=== PATIENT | female | born 1965 | race Caucasian/White ===

== ENCOUNTER → 2018-05-08 12:54 | Outpatient (REF) | payer MEDICARE, SELFPAY ==
[2018-05-08 22:18] LABS: HCT 38.6 % (36.0-46.0); HGB 12.8 g/dL (12.0-15.5); Mean Corp. HGB Concentration 33.2 g/dL (32.0-36.0); Mean Corpuscular Hemoglobin 32.4 pg (27.0-33.0); Mean Corpuscular Volume 97.7 fL (80-95); Mean Platelet Volume 10.3 fL (8.0-11.0); Platelet Count 384 x1000/uL (130-400); RBC 3.95 m/cumm (4.00-5.20); RBC Distribution Width 13.3 % (11.7-14.6); White Blood Cell Count 14.55 k/cumm (4.4-10.8)
[2018-05-08 22:31] LABS: ALT 26 U/L (12-78); AST 15 U/L (15-37); Albumin 3.9 g/dL (3.4-5.0); Alkaline Phosphatase 81 U/L (46-116); Anion Gap 8.6 mmol/L (3-11); BUN 11 mg/dL (7-18); Bilirubin, Total 0.4 mg/dL (0.2-1.0); CO2 26.4 mmol/L (21.0-32.0); CREATININE 0.84 mg/dL (0.55-1.02); Calcium 8.8 mg/dL (8.5-10.1); Chloride 105 mmol/L (98-107); Cholesterol 172 mg/dL (50-200); Glucose 83 mg/dL (70-100); HDL Cholesterol 38 mg/dL (40-60); LDL CHOLESTEROL 122 mg/dL (<100); Potassium 4.3 mmol/L (3.5-5.1); Sodium 140 mmol/L (136-145); TSH (W/Ref FT4) 0.78 uIU/mL (0.358-3.74); Total Protein 7.2 g/dL (6.4-8.2); Triglyceride 90 mg/dL (30-150)
[2018-05-08 22:49] LABS: NT-proBNP 143 pg/mL
== END ==
LOC: NCHCN 12:54
PROVIDERS: PCP Internal Medicine; Visit Provider Internal Medicine
DX: R60.9 Edema, unspecified (principal); E78.5 Hyperlipidemia, unspecified; R53.1 Weakness; G47.33 Obstructive sleep apnea (adult) (pediatric); M79.7 Fibromyalgia; Z72.0 Tobacco use
CPT/HCPCS: 80053; 80061; 83721; 85027; 83880; 84443

== ENCOUNTER 2018-06-27 09:10 | Outpatient (CLI) | payer MEDICARE, SELFPAY ==
--- NOTE | 2018-06-27 09:08 | DI.RAD_ITS ---
SYMPTOM/DIAGNOSIS: LT KNEE PAIN LEFT KNEE: There is narrowing of the medial joint compartment. A small area of ossification is noted adjacent to the medial tibial eminence. There is no evidence of a joint effusion. SUMMARY: Mild DJD is demonstrated.
== END 2018-06-27 09:30 ==
PROVIDERS: PCP Internal Medicine; Referring Provider Internal Medicine; Visit Provider Student in an Organized Health Care Education/Training Program
DX: M25.562 Pain in left knee (principal); M17.11 Unilateral primary osteoarthritis, right knee; M25.561 Pain in right knee; M17.12 Unilateral primary osteoarthritis, left knee
CPT/HCPCS: 20610; 99214; 73560; 77073; J1040

== ENCOUNTER 2018-07-09 00:56 | Outpatient (CLI) | payer MEDICARE, SELFPAY ==
--- NOTE | 2018-07-09 15:22 | DI.MAMMO_ITS ---
SYMPTOM/DIAGNOSIS: SCREENING, Z12.31 MAMMOGRAMS: Mammograms were interpreted according to the usual protocol including computer analysis with CAD system, tomosynthesis and C view imaging. Comparison with prior examinations. Breast density B. No masses or microcalcifications are seen. There is nothing to suggest malignancy. IMPRESSION: Negative mammogram. Routine screening is recommended. Category I. MQSA ASSESSMENT OF FINDINGS: Negative. Category 1. Patient will receive a letter notifying them of these results. BI-RADS category B. There are scattered areas of fibroglandular density.
== END 2018-07-09 01:16 ==
PROVIDERS: PCP Internal Medicine; Visit Provider Internal Medicine
DX: Z12.31 Encounter for screening mammogram for malignant neoplasm of breast (principal)
CPT/HCPCS: 77063; 77067

== ENCOUNTER 2018-07-16 08:48 | Outpatient (CLI) | payer MEDICARE, SELFPAY ==
--- NOTE | 2018-07-16 10:22 | HPE_ITS ---
Assessment and Plan (1) Primary osteoarthritis of right knee: Current visit: Yes Status: Acute Plan: Dr. Curtis and patient discuss best next step in treatment since patient also has severe left knee pain currently. After discussion, patient and Dr. Curtis agree to continue with scheduling right TKA. Patient's left knee complaints will continue to be assessed at visits. Patient is agreeable to plan. Reviewed surgery including surgical technique, pertinent anatomy, benefits and risks including but not limited to risk of infection, blood clot, damage to soft tissue/nerve/blood vessels with patient in detail. After discussion of risks patient elects to continue with scheduling surgery. Patient had opportunity to have questions answered to her satisfaction. Patient was provided booklet on guide to total knee replacements. Patient will contact office if issues arise. Patient has concerns about being put on a nicotine patch following surgery, she would prefer to use a nicotine puffer/ inhaler while at the hospital. Patient continue to be scheduled for right TKA with Dr. Curtis on 07/20/18. Ms. Sifuentes is a 52-year-old female who presents to clinic for preoperative visit for scheduled right TKA with Dr. Curtis. Patient has continued to have right knee pain located along the medial aspect of her joint line. Patient underwent a right knee arthroscopy on November 21, 2017 which revealed complex medial meniscal tear with grade 4 medial chondromalacia and chondral loose bodies. Patient also received injections in her right knee with the last injection in the right knee on January 29, 2018. Patient reports that despite knee arthroscopy and injection she has continued to have pain. Pain is aggravated by any weightbearing activity, bending motion and when she attempts to get out of a chair. Patient reports her pain is so severe she is unable to kneel on her knees and increase physical activity. Patient also reports that her left knee has become more aggravated over the past several months. Patient had her left knee injected on June 27, 2018 and states the injection provided some relief but she continues to experience pain with weightbearing activity. Patient also describes pain in the left knee as located along the medial aspect. Her left knee pain is also aggravated with any motion on stairs. Patient denies any sensation of giving out or locking up. Patient denies any numbness or tingling. Patient denies any recent falls. Pertinent Surgical Information Patient reports she had productive cough since she was diagnosed with sinusitis approximately 1 month ago. Patient saw PCP who treated her with an antibiotic. Patient reports she has continued to have productive cough with clear phlegm since she finished her antibiotic course. Patient does state she has a dry cough at baseline. Patient has concerns about being put on a nicotine patch following surgery, she would prefer to use a nicotine puffer/inhaler while at the hospital. Denies past medical history of: Hypertension, stroke, cardiac issues, angina, asthma, renal issues, liver issues, hepatitis, ulcers, bleeding disorders, seizures, migraines, anxiety, diabetes, autoimmune disorders, thyroid issues Denies prior complications from surgery or anesthesia. Review of Systems Constitutional Denies fever(s), Denies frequent falls and Denies headache(s) Eyes Denies change in vision ENT Denies headache(s) Cardiovascular Denies chest pain, Denies rapid heart rate, Denies irregular heart rhythm, Denies dyspnea, Reports dyspnea on exertion and Denies slow heart rate Respiratory Reports cough (Productive cough for the last month; reports dry cough at baseline; denies any recent change in cough symptoms), Denies dyspnea, Reports dyspnea on exertion and Denies wheezing Comments: Reports orthopnea; she has known diagnosis of sleep apnea and wears BiPAP at night Gastrointestinal Denies abdominal pain, Denies melena, Denies hematochezia, Denies constipation, Denies diarrhea, Denies nausea and Denies vomiting Genitourinary Denies hematuria, Denies dysuria and Denies urinary urgency Musculoskeletal Reports as per HPI, Denies numbness and Denies tingling Neurologic Denies frequent falls, Denies headache(s), Denies numbness and Denies tingling Allergic/Immunologic Denies wheezing PFSH Medical History Nasal lesion PTSD (post-traumatic stress disorder) Trochanteric bursitis of both hips Meralgia paraesthetica Sleep apnea Depression Dyspepsia Fibromyalgia Hyperlipidemia Urinary hesitancy Restless leg syndrome Tobacco abuse Plantar fasciitis Weakness Somatic dysfunction of sacral region Hx of hysterectomy COPD (chronic obstructive pulmonary disease) Perirectal abscess Obesity Primary osteoarthritis of right knee (Acute 12/04/17) Greater trochanteric bursitis of both hips (Acute 01/01/18) Complex tear of medial meniscus of right knee as current injury (Acute 11/06/17) Social History Smoking/Tobacco Use Status: Current every day Surgical History section (04/25/11) Cholecystectomy (04/25/11) Abdominal hysterectomy (04/25/11) Incision & Drainage, Abscess or Hematoma (05/03/17) Status post arthroscopy of right knee (Acute) Meds Home Medications Medication Instructions Recorded Confirmed Type clonazepam 0.5 mg PO HS 12/30/13 07/16/18 History fluticasone [Flonase] 1 spray IN PRN PRN 11/20/14 07/16/18 History fluoxetine 60 mg PO HS 12/31/14 07/16/18 History lidocaine-prilocaine [Emla] 30 gm TOPICAL Q4H PRN #3 tab-cap 05/06/15 07/16/18 History omeprazole 20 mg PO HS 04/27/17 07/16/18 History gabapentin 800 mg PO HS 07/16/18 07/16/18 History naproxen 1,000 mg PO BID 07/16/18 07/16/18 History sodium chloride [Saline Nasal] 1 spray INTRANASAL PRN PRN 07/16/18 07/16/18 History torsemide 10 mg PO DAILY PRN PRN 07/16/18 07/16/18 History Allergies Allergy/AdvReac Type Severity Reaction Status Date / Time Penicillins Allergy Intermediate Skin Rash Unverified 07/16/18 17:38 pravastatin AdvReac Intermediate leaky Unverified 07/16/18 17:38 stools Exam Const General: cooperative and no acute distress HENTN Head: normal to inspection, normocephalic and atraumatic General nose exam: external nose normal and no nasal discharge Face and sinus: face symmetric Resp Effort & Inspection: normal respiratory effort, able to speak in complete sentences and no cough Auscultation: clear to auscultation bilaterally, no rales, no rhonchi and no wheezes Cardio Heart Sounds: S1 normal, S2 normal, no gallops, no murmurs and no rubs Pulses: radial pulses present bilaterally Skin General skin exam: no rashes or lesions noted Extrem Other: Right knee examination: Tenderness to palpation along medial joint line, slight discomfort to palpation along the lateral joint line. Active range of motion is short of full extension by 5 degrees and yields flexion of 95 degrees with discomfort noted at end of range of motion. Knee is stable to valgus and varus stress, however tenderness along medial aspect is elicited with stress. Muscle strength was 5 out of 5, and did not elicit discomfort. Results Labs : 07/16/18 11:00 07/16/18 11:00
[2018-07-16 11:17] LABS: HCT 39.5 % (36.0-46.0); HGB 13.2 g/dL (12.0-15.5); Mean Corp. HGB Concentration 33.4 g/dL (32.0-36.0); Mean Corpuscular Hemoglobin 31.9 pg (27.0-33.0); Mean Corpuscular Volume 95.4 fL (80-95); Mean Platelet Volume 9.6 fL (8.0-11.0); Platelet Count 368 x1000/uL (130-400); RBC 4.14 m/cumm (4.00-5.20); RBC Distribution Width 13.6 % (11.7-14.6); White Blood Cell Count 9.52 k/cumm (4.4-10.8)
[2018-07-16 14:40] LABS: Anion Gap 10.8 mmol/L (3-11); BUN 14 mg/dL (7-18); CO2 27.2 mmol/L (21.0-32.0); CREATININE 0.64 mg/dL (0.55-1.02); Calcium 9.3 mg/dL (8.5-10.1); Chloride 102 mmol/L (98-107); Glucose 97 mg/dL (70-100); Potassium 4.3 mmol/L (3.5-5.1); Sodium 140 mmol/L (136-145)
== END 2018-07-16 09:08 ==
PROVIDERS: PCP Internal Medicine; Visit Provider Student in an Organized Health Care Education/Training Program
DX: M25.561 Pain in right knee (principal); M17.11 Unilateral primary osteoarthritis, right knee; Z01.818 Encounter for other preprocedural examination; J44.9 Chronic obstructive pulmonary disease, unspecified; F17.210 Nicotine dependence, cigarettes, uncomplicated
CPT/HCPCS: 36415; 80048; 85027; NC

== ENCOUNTER 2018-07-20 07:09 | Inpatient (IN) | payer MEDICARE, SELFPAY ==
[2018-07-20] VITALS (20 sets, daily range): BP systolic 91–131; BP diastolic 51–75; PULSE 55–62; RESP 10–20; TEMP 35.2–36.5; O2SAT 94–99
[2018-07-20] MEDS: Acetaminophen 500 MG TAB 1000 MG PO ×3 (06:25→20:05)
[2018-07-20] MEDS: Celecoxib 200 MG CAP 400 MG PO (06:25)
[2018-07-20] MEDS: oxyCODONE-CR 10 MG TABCR PO (06:26)
[2018-07-20] MEDS: Gabapentin 300 MG CAP PO (06:26)
[2018-07-20] MEDS: Lactated Ringers 1,000 ML 80 ML IV (06:53)
[2018-07-20] MEDS: Bupivacaine LIPOSOME/PF 133 MG/10 ML VIAL IJ ×2 (07:20→08:58)
--- NOTE | 2018-07-20 08:34 | HOME_ITS ---
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
[2018-07-20] MEDS: Normal Saline 50 ML (08:58)
[2018-07-20] MEDS: Ketorolac 30 MG/ML VIAL (08:58)
[2018-07-20] MEDS: Bupivacaine 0.25% Pres-Free 30 ML VIAL (08:58)
--- NOTE | 2018-07-20 10:32 | ROE_ITS ---
Date of service: 07/20/18 Time of Service: 10:29 Operative Note DATE OF PROCEDURE: 07/20/18 PRE-OP DIAGNOSIS: Right knee osteoarthritis POST-OP DIAGNOSIS: same PROCEDURE: Right Total Knee Replacement SURGEON: Armin Curtis POST COMMANDER: Evangelina Phelps ANESTHESIA: regional and spinal ESTIMATED BLOOD LOSS: 200 PATHOLOGY: none sent TOURNIQUET TIME: 37 COMPLICATIONS: None Patient was transported to: PACU Patient's condition: stable Implants: 1. Depuy Attune Posterior Stabilized Femoral Component, Size 5 narrow 2. Depuy Attune Fixed Platform Tibial Component, Size 4 3. Depuy Attune 5 x 7 mm fixed, Stabilized Poly 4. Depuy Attune Patellar Component, Size 32 mm Indications: I have seen Dea in clinic for symptoms of RIGHT knee arthritis, confirmed with radiographic findings. Dea has exhausted nonoperative methods and was having significant limitations in daily function and desired better function and less pain. I discussed the technical details of a knee replacement. I explained the risks of the procedure to include, but not limited to, bleeding, infection, pain, stiffness, fracture, damage to nerves and vessels, damage to muscles and tendons, loosening, need for repeat procedure , blood clot and cardiopulmonary demise. Despite these risks, Dea elected to proceed. Findings: There was significant signs of arthritis throughout the knee. Procedure Description: Dea was greeted in the preoperative holding area where the correct side was identified and marked. The consent was reviewed with the patient and signed. The history and physical was updated. All questions were answered. Preoperative mediacations were administered: Acetaminophen 1000mg, Celebrex 400mg, Gabapentin 300mg, and Oxycontin 10mg. An adductor canal block was then administered by the anesthesia team in the PACU. Dea was taken back to the operating room. A spinal anesthestic was then administered. The patient was placed into the supine position on the operating room table. A nonsterile tourniquet was placed high onto the leg but only used for cementing. Posts were placed for positioning during the procedure. All bony prominences were well padded. Prophylactic antibiotics in the form of cefazolin were administered. 1g of Tranxemic Acid was given intravenously within 30 minutes of incision. The right leg was then prepped with Chloraprep and draped in a standard fashion with impervious stockinette and extremity drape with Iodine impregnated skin protection. A timeout to confirm correct identity, side and site, procedure, allergies, anesthesia, and medical concerns was performed. With the knee in some flexion, a midline incision was made overlying the knee. Full thickness skin flaps were raised once the extensor mechanism was encountered. These were raised medially and laterally. Any bleeding was controlled with electrocautery. Once the extensor mechanism was fully exposed, a medial parapatellar arthrotomy was performed in a flexed position. All bleeding from the arthrotomy and the geniculate arteries was coagulated. A medial subperiosteal peel was performed with electrocautery to the midcoronal plane. The fat pad was removed while keeping the patellar tendon protected. The anterior distal femur synovium was removed for later visualization. The ACL and PCL were resected and the anterior horn of the lateral meniscus was transected. The knee was then flexed with the patella everted. The patella definitely seem to be in a Baha position. It was contracted to the lateral soft tissues including branches from the iliotibial band and the overlying lateral soft tissues. This was released to free of the patella. However, it still did not want to avani. A limited lateral release was performed and resection of some of the soft tissues around the lateral edge of the patella. Using a step drill, and based on preoperative templating, the femoral canal was entered. This was done with a step drill without any difficulty. The intramedullary distal femoral cut guide was inserted, set to a 5 degree valgus cut and 9mm cut thickness. The distal femoral cut guide was then held in position and pinned. With the soft tissues protected, the distal cut was performed. This was passed over a few times to ensure a planar cut. I then turned attention to the tibia. The extramedullary guide was placed onto the leg. The distal aspect was slid medial to adjust for position of center of ankle and stay in line with shaft of the tibia. Approximately 3-5 degrees of posterior slope was kept in the proximal cutting guide. The center of the guide was aligned with the PCL. The stylus was used to assess cut thickness. The medial side, most involved side, was set for a 4mm cut. This was then held in position and pinned into place with 2 additional pins and a cross pin for stability. The medial and lateral collateral ligaments were protected and the cut was performed. With this completed, it was assessed and noted to be of appropriate dimensions. The guide was removed. A spacer block was inserted and the knee was brought into extension. The 7 mm spacer block provided full extension, without hyperextension and with stability of both the medial and lateral collateral ligaments was assessed. The pins from the femur and the tibia were then removed. The distal femur was then sized. The anterior stylus was placed onto the lateral ridge of the anterior femur. This indicated a size 5 narrow femur. The external rotation of the guide was adjusted to 3 degrees to match the epicondylar axis, perpendicular to Williamson?s line. The 4-in-1 cutting guide was the placed. The posterior medial femur cut was evaluated and appeared of good thickness. The spacer block was inserted underneath the cutting guide and stability was confirmed in 90 degrees of flexion. An shayla wing was used to confirm appropriate position of the anterior cut to avoid notching. This cutting guide was ensured to be flush on the cut surface and then pinned into place with headed pins. While protecting the soft tissues, quad tendon, and collateral ligaments, the anterior and posterior cuts were performed with a saw. The central two pins were removed and the posterior and anterior chamfers were cut next. The notch-cutting guide was placed. This was pinned to lateralize the femoral component as much as possible while keeping it flush on the cut surface. This was then pinned into position. A reciprocating saw was used to make the notch cut. A rasp smoothed the cut surfaces. A trial posterior stabilized femoral component was then inserted, impacted down to the cut surfaces, and the lug holes were drilled. A provisional trial tibial component was placed and the knee was brought through range of motion. There was noted to be excellent extension and flexion. There was no significant instability. The patella was able to be mobilized over to the medial edge of the trochlea. However, it did not track without thumbs but with minimal pressure over the lateral border of the patella. The tibial cut surface was fully exposed. The medial and lateral menisci were removed. The tibia was then sized as a 4. The tibia had been previously marked during trialing to correspond to the center of the tibial component to help with rotation. The trial was aligned to this wanda, approximately rotated to the medial 1/3rd of the tibial tubercle. The trial was pinned into place. The tibia was prepared with a reamer and a keel punch. The knee was then brought into extension and the patella was measured at 22 mm. Using the patellar clamp and cut guide, this was resected to a flat surface with at least 13mm of thickness remaining. The size 32 mm patella fit the best. This was oriented and then clamped into position. The lugs were drilled. The trial components were removed. The final components, except for the polyethylene were opened on the back table. The periosteal and capsular tissues , especially posteriorly, around the knee were then systematically injected with a periarticular cocktail consisting of 50cc 0.25% Marcaine, 30mg Ketorolac , 20cc of Exparal and 50cc of injectable saline. The tourniquet was then inflated to 275mmHg. The knee was thoroughly irrigated with a pulse lavage and dried. On the back table, with the implants opened, the cement was mixed. 2 batches of antibiotic laden cement were prepared with vacuum assistance. After the cement was ready a small amount was placed on to the back side of the tibial component at the keel. A small amount was placed onto the posterior flange of the femur. Cement was manual pressurized and impregnated into the cut surface of the tibia. The tibial component was then inserted into the cut surface and impacted into position. Excess cement was removed and the component was reimpacted. Again, excess cement was removed and our attention was then turned to the femur. The femoral cut surface was once again dried and cement was manually impacted into the cut surface. The femoral component was lined with the lug holes and impacted. Excess cement was removed. It was ensured to be down against the cut surface. The trial polyethylene was then inserted and the leg was brought out into full extension for the duration of the cement curing process, approximately 15min. Cement was lastly manually impacted into the cut surface of the patella and the patellar button was clamped into position and held. During this process attention was turned to the gutters of the knee and for all interfaces for any excess cement. After the cement had finally cured, approximately 15min, the clamp was removed from the patella and the knee was taken through range of motion. A size 7 mm polyethylene component provided the best range of motion and stability with less than 2mm gapping with medial and lateral stress and full extension without significant hyperextension. The patella was tracking with a no-thumbs technique. The trial poly was removed and once again the knee was checked for any loose, excess, or errant cement. The poly component was then inserted and impacted into position after cleaning and drying the tibial tray. The capsule was then reapproximated with a No. 1 Vicryl at multiple locations. The capsule was finally closed with a No. 2 Stratafix, barbed suture. The tourniquet was then released and the arthrotomy appeared watertight without significant bleeding. The second dosing of 1g TXA was started. Deep tissues were then reapproximated with 0 Vicryl and 2-0 Vicryl. The skin was closed with a running 3-0 Monocryl in a subcuticular fashion. This was reinforced with skin glue. A Mepilex silver dressing was applied along with a foot-to- thigh DAVID wrap. A CryoCuff was applied. Dea was transferred to the hospital bed without difficulty an suffering no apparent complication. Dea has a good prognosis. Physical therapy will start today and without restrictions, weight-bearing as tolerated. Aspirin 81mg BID will be used for DVT prophylaxis.
--- NOTE | 2018-07-20 15:04 | PT.INNT ---
Date of service: 07/20/18 Time of Service: 15:04 PT Notes PHYSICAL THERAPY NOTE 07/20/18 PT Consult received, chart reviewed, attempted to see patient for eval, pt in room with lights off sleeping with BiPAP on. Will complete PT eval in am Leena Smallwood PT
--- NOTE | 2018-07-20 15:18 | NUR.NOTE ---
Nursing Note: 1111: pt arrives from pacu to room 212 via stretcher. pt moved via hover mat from stretcher to bed. pt has patent IV line in LAC, patent landa draining clear yellow urine. pt has cryo cuff in place. pt RLE on pillow at ankle, pt vs stable. pt has old bloody drainage at spinal site; not currently draining. HR reg, LS clear, +cmst. see vs for interventions
[2018-07-20] MEDS: Ketorolac 15 MG/ML VIAL IVP ×2 (16:00→21:35)
[2018-07-20] MEDS: Aspirin E.C. 81 MG TABEC PO (20:05)
[2018-07-20] MEDS: Normal Saline Flush 10 ML SYR IV ×2 (20:05→21:31)
[2018-07-20] MEDS: Gabapentin 800 MG TAB PO (21:34)
[2018-07-20] MEDS: Omeprazole 20 MG CAPCR PO (21:35)
[2018-07-20] MEDS: clonazePAM 0.5 MG TAB PO (21:35)
[2018-07-21 00:30] VITALS: BP 95/50; PULSE 72; RESP 17; TEMP 36.9; O2SAT 95
[2018-07-21] MEDS: Lactated Ringers 1,000 ML 80 ML IV (01:15)
[2018-07-21] MEDS: HYDROmorphone 2 MG/ML VIAL 0.5 MG IVP (01:55)
[2018-07-21 03:05] VITALS: BP 91/59; PULSE 66; RESP 18; TEMP 36.6; O2SAT 97
[2018-07-21] MEDS: Ketorolac 15 MG/ML VIAL IVP ×2 (03:55→10:57)
[2018-07-21] MEDS: Acetaminophen 500 MG TAB 1000 MG PO (06:53)
[2018-07-21] MEDS: Aspirin E.C. 81 MG TABEC PO (06:53)
[2018-07-21 07:35] VITALS: BP 136/77; PULSE 62; RESP 18; TEMP 36.1; O2SAT 99
--- NOTE | 2018-07-21 08:37 | PHARADMIT ---
Admission Pharmacy Clinical Review Right Total Knee Code Status Full Code Current Weight Wgt-116.1 kg Renally Cleared and Narrow Therapeutic Index Meds CrCl~ 69.4 mL/min Meds-OK QTc Value / Action Taken NA BP Control, Fever BP- 91/59 Tmax- 36.6C Electrolytes reviewed na DVT Prophylaxis ASA Opiate Usage / Scheduled Bowel Regimen Ordered Yes Yes Plt/SCr for Heparin / Enoxaparin na INR for Warfarin na H/H stable, WBC/Bands na Antibiotic appropriateness Ancef Cultures and Sensitivities na Surgical ABX d/c within 24 hr yEs DM control / Insulin Dosing na Heart Failure (Check EF%) (DAVID's, B-Block, Diuretics) none IV to PO Switch No Home Meds Reviewed Yes Home Meds Not Ordered Torsemide, Naproxen, Flonase Comments
--- NOTE | 2018-07-21 09:17 | PT.INIE ---
Date of service: 07/21/18 Time of Service: 08:30 PT Notes Inpatient Physical Therapy Evaluation Date: July 21, 2018 Referring Doctor: Dr. Curtis PT Orders: PT CONSULT: s/p R TKA Patient Profile/Admitting Diagnosis: Dea is a 52 year old female referred for PT consult s/p Right TKA performed by Dr. Curtis on 07/20/18. PMHX: PTSD, trochanteric bursitis bilateral hips, meralgia parasethetica, sleep apnea, depression, fibromyalgia, hyperlipidemia, urinary hesitancy, restless leg syndrome, tobacco abuse Social History/Home Situation: She lives at home with her partner and brother in law. She reports she is disabled. She has a ramp to enter her home. She has 1 step once inside from the dining room to living room otherwise is all on one level. Current Functional Limitations: Limited functional endurance Equipment Owned/DME: walker, ramp, cane, built in shower, ADA toilet, grab bars, lift chair Subjective: Patient was up sitting in bed side chair with nursing in room. She was alert and agreeable to evaluation and ready to what she has to, to go home. Objective: General Observation: Sorensen compression wrap right LE Mental Status: Alert and oriented x3. Pain: Noted stiffness vs pain. 2-3/10 on VAS Vital Signs: BP 136/72 mmHg; HR 62 bpm; O2 sat 99% on room air ROM: Right Upper Extremity: AROM WNL's Left Upper Extremity: AROM WNL's Right Lower Extremity: Demonstrates 90 degrees of knee flexion, lacking 10 degrees of extension with Sorensen compression wrap on. Demonstrates WFL hip and ankle ROM. Left Lower Extremity: AROM WNL's Strength: Right Upper Extremity: 5/5 throughout Left Upper Extremity: 5/5 throughout Right Lower Extremity: Independent SLR without extension lag. Left Lower Extremity: 5/5 throughout Bed Mobility/Transfers: Sit-supine: HOB flat S Sit-stand: S with FWW Stand-sit: S Chair-bed: S with FWW Gait: FWW, WBAT right LE, 150 feet, noted increased stiffness and generalized fatigue. Balance: Static Sitting: Normal Dynamic Sitting: Normal Static Standing: Good Dynamic Standing: Fair Special Tests: Mobility Limitations Standardized Measure [facility] 6 clicks Basic Mobility Inpatient Short Form: Raw Score: 21 Standardized Score: 50.25 CMS Score: 28.97% [facility] Modifier: CJ Informed Consent/Education: Patient instructed in purpose of PT consult and plan of care. Assessment: Patient is a 52 year old female referred to physical therapy services with the diagnosis of s/p right TKA. Patient presents with clinical signs and symptoms consistent with diagnosis, as demonstrated by the following impairment level findings: impaired joint mobility, motor function, muscle performance with localized inflammation. Impairments are contributing to the following functional limitations: AMPAC score 28.97%, decreased functional endurance, prolonged ambulation Patient is assessed as a Low [id number] complexity based on the following: History: See above Examination: See above Presentation: Stable Decision Making: AMPAC score: 28.97% Goals: Goals X1 week 1. Supine-Sit I 2. Sit-Supine I 3. Sit-Stand I, FWW 4. Stand-Sit I 5. Bed-Chair I, FWW 6. Chair-Bed I, FWW 7. Gait FWW, S, 300ft or greater 8. Stairs up/down 3 steps with use of railing, S 9. Independent with home exercise program Plan of Care/Treatment Plan: 1-2x/day, 7 days/week x 1 week. Plan of care has been reviewed with the STRIP POLISHER providing the service under Physical Therapy direction. Initiate Physical Therapy intervention for strengthening, bed mobility, transfers, gait, stairs, balance training, use of assistive device. DISCHARGE RECOMMENDATIONS: Home with care of family TREATMENT CODE/TIME: IE, 8:30am, 25 minutes G Codes in the area mobility of walking and moving around: current status [id number] ; projected status GP [id number]. Discharge status (if discharging) GP [id number] CJ.
--- NOTE | 2018-07-21 09:31 | IN_ITS ---
Date of service: 07/21/18 Time of Service: 08:30 PT Notes Inpatient Physical Therapy Evaluation Date: July 21, 2018 Referring Doctor: Dr. Curtis PT Orders: PT CONSULT: s/p R TKA Patient Profile/Admitting Diagnosis: Dea is a 52 year old female referred for PT consult s/p Right TKA performed by Dr. Curtis on 07/20/18. PMHX: PTSD, trochanteric bursitis bilateral hips, meralgia parasethetica, sleep apnea, depression, fibromyalgia, hyperlipidemia, urinary hesitancy, restless leg syndrome, tobacco abuse Social History/Home Situation: She lives at home with her partner and brother in law. She reports she is disabled. She has a ramp to enter her home. She has 1 step once inside from the dining room to living room otherwise is all on one level. Current Functional Limitations: Limited functional endurance Equipment Owned/DME: walker, ramp, cane, built in shower, ADA toilet, grab bars , lift chair Subjective: Patient was up sitting in bed side chair with nursing in room. She was alert and agreeable to evaluation and ready to what she has to, to go home. Objective: General Observation: Sorensen compression wrap right LE Mental Status: Alert and oriented x3. Pain: Noted stiffness vs pain. 2-3/10 on VAS Vital Signs: BP 136/72 mmHg; HR 62 bpm; O2 sat 99% on room air ROM: Right Upper Extremity: AROM WNL's Left Upper Extremity: AROM WNL's Right Lower Extremity: Demonstrates 90 degrees of knee flexion, lacking 10 degrees of extension with Sorensen compression wrap on. Demonstrates WFL hip and ankle ROM. Left Lower Extremity: AROM WNL's Strength: Right Upper Extremity: 5/5 throughout Left Upper Extremity: 5/5 throughout Right Lower Extremity: Independent SLR without extension lag. Left Lower Extremity: 5/5 throughout Bed Mobility/Transfers: Sit-supine: HOB flat S Sit-stand: S with FWW Stand-sit: S Chair-bed: S with FWW Gait: FWW, WBAT right LE, 150 feet, noted increased stiffness and generalized fatigue. Balance: Static Sitting: Normal Dynamic Sitting: Normal Static Standing: Good Dynamic Standing: Fair Special Tests: Mobility Limitations Standardized Measure [facility] 6 clicks Basic Mobility Inpatient Short Form: Raw Score: 21 Standardized Score: 50.25 CMS Score: 28.97% [facility] Modifier: CJ Informed Consent/Education: Patient instructed in purpose of PT consult and plan of care. Assessment: Patient is a 52 year old female referred to physical therapy services with the diagnosis of s/p right TKA. Patient presents with clinical signs and symptoms consistent with diagnosis, as demonstrated by the following impairment level findings: impaired joint mobility, motor function, muscle performance with localized inflammation. Impairments are contributing to the following functional limitations: AMPAC score 28.97%, decreased functional endurance, prolonged ambulation Patient is assessed as a Low [id number] complexity based on the following: History: See above Examination: See above Presentation: Stable Decision Making: AMPAC score: 28.97% Goals: Goals X1 week 1. Supine-Sit I 2. Sit-Supine I 3. Sit-Stand I, FWW 4. Stand-Sit I 5. Bed-Chair I, FWW 6. Chair-Bed I, FWW 7. Gait FWW, S, 300ft or greater 8. Stairs up/down 3 steps with use of railing, S 9. Independent with home exercise program Plan of Care/Treatment Plan: 1-2x/day, 7 days/week x 1 week. Plan of care has been reviewed with the OPERATIONS BUSINESS PARTNER providing the service under Physical Therapy direction. Initiate Physical Therapy intervention for strengthening, bed mobility, transfers, gait, stairs, balance training, use of assistive device. DISCHARGE RECOMMENDATIONS: Home with care of family TREATMENT CODE/TIME: IE, 8:30am, 25 minutes G Codes in the area mobility of walking and moving around: current status [id number] ; projected status GP [id number]. Discharge status (if discharging) GP [id number] CJ.
--- NOTE | 2018-07-21 10:21 | DSE_ITS ---
Date of service: 07/21/18 Time of Service: 10:20 DS: Diagnosis Discharge Diagnosis (1) Primary osteoarthritis of right knee: Status: Acute Discharge Plan Disposition Patient Disposition: HOME Condition: Good Discharge Details Reason For Visit: s/p R TKA Admit Date/Time: 07/20/18 07:09 Admit Provider: Armin Curtis Attending Provider: Armin Curtis Primary Care Provider: Harshil Krueger Hospital Course Hospital Course: Patient was admitted to the medical/surgical floor following the procedure. It was tolerated well without any notable medical, surgical, or anesthetic complications. Mobilization began postoperatively. The landa catheter was removed and voiding spontaneously. Vitals were stable. Physical therapy worked with the patient and was cleared for discharge home. No acute medical issues. Home Meds and New Rx's Prescriptions: New polyethylene glycol 3350 17 gram Powder In Packet 17 g PO BID PRN PRN (Reason: Constipation) Qty: 0 RF: 0 docusate sodium [Colace] 100 mg Capsule 100 mg PO BID PRN PRN (Reason: Constipation) Qty: 0 RF: 0 acetaminophen 500 mg capsule 1,000 mg PO Q8H PRN (Reason: pain) Qty: 90 RF: 0 oxycodone 5 mg tablet 5 - 10 mg PO Q4H Qty: 18 RF: 0 aspirin 81 mg tablet,delayed release (DR/EC) 81 mg PO BID Qty: 80 RF: 0 Continue clonazepam 1 MG tablet 0.5 mg PO HS RF: 0 fluticasone [Flonase] 16 GM spray,suspension 1 spray IN PRN PRNRF: 0 fluoxetine 40 MG capsule 60 mg PO HS RF: 0 gabapentin 800 mg Tablet 800 mg PO HS RF: 0 sodium chloride [Saline Nasal] 0.65 % Aerosol,[place] 1 spray INTRANASAL PRN PRNRF: 0 torsemide 10 mg Tablet 10 mg PO DAILY PRN PRNRF: 0 naproxen 500 mg Tablet 1,000 mg PO BID Qty: 120 RF: 0 omeprazole 20 MG capsule,delayed release(DR/EC) 20 mg PO HS RF: 0 Discontinued lidocaine-prilocaine [Emla] 30 GM cream 30 gm Topical Q4H PRN Qty: 3 RF: 3 Discharge Instructions Instructions: Total Knee Discharge Instructions Additional Instructions: Dr. Curtis?s Total Knee Discharge Instructions Activity: The most important activity is to walk. You should try to take short walks a few times a day. It is important that when resting you work on keeping the knee straight. Avoid putting a pillow behind the knee as this will encourage flexion. Work on range of motion exercises as provided by Physical Therapy. - Start outpatient physical therapy within 2 weeks. - You should wear the MADELINE hose on both legs for 4 weeks. Dressing: Keep the surgical dressing in place for at least one week. After the first week it may be removed and replace with light gauze and tape or nothing. It may get wet after 3 days but avoid soaking the dressing. If it gets wet, just lightly pat dry. Medications: - You should take Tylenol and anti-inflammatory (Naproxen) as your primary pain control medications - You have been prescribed a stronger pain medication (Oxycodone) for breakthrough pain, take as needed as prescribed. - You will be taking Aspirin 81mg twice a day for DVT prevention unless instructed otherwise. - If you have constipation you should take Colace or Miralax (both over-the- counter). It takes most people 3-4 days to have a bowel movement. Follow-up: 2 weeks Stand Alone Forms: Nursing Discharge Form Referrals: Armin Curtis MD [ [facility] STAFF PHYSICIAN] - Activity:: Activity as Tolerated Equipment/Supplies:: Walker Diet:: As Tolerated Discharge Orders Discharge Orders: Discharge Order (Routine); Ordered 07/21/18 Ordered By: Armin Curtis DS: Data Vitals/I&O Vitals and I&O: Vital Signs Temperature 36.1 C L 07/21/18 07:35 Temperature Source Tympanic 07/21/18 07:35 Pulse 62 07/21/18 07:35 Pulse Rhythm Regular 07/21/18 00:00 Respiratory Rate 18 07/21/18 07:35 Respiratory Effort Non-Labored 07/21/18 00:00 Respiratory Depth Normal 07/21/18 00:00 Respiratory Pattern Normal 07/21/18 00:00 Blood Pressure 136/77 07/21/18 07:35 Pulse Oximetry 99 07/21/18 07:35 Respiratory End-tidal CO2 40 07/20/18 11:03 Oxygen Delivery Method Room Air 07/21/18 07:35 Oxygen Flow Rate 0 07/21/18 07:35 Pain Level 0 07/21/18 07:35 Comment 07/21/18 03:05 Intake & Output 07/20/18 07/20/18 07/21/18 11:59 23:59 11:59 Intake Total 610 / 610 1260 / 1260 1268 / 1268 Output Total 200 / 200 700 / 700 1750 / 1750 Balance 410 / 410 560 / 560 -482 / -482 Weight 116.1 kg Intake: IV 610 / 610 600 / 600 578 / 578 Oral 660 / 660 690 / 690 Output: Urine 700 / 700 1750 / 1750 Estimated Blood Loss 200 / 200 Other: Urine Color Yellow Yellow Yellow Brown Urine Appearance Clear Clear Urine Odor None Emesis Description None
[2018-07-21] MEDS: Normal Saline Flush 10 ML SYR IV (10:57)
--- NOTE | 2018-07-21 16:10 | CMDISCH_ITS ---
LACE Index Scoring Tool - Questions: Length of Stay (in days): 1 Acuity (Admit via E.D.?): No E.D. Visits: 0 - Answers: Total Score: 1 Risk of Readmission: Low Risk Care Management Discharge Reason for Hospitalization: TKA Discharge Plan: Home and no services needed. Current equipment includes: walker , ramp, cane, built in shower, ADA toilet, grab bars, lift chair. Partner will transport by private vehicle when medically cleared for discharge.
--- NOTE | 2018-07-23 08:47 | PT.INDS ---
Date of service: 07/23/18 Time of Service: 08:47 PT Notes Inpatient Physical Therapy Discharge Summary Date: 07/23/18 for 07/21/18 discharge Dates of Service: 07/21/18 SUBJECTIVE: NT OBJECTIVE: SEE PT EVDerrick 07/21/18 for functional mobility ASSESSMENT: Pt was seen for PT Misha only then discharged to home setting. GOALS Goals X1 week 1. Supine-Sit I 2. Sit-Supine I 3. Sit-Stand I, FWW 4. Stand-Sit I 5. Bed-Chair I, FWW 6. Chair-Bed I, FWW 7. Gait FWW, S, 300ft or greater 8. Stairs up/down 3 steps with use of railing, S 9. Independent with home exercise program Pt did not meet therapy goals prior to discharge DISCHARGE RECOMMENDATIONS: Home with family G Codes in the area mobility of walking and moving around: current status [id number] projected status GP [id number]. Discharge status (if discharging) GP [id number] CJ. Leena Smallwood PT
--- NOTE | 2018-07-23 08:50 | INDS_ITS ---
Date of service: 07/23/18 Time of Service: 08:47 PT Notes Inpatient Physical Therapy Discharge Summary Date: 07/23/18 for 07/21/18 discharge Dates of Service: 07/21/18 SUBJECTIVE: NT OBJECTIVE: SEE PT EVDerrick 07/21/18 for functional mobility ASSESSMENT: Pt was seen for PT Misha only then discharged to home setting. GOALS Goals X1 week 1. Supine-Sit I 2. Sit-Supine I 3. Sit-Stand I, FWW 4. Stand-Sit I 5. Bed-Chair I, FWW 6. Chair-Bed I, FWW 7. Gait FWW, S, 300ft or greater 8. Stairs up/down 3 steps with use of railing, S 9. Independent with home exercise program Pt did not meet therapy goals prior to discharge DISCHARGE RECOMMENDATIONS: Home with family G Codes in the area mobility of walking and moving around: current status [id number] projected status GP [id number]. Discharge status (if discharging) GP [id number] CJ. Leena Smallwood PT
== END 2018-07-21 11:25 | disposition home or self-care (01) | DRG 470 ==
LOC: MS 18:36 → PDS 18:36
PROVIDERS: Admitting Provider Student in an Organized Health Care Education/Training Program; PCP Internal Medicine; Visit Provider Student in an Organized Health Care Education/Training Program
PROC: 0SRC0J9 Replacement of Right Knee Joint with Synthetic Substitute, Cemented, Open Approach (ICD-10-PCS; CPT 27447; principal; 2018-07-20 07:30)
DX: M17.11 Unilateral primary osteoarthritis, right knee (principal); Z96.651 Presence of right artificial knee joint; F17.210 Nicotine dependence, cigarettes, uncomplicated; G89.18 Other acute postprocedural pain
CPT/HCPCS: 27447; 76942; 97161; NC; J0690; J1885; J2250

== ENCOUNTER 2018-07-22 01:32 | Emergency (ER) | payer MEDICARE, SELFPAY ==
[2018-07-22 01:38] VITALS: BP 157/70; PULSE 75; RESP 16; TEMP 36.6; O2SAT 99
--- NOTE | 2018-07-22 01:46 | W.ED.GENAD ---
Discharge Plan Disposition Patient Disposition: HOME Condition: Improving Discharge Details Chief Complaint: Orthopedic Clinical Impression: Postoperative bleeding from incision Primary Care Provider: Harshil Krueger ED Provider: Miguel Angel Guevara Home Meds and New Rx's Prescriptions: Continue clonazepam 1 MG tablet 0.5 mg PO HS RF: 0 fluticasone [Flonase] 16 GM spray,suspension 1 spray IN PRN PRNRF: 0 fluoxetine 40 MG capsule 60 mg PO HS RF: 0 gabapentin 800 mg Tablet 800 mg PO HS RF: 0 sodium chloride [Saline Nasal] 0.65 % Aerosol,[place] 1 spray INTRANASAL PRN PRNRF: 0 torsemide 10 mg Tablet 10 mg PO DAILY PRN PRNRF: 0 polyethylene glycol 3350 17 gram Powder In Packet 17 g PO BID PRN PRN (Reason: Constipation) Qty: 0 RF: 0 docusate sodium [Colace] 100 mg Capsule 100 mg PO BID PRN PRN (Reason: Constipation) Qty: 0 RF: 0 acetaminophen 500 mg capsule 1,000 mg PO Q8H PRN (Reason: pain) Qty: 90 RF: 0 oxycodone 5 mg tablet 5 - 10 mg PO Q4H Qty: 18 RF: 0 aspirin 81 mg tablet,delayed release (DR/EC) 81 mg PO BID Qty: 80 RF: 0 naproxen 500 mg Tablet 1,000 mg PO BID Qty: 120 RF: 0 omeprazole 20 MG capsule,delayed release(DR/EC) 20 mg PO HS RF: 0 Discharge Instructions Additional Instructions: We will place your name on the orthopedic clinic follow-up list to inform them of your visit to the ER tonight. You may have slight spotting of blood from your incision into the bandage, but return to ER if you have profuse bleeding. Continue your routine postoperative care and medications. Medical Decision Making 52-year-old female who underwent successful right total knee arthroplasty with discharge from the hospital yesterday. She presents with a blood soaked surgical bandage and concern for wound dehiscence. She is afebrile and well-appearing. I took down the surgical dressing which does not reveal evidence of dehiscence. Unable to range the joint. There is no significant erythema. Observed without evidence of further bleeding. Do not appreciate signs of cellulitis or joint infection. Dressing replaced with Mepilex border. Patient stable for discharge to home. She will follow-up with Dr. Curtis in clinic. HPI General Mode of arrival: ambulatory. Date/Time Provider Initiated Documentation: 07/22/18 01:39. Limitations to Documentation: no limitations. Information obtained by: patient. History of Present Illness 52 year old F presents to the emergency department with the chief complaint of Postoperative bleeding right knee, described as moderate, and is localized to the right and lower extremity. Patient started experiencing this minute(s) and it has been now resolved. No relieving factors improve symptom(s), No exacerbating factors reported . Patient notes no other symptoms.; denies fever/chills and nausea/vomiting. HPI Narrative: 52-year-old female was discharged from the hospital yesterday following right total knee arthroplasty. She noticed blood soaking through her bandage this evening and was concerned for dehiscence of the wound. She is been eating and drinking, passing gas, has not noted any fever. The bleeding ceased by the time of arrival to the ER . Related Data Home Medications Medication Instructions Recorded Confirmed clonazepam 0.5 mg PO HS 12/30/13 07/22/18 fluticasone [Flonase] 1 spray IN PRN PRN 11/20/14 07/22/18 fluoxetine 60 mg PO HS 12/31/14 07/22/18 omeprazole 20 mg PO HS 04/27/17 07/22/18 gabapentin 800 mg PO HS 07/16/18 07/22/18 sodium chloride [Saline Nasal] 1 spray INTRANASAL PRN PRN 07/16/18 07/22/18 torsemide 10 mg PO DAILY PRN PRN 07/16/18 07/22/18 acetaminophen 1,000 mg PO Q8H PRN #90 cap 07/21/18 07/22/18 aspirin 81 mg PO BID #80 tab 07/21/18 07/22/18 docusate sodium [Colace] 100 mg PO BID PRN PRN #0 cap 07/21/18 07/22/18 naproxen 1,000 mg PO BID #120 tab 07/21/18 07/22/18 oxycodone 5 - 10 mg PO Q4H #18 tab 07/21/18 07/22/18 polyethylene glycol 3350 17 g PO BID PRN PRN #0 ea 07/21/18 07/22/18 Previous Rx's Medication Instructions Recorded acetaminophen 1,000 mg PO Q8H PRN #90 cap 07/21/18 aspirin 81 mg PO BID #80 tab 07/21/18 docusate sodium [Colace] 100 mg PO BID PRN PRN #0 cap 07/21/18 naproxen 1,000 mg PO BID #120 tab 07/21/18 oxycodone 5 - 10 mg PO Q4H #18 tab 07/21/18 polyethylene glycol 3350 17 g PO BID PRN PRN #0 ea 07/21/18 Allergies Allergy/AdvReac Type Severity Reaction Status Date / Time Penicillins Allergy Intermediate Skin Rash Unverified 07/22/18 01:43 pravastatin AdvReac Intermediate leaky Unverified 07/22/18 01:43 stools General Stated Complaint: Orthopedic ELSY: 4 Review of Systems Review of Systems 6 systems reviewed and otherwise negative [facility] Medical History Nasal lesion PTSD (post-traumatic stress disorder) Trochanteric bursitis of both hips Meralgia paraesthetica Sleep apnea Depression Dyspepsia Fibromyalgia Hyperlipidemia Urinary hesitancy Restless leg syndrome Tobacco abuse Plantar fasciitis Weakness Somatic dysfunction of sacral region Hx of hysterectomy COPD (chronic obstructive pulmonary disease) Perirectal abscess Obesity Primary osteoarthritis of right knee (Acute 12/04/17) Greater trochanteric bursitis of both hips (Acute 01/01/18) Complex tear of medial meniscus of right knee as current injury (Acute 11/06/17) Social History Smoking/Tobacco Use Status: Current every day Surgical History section (04/25/11) Cholecystectomy (04/25/11) Abdominal hysterectomy (04/25/11) Incision & Drainage, Abscess or Hematoma (05/03/17) Status post arthroscopy of right knee (Acute) Exam Narrative Exam Narrative: GEN: awake, alert, oriented 3. Pleasant, well groomed, interactive. HEAD: Normocephalic, atraumatic ENT: Mucous membranes moist, oropharynx unremarkable, External ear exam unremarkable EYES: PERRL, EOMI NECK: Full ROM, no DOUGLAS, no menigismus CHEST/RESP: Nontender, clear to auscultation bilateral, no wheeze/rhonchi/rales CARDIOVASCULAR: RRR, no murmur, rub sayra. 2+ Rad pulse bilateral ABDOMEN: Soft, nontender, no mass. +Bowel sounds EXT: Right lower extremity with vertically oriented surgical incision covered by blood soaked bandage. This is removed. There is no evidence of dehiscence. No persistent bleeding. Range of motion is limited by pain. Neuro: Grossly normal neurologic exam, conversant, interactive. Psych: Speech fluent, thoughts congruent, affect normal Course Vital Signs Temperature 36.6 C 07/22/18 01:38 Pulse 75 07/22/18 01:38 Respiratory Rate 16 07/22/18 01:38 Blood Pressure 157/70 H 07/22/18 01:38 Pulse Oximetry 99 07/22/18 01:38 Temperature 36.6 C 07/22/18 01:38 Temperature Source Skin 07/22/18 01:38 Pulse 75 07/22/18 01:38 Respiratory Rate 16 07/22/18 01:38 Respiratory Effort Non-Labored 07/22/18 01:40 Blood Pressure 157/70 H 07/22/18 01:38 Pulse Oximetry 99 07/22/18 01:38 Pain Level 6 07/22/18 01:38
--- NOTE | 2018-07-22 01:51 | ED.GENADUL_ITS ---
Discharge Plan Disposition Patient Disposition: HOME Condition: Improving Discharge Details Chief Complaint: Orthopedic Clinical Impression: Postoperative bleeding from incision Primary Care Provider: Harshil Krueger ED Provider: Miguel Angel Guevara Home Meds and New Rx's Prescriptions: Continue clonazepam 1 MG tablet 0.5 mg PO HS RF: 0 fluticasone [Flonase] 16 GM spray,suspension 1 spray IN PRN PRNRF: 0 fluoxetine 40 MG capsule 60 mg PO HS RF: 0 gabapentin 800 mg Tablet 800 mg PO HS RF: 0 sodium chloride [Saline Nasal] 0.65 % Aerosol,[place] 1 spray INTRANASAL PRN PRNRF: 0 torsemide 10 mg Tablet 10 mg PO DAILY PRN PRNRF: 0 polyethylene glycol 3350 17 gram Powder In Packet 17 g PO BID PRN PRN (Reason: Constipation) Qty: 0 RF: 0 docusate sodium [Colace] 100 mg Capsule 100 mg PO BID PRN PRN (Reason: Constipation) Qty: 0 RF: 0 acetaminophen 500 mg capsule 1,000 mg PO Q8H PRN (Reason: pain) Qty: 90 RF: 0 oxycodone 5 mg tablet 5 - 10 mg PO Q4H Qty: 18 RF: 0 aspirin 81 mg tablet,delayed release (DR/EC) 81 mg PO BID Qty: 80 RF: 0 naproxen 500 mg Tablet 1,000 mg PO BID Qty: 120 RF: 0 omeprazole 20 MG capsule,delayed release(DR/EC) 20 mg PO HS RF: 0 Discharge Instructions Additional Instructions: We will place your name on the orthopedic clinic follow-up list to inform them of your visit to the ER tonight. You may have slight spotting of blood from your incision into the bandage, but return to ER if you have profuse bleeding. Continue your routine postoperative care and medications. Medical Decision Making 52-year-old female who underwent successful right total knee arthroplasty with discharge from the hospital yesterday. She presents with a blood soaked surgical bandage and concern for wound dehiscence. She is afebrile and well- appearing. I took down the surgical dressing which does not reveal evidence of dehiscence. Unable to range the joint. There is no significant erythema. Observed without evidence of further bleeding. Do not appreciate signs of cellulitis or joint infection. Dressing replaced with Mepilex border. Patient stable for discharge to home. She will follow-up with Dr. Curtis in clinic. HPI General Mode of arrival: ambulatory . Date/Time Provider Initiated Documentation: 07/22/18 01:39 . Limitations to Documentation: no limitations . Information obtained by: patient . History of Present Illness 52 year old F presents to the emergency department with the chief complaint of Postoperative bleeding right knee, described as moderate, and is localized to the right and lower extremity. Patient started experiencing this minute(s) and it has been now resolved. No relieving factors improve symptom(s), No exacerbating factors reported . Patient notes no other symptoms.; denies fever/chills and nausea/vomiting. HPI Narrative: 52-year-old female was discharged from the hospital yesterday following right total knee arthroplasty. She noticed blood soaking through her bandage this evening and was concerned for dehiscence of the wound. She is been eating and drinking, passing gas, has not noted any fever. The bleeding ceased by the time of arrival to the ER . Related Data Home Medications Medication Instructions Recorded Confirmed clonazepam 0.5 mg PO HS 12/30/13 07/22/18 fluticasone [Flonase] 1 spray IN PRN PRN 11/20/14 07/22/18 fluoxetine 60 mg PO HS 12/31/14 07/22/18 omeprazole 20 mg PO HS 04/27/17 07/22/18 gabapentin 800 mg PO HS 07/16/18 07/22/18 sodium chloride [Saline Nasal] 1 spray INTRANASAL PRN PRN 07/16/18 07/22/18 torsemide 10 mg PO DAILY PRN PRN 07/16/18 07/22/18 acetaminophen 1,000 mg PO Q8H PRN #90 cap 07/21/18 07/22/18 aspirin 81 mg PO BID #80 tab 07/21/18 07/22/18 docusate sodium [Colace] 100 mg PO BID PRN PRN #0 cap 07/21/18 07/22/18 naproxen 1,000 mg PO BID #120 tab 07/21/18 07/22/18 oxycodone 5 - 10 mg PO Q4H #18 tab 07/21/18 07/22/18 polyethylene glycol 3350 17 g PO BID PRN PRN #0 ea 07/21/18 07/22/18 Previous Rx's Medication Instructions Recorded acetaminophen 1,000 mg PO Q8H PRN #90 cap 07/21/18 aspirin 81 mg PO BID #80 tab 07/21/18 docusate sodium [Colace] 100 mg PO BID PRN PRN #0 cap 07/21/18 naproxen 1,000 mg PO BID #120 tab 07/21/18 oxycodone 5 - 10 mg PO Q4H #18 tab 07/21/18 polyethylene glycol 3350 17 g PO BID PRN PRN #0 ea 07/21/18 Allergies Allergy/AdvReac Type Severity Reaction Status Date / Time Penicillins Allergy Intermediate Skin Rash Unverified 07/22/18 01:43 pravastatin AdvReac Intermediate leaky Unverified 07/22/18 01:43 stools General Stated Complaint: Orthopedic ELSY: 4 Review of Systems Review of Systems 6 systems reviewed and otherwise negative [facility] Medical History Nasal lesion PTSD (post-traumatic stress disorder) Trochanteric bursitis of both hips Meralgia paraesthetica Sleep apnea Depression Dyspepsia Fibromyalgia Hyperlipidemia Urinary hesitancy Restless leg syndrome Tobacco abuse Plantar fasciitis Weakness Somatic dysfunction of sacral region Hx of hysterectomy COPD (chronic obstructive pulmonary disease) Perirectal abscess Obesity Primary osteoarthritis of right knee (Acute 12/04/17) Greater trochanteric bursitis of both hips (Acute 01/01/18) Complex tear of medial meniscus of right knee as current injury (Acute 11/06/17) Social History Smoking/Tobacco Use Status: Current every day Surgical History section (04/25/11) Cholecystectomy (04/25/11) Abdominal hysterectomy (04/25/11) Incision & Drainage, Abscess or Hematoma (05/03/17) Status post arthroscopy of right knee (Acute) Exam Narrative Exam Narrative: GEN: awake, alert, oriented 3. Pleasant, well groomed, interactive. HEAD: Normocephalic, atraumatic ENT: Mucous membranes moist, oropharynx unremarkable, External ear exam unremarkable EYES: PERRL, EOMI NECK: Full ROM, no DOUGLAS, no menigismus CHEST/RESP: Nontender, clear to auscultation bilateral, no wheeze/rhonchi/rales CARDIOVASCULAR: RRR, no murmur, rub sayra. 2+ Rad pulse bilateral ABDOMEN: Soft, nontender, no mass. +Bowel sounds EXT: Right lower extremity with vertically oriented surgical incision covered by blood soaked bandage. This is removed. There is no evidence of dehiscence. No persistent bleeding. Range of motion is limited by pain. Neuro: Grossly normal neurologic exam, conversant, interactive. Psych: Speech fluent, thoughts congruent, affect normal Course Vital Signs Temperature 36.6 C 07/22/18 01:38 Pulse 75 07/22/18 01:38 Respiratory Rate 16 07/22/18 01:38 Blood Pressure 157/70 H 07/22/18 01:38 Pulse Oximetry 99 07/22/18 01:38 Temperature 36.6 C 07/22/18 01:38 Temperature Source Skin 07/22/18 01:38 Pulse 75 07/22/18 01:38 Respiratory Rate 16 07/22/18 01:38 Respiratory Effort Non-Labored 07/22/18 01:40 Blood Pressure 157/70 H 07/22/18 01:38 Pulse Oximetry 99 07/22/18 01:38 Pain Level 6 07/22/18 01:38
== END 2018-07-22 02:06 | disposition home or self-care (01) ==
LOC: ER 02:11
PROVIDERS: Emergency Provider Emergency Medicine; PCP Internal Medicine
DX: M96.89 Other intraoperative and postprocedural complications and disorders of the musculoskeletal system (principal); Y83.1 Surgical operation with implant of artificial internal device as the cause of abnormal reaction of the patient, or of later complication, without mention of misadventure at the time of the procedure; Z96.651 Presence of right artificial knee joint; J44.9 Chronic obstructive pulmonary disease, unspecified; F17.210 Nicotine dependence, cigarettes, uncomplicated
CPT/HCPCS: 99281; 99282

== ENCOUNTER 2018-08-06 09:57 | Outpatient (CLI) | payer MEDICARE, SELFPAY ==
--- NOTE | 2018-08-06 09:28 | DI.RAD_ITS ---
SYMPTOM/DIAGNOSIS: S/P RT TKA LEG LENGTH STUDY: Standing AP views were performed from above the pelvis through the ankles. There is a right total knee prosthesis. There are mild degenerative changes of the medial femoral tibial joint space of the left knee. The hip joints are not ideally visualized due to the patient's body habitus. There is no significant leg length discrepancy. The ankles area unremarkable.
--- NOTE | 2018-08-06 09:30 | DI.RAD_ITS ---
SYMPTOM/DIAGNOSIS: S/P RT TKA RIGHT KNEE: Comparison is made with June 28. The patient is status post placement of a right knee prosthesis. No abnormal lucencies area seen. No joint effusion is visible.
== END 2018-08-06 10:17 ==
PROVIDERS: PCP Internal Medicine; Referring Provider Internal Medicine; Visit Provider Student in an Organized Health Care Education/Training Program
DX: Z96.651 Presence of right artificial knee joint (principal); Z47.1 Aftercare following joint replacement surgery; M17.12 Unilateral primary osteoarthritis, left knee
CPT/HCPCS: 73560; 77073

== ENCOUNTER 2018-08-08 11:04 | Outpatient (CLI) | payer MEDICARE, SELFPAY | END 2018-08-08 11:24 | LOC: OCO 08-24 07:31 | PROVIDERS: PCP Internal Medicine; Visit Provider Student in an Organized Health Care Education/Training Program | DX: S89.91XA Unspecified injury of right lower leg, initial encounter (principal); W00.0XXA Fall on same level due to ice and snow, initial encounter; Z96.651 Presence of right artificial knee joint | CPT/HCPCS: 73562; 99213 ==

== ENCOUNTER 2018-08-09 11:41 | Outpatient (CLI) | payer MEDICARE, SELFPAY ==
--- NOTE | 2018-08-08 11:42 | DI.RAD_ITS ---
SYMPTOMS/DIAGNOSIS: RT KNEE INJURY FOLLOWING FALL RIGHT KNEE: Comparison is made with [id number]. There is no evidence of fracture. No definite joint effusion is visible. A bony density is again noted posteriorly at the posterior joint space. The patellofemoral joint is not well profiled. IMPRESSION: No acute abnormality.
== END 2018-08-09 12:01 ==
PROVIDERS: PCP Internal Medicine; Referring Provider Internal Medicine; Visit Provider Student in an Organized Health Care Education/Training Program
DX: M25.561 Pain in right knee (principal); S89.81XD Other specified injuries of right lower leg, subsequent encounter
CPT/HCPCS: 73562

== ENCOUNTER 2018-08-09 15:36 | Observation (INO) | payer MEDICARE, SELFPAY ==
[2018-08-09] VITALS (12 sets, daily range): BP systolic 116–149; BP diastolic 56–75; PULSE 61–76; RESP 12–24; TEMP 35.6–36.9; O2SAT 94–98
[2018-08-09] MEDS: Lactated Ringers 1,000 ML 80 ML IV ×3 (11:55→18:22)
[2018-08-09] MEDS: Bupivacaine 0.25% Pres-Free 30 ML VIAL (14:21)
[2018-08-09] MEDS: Bupivacaine LIPOSOME/PF 133 MG/10 ML VIAL IJ (14:21)
[2018-08-09] MEDS: Ketorolac 30 MG/ML VIAL (14:22)
--- NOTE | 2018-08-09 15:28 | PT.INNT ---
Date of service: 08/09/18 Time of Service: 15:28 PT Notes PHYSICAL THERAPY NOTE 08/09/18 PT Consult received, chart reviewed, attempted to see for Eval, pt not yet on medical floor. Will complete PT eval in am Leena Smallwood PT
[2018-08-09] MEDS: Acetaminophen 500 MG TAB 1000 MG PO (18:08)
[2018-08-09] MEDS: oxyCODONE 5 MG TAB PO ×2 (18:08→21:21)
[2018-08-09] MEDS: Naproxen 500 MG TAB PO (19:25)
[2018-08-09] MEDS: Aspirin E.C. 81 MG TABEC PO (19:26)
[2018-08-09] MEDS: Omeprazole 20 MG CAPCR PO (21:21)
[2018-08-09] MEDS: Gabapentin 800 MG TAB PO (21:21)
[2018-08-09] MEDS: clonazePAM 0.5 MG TAB PO (21:21)
[2018-08-10] MEDS: oxyCODONE 5 MG TAB PO ×4 (00:41→12:45)
[2018-08-10 00:50] VITALS: BP 97/60; PULSE 74; RESP 16; TEMP 36.4; O2SAT 98
[2018-08-10] MEDS: Acetaminophen 500 MG TAB 1000 MG PO ×2 (02:37→10:58)
[2018-08-10 04:15] VITALS: BP 133/76; PULSE 91; RESP 18; TEMP 36.3; O2SAT 97
[2018-08-10] MEDS: HYDROmorphone 2 MG/ML VIAL 0.5 MG IVP (07:06)
[2018-08-10] MEDS: Normal Saline Flush 10 ML SYR IV (07:07)
[2018-08-10 07:20] VITALS: BP 134/71; PULSE 64; RESP 19; TEMP 36.1; O2SAT 98
[2018-08-10] MEDS: Aspirin E.C. 81 MG TABEC PO (07:46)
--- NOTE | 2018-08-10 08:14 | PT.INIE ---
Date of service: 08/10/18 Time of Service: 07:35 PT Notes Inpatient Physical Therapy Evaluation Date: 08/10/2018 Referring Doctor: Armin Curtis PT Orders: PT CONSULT: Status post arthrotomy repair of right TKA. WBAT with assistive device Precautions: WBAT right RLE Patient Profile/Admitting Diagnosis: Patient is a 52-year-old female s/p right total knee arthroplasty 07/20/[address] Curtis, was doing well recovering and going to physical therapy, postoperatively when she fell at home and sustained a right quad tendon tear she is now s/p arthrotomy repair right total knee arthroplasty 08/09/[address] Curtis PMHX: Osteoarthritis right knee, S/P right total knee arthroplasty 07/20/2018, trochanteric bursitis bilateral hips, obesity, chronic obstructive pulmonary disease, fibromyalgia, plantar fasciitis, restless leg syndrome, posttraumatic stress disorder, depression, urinary hesitancy, hysterectomy, cholecystectomy. Social History/Home Situation: Lives with partner and [id number] in home with ramp to enter and one small step, all one level inside home. Baseline mobility recently using a front wheel walker status post TKA, prior to TKA was independent without assistive device. She is independent with ADLs. Equipment Owned/DME: FWW, cane, ADA toilet, built in shower, grab bars, lift chair Subjective: Patient lying in bed states she is slightly more sore today than yesterday, but she was able to get up and mobilize last night with nursing, agreeable to PT consult this morning. States she is hoping to go home this afternoon. Objective: General Observation: IV right upper extremity, Vera catheter, Ronny wrap right lower extremity Mental Status: A and O x3 Pain: Reports slight pain in right quadricep particularly with sitting out of bed transfers, patient provided with a leg asbestos siding mechanic to decrease quadricep exertion with transfers. Bed Mobility/Transfers: Supine to sit: Independent Sit to stand: Independent Stand to sit: Independent Sit to supine: Independent, instructed in use of leg asbestos siding mechanic to assist lifting leg and bed to decrease strain on quadricep muscle Gait: Independent with FWW 100 feet x2, WBAT right RLE, slow steady step through gait pattern without difficulty. Balance: Static Sitting: Normal Dynamic Sitting: Normal Static Standing: Fair Dynamic Standing: Fair Special Tests: Mobility Limitations Standardized Measure [facility] AM-PAC 6 clicks Basic Mobility Inpatient Short Form: Raw Score: 19 standardized Score: 45.44 CMS Score: 41.77% CMS Modifier: CK Informed Consent/Education: Patient instructed in purpose of PT consult and plan of care. Assessment: Patient is a 52-year-old female s/p right total knee arthroplasty 07/20/[address] Curtis, was doing well recovering and going to physical therapy postoperatively, when she fell at home and sustained a right quad tendon tear she is now s/p arthrotomy repair right total knee arthroplasty 08/09/[address] Curtis. Patient presents with the following impairment level findings: weakness right quadricep, postop pain right quadricep with exertion, decreased strength with gait mobility and decreased static and dynamic standing balance postoperatively, requiring use of FWW for gait. Patient was able to perform independent transfers and gait with FWW this morning, provided with a leg asbestos siding mechanic to assist with bed transfers, she is able to perform independently. Patient has no stairs at home uses ramp. Patient is a functional level to return to home setting when medically cleared follow-up with home PT or outpatient PT per MD recommendations. Impairments are contributing to the following functional limitations: AMPAC score CMS Score: 41.77% Patient is assessed as a Low 59933 complexity based on the following: History: see above Examination: See above Presentation: Stable Decision Making:AMPAC score CMS Score: 41.77% Goals: not applicable Plan of Care/Treatment Plan: PT eval only DISCHARGE RECOMMENDATIONS: Home, patient has all DME, home PT or outpatient PT follow-up per MD recommendation TREATMENT CODE/TIME: 25 minutes 7:35 AM IE G Codes in the area mobility of walking and moving around: current status [id number] CK; projected status GP [id number]. Discharge status (if discharging) GP G8980 CK based on AMPAC scores. Leena Smallwood PT Disclaimer: This note was created using [employer] voice recognition software. It was reviewed for major content. However, there may be multiple small discrepancies and errors due to the voice recognition aspects of the software.
--- NOTE | 2018-08-10 08:28 | IN_ITS ---
Date of service: 08/10/18 Time of Service: 07:35 PT Notes Inpatient Physical Therapy Evaluation Date: 08/10/2018 Referring Doctor: Armin Curtis PT Orders: PT CONSULT: Status post arthrotomy repair of right TKA. WBAT with assistive device Precautions: WBAT right RLE Patient Profile/Admitting Diagnosis: Patient is a 52-year-old female s/p right total knee arthroplasty 07/20/[address] Curtis, was doing well recovering and going to physical therapy, postoperatively when she fell at home and sustained a right quad tendon tear she is now s/p arthrotomy repair right total knee arthroplasty 08/09/[address] Curtis PMHX: Osteoarthritis right knee, S/P right total knee arthroplasty 07/20/2018, trochanteric bursitis bilateral hips, obesity, chronic obstructive pulmonary disease, fibromyalgia, plantar fasciitis, restless leg syndrome, posttraumatic stress disorder, depression, urinary hesitancy, hysterectomy, cholecystectomy. Social History/Home Situation: Lives with partner and [id number] in home with ramp to enter and one small step, all one level inside home. Baseline mobility recently using a front wheel walker status post TKA, prior to TKA was independent without assistive device. She is independent with ADLs. Equipment Owned/DME: FWW, cane, ADA toilet, built in shower, grab bars, lift chair Subjective: Patient lying in bed states she is slightly more sore today than yesterday, but she was able to get up and mobilize last night with nursing, agreeable to PT consult this morning. States she is hoping to go home this afternoon. Objective: General Observation: IV right upper extremity, Vera catheter, Ronny wrap right lower extremity Mental Status: A and O x3 Pain: Reports slight pain in right quadricep particularly with sitting out of bed transfers, patient provided with a leg shipping and receiving to decrease quadricep exertion with transfers. Bed Mobility/Transfers: Supine to sit: Independent Sit to stand: Independent Stand to sit: Independent Sit to supine: Independent, instructed in use of leg shipping and receiving to assist lifting leg and bed to decrease strain on quadricep muscle Gait: Independent with FWW 100 feet x2, WBAT right RLE, slow steady step through gait pattern without difficulty. Balance: Static Sitting: Normal Dynamic Sitting: Normal Static Standing: Fair Dynamic Standing: Fair Special Tests: Mobility Limitations Standardized Measure [facility] AM-PAC 6 clicks Basic Mobility Inpatient Short Form: Raw Score: 19 standardized Score: 45.44 CMS Score: 41.77% CMS Modifier: CK Informed Consent/Education: Patient instructed in purpose of PT consult and plan of care. Assessment: Patient is a 52-year-old female s/p right total knee arthroplasty by Dr. Curtis, was doing well recovering and going to physical therapy postoperatively, when she fell at home and sustained a right quad tendon tear she is now s/p arthrotomy repair right total knee arthroplasty 08/[address] Curtis. Patient presents with the following impairment level findings: weakness right quadricep, postop pain right quadricep with exertion, decreased strength with gait mobility and decreased static and dynamic standing balance postoperatively , requiring use of FWW for gait. Patient was able to perform independent transfers and gait with FWW this morning , provided with a leg shipping and receiving to assist with bed transfers, she is able to perform independently. Patient has no stairs at home uses ramp. Patient is a functional level to return to home setting when medically cleared follow-up with home PT or outpatient PT per MD recommendations. Impairments are contributing to the following functional limitations: AMPAC score CMS Score: 41.77% Patient is assessed as a Low [id number] complexity based on the following: History: see above Examination: See above Presentation: Stable Decision Making:AMPAC score CMS Score: 41.77% Goals: not applicable Plan of Care/Treatment Plan: PT eval only DISCHARGE RECOMMENDATIONS: Home, patient has all DME, home PT or outpatient PT follow-up per MD recommendation TREATMENT CODE/TIME: 25 minutes 7:35 AM IE G Codes in the area mobility of walking and moving around: current status [id number] CK; projected status GP [id number]. Discharge status (if discharging) GP G8980 CK based on AMPAC scores. Leena Smallwood PT Disclaimer: This note was created using [employer] voice recognition software. It was reviewed for major content. However, there may be multiple small discrepancies and errors due to the voice recognition aspects of the software.
--- NOTE | 2018-08-10 09:14 | DSE_ITS ---
Date of service: 08/10/18 Time of Service: 09:13 DS: Diagnosis Discharge Diagnosis (1) Status post total right knee replacement: Status: Chronic Asessment and Plan: Had a fall on 08/06 and had a rupture of her arthrotomy, repaired in the OR on 08/09. Discharge Plan Disposition Patient Disposition: HOME Condition: Good Discharge Details Reason For Visit: (R) QUAD TEAR Admit Date/Time: 08/09/18 10:59 Admit Provider: Armin Curtis Attending Provider: Armin Curtis Primary Care Provider: Harshil Krueger Hospital Course Hospital Course: Patient was admitted to the medical/surgical floor following the procedure. It was tolerated well without any notable medical, surgical, or anesthetic complications. Mobilization began postoperatively. The landa catheter was removed and voiding spontaneously. Vitals were stable. Physical therapy worked with the patient and was cleared for discharge home. No acute medical issues. Home Meds and New Rx's Prescriptions: Continue cyclobenzaprine 10 mg tablet 10 mg PO HS PRN (Reason: muscle spasm) Qty: 7 RF: 0 clonazepam 1 MG tablet 0.5 mg PO HS RF: 0 fluticasone [Flonase] 16 GM spray,suspension 1 spray IN PRN PRNRF: 0 fluoxetine 40 MG capsule 60 mg PO HS RF: 0 gabapentin 800 mg Tablet 800 mg PO HS RF: 0 sodium chloride [Saline Nasal] 0.65 % Aerosol,[place] 1 spray INTRANASAL PRN PRNRF: 0 torsemide 10 mg Tablet 10 mg PO DAILY PRN PRNRF: 0 polyethylene glycol 3350 17 gram Powder In Packet 17 g PO BID PRN PRN (Reason: Constipation) Qty: 0 RF: 0 docusate sodium [Colace] 100 mg Capsule 100 mg PO BID PRN PRN (Reason: Constipation) Qty: 0 RF: 0 acetaminophen 500 mg capsule 1,000 mg PO Q8H PRN (Reason: pain) Qty: 90 RF: 0 aspirin 81 mg tablet,delayed release (DR/EC) 81 mg PO BID Qty: 80 RF: 0 omeprazole 20 MG capsule,delayed release(DR/EC) 20 mg PO HS RF: 0 oxycodone 5 mg tablet 5 - 10 mg PO Q4H Qty: 18 RF: 0 Changed naproxen 500 mg Tablet 500 mg PO BID Qty: 120 RF: 0 Discharge Instructions Additional Instructions: Dr. Curtis?s Total Knee Discharge Instructions Activity: The most important activity is to walk. You should try to take short walks a few times a day. It is important that when resting you work on keeping the knee straight. Avoid putting a pillow behind the knee as this will encourage flexion. Work on range of motion exercises as provided by Physical Therapy. - You should wear the MADELINE hose on both legs for 4 weeks. Dressing: Keep the surgical dressing in place for at least one week. After the first week it may be removed and replace with light gauze and tape or nothing. It may get wet after 3 days but avoid soaking the dressing. If it gets wet, just lightly pat dry. Medications: - You should take Tylenol and anti-inflammatory (Naproxen) as your primary pain control medications - You have been prescribed a stronger pain medication (Oxycodone) for breakthrough pain, take as needed as prescribed. - You will be taking Aspirin 81mg twice a day for DVT prevention unless instructed otherwise. - If you have constipation you should take Colace or Miralax (both over-the- counter). It takes most people 3-4 days to have a bowel movement. Follow-up: 2 weeks Activity:: Activity as Tolerated Equipment/Supplies:: Walker Diet:: Normal Diet Discharge Orders Discharge Orders: Discharge Order (Routine); Ordered 08/10/18 Ordered By: Armin Curtis DS: Data Vitals/I&O Vitals and I&O: Vital Signs Temperature 36.1 C L 08/10/18 07:20 Temperature Source Tympanic 08/10/18 07:20 Pulse 64 08/10/18 07:20 Pulse Rhythm Regular 08/10/18 00:20 Respiratory Rate 19 08/10/18 07:20 Respiratory Effort Non-Labored 08/10/18 00:20 Respiratory Depth Normal 08/10/18 00:20 Respiratory Pattern Normal 08/10/18 00:20 Blood Pressure 134/71 08/10/18 07:20 Pulse Oximetry 98 08/10/18 07:20 Respiratory End-tidal CO2 35 08/09/18 15:55 Oxygen Delivery Method Room Air 08/10/18 07:20 Oxygen Flow Rate 0 08/10/18 07:20 Pain Level 7 08/10/18 07:46 Intake & Output 08/09/18 08/09/18 08/10/18 11:59 23:59 11:59 Intake Total 2408.000 / 2408.000 Output Total 875 / 875 1750 / 1750 Balance 1533.000 / 1533.000 -1750 / -1750 Weight 115 kg Intake: IV 2007.000 / 2007.000 Oral 400 / 400 Output: Urine 825 / 825 1750 / 1750 Estimated Blood Loss 50 / 50 Other: Urine Color Yellow Yellow Urine Appearance Clear Clear Emesis Description None PFSH Nasal lesion PTSD (post-traumatic stress disorder) Trochanteric bursitis of both hips Meralgia paraesthetica Sleep apnea Depression Dyspepsia Fibromyalgia Hyperlipidemia Urinary hesitancy Restless leg syndrome Tobacco abuse Plantar fasciitis Weakness Somatic dysfunction of sacral region Hx of hysterectomy COPD (chronic obstructive pulmonary disease) Perirectal abscess Obesity Primary osteoarthritis of right knee (Acute 12/04/17) Greater trochanteric bursitis of both hips (Acute 01/01/18) Complex tear of medial meniscus of right knee as current injury (Acute 11/06/17) section (04/25/11) Cholecystectomy (04/25/11) Abdominal hysterectomy (04/25/11) Incision & Drainage, Abscess or Hematoma (05/03/17) Status post arthroscopy of right knee (Acute) Medical History Nasal lesion PTSD (post-traumatic stress disorder) Trochanteric bursitis of both hips Meralgia paraesthetica Sleep apnea Depression Dyspepsia Fibromyalgia Hyperlipidemia Urinary hesitancy Restless leg syndrome Tobacco abuse Plantar fasciitis Weakness Somatic dysfunction of sacral region Hx of hysterectomy COPD (chronic obstructive pulmonary disease) Perirectal abscess Obesity Primary osteoarthritis of right knee (Acute 12/04/17) Greater trochanteric bursitis of both hips (Acute 01/01/18) Complex tear of medial meniscus of right knee as current injury (Acute 11/06/17) Social History Smoking/Tobacco Use Status: Current every day Surgical History section (04/25/11) Cholecystectomy (04/25/11) Abdominal hysterectomy (04/25/11) Incision & Drainage, Abscess or Hematoma (05/03/17) Status post arthroscopy of right knee (Acute) Social History Smoking/Tobacco Use Status: Current every day
[2018-08-10] MEDS: Ketorolac 15 MG/ML VIAL IVP (09:47)
--- NOTE | 2018-08-10 09:48 | ROE_ITS ---
REPORT OF OPERATIVE PROCEDURE DATE OF SURGERY August 09, 2018 PREOPERATIVE DIAGNOSES Arthrotomy rupture of the right knee status post TKA. POSTOPERATIVE DIAGNOSES Arthrotomy rupture of the right knee status post TKA. SURGERY Irrigation and debridement of the right knee with closure of the arthrotomy. SURGEON Armin Curtis M.D. KENO WRITER Dianne Pimentel FINDINGS The arthrotomy of the knee was completely opened from the most superior, proximal, aspect down to the proximal tibia. The knee was thoroughly irrigated and debrided. The arthrotomy was reapproximated an d closed. 1 gram of vancomycin powder was added to the suprapatellar region prior to closure. The kne e had excellent range of motion. The arthrotomy was tested through full range of motion and showed no signs of weakness. ANESTHESIA Spinal and adductor nerve block. ESTIMATED BLOOD LOSS 50 cc. COMPLICATIONS None. DISPOSITION The patient was awakened from anesthesia and taken to the PACU in stable condition. INDICATIONS FOR PROCEDURE Dea is a 52-year old, who underwent a knee replacement for right knee approximately two and a half w eeks ago. She was doing very well. She was actually doing better than most at that time point. I saw her at her two-week visit, and had encouraged her to continue her activities. She was ambulating with out assistance. Approximately three days later, she was walking and she caught the snow bank quite aw kwardly with her right foot causing a flexion and external rotation moment. She felt an immediate pop and went down into the snow. From that point forward, she was unable to fully bear weight on the leg . She also felt her kneecap laterally displaced. She was seen in the office, where she was diagnosed with an unstable patella due to a complete rupture of the arthrotomy. Given this limitation, I did of elena operative intervention. I reviewed treatment options and encouraged surgical intervention for art hrotomy closure. I reviewed the risks of the procedure to include infection, bleeding, pain, stiffnes s, weakness, recurrence, need for repeat procedures, damage to nerves and vessels. Despite these risk s, she elected to proceed. DESCRIPTION OF PROCEDURE Dea was greeted in the preoperative holding area. Her identity was confirmed and the correct side wa s identified and marked. The consent was reviewed with the patient and signed. The patient was taken back to the PACU where an adductor nerve block was administered. Following this administration, she was taken to the Operating Room. A spinal anesthetic was administered. She was p laced in the supine position. All bony prominences were padded. She was wearing her BiPAP for the ent irety of the case. A nonsterile tourniquet was placed high up on the right thigh, but was not used. P rophylactic antibiotics in the form of cefazolin were given. The right leg was then prepped with Chlo raPrep and draped in a standard fashion. A timeout was performed for safe surgery. The previous incision was marked. The incision site was ellipsed out, and excised in full thickness p ieces down toward the extensor mechanism. Once the skin was removed, gentle dissection revealed a com plete rupture of the arthrotomy with a large amount of blood-tinged joint fluid. This was evacuated f ully. The arthrotomy had ruptured from the most proximal aspect down through the distal aspect of the proximal tibia. Excess suture was removed with a rongeur. Fibrotic tissue and early healing scar tis jessenia was also removed to bring it back to raw edges both of the arthrotomy and the skin surface. A syn ovectomy was performed around the patella within the knee. The wound was then thoroughly irrigated wi th three liters of normal saline. After this thorough irrigation, I then proceeded with arthrotomy cl osure. It was able to be reapproximated quite easily and the tissue planes were mobilized. It was not ed though that the patella seemed to be contracted laterally. I performed a light release around the patella and its connections to the lateral soft tissues and the lateral retinaculum. The arthrotomy w as closed with multiple interrupted # 1-Vicryls in a [id number] pattern. The patella had good lo calization over the trochlea at this point. The arthrotomy was closed at 9 degrees of flexion. Once t he arthrotomy was completely closed, it was tested down to 125 degrees of flexion. It showed no signs of leaking. It also showed no signs of gapping or ripping open at this point. No tourniquet was used for this. The soft tissues were then again irrigated. The subcutaneous tissue and the extensor mecha nism was then injected with a mixture of 20 cc of 0.25% bupivacaine and 10 cc of Exparel. The skin an d subcutaneous layers were then closed with #0-Vicryl, followed by #2-0 Vicryl, followed by #4-0 [place] cryl running in a subcuticular pattern. The skin was reinforced with skin glue. A Mepilex silver dres sing was applied. A zae-by-hisdu Ronny was also given. At the end of the case, all counts were correct. She was transferred back to the PACU in stable condition.
[2018-08-10 09:55] VITALS: RESP 24
[2018-08-10 11:05] VITALS: BP 134/83; PULSE 63; RESP 18; TEMP 35.4; O2SAT 99
--- NOTE | 2018-08-10 12:08 | INITIAL_ITS ---
- If Service Date Differs Date of service: 08/10/18 Time of Service: 12:08 Care Management Initial Assess REASON FOR HOSPITALIZATION:: Right quad tear r/t fall at home repaired on . Status post total knee on 07/20/18 PAST MEDICAL HISTORY/PAST SURGICAL HISTORY:: COPD, depression, dyspepsia, fibromyalgia, greater trochanter bursitis of both hips, hyperlipidemia, PTSD, perirectal abscess, plantar fasciitis, osteoarthritis of the right knee, restless leg syndrome, tobacco abuse. Surgical history: Abdominal hysterectomy, section, cholecystectomy, total right knee. PREVIOUS FUNCTIONAL STATUS/SOCIAL/FAMILY SUPPORTS:: Dea lives in [facility] with her significant other [place]lalli. She has a daughter that lives nearby. She is independent at baseline with ADLs and transportation. She receives disability. 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 CURRENT FUNCTIONAL STATUS:: Dea is standing up during CM assessment, she is engaged in conversation. Dea is open with CM about her depression and her grief related to her mother's . She states she has struggled with depression most of her life, she does have a strong mental health history in her family. She sees [facility] behavioral health at [facility]. She is on medications to treat her depression, due to cost she has not been able to start any additional medications. She does feel that she would benefit from addition of Wellbutrin which she is taking in the past. She is agreeable to meet with Hiram Fish in follow-up with Dr. Krueger to manage her depression. Dea is tearful at times during the conversation. She describes her financial hardship and lack of community resources. ADVANCE DIRECTIVES:: None on file at [facility], she does not want to complete at this time Has patient been provided with information about the portal?: Yes Did the patient sign up for the portal?: No (Already enrolled) CODE STATUS:: Full Code INSURANCE COVERAGE / FINANCIAL ISSUES:: Medicare, Financial assistance CURRENT HOME/COMMUNITY SERVICES/EQUIPMENT:: None at this time PRIMARY CARE PHYSICIAN:: POTENTIAL DISCHARGE NEEDS:: Follow up appointment with primary care provider and Dr. Curtis PATIENT/FAMILY EDUCATION NEEDS:: Discharge education, follow-up plan of care, limitations, self-management and ask me 3. ANTICIPATED BARRIERS TO DISCHARGE:: None identified at this time TRANSPORTATION:: Via private car with spouse. PLAN:: Dea will be discharged home today, and follow-up with Dr. Curtis as directed. She has a plan to manage her pain. She will follow-up with supervisory investigative specialist at [facility] to assist in managing her depression. CM provided community resources including community connections to assist with financial concerns. Also provided her a list of local therapist in the community. Provided a list of medications that are covered at [facility] pharmacy for lower cost. Dea will transport home with her partner at time of discharge. Readmission - Within the Past 30 Days Yes or No: Y - Date of First Admission Date of 1st Admission: 07/20/18 - Date of this Admission Date of Admission: 08/09/18 This admission was: Direct Admit - Office Visit Since 1st Admission Have you seen your PCP in the office since discharge?: No Had an appointment Been Scheduled?: Yes - I. Interview patient and/or Family Difficulty reaching your doctor or getting an office appt?: No Have you had trouble purchasing/ or taking medication?: No Have you had trouble with getting meals at home?: No Did you feel ready for discharge when you left the last time: Yes Were services received that you thought were set up on disch: Yes If patient did not receive services, were there orders at: No Reason there were no orders at discharge: Non needed - Ask the Care Team Members: What do you think caused the patient to be readmitted: Patient states she was outside walking to her shed without assistance device. She fell on uneven ground. She states that she had been doing well at home. She does not feel that her last discharge could have been different.
== END 2018-08-10 13:05 | disposition home or self-care (01) ==
LOC: MS 08-10 09:20 → DSU 08-10 13:28 → MS 08-10 13:33
PROVIDERS: Admitting Provider Student in an Organized Health Care Education/Training Program; PCP Internal Medicine; Visit Provider Student in an Organized Health Care Education/Training Program
PROC: 0YQF0ZZ Repair Right Knee Region, Open Approach (ICD-10-PCS; CPT 27405; principal; 2018-08-09 11:45)
DX: T81.32XA Disruption of internal operation (surgical) wound, not elsewhere classified, initial encounter (principal); S89.81XA Other specified injuries of right lower leg, initial encounter; W19.XXXA Unspecified fall, initial encounter; J44.9 Chronic obstructive pulmonary disease, unspecified; F17.210 Nicotine dependence, cigarettes, uncomplicated; Z23 Encounter for immunization; F32.9 Major depressive disorder, single episode, unspecified; Z96.652 Presence of left artificial knee joint
CPT/HCPCS: 27405; 76942; 97161; NC; G0378; G8978; J0690; J1100; J1885; J2250; J3010; L1833

== ENCOUNTER → 2018-08-22 12:41 | Outpatient (BNVA) | payer MEDICARE, SELFPAY | PROVIDERS: PCP Internal Medicine; Referring Provider Internal Medicine; Visit Provider Student in an Organized Health Care Education/Training Program | DX: Z47.1 Aftercare following joint replacement surgery (principal); Z96.651 Presence of right artificial knee joint ==

== ENCOUNTER → 2018-09-06 12:48 | Outpatient (BNVA) | payer MEDICARE, SELFPAY | PROVIDERS: PCP Internal Medicine; Referring Provider Internal Medicine; Visit Provider Student in an Organized Health Care Education/Training Program | DX: Z47.1 Aftercare following joint replacement surgery (principal); Z96.651 Presence of right artificial knee joint ==

== ENCOUNTER → 2018-09-12 09:03 | Outpatient (BNVA) | payer MEDICARE, SELFPAY | PROVIDERS: PCP Internal Medicine; Referring Provider Internal Medicine; Visit Provider Student in an Organized Health Care Education/Training Program | DX: Z96.651 Presence of right artificial knee joint (principal); M17.12 Unilateral primary osteoarthritis, left knee | CPT/HCPCS: 20610; 99213; J1040 ==

== ENCOUNTER → 2018-10-29 13:19 | Outpatient (BNVA) | payer MEDICARE, SELFPAY | PROVIDERS: PCP Internal Medicine; Referring Provider Internal Medicine; Visit Provider Student in an Organized Health Care Education/Training Program | DX: Z96.651 Presence of right artificial knee joint (principal); Z47.1 Aftercare following joint replacement surgery ==

== ENCOUNTER → 2018-12-03 12:52 | Outpatient (BNVA) | payer MEDICARE, SELFPAY | PROVIDERS: PCP Internal Medicine; Referring Provider Internal Medicine; Visit Provider Student in an Organized Health Care Education/Training Program | DX: Z96.651 Presence of right artificial knee joint (principal); Z47.1 Aftercare following joint replacement surgery; M17.12 Unilateral primary osteoarthritis, left knee | CPT/HCPCS: 20610; 99212; 99213; J1040 ==

== ENCOUNTER 2019-03-18 01:13 | Outpatient (CLI) | payer MEDICARE, SELFPAY ==
--- NOTE | 2019-03-18 11:55 | DI.MRI_ITS ---
SYMPTOM/DIAGNOSIS: CHRONIC LOW BACK PAIN, M54.5, NEW RADICULAR SYMPTOMS INTO LT LOWER LEG LUMBOSACRAL SPINE MRI: MR examination of the lumbosacral spine was performed according to the usual protocol. No significant bony signal abnormality is seen. Mild hypertrophic degenerative changes of the facet joints at L 3-4, L 4-5 and L 5-S 1 bilaterally. No evidence of central canal spinal stenosis or neural foraminal stenosis. No disc herniation identified. Conus medullaris appears intact. CONCLUSION: Mild facet DJD of the lower lumbar spine. No other significant findings.
== END 2019-03-18 01:33 ==
PROVIDERS: PCP Internal Medicine; Visit Provider Specialist/Technologist Athletic Trainer
DX: M54.5 Low back pain (principal); M54.16 Radiculopathy, lumbar region; M47.27 Other spondylosis with radiculopathy, lumbosacral region
CPT/HCPCS: 72148

== ENCOUNTER 2019-08-05 14:07 | Outpatient (CLI) | payer MEDICARE, SELFPAY ==
--- NOTE | 2019-08-05 13:54 | DI.RAD_ITS ---
EXAM: XR FOOT LT COMPLETE INDICATION: left foot pain. COMPARISON: LEFT FOOT COMPLETE from 06/08/2015 TECHNIQUE: 2D digital imaging was performed. FINDINGS: A plantar calcaneal spur is again noted, increased in size. There are minimal degenerative changes o f the intertarsal and tarsometatarsal regions. No fracture or bony erosions are seen. IMPRESSION: Heel spur.
--- NOTE | 2019-08-05 13:54 | DI.RAD_ITS ---
EXAM: XR KNEE RT 2V AP,LAT INDICATION: 1 yr post-op TKA. COMPARISON: XR knee RT 3V AP,lat,primo from 08/08/2018 TECHNIQUE: 2D digital imaging was performed. FINDINGS: There has been no change in the total knee prosthesis or surrounding bone.
== END 2019-08-05 14:27 ==
PROVIDERS: PCP Internal Medicine; Referring Provider Internal Medicine; Visit Provider Student in an Organized Health Care Education/Training Program
DX: M79.672 Pain in left foot (principal); M77.32 Calcaneal spur, left foot; M19.072 Primary osteoarthritis, left ankle and foot; Z96.651 Presence of right artificial knee joint; J44.9 Chronic obstructive pulmonary disease, unspecified; F17.210 Nicotine dependence, cigarettes, uncomplicated
CPT/HCPCS: 99213; 73560; 73630

== ENCOUNTER 2019-08-13 08:49 | Outpatient (CLI) | payer MEDICARE, SELFPAY ==
[2019-08-13 08:54] VITALS: BP 121/48; PULSE 78; RESP 18; TEMP 35.8; O2SAT 97
--- NOTE | 2019-08-13 09:00 | PDOC.PAIN ---
Pain Clinic Procedure Note Procedure Note Procedure Note: Lumbar/Sacral Medial Branch Blocks ALEXANDER GOODMAN has been referred to the [facility] for lumbar/sacral medial branch blocks. pre-operative diagnosis: lumbar spondylosis post-operative diagnosis: same as above Patient was interviewed and the medical record reviewed. There were no medical, pharmacologic, radiographic or other structural contraindications to attempting fluoroscopically guided local anesthetic lumbar/sacral medial branch blocks. Risks and expected side effects as well as potential benefit of the procedure were reviewed and voiced concerns addressed. The printed consent form was signed and witnessed. Standard time-out procedure was performed. Patient was placed in the prone position on the fluoroscopy table and automated blood pressure cuff and pulse oximeter applied. The skin entry points for approaching the anatomic target points of the segmental medial branches of right L2, L3, L4, L5-DR were identified with anfluoroscopy and marked. Following thorough Chlorhexadine preparation of the skin and draping and 1% lidocaine infiltration of the skin entry points and subcutaneous tissues, a 22 gauge spinal needle was placed under fluoroscopic guidance down on to the target point for each respective segmental medial branch.Position was confirmed in A/P, oblique and lateral views with 0.25ml of omnipaque 240. Coult be this method .5ml 0.5% Bupivacaine was injected Vital signs were stable throughout the procedure and were as recorded in the docflowsheet by the nursing staff. Follow up plans and appointments were discussed and was instructed to keep careful note of how the usual pain was modified by these injections. Specifically was asked to keep a pain diary for the next 24 hours using a numeric pain scale of 0-10 and report these results at the follow-up visit. Post procedure instruction was given as documented in the nursing documentation and having met discharge criteria. Patient was discharged from the [facility]. Based on the medial branches blocked today, if the patient has adequate relief and we are able to proceed to radiofrequency ablation, the treatment should result in the denervation of the right L2-3, L3-4, L4-5 facet joints. We would expect to denervate a total of 3 facets during the radiofrequency ablation. COMMENTS: due to patient body habitus, would recommend 22 gauge 5'' spinal needles especially oblique view is needed to optimize visualization of medial branch nerve. pre-procedure pain level 8 out of 10, post-procedure pain level reported as 2 out of 10. José Antonio Saenz MD Pain Management CC: Harshil Krueger
[2019-08-13] MEDS: Bupivacaine 0.5% Pres-Free 10 ML VIAL IJ (09:30)
[2019-08-13] MEDS: Omnipaque 240 MG/ML 50 ML BTL IJ (09:31)
[2019-08-13 09:34] VITALS: BP 122/55; PULSE 81; RESP 13; O2SAT 99
--- NOTE | 2019-08-13 10:23 | DI.RAD_ITS ---
EXAM: XR PAIN CLINIC LUMBAR SP 2V CLINICAL HISTORY: Dx: Lumbar Spondylosis,LUMBAR MEDIAL BRANCH BLOCK TECHNIQUE: Realtime digital imaging was performed. COMPARISON: No exams were available for comparison FINDINGS: Fluoroscopy was utilized by Dr. Saenz during the performance of a lumbar medial branch block. Please re elena to the procedure report for complete details. Fluoro time: 42.1 seconds
== END 2019-08-13 09:09 ==
PROVIDERS: PCP Internal Medicine; Visit Provider Internal Medicine
DX: M47.816 Spondylosis without myelopathy or radiculopathy, lumbar region (principal)
CPT/HCPCS: 64493; 64494; 64495; 72100; Q9967

== ENCOUNTER 2019-08-29 10:00 | Outpatient (REF) | payer MEDICARE, SELFPAY ==
[2019-08-29 12:41] LABS: HGB 12.6 g/dL (12.0-15.5); Mean Corp. HGB Concentration 33.2 g/dL (32.0-36.0); Mean Corpuscular Hemoglobin 31.7 pg (27.0-33.0); Mean Corpuscular Volume 95.7 fL (80-95); Mean Platelet Volume 9.7 fL (8.0-11.0); Platelet Count 402 x1000/uL (130-400); RBC 3.97 m/cumm (4.00-5.20); RBC Distribution Width 13.2 % (11.7-14.6); White Blood Cell Count 6.24 k/cumm (4.4-10.8)
[2019-08-29 12:49] LABS: ALT 23 U/L (14-59); AST 15 U/L (15-37); Albumin 3.7 g/dL (3.4-5.0); Alkaline Phosphatase 71 U/L (46-116); Anion Gap 7.9 mmol/L (3-11); BUN 16 mg/dL (7-18); Bilirubin, Total 0.2 mg/dL (0.2-1.0); CO2 30.1 mmol/L (21.0-32.0); CREATININE 0.62 mg/dL (0.55-1.02); Chloride 109 mmol/L (98-107); FREE T4 0.88 ng/dL (0.76-1.46); Glucose 100 mg/dL (74-106); Potassium 4.5 mmol/L (3.5-5.1); Sodium 147 mmol/L (136-145); TSH 1.82 uIU/mL (0.36-3.74); Total Protein 6.8 g/dL (6.4-8.2)
== END 2019-08-29 10:20 ==
LOC: NCHCN 10:00
PROVIDERS: PCP Internal Medicine; Visit Provider Internal Medicine
DX: R42 Dizziness and giddiness (principal); F32.9 Major depressive disorder, single episode, unspecified; E66.9 Obesity, unspecified
CPT/HCPCS: 80053; 82533; 85027; 84439; 84443

== ENCOUNTER 2019-09-12 12:43 | Outpatient (CLI) | payer OTHER, SELFPAY ==
[2019-09-12 12:53] VITALS: BP 136/76; PULSE 72; RESP 20; TEMP 36.4; O2SAT 98
--- NOTE | 2019-09-12 13:55 | DI.RAD_ITS ---
EXAM: XR PAIN CLINIC LUMBAR SP 2V CLINICAL HISTORY: LUMBAR MEDIAL BRANCH BLOCK #1 RIGHT TECHNIQUE: COMPARISON: No exams were available for comparison FINDINGS: C-arm fluoroscopy was utilized by Dr. De Leon during reported lumbar medial branch block. Hard copies s how needle placement and injections adjacent to the pedicles of what appear to be L3-L4 L5 and S1 on right. IMPRESSION: Fluoro time 45.2 seconds
[2019-09-12 13:58] VITALS: BP 137/89; PULSE 76; RESP 20; O2SAT 97
[2019-09-12] MEDS: Lidocaine 2% Pres-Free 5 ML VIAL IJ (13:59)
[2019-09-12] MEDS: Omnipaque 240 MG/ML 50 ML BTL IJ (13:59)
--- NOTE | 2019-09-12 14:27 | PDOC.PAIN ---
Pain Clinic Procedure Note Procedure Note Procedure Note: Lumbar/Sacral Medial Branch Blocks #2 ALEXANDER GOODMAN has been referred to the [facility] for lumbar/sacral medial branch blocks. COMMENTS: #[address] Saenz on 08/13/19 DX: Lumbosacral spondylosis without myelopathy Patient was interviewed and the medical record reviewed. There were no medical, pharmacologic, radiographic or other structural contraindications to attempting fluoroscopically guided local anesthetic lumbar/sacral medial branch blocks. Risks and expected side effects as well as potential benefit of the procedure were reviewed and voiced concerns addressed. The printed consent form was signed and witnessed. Standard time-out procedure was performed. Patient was placed in the prone position on the fluoroscopy table and automated blood pressure cuff and pulse oximeter applied. The skin entry points for approaching the anatomic target points of the segmental medial branches of right L2-L5 were identified with anfluoroscopy and marked. Following thorough Chlorhexadine preparation of the skin and draping and 1% lidocaine infiltration of the skin entry points and subcutaneous tissues, a 5 22 gauge spinal needle was placed under fluoroscopic guidance down on to the target point for each respective segmental medial branch.Position was confirmed in A/P, oblique and lateral views with 0.25ml of omnipaque 240. At this point, 0.5cc of 2% Lidocaine was injected at the area of the segmental nerves. Vital signs were stable throughout the procedure and were as recorded in the docflowsheet by the nursing staff. Follow up plans and appointments were discussed and was instructed to keep careful note of how the usual pain was modified by these injections. Specifically was asked to keep a pain diary for the next 24 hours using a numeric pain scale of 0-10 and report these results at the follow-up visit. Post procedure instruction was given as documented in the nursing documentation and having met discharge criteria. Patient was discharged from the [facility]. Based on the medial branches blocked today, if the patient has adequate relief and we are able to proceed to radiofrequency ablation, the treatment should result in the denervation of the right L3-L4, L4-L5, and L5-S1 FACET JOINTS. We would expect to denervate a total of 3 facets during the radiofrequency ablation. COMMENTS: She will call back with her 1-4 hour post-procedure pain scores. CC: Harshil Krueger
== END 2019-09-12 13:03 ==
PROVIDERS: PCP Internal Medicine; Visit Provider Preventive Medicine Occupational Medicine
DX: M47.817 Spondylosis without myelopathy or radiculopathy, lumbosacral region (principal)
CPT/HCPCS: 64493; 64494; 64495; 72100; Q9967

== ENCOUNTER → 2019-09-23 14:28 | Outpatient (BNVA) | payer OTHER, SELFPAY | PROVIDERS: PCP Internal Medicine; Referring Provider Internal Medicine; Visit Provider Student in an Organized Health Care Education/Training Program | DX: M17.12 Unilateral primary osteoarthritis, left knee (principal); M25.562 Pain in left knee | CPT/HCPCS: 20610; 99213; J1040 ==

== ENCOUNTER → 2019-10-28 13:00 | Outpatient (BNVA) | payer OTHER, SELFPAY | PROVIDERS: PCP Internal Medicine; Referring Provider Internal Medicine; Visit Provider Student in an Organized Health Care Education/Training Program | DX: Z96.651 Presence of right artificial knee joint (principal); M79.672 Pain in left foot; M19.071 Primary osteoarthritis, right ankle and foot | CPT/HCPCS: 99213 ==

== ENCOUNTER 2019-11-26 07:54 | Outpatient (CLI) | payer OTHER, SELFPAY ==
--- NOTE | 2019-11-26 06:00 | DI.RAD_ITS ---
EXAM: XR PAIN CLINIC LUMBAR SP 2V CLINICAL HISTORY: Dx: Lumbar Spondylosis TECHNIQUE: 2D and realtime digital imaging was performed. CONTRAST MATERIAL: Refer to procedure report. COMPARISON: No exams were available for comparison FINDINGS: Fluoroscopy was provided for Dr. Saenz during the performance of a radiofrequency ablation of the lumba r spine. Please refer to the procedure report for complete details. Fluoro time: 52.2 seconds IMPRESSION:
[2019-11-26 08:00] VITALS: BP 113/66; PULSE 73; RESP 17; TEMP 35; O2SAT 98
--- NOTE | 2019-11-26 08:21 | PDOC.PAIN ---
Pain Clinic Procedure Note Procedure Note Procedure Note: RIGHT Lumbar Radiofrequency with Coolief Machine PROCEDURE NOTE Date of Service: November 26, 2019 Patient: ALEXANDER GOODMAN Provider: José Antonio Saenz MD Pre Operative Diagnosis: lumbar spondylosis Post Operative Diagnosis: same as above PROCEDURE: Radiofrequency Ablation of medial branches - right L2, L3, L4, L5-DR ALEXANDER GOODMAN was brought into the fluoroscopy suite and positioned into the prone position on the fluoroscopy table and allowed to adjust to a position of comfort. A grounding pad was placed on the [right/left] thigh. The lumbar region was widely prepped with a chloraprep solution, allowed to air dry and draped in standard sterile surgical fashion. Local anesthesia was provided by 10 mL of 1 % lidocaine delivered with a 25g needle, each level received ~2cc of local anesthetic for surface numbing. A 17g 100mm radiofrequency introducer needle was placed to the planned anatomic targets guided with intermittent fluoroscopy with a perpendicular approach to terminally place at the junction of the superior articular process and the transverse process of the right L2, L3, L4, L5-DR and the base of the sacral ala on the right for the L5 medial branch nerve. The stylets were removed and radiofrequency probes with a 4mm active tip were then inserted. Needle tip position of the probes was verified in the AP, oblique, and lateral views. At each site, the medial branch nerve was stimulated at 2 Hz to a maximum 1-2 volts determined to finalize safe needle and electrode placement. The patient was awake and responsive during this portion of the procedure. Each target was anesthetized with 1mL of 2 % lidocaine for anesthesia for lesioning and then each target was lesioned at 80 degrees Celsius for 2 minutes and 30 seconds. Tissue impedences were noted to be between 250 and 500 Ohms. Electrodes and needles were then removed and bandages placed over the needle placement sites, the patient then returned to the supine position on a stretcher and transported to the recovery room without hemodynamic, neurologic, or allergic reactions. Fluoroscopic images were printed for hard copy recording and digitally archived. POST PROCEDURE EVALUATION: IMPRESSION: 1. Patient tolerated procedure well without issue 2. She received 1.5mg of IV versed and 50mcg of IV Fentanyl for sedation Follow up plans and appointments were discussed with the ALEXANDER . Post procedure instruction was given as documented in nursing documentation and having met discharge criteria, ALEXANDER was discharged from the [facility]. COMMENTS: No complications. F/U with our office as needed. I personally performed this entire procedure. José Antonio Saenz MD Attending Physician
[2019-11-26] MEDS: Midazolam 2 MG/2 ML VIAL IVP ×2 (08:49→08:54)
[2019-11-26] MEDS: fentaNYL 100 MCG/2 ML VIAL IVP ×2 (08:50→08:52)
[2019-11-26] MEDS: Lactated Ringers 1,000 ML 80 ML IV (08:50)
[2019-11-26 09:11] VITALS: BP 111/95; PULSE 75; RESP 12; O2SAT 98
[2019-11-26] MEDS: Lidocaine 2% Pres-Free 5 ML VIAL IJ (09:19)
[2019-11-26] MEDS: Bupivacaine 0.5% Pres-Free 10 ML VIAL IJ (09:19)
[2019-11-26] MEDS: methylPREDNISolone ACETATE 40 MG/ML VIAL IJ (09:20)
[2019-11-26] MEDS: Lidocaine 1% Pres-Free 5 ML VIAL IJ (09:21)
== END 2019-11-26 08:14 ==
PROVIDERS: PCP Internal Medicine; Visit Provider Internal Medicine
DX: M47.816 Spondylosis without myelopathy or radiculopathy, lumbar region (principal)
CPT/HCPCS: 64635; 64636; 72100; J1030; J2250; J3010

== ENCOUNTER → 2019-12-09 12:35 | Outpatient (BNVA) | payer OTHER, SELFPAY | PROVIDERS: PCP Internal Medicine; Referring Provider Internal Medicine; Visit Provider Student in an Organized Health Care Education/Training Program | DX: M54.31 Sciatica, right side (principal) | CPT/HCPCS: 99212 ==

== ENCOUNTER 2020-06-11 02:42 | Outpatient (CLI) | payer OTHER, SELFPAY ==
--- NOTE | 2020-06-11 | DI.US_ITS ---
EXAM: LUMBAR SPONDYLOSIS WITH MECHANICAL RT SIDED LOW BACK PAIN COMPARISON: No exams were available for comparison TECHNIQUE: Ultrasound performed using standard protocol. FINDINGS: Sonography was provided for Dr. De Leon during the performance of a right hip injection. Please refer to the procedure report for complete details. DATA REPOSITORY:
[2020-06-11 12:21] VITALS: BP 119/63; PULSE 65; RESP 16; TEMP 36.5; O2SAT 98
--- NOTE | 2020-06-11 13:11 | PDOC.PAIN_ITS ---
Pain Clinic Procedure Note Procedure Note Procedure Note: ULTRASOUND GUIDED RIGHT TROCHANTERIC BURSA INJECTION Pre-Procedural Evaluation: ALEXANDER GOODMAN has been referred to the [facility] for an Ultrasound Guided right trochanteric bursa injection for a chief complaint of right lateral thigh pain. Pre-procedure Pain Score: 7/10 Dx: Right trochanteric bursitis Patient was interviewed and the medical record reviewed. There were no medical, pharmacologic, radiographic, or other structural contraindications to preforming an ultrasound guided injection. Risks and expected side effects as well as potential benefits of the procedure were reviewed. The patient consent form was signed and witnessed. Standard time-out procedure was performed. The use of direct ultrasound visualization of the needle (rather than a non- guided injection) was required to increase patient safety by excluding inadvertent intramuscular, intratendinous, or intraneural needle placement and minimizing bleeding by avoiding osteochondral or vascular injury from the needle. Additionally, the increased accuracy of placement may increase clinical effectiveness and will allow higher diagnostic specificity when evaluating effectiveness of this injection. Procedure Description: The patient was placed in the [PROCEDURE POSITION] position and automated blood pressure cuff and pulse oximeter applied for monitoring during the procedure and recorded in the medical record. Pre-injection ultrasound scanning of the area of interest was performed using linear transducer, identifying relevant anatomy, landmarks, and neurovascular structures allowing for optimal needle path. The site was then prepared in the usual sterile fashion, using thorough Chlorhexadine preparation of the skin and sterile draping. The same ultrasound transducer was then passed into the sterile field using sterile probe cover and sterile ultrasound gel. The injection target was again visualized. Skin and subcutaneous tissues were anesthetized with 1 mL of 1% Lidocaine. A 3.5 inch Pajunk US needle was placed under live ultrasound guidance, using an in- plane approach, to the target area. After visualization of the needle tip at the target area, a mixture of 3 mL 2% Lidocaine and 1 mL Depomedrol (40 mg/cc), totaling 4 mL of injectate was delivered after negative aspiration for blood. The needle was flushed with 1cc of 2% Lidocaine and removed without difficulty. Ultrasound images were captured and stored for documentation purposes. Post-procedure Pain Score:1/10 to the lateral right hip Vital signs were stable throughout the procedure and were as recorded in the docflowsheet by the nursing staff. Follow up plans and appointments were discussed with the patient.Post procedure instruction was given as documented in nursing documentation and having met discharge criteria, they were discharged from the [facility]. COMMENTS: If this procedure is found to be effective, it can be completed up to 3 times per 12 months. Consider Superior and Middle Cluneal nerve blocks for the right upper buttock pain. Joseph De Leon DO, MPH Pain Management
[2020-06-11] MEDS: Lidocaine 2% Pres-Free 5 ML VIAL IJ (13:15)
[2020-06-11] MEDS: methylPREDNISolone ACETATE 40 MG/ML VIAL IJ (13:15)
[2020-06-11 13:16] VITALS: PULSE 62; O2SAT 96
== END 2020-06-11 03:02 ==
PROVIDERS: PCP Internal Medicine; Visit Provider Preventive Medicine Occupational Medicine
DX: M70.61 Trochanteric bursitis, right hip (principal)
CPT/HCPCS: 20610; 76942; J1030

== ENCOUNTER 2020-06-29 18:36 | Emergency (ER) | payer OTHER, SELFPAY ==
[2020-06-29] VITALS (12 sets, daily range): BP systolic 116–141; BP diastolic 38–76; PULSE 57–67; RESP 20; TEMP 36.6; O2SAT 98–100
--- NOTE | 2020-06-29 18:36 | ED.GENADUL_ITS ---
Discharge Plan Disposition Patient Disposition: HOME Condition: Improving Discharge Details Clinical Impression: Left shoulder pain Primary Care Provider: Harshil Krueger ED Provider: Miguel Angel Guevara Home Meds and New Rx's Prescriptions: New hydrocodone-acetaminophen 5-325 mg tablet 1 tab PO BID PRN (Reason: pain) Qty: 5 RF: 0 Continued gabapentin 600 mg tablet 600 mg PO TID RF: 0 albuterol sulfate [Ventolin HFA] 90 mcg/actuation HFA aerosol inhaler 2 puff [id number] .[id number] PRNRF: 0 sertraline 100 mg Tablet 100 mg PO DAILY RF: 0 sodium chloride [Saline Nasal] 0.65 % Aerosol,Howe 1 spray INTRANASAL PRN PRNRF: 0 torsemide 10 mg Tablet 10 mg PO DAILY PRN PRNRF: 0 omeprazole 20 MG capsule,delayed release(DR/EC) 20 mg PO HS RF: 0 naproxen 500 mg Tablet 500 mg PO BID Qty: 120 RF: 0 No Action clonazepam 1 MG tablet 0.5 mg PO HS RF: 0 Discharge Instructions Instructions: Shoulder Pain (ED) Additional Instructions: Ice 20 minutes at a time to reduce pain and swelling. Please wear sling while you are awake and out of bed. May remove for bathing. May use your prescribed naproxen for pain with Vicodin as needed, as prescribed for severe or breakthrough pain. Do not take this in conjunction with clonazepam. Do not take in conjunction with additional Tylenol. Please follow-up with orthopedics for recheck. Call the office at [phone] for an appointment time. Return to the ER for any acute concerns. Medical Decision Making Yes 54-year-old female presents from home after falling off a trailer. She was pulling hard on the steering wheel of a lawn tractor on top of the trailer, when the steering wheel came loose and she fell backwards off a trailer to the ground landing flat on her back. She struck her head and left greater than right thorax posteriorly. She did not have a loss of consciousness. She initially complained of some neck pain and left shoulder pain. She was brought by EMS. Primary survey is reassuring. Patient quite tender over the humerus and shoulder diffusely on the left side. Her spine is unremarkable. Referred for CT of the head, cervical spine, plain x-ray of pelvis and left shoulder. The studies are unremarkable and out of concern for possible nondisplaced left scapular fracture, patient underwent noncontrast CT scan. Per radiology, no evidence of acute bony injury. Lung de la torre unremarkable. I do question subtle nondisplaced scapular fracture, Would also consider rotator cuff injury. CTs will be over read by our in-house radiologist. Will place the patient in sling for comfort, offer analgesia for home (consented for opiate use for severe pain), and have her follow-up in orthopedic clinic for recheck. HPI General Mode of arrival: EMS . Date/Time Provider Initiated Documentation: 06/29/20 18:42 . Limitations to Documentation: no limitations . Information obtained by: patient and EMS . History of Present Illness 54 year old F presents to the emergency department with the chief complaint of Fall off tractor, shoulder pain, Quality is described as dull and constant, and is localized to the left and upper extremity. Patient reports no radiation. Patient started experiencing this minute(s) and it has been constant. No relieving factors improve symptom(s), Movement worsens symptoms . Patient notes denies headaches. Patient did receive the following treatments prior to arrival, other Related Data Home Medications Medication Instructions Recorded Confirmed clonazepam 0.5 mg PO HS 12/30/13 06/29/20 omeprazole 20 mg PO HS 04/27/17 06/29/20 sodium chloride [Saline Nasal] 1 spray INTRANASAL PRN PRN 07/16/18 06/11/20 torsemide 10 mg PO DAILY PRN PRN 07/16/18 06/29/20 naproxen 500 mg PO BID #120 tab 08/10/18 06/29/20 albuterol sulfate 90 mcg/actuation 2 puff [id number] .[id number] PRN gm 04/08/19 06/29/20 aerosol inhaler gabapentin 600 mg tablet 600 mg PO TID 04/08/19 06/29/20 sertraline 100 mg PO DAILY 03/09/20 06/29/20 hydrocodone-acetaminophen 1 tab PO BID PRN #5 tab 06/29/20 Previous Rx's Medication Instructions Recorded naproxen 500 mg PO BID #120 tab 08/10/18 hydrocodone-acetaminophen 1 tab PO BID PRN #5 tab 06/29/20 Allergies Allergy/AdvReac Type Severity Reaction Status Date / Time Penicillins Allergy Intermediate Skin Rash Unverified 06/11/20 12:19 pravastatin AdvReac Intermediate leaky Unverified 06/11/20 12:19 stools General ELSY: 4 Review of Systems Narrative: no LOC, no neck pain, chronic back pain unchanged. 02/18 systems reviewed [facility] Medical History (Updated 06/29/20 @ 20:31 by Miguel Angel Guevara MD) Chronic low back pain Complex tear of medial meniscus of right knee as current injury (11/06/17) COPD (chronic obstructive pulmonary disease) Depression Dyspepsia Fibromyalgia Greater trochanteric bursitis of both hips (01/01/18) Headache Hyperlipidemia Knee joint pain Marital problems Meralgia paraesthetica Nasal lesion Obesity Peripheral edema Perirectal abscess Plantar fasciitis Primary osteoarthritis of right knee (12/04/17) Prurigo nodularis PTSD (post-traumatic stress disorder) Restless leg syndrome Sleep apnea Somatic dysfunction of sacral region Thoracic spine pain Tobacco abuse Trochanteric bursitis of both hips Urinary frequency Urinary hesitancy Weakness Surgical History Abdominal hysterectomy (04/25/11) section (04/25/11) Cholecystectomy (04/25/11) Hx of hysterectomy Incision & Drainage, Abscess or Hematoma (05/03/17) periectal abscess cavity Status post arthroscopy of right knee Partial medial meniscectomy, medial chondroplasty, removal of loose bodies Date of surgery: November 21, 2017 Dr. 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 Status post total knee replacement, right July 2018 Social History Smoking/Tobacco Use Status: Current every day Alcohol Intake: current Alcohol Intake frequency: holidays/special occasions only Drug use: Never Substance use type: does not use Current gender identity: female Do you feel safe at home: Yes Do you feel safe in your relationship?: Yes Exam Narrative Exam Narrative: GEN: awake, alert, oriented 3. Pleasant, well groomed, interactive. HEAD: Normocephalic, atraumatic ENT: Mucous membranes moist, oropharynx unremarkable, External ear exam unremarkable EYES: PERRL, EOMI NECK: Full ROM, no midline tenderness or step-off, no DOUGLAS, no menigismus CHEST/RESP: Nontender, clear to auscultation bilateral, no wheeze/rhonchi/rales CARDIOVASCULAR: RRR, no murmur, rub sayra. 2+ Rad pulse bilateral ABDOMEN: Soft, nontender, no mass. +Bowel sounds EXT: 2+ radial pulse bilaterally. Sensation tact throughout. Normal motor function. Left proximal humerus tenderness to palpation, pain with movement. Neuro: Grossly normal neurologic exam, conversant, interactive. Psych: Speech fluent, thoughts congruent, affect normal
--- NOTE | 2020-06-29 18:45 | DI.RAD_ITS ---
EXAM: XR PELVIS AP CLINICAL HISTORY: Fall, pain. TECHNIQUE: 2D digital imaging was performed. COMPARISON: CR [facility] ILIAC JOINTS from 04/30/2015 FINDINGS: BONES: No acute fracture is present. No bony destructive lesion is seen. Enthesophytes are noted fro m the iliac wings and greater trochanters. JOINTS: No dislocation present. There are mild degenerative changes of the hips and SI joints. SOFT TISSUE: Normal. IMPRESSION: Unremarkable radiographs of the pelvis. DATA REPOSITORY: RADIATION DOSE DELIVERED:
--- NOTE | 2020-06-29 18:45 | DI.CT_ITS ---
EXAM: CT HEAD CERVICAL SPINE WO CLINICAL HISTORY: Fall, left-sided pain, headache. TECHNIQUE: Imaging Protocol: Axial computed tomography images with coronal and sagittal reformatted images were created and reviewed COMPARISON: No exams were available for comparison FINDINGS: Head CT Ventricles and Extra axial spaces: Normal in size and morphology for the patient's age. Hemorrhage: None. Cerebral parenchyma: Normal. Midline shift: None. Brainstem/Cerebellum: Normal. Calvarium: No fracture. Hyperostosis frontalis interna. Visualized Paranasal sinuses/Mastoids: Clear. Cervical Spine CT BONES: Vertebral body heights are maintained. Alignment is normal. There is no evidence of acute frac ture. Mild degenerative disc changes and facet degenerative changes are seen, greatest at C5-6. . SOFT TISSUES: No paraspinal hematoma. The airway appears intact. No pneumothorax is seen at the lung apices. IMPRESSION: Head CT: No acute abnormality. C-spine CT: Mild degenerative changes, no acute abnormality. Incidental RADIATION DOSE DELIVERED: LINK-TO-SR Total DLP DATA REPOSITORY: All CT scans at this facility are submitted to the National Radiology Data Registry (NRDR) Dose Index Registry (DIR) with the [employer] ([employer]). RADIATION OPTIMIZATION: All CT scans at this facility use at least one of these dose optimization te chniques: automated exposure control; mA and/or kV adjustment per patient size (includes targeted exa ms where dose is matched to clinical indication); or iterative reconstruction.
--- NOTE | 2020-06-29 18:45 | DI.RAD_ITS ---
EXAM: XR SHOULDER LT COMPLETE 2+V CLINICAL HISTORY: Fall, proximal humerus pain. TECHNIQUE: 2D digital imaging was performed. COMPARISON: No exams were available for comparison FINDINGS: BONES: No acute fracture is present. No bony destructive lesion is seen. JOINTS: No dislocation present. There are mild degenerative changes of the acromioclavicular joint an d glenohumeral joint. SOFT TISSUE: Normal. IMPRESSION: Mild degenerative changes. No acute abnormality. DATA REPOSITORY: RADIATION DOSE DELIVERED:
[2020-06-29] MEDS: Acetaminophen 500 MG TAB 1000 MG PO (18:55)
--- NOTE | 2020-06-29 19:30 | DI.CT_ITS ---
EXAM: CT CHEST WO CLINICAL HISTORY: fall, L posterior/lateral pain shoulder/chest TECHNIQUE: Imaging Protocol: Axial computed tomography images with coronal and sagittal reformatted images were created and reviewed CONTRAST MATERIAL: Noncontrast COMPARISON: No exams were available for comparison FINDINGS: Tracheobronchial tree: Patent where visualized. Mediastinum and Ju: No dominant adenopathy or fluid collection. Pulmonary parenchyma: No consolidation or dominant measurable mass. Small right apical bleb. Pleura: No effusion or pneumothorax. Heart: The heart is not dilated. No coronary artery calcifications are seen. Aorta: Thoracic aorta non-dilated. Upper abdomen: Enlarged fatty liver. Status post cholecystectomy. Lymph nodes: Within normal limits. Bones: No rib or spine fracture is seen. Soft tissues: Unremarkable. IMPRESSION: No acute abnormality. RADIATION DOSE DELIVERED: 804.2mGy.cm Total DLP DATA REPOSITORY: All CT scans at this facility are submitted to the National Radiology Data Registry (NRDR) Dose Index Registry (DIR) with the [employer] ([employer]). RADIATION OPTIMIZATION: All CT scans at this facility use at least one of these dose optimization te chniques: automated exposure control; mA and/or kV adjustment per patient size (includes targeted exa ms where dose is matched to clinical indication); or iterative reconstruction.
--- NOTE | 2020-06-29 19:43 | DI.VRAD_ITS ---
PROCEDURE INFORMATION: Exam: CT Head Without Contrast Exam date and time: 06/29/2020 6:50 PM Age: 54 years old Clinical indication: Injury or trauma; Blunt trauma (contusions or hematomas); Patient HX: Fall, left-sided pain, headache TECHNIQUE: Imaging protocol: Computed tomography of the head without contrast. COMPARISON: No relevant prior studies available. FINDINGS: Brain: Normal volume for age. No hemorrhage. No significant white matter disease. No edema. Cerebral ventricles: No ventriculomegaly. Bones/joints: Unremarkable. No acute fracture. Paranasal sinuses: Visualized sinuses are unremarkable. No fluid levels. Mastoid air cells: No mastoid effusion. Soft tissues: No focal soft tissue abnormality. IMPRESSION: No acute intracranial abnormality. PROCEDURE INFORMATION: Exam: CT Cervical Spine Without Contrast Exam date and time: 06/29/2020 6:50 PM Age: 54 years old Clinical indication: Injury or trauma; Blunt trauma (contusions or hematomas); Patient HX: Fall, left-sided pain, headache TECHNIQUE: Imaging protocol: Computed tomography images of the cervical spine without contrast. COMPARISON: No relevant prior studies available. FINDINGS: Vertebrae: No acute fracture, vertebral body heights are preserved. No spondylolisthesis. There is straightening of normal cervical lordosis which may be secondary to patient positioning versus muscle spasm. Mild asymmetric left facet hypertrophic changes at C5-C6. Discs/Spinal canal/Neural foramina: Mild degenerative disc disease centered at C5-C6 with borderline intervertebral disc height loss and mild marginal osteophyte formation. Minimal degenerative disc changes at the adjacent levels. There is mild left osseous neural foraminal narrowing at the C5-C6 level related to uncovertebral hypertrophic change. Osseous neural foramina and central canal otherwise appear patent. Soft tissues: No focal abnormality. Thyroid: No mass. Lymph nodes: No pathologically sized nodes by CT size criteria. Lungs: Lung apices are clear. IMPRESSION: 1. No acute fracture. 2. Mild degenerative disc disease at C5-C6 with mild asymmetric left osseous neural foraminal narrowing and facet hypertrophic changes. Dictated and Authenticated by: Gustavo Forde MD. Ordering:GREGORY Michelle MD
--- NOTE | 2020-06-29 19:52 | DI.VRAD_ITS ---
PROCEDURE INFORMATION: Exam: XR Pelvis Exam date and time: 06/29/2020 7:46 PM Age: 54 years old Clinical indication: Injury or trauma; Fall; Blunt trauma (contusions or hematomas); Bilateral; Hip; Injury date: 06/29/20; Injury details: Fell of trailer TECHNIQUE: Imaging protocol: XR pelvis. Views: 1 or 2 view. COMPARISON: No relevant prior studies available. FINDINGS: Bones/joints: No acute fracture or dislocation. Mild symmetric superior joint space narrowing of the hips with mild spurring of the acetabula. There is hypertrophic changes of the bilateral anterior iliac spines and greater trochanters, could be seen in association with DISH, correlate clinically for appropriate symptoms. Soft tissues: No focal abnormality. IMPRESSION: 1. No acute fracture or dislocation. 2. Mild symmetric degenerative changes of the hips. Dictated and Authenticated by: Gustavo Forde MD. Ordering:GREGORY Michelle MD
--- NOTE | 2020-06-29 20:04 | DI.VRAD_ITS ---
PROCEDURE INFORMATION: Exam: XR Left Shoulder Exam date and time: 06/29/2020 7:37 PM Age: 54 years old Clinical indication: Injury or trauma; Blunt trauma (contusions or hematomas); Shoulder; Left; Injury date: 06/29/20; Injury details: Fall off trailer; Patient HX: Extreme pain after fall TECHNIQUE: Imaging protocol: XR Left shoulder. Views: 2 or more views. COMPARISON: No relevant prior studies available. FINDINGS: Bones/joints: No suspicious osseous lytic or blastic lesion. No acute fracture or dislocation. Acromioclavicular and coracoclavicular intervals within normal limits. There are mild degenerative changes of the left acromioclavicular joint. Soft tissues: No focal abnormality. IMPRESSION: No acute osseous finding. Dictated and Authenticated by: Gustavo Forde MD. Ordering:GREGORY Michelle MD
--- NOTE | 2020-06-29 20:12 | DI.VRAD_ITS ---
PROCEDURE INFORMATION: Exam: CT Chest Without Contrast Exam date and time: 06/29/2020 7:52 PM Age: 54 years old Clinical indication: Injury or trauma; Blunt trauma (contusions or hematomas); Injury date: 06/29/20; Injury details: Fall of trailer; Patient HX: Fall, L posterior/lateral pain shoulder/chest TECHNIQUE: Imaging protocol: Computed tomography of the chest without contrast. Radiation optimization: All CT scans at this facility use at least one of these dose optimization techniques: automated exposure control; mA and/or kV adjustment per patient size (includes targeted exams where dose is matched to clinical indication); or iterative reconstruction. COMPARISON: No relevant prior studies available. FINDINGS: Thyroid: No mass. Lungs: No focal consolidation. No masses. Note is made of small right apical pleural bleb. Pleural space: No pneumothorax. No pleural effusion. Heart: No cardiomegaly. No pericardial effusion. Aorta: No aortic aneurysm. Lymph nodes: Unremarkable. No enlarged lymph nodes by CT size criteria. Liver: Diffuse hypoattenuation of the liver with scattered focal fatty sparing suggestive for fatty infiltration, correlate with LFTs. Gallbladder and bile ducts: Gallbladder surgically absent. Bones/joints: Unremarkable. No acute fracture. Soft tissues: Unremarkable. IMPRESSION: No acute finding. Dictated and Authenticated by: Gustavo Forde MD. Ordering:GREGORY Michelle MD
[2020-06-29] MEDS: HYDROcodone 5/Acetaminophen 325 TAB PO (20:40)
== END 2020-06-29 20:45 | disposition home or self-care (01) ==
PROVIDERS: Emergency Provider Emergency Medicine; PCP Internal Medicine
DX: M25.512 Pain in left shoulder (principal); S09.90XA Unspecified injury of head, initial encounter; M54.2 Cervicalgia; M54.6 Pain in thoracic spine; W17.89XA Other fall from one level to another, initial encounter; J44.9 Chronic obstructive pulmonary disease, unspecified; F17.210 Nicotine dependence, cigarettes, uncomplicated
CPT/HCPCS: 71250; 99284; 70450; 72125; 72170; 73030; L3650

== ENCOUNTER 2020-07-09 11:15 | Outpatient (CLI) | payer OTHER, SELFPAY | END 2020-07-09 11:35 | PROVIDERS: PCP Internal Medicine; Visit Provider Physician Assistant | DX: S49.92XA Unspecified injury of left shoulder and upper arm, initial encounter (principal); W17.89XA Other fall from one level to another, initial encounter; J44.9 Chronic obstructive pulmonary disease, unspecified; F17.210 Nicotine dependence, cigarettes, uncomplicated | CPT/HCPCS: 99214 ==

== ENCOUNTER 2020-07-21 21:29 | Outpatient (REF) | payer OTHER, SELFPAY | END 2020-07-21 21:49 | LOC: NCHCN 21:29 | PROVIDERS: PCP Internal Medicine; Visit Provider Internal Medicine | DX: R30.0 Dysuria (principal) | CPT/HCPCS: 87077; 87086; 87186 ==

== ENCOUNTER → 2020-08-13 09:56 | Outpatient (BNVA) | payer OTHER, SELFPAY | PROVIDERS: PCP Internal Medicine; Referring Provider Internal Medicine; Visit Provider Student in an Organized Health Care Education/Training Program | DX: M25.512 Pain in left shoulder (principal); M75.82 Other shoulder lesions, left shoulder; W19.XXXA Unspecified fall, initial encounter | CPT/HCPCS: 99213 ==

== ENCOUNTER → 2020-08-27 00:45 | Outpatient (CLI) | payer OTHER, SELFPAY ==
--- NOTE | 2020-08-27 07:00 | DI.MRI_ITS ---
CLINICAL HISTORY: SHOULDER PAIN,LT ROTATOR CUFF TEAR,M75.102. TECHNIQUE: Multiplanar multisequence MRI was performed. COMPARISON: None FINDINGS: MR examination of the shoulder was performed according to the usual protocol. Note is made of significant motion artifact on multiple pulse sequences. This degrades imaging on mu ltiple pulse sequences. There is a small effusion of the glenohumeral joint. Moderate fluid in the subacromial subdeltoid bu rsa. Bones and labrum: There are prominent hypertrophic degenerative changes of the acromioclavicular join t with impingement on supraspinatus mechanism. There are subchondral signal changes in the greater t uberosity of the humerus. There are mild hypertrophic degenerative marginal osteophytes of the humer al head and glenoid. The humeral head is mildly subluxed superiorly. Poor visualization of glenoid labrum, no gross labral tear seen. Rotator cuff: Supraspinatus tendon and infraspinatus tendon show markedly abnormal signal. There is an apparent full-thickness tear of posterior aspect of supraspinatus and anterior aspect of infraspi natus tendons, the borders of the tear are difficult to define secondary to motion artifact but tear probably measures at least 16 by 4 by 17 millimeters in diameter. This is a full-thickness tear. No gross retraction seen. Grossly normal intramuscular signal with no significant fatty replacement. Subscapularis tendon and attachment appear intact as visualized with mildly abnormal signal in subsca pularis consistent with mild tendinosis. Rotator interval structures are poorly seen. Biceps tendon and anchor: Biceps tendon and anchor show normal signal and no evidence of a tear. John ps tendon is normally positioned in the bicipital groove. IMPRESSION: Poor visualization due to motion artifact. Full-thickness tear of supraspinatus and infraspinatus te ndon as described above, estimated roughly at 16 x 4 x 17 millimeters. Infraspinatus tendon attachme nt very poorly seen, I am uncertain whether the infraspinatus tendon is retracted. DATA REPOSITORY:
== END ==
PROVIDERS: PCP Internal Medicine; Visit Provider Student in an Organized Health Care Education/Training Program
DX: M75.122 Complete rotator cuff tear or rupture of left shoulder, not specified as traumatic (principal)
CPT/HCPCS: 73221

== ENCOUNTER → 2020-09-17 12:49 | Outpatient (BNVA) | payer OTHER, SELFPAY | PROVIDERS: PCP Internal Medicine; Referring Provider Internal Medicine; Visit Provider Physician Assistant Surgical | DX: Z01.818 Encounter for other preprocedural examination (principal); M75.102 Unspecified rotator cuff tear or rupture of left shoulder, not specified as traumatic; H81.10 Benign paroxysmal vertigo, unspecified ear ==

== ENCOUNTER 2020-09-18 02:09 | Outpatient (CLI) | payer OTHER, SELFPAY ==
[2020-09-19 15:32] LABS: COVID-19 RT-PCR UVMMC Result Negative (Negative)
== END 2020-09-18 02:29 ==
PROVIDERS: PCP Internal Medicine; Visit Provider Student in an Organized Health Care Education/Training Program
DX: Z11.59 Encounter for screening for other viral diseases (principal); Z01.818 Encounter for other preprocedural examination
CPT/HCPCS: U0003

== ENCOUNTER 2020-09-22 11:13 | Day surgery (SDC) | payer OTHER, SELFPAY ==
[2020-09-22] VITALS (10 sets, daily range): BP systolic 108–159; BP diastolic 55–91; PULSE 57–64; RESP 13–24; TEMP 35–36.5; O2SAT 97–100
--- NOTE | 2020-09-22 10:48 | W.PM.DSUDISC ---
Documented by User: TONY James 09/22/20 12:59 Discharge Plan Disposition Patient Disposition: HOME Condition: Good Discharge Details Reason For Visit: Left RTC Repair Attending Provider: Armin Curtis Primary Care Provider: Harshil Krueger Home Meds and New Rx's Prescriptions: New acetaminophen [Tylenol Extra Strength] 500 mg tablet 500 mg PO Q6H PRNQty: 90 RF: 0 oxycodone 5 mg tablet 5 mg PO Q4H PRNQty: 18 RF: 0 Continued polyethylene glycol 3350 17 gram/dose powder 238 g PO ONCE Qty: 238 RF: 0 bisacodyl [Dulcolax (bisacodyl)] 5 mg tablet,delayed release (DR/EC) 5 mg PO ONCE Qty: 4 RF: 0 gabapentin 600 mg tablet 600 mg PO TID RF: 0 albuterol sulfate [Ventolin HFA] 90 mcg/actuation HFA aerosol inhaler 2 puff IH .[id number] PRNRF: 0 sertraline 100 mg tablet 100 mg PO DAILY RF: 0 triamcinolone acetonide 0.1 % cream 1 applic topical DAILY RF: 0 clonazepam 1 mg tablet 1 mg PO HS RF: 0 torsemide 10 mg Tablet 10 mg PO DAILY PRN PRNRF: 0 omeprazole 20 MG capsule,delayed release(DR/EC) 20 mg PO HS RF: 0 naproxen 500 mg Tablet 500 mg PO BID Qty: 120 RF: 0 Discharge Instructions Stand Alone Forms: Kirsten Hays w/RCR Referrals: Armin Curtis MD [ [facility] STAFF PHYSICIAN] - Equipment/Supplies: Sling Activity:: Activity as Tolerated Remove Dressings/Wound Care:: 72 hours Shower/Bathe:: 72 hours Diet:: As Tolerated Discharge Orders Discharge Orders: Discharge Order (Routine); Ordered 09/22/20 Ordered By: Kaylah Chan DS: Diagnosis Discharge Diagnosis (1) Left rotator cuff tear: Status: Acute Documented by User: Armin Curtis MD 09/22/20 16:22 Discharge Plan Disposition Patient Disposition: HOME Condition: Good Discharge Details Reason For Visit: Left RTC Repair Attending Provider: Armin Curtis Primary Care Provider: Harshil Krueger Home Meds and New Rx's Prescriptions: New acetaminophen [Tylenol Extra Strength] 500 mg tablet 500 mg PO Q6H PRNQty: 90 RF: 0 oxycodone 5 mg tablet 5 mg PO Q4H PRNQty: 18 RF: 0 Continued polyethylene glycol 3350 17 gram/dose powder 238 g PO ONCE Qty: 238 RF: 0 bisacodyl [Dulcolax (bisacodyl)] 5 mg tablet,delayed release (DR/EC) 5 mg PO ONCE Qty: 4 RF: 0 gabapentin 600 mg tablet 600 mg PO TID RF: 0 albuterol sulfate [Ventolin HFA] 90 mcg/actuation HFA aerosol inhaler 2 puff IH .[id number] PRNRF: 0 sertraline 100 mg tablet 100 mg PO DAILY RF: 0 triamcinolone acetonide 0.1 % cream 1 applic topical DAILY RF: 0 clonazepam 1 mg tablet 1 mg PO HS RF: 0 torsemide 10 mg Tablet 10 mg PO DAILY PRN PRNRF: 0 omeprazole 20 MG capsule,delayed release(DR/EC) 20 mg PO HS RF: 0 naproxen 500 mg Tablet 500 mg PO BID Qty: 120 RF: 0 Discharge Instructions Stand Alone Forms: Kirsten Hays w/RCR Referrals: Armin Curtis MD [ [facility] STAFF PHYSICIAN] - Equipment/Supplies: Sling Activity:: Activity as Tolerated Remove Dressings/Wound Care:: 72 hours Shower/Bathe:: 72 hours Diet:: As Tolerated Discharge Orders Discharge Orders: Discharge Order (Routine); Ordered 09/22/20 Ordered By: Kaylah Chan
[2020-09-22] MEDS: Lactated Ringers 1,000 ML 30 ML IV (13:05)
[2020-09-22] MEDS: ceFAZolin 3,000 MG in Normal Saline 100 ML 200 MG IVPB (13:40)
[2020-09-22] MEDS: EPINEPHrine 1 MG/ML AMP pres-free (14:08)
[2020-09-22] MEDS: fentaNYL 100 MCG/2 ML VIAL IVP ×3 (16:59→17:12)
--- NOTE | 2020-09-22 20:28 | ROE_ITS ---
Date of service: 09/22/20 Time of Service: 16:03 Operative Note Operative Note DATE OF PROCEDURE: 09/23/20 PRE-OP DIAGNOSIS: Left rotator cuff tear POST-OP DIAGNOSIS: same Complex rotator cuff tear with retracted infraspinatus tear and an laminated and retracted supraspinatus tear PROCEDURE: - Arthroscopic Rotator Cuff Repair - Extensive debridement of anterior and posterior glenohumeral joint and rotator cuff - Biceps tenotomy - Subacromial Debridement with Acromioplasty SURGEON: Armin Curtis COMMUNITY DEVELOPMENT TECHNICIAN: Kaylah Chan ANESTHESIA: GETA and regional ESTIMATED BLOOD LOSS: 0 PATHOLOGY: none sent COMPLICATIONS: None Patient was transported to: PACU Patient's condition: stable Indications: I have seen Dea in clinic for a painful shoulder. Pathology was confirmed based on MRI and exam findings. Nonoperative measures were exhausted but disability and pain persisted. I discussed shoulder arthroscopy and p rocedures. I reviewed the risks of the procedures to include, but not limited to, bleeding, infection, pain, stiffness, damage to nerves or vessels, recurrence, hardware failure, blood clot. Despite these risks, the patient elected to proceed. Findings: A diagnostic arthroscopy was performed with the following findings: Articular Side - Glenohumeral Joint: No significant arthritic changes were appreciated - Labrum: Injected and inflamed labrum with some tearing of the insertion of the biceps - Cuff: Inflamed subscapularis but intact with minimal fraying, inflamed and thickened rotator interval, high-grade partial articular sided supraspinatus tear with 10 mm of exposed articular footprint only for the anterior 5 to 6 mm with remainder of the tuberosity exposed with retracted edge of supra and infraspinatus - Biceps: Mild inflammatory changes but tearing at the insertion to the labrum Subacromial Side - Bursal: Thickened bursa throughout both anteriorly, posteriorly, and laterally - Rotator Cuff: Complex tear intratendinous. There was a large stump of infraspinatus still attached to the tuberosity with retracted edge at the level of the glenoid, laminated supraspinatus tear with retraction medial to the glenoid -Severe downsloping anterolateral spur Procedure Description: Dea was greeted in the preoperative holding area where the correct side was identified and marked. The consent was reviewed with the patient and signed. The history and physical was updated. All questions were answered. Dea was taken back to the PACU for administration of an intrascalene nerve block. She was then taken to the operating room. The patient was placed into the supine position on the operating room table. A general anesthetic was administered. Dea was then positioned in the beach chair position. All bony prominences were well padded. The head was placed in a foam venereal disease control head in a neutral position. Prophylactic antibiotics in the form of cefazolin were administered. The left arm/shoulder was then prepped with Chloraprep and draped in a standard fashion with stockinette and shoulder drape. A timeout to confirm correct identity, side and site, procedure, allergies, anesthesia, and medical concerns was performed. The arm was placed into a pneumatic miles, [id number]. The shoulder arthroscopy was then performed. The glenohumeral joint was injected with 20 cc of normal saline with good flow back. A standard posterior portal was made and the joint was entered atraumatically with a blunt arthroscope. Once inside we had good visualization of the structures of the glenohumeral joint. An anterior portal was established with spinal needle localization. A 6.5 mm cannula was inserted. A probe was then used to perform a diagnostic arthroscopy. There is noted to be no significant cartilage damage of the glenoid humeral joint. The labrum was notably inflamed with some fraying and some tearing at specially at the biceps anchor. There were no loose bodies in the inferior pouch. The superior rotator cuff was completely torn with a very small amount of bursal sided supraspinatus remaining only on the very anterior aspect. This was in essence a high-grade partial articular sided tear with about 10 or so millimeters of exposed articular sided footprint but only about 6 mm of with attached. The remainder of the supraspinatus seem to be laminated with a large portion retracted medial the glenoid. There is no attachment of infraspinatus still remaining however there was a large stump of tendon seen over the posterior tuberosity. The biceps tendon was without tearing. The subscapularis was intact. There was some notable inflammatory changes of the subscapularis and the rotator interval but no tearing seen in this area. Using the electrocautery I performed a biceps tenotomy. I also debrided the labrum from anterior to posterior using both a shaver and electrocautery for any frayed edges. Inflammatory changes were also resected and debrided. The exposed footprint was debrided from within the joint as much as possible using a shaver. The arthroscope was then inserted into the subacromial space. The 6.5 mm cannula was placed lateral to the CA ligament. There was a large downsloping a nterolateral spur. A complete bursectomy is performed anteriorly, posteriorly, and laterally with electrocautery and shaver. This had excellent exposure of the rotator cuff. The bursal side rotator cuff was inspected and demonstrated even more complexity to the tear. There is a small amount of distal infraspinatus still attached but the majority the infraspinatus was retracted to the level of the glenoid. The stump of infraspinatus was easily seen and the tear than sprays was obviously intratendinous. The remaining tendon which was retracted was bulbous and somewhat unhealthy. I used a shaver to debride some of this material. Using a spinal needle 2 lateral portals were established. 7.5 mm cannula was placed in the anterolateral portal and a 6.5 mm cannulas placed in the posterior lateral portal. This became her working and viewing portals primarily. With this perspective I was able to clear off the remainder of the bursa and also evaluate the rotator cuff tear. Even though the tear was intratendinous there was some mobility. Use tissue liberator's as well as electrocautery and shaver to help free up attachments from the rotator cuff. The torn edge was unhealthy appearing and I debrided it with a shaver trying to relieve as much tissue as possible. Given that the high-grade articular sided tear was small in its width and had very little bursal fibers still attached I resected this from the tuberosity using electrocautery. I was able to dissect out the retracted portion of the supraspinatus seen anteriorly. It seemed as if the supraspinatus was split and there was a portion of it still attached to the infraspinatus as I move the infraspinatus back to the footprint I was able see the supraspinatus come down as well. Therefore the seem to be torn from anterior to posterior needed to be repaired posterior to anterior. I debrided the footprint so there is bleeding bone appreciated. All remnant tissue was removed in this area. I then placed 3 4.5 mm Mytec Healix anchors. These were placed at the articular margin. All 3 of these were placed without significant difficulty although the posterior bone was quite soft. I was able to reposition the more posterior anchor to get into better bone. This was tested before accepted it to make sure that it was holding appropriately. I then placed horizontal mattresses throughout the rotator cuff. The 2 more posterior rotator cuff sutures had very little mobility as this was the edge it was still partially attached. This helped bring down the infraspinatus onto the posterior tuberosity and mobilize remainder of it more lateral. 2 additional horizontal mattress sutures were then placed in the infraspinatus stump. 2 horizontal mattress sutures from the anterior anchor were then placed into the supraspinatus remnant. One of the sutures was placed through the stump that was attached to the infraspinatus and the other was placed in the medial structure which was retracted. These were tested and showed to bring down the tendon to bone at least to the medial edge. I then tied these sutures with standard arthroscopic knot tying technique from posterior to anterior. This had excellent reapproximation of the tendon to the medial row. However, there is very little tissue to drape over the tuberosity. The more anterior margin was very difficult. There was a portion of the supraspinatus which came very easily in another portion which did not. However, the horizontal mattress suture which I placed between the 2 pieces was holding these edges together and just to the medial surface. Therefore, I decided to backed this up with 2 Lateral Row anchors. The 2 most posterior sutures were cut. 1 suture limb from the anterior 4 sutures were then placed into a lateral row anchor. This first 4.75 mm Healix knotless anchor was placed anteriorly and tuberosity with good bone purchase. The sutures were incorporated into the anchor and inserted into the bone with nice reapproximation of the tendon. Again this was mostly placed for backup and for helping the supraspinatus laid out against the tuberosity which it did. I used the extra suture from within this anchor the tiedown a small dogear seen anteriorly. This was passed and tied with excellent approximation of this down to bone. I then plan for a second lateral row anchor. However, the tissue of the posterior tuberosity was poor. The awl was able to penetrate the bone without difficulty. There is also fracturing seen around my attempts at passing. However, through the fracture bed over the greater trochanter I was able to place the awl with much better purchase. While it was not substantial he did resist my pullout attempt. Therefore, I inserted a second lateral anchor in this location helping bring down the sutures to the tuberosity. The sutures were then cut. There is no exposed cartilage. A 5.0 mm carol ann was then inserted from the posterior portal. The anterolateral corner of the acromion was then resected in plane with the posterior slope of the acromion. The scope equipment was removed from the shoulder. Excess fluid was evacuated. The portal sites were closed with 3-0 Monocryl. The wounds were dressed with Steri-Strips, 4 x 4's, ABDs, Medipore tape. A sling was applied. The patient tolerated the procedure well and was returned to the PACU in a stable condition suffering no known complication.
== END 2020-09-22 18:41 | disposition home or self-care (01) ==
LOC: MS 12-18 13:23 → DSU 12-18 13:23
PROVIDERS: PCP Internal Medicine; Visit Provider Student in an Organized Health Care Education/Training Program
PROC: (CPT 29827; principal; 2020-09-22 14:15)
DX: M75.122 Complete rotator cuff tear or rupture of left shoulder, not specified as traumatic (principal); G89.18 Other acute postprocedural pain; S43.432A Superior glenoid labrum lesion of left shoulder, initial encounter; X58.XXXA Exposure to other specified factors, initial encounter; M75.22 Bicipital tendinitis, left shoulder; M75.52 Bursitis of left shoulder; G47.33 Obstructive sleep apnea (adult) (pediatric); F17.210 Nicotine dependence, cigarettes, uncomplicated; E66.01 Morbid (severe) obesity due to excess calories; Z68.41 Body mass index [BMI] 40.0-44.9, adult; K21.9 Gastro-esophageal reflux disease without esophagitis
CPT/HCPCS: 29827; 29823; 29826; C1713; 76942; J0171; J0690; J1100; J1885; J2001; J2250; J2405; J2704; J3010

== ENCOUNTER → 2020-10-05 12:51 | Outpatient (BNVA) | payer OTHER, SELFPAY | PROVIDERS: PCP Internal Medicine; Referring Provider Internal Medicine; Visit Provider Student in an Organized Health Care Education/Training Program | DX: Z47.89 Encounter for other orthopedic aftercare (principal) ==

== ENCOUNTER → 2020-11-16 13:55 | Outpatient (BNVA) | payer OTHER, SELFPAY | PROVIDERS: PCP Internal Medicine; Visit Provider Student in an Organized Health Care Education/Training Program | DX: Z47.89 Encounter for other orthopedic aftercare (principal); M70.61 Trochanteric bursitis, right hip; M70.62 Trochanteric bursitis, left hip; M54.5 Low back pain ==

== ENCOUNTER → 2020-11-27 03:44 | Outpatient (CLI) | payer OTHER, SELFPAY ==
--- NOTE | 2020-11-27 09:00 | DI.MRI_ITS ---
EXAM: MR LUMBAR SPINE WO CLINICAL HISTORY: BACK PAIN, LUMBAR RADICULOPATHY,M54.16. TECHNIQUE: Multiplanar multisequence MRI was performed. FINDINGS: The marrow signal is normal. Conus medullaris appears intact. The aorta is normal in diameter. Th ere is no disc herniation at any level. There is prominent epidural fat greatest at L3-4 and L4-5. Disc causes mild narrowing of the thecal sac. Mild facet degenerative changes are again noted at L4 -5. There is mild ligamentous hypertrophy. There is a tiny left-sided facet joint cyst versus fluid . There is mild to moderate bilateral neural foraminal encroachment, greater on the right.. A left renal cyst is incidentally noted. IMPRESSION: Prominent epidural fat causes mild central canal stenosis at L4-5. There are facet degenerative ryder ges at this level a small left-sided facet joint cyst. There is mild to moderate bilateral neural fo raminal narrowing. DATA REPOSITORY:
== END ==
PROVIDERS: PCP Internal Medicine; Visit Provider Student in an Organized Health Care Education/Training Program
DX: M48.061 Spinal stenosis, lumbar region without neurogenic claudication (principal); M99.53 Intervertebral disc stenosis of neural canal of lumbar region; E88.2 Lipomatosis, not elsewhere classified
CPT/HCPCS: 72148

== ENCOUNTER 2020-12-03 21:12 | Outpatient (REF) | payer OTHER, SELFPAY ==
[2020-12-05 13:21] LABS: COVID-19 RT-PCR UVMMC Result Positive (Negative)
== END 2020-12-03 21:13 | disposition home or self-care (01) ==
LOC: NCHCN 21:12
PROVIDERS: PCP Internal Medicine; Visit Provider Family Medicine
DX: Z20.822 Contact with and (suspected) exposure to COVID-19 (principal); R06.02 Shortness of breath
CPT/HCPCS: U0003

== ENCOUNTER 2020-12-08 03:03 | Outpatient (CLI) | payer OTHER, SELFPAY ==
[2020-12-08 08:00] VITALS: BP 145/51; PULSE 71; RESP 24; TEMP 36.9; O2SAT 98
[2020-12-08] MEDS: Normal Saline 500 ML 30 ML IV (09:01)
[2020-12-08] MEDS: Normal Saline Flush 10 ML SYR IVP (09:05)
[2020-12-08 09:06] VITALS: BP 128/73; PULSE 66; RESP 22; TEMP 36.5; O2SAT 96
[2020-12-08 09:42] VITALS: BP 107/71; PULSE 60; RESP 20; TEMP 36.6; O2SAT 96
[2020-12-08 10:10] VITALS: BP 110/72; PULSE 58; RESP 18; TEMP 36.3; O2SAT 95
[2020-12-08 10:33] VITALS: BP 103/62; PULSE 62; RESP 18; TEMP 36.4; O2SAT 97
== END 2020-12-08 03:04 | disposition home or self-care (01) ==
LOC: INF 03:04
PROVIDERS: PCP Internal Medicine; Visit Provider Family Medicine
DX: U07.1 COVID-19 (principal)
CPT/HCPCS: 96365

== ENCOUNTER → 2020-12-28 13:06 | Outpatient (BNVA) | payer OTHER, SELFPAY | PROVIDERS: PCP Internal Medicine; Visit Provider Student in an Organized Health Care Education/Training Program | DX: Z47.89 Encounter for other orthopedic aftercare (principal) | CPT/HCPCS: 99213 ==

== ENCOUNTER 2021-01-25 11:41 | Outpatient (CLI) | payer OTHER, SELFPAY ==
[2021-01-25 12:09] LABS: Abs Immature Grans 0.04 10^3/uL (0.0-0.06); Absolute Basophil Count 0.05 10^3/uL (0.0-0.2); Absolute Eosinophil Count 0.15 10^3/uL (0.0-0.7); Absolute Monocyte Count 1.39 10^3/uL (0.1-0.8); Basophils % 0.4; Eosinophils % 1.1; HCT 37.3 % (36.0-46.0); HGB 12.5 g/dL (11.2-15.7); Immature Grans % 0.3; Lymphocytes % 15.1; MCH 32.4 pg (27.0-33.0); MCHC 33.5 % (32.0-36.0); MCV 96.6 fL (80-95); MPV 9.3 fL (8.0-11.0); Monocytes % 10.5; Neutrophils % 72.6; Nucleated RBC 0 %; Platelet Count 321 10^3/uL (130-400); RBC 3.86 10^6/uL (3.93-5.22); RDW-SD 46.2 fL; WBC 13.22 10^3/uL (4.4-10.8)
[2021-01-25 12:13] LABS: ESR 12 mm/hr (0-30)
[2021-01-25 12:54] LABS: C-Reactive Protein 1.81 mg/dL (0.0-0.3)
== END 2021-01-25 11:42 | disposition home or self-care (01) ==
LOC: LBO 11:43
PROVIDERS: PCP Internal Medicine; Visit Provider Physician Assistant Surgical
DX: M25.561 Pain in right knee (principal); Z96.651 Presence of right artificial knee joint; T84.53XA Infection and inflammatory reaction due to internal right knee prosthesis, initial encounter
CPT/HCPCS: 36415; 85652; 85025; 86140

== ENCOUNTER 2021-01-25 13:21 | Outpatient (CLI) | payer OTHER, SELFPAY | END 2021-01-25 13:22 | disposition home or self-care (01) | LOC: DIORS 13:21 | PROVIDERS: PCP Internal Medicine; Referring Provider Internal Medicine; Visit Provider Physician Assistant Surgical | DX: M25.561 Pain in right knee (principal); Z96.651 Presence of right artificial knee joint; Z86.16 Personal history of COVID-19 | CPT/HCPCS: 20610; 99213 ==

== ENCOUNTER 2021-01-25 20:18 | Emergency (ER) | payer OTHER, SELFPAY ==
[2021-01-25 20:41] VITALS: BP 120/66; PULSE 76; RESP 20; TEMP 37; O2SAT 98
[2021-01-25 20:46] VITALS: BP 113/58; PULSE 74; O2SAT 99
--- NOTE | 2021-01-25 21:00 | DI.RAD_ITS ---
Exam(s) XR KNEE RT 3V AP,LAT,IDA EXAM: XR KNEE RT 3V AP,LAT,IDA CLINICAL HISTORY: R knee pain, franky-lateral. TECHNIQUE: 2D digital imaging was performed. COMPARISON: CR XR KNEE RT 2V AP,LAT from 08/05/2019 FINDINGS: BONES: No acute fracture is present. No bony destructive lesion is seen. There has been no change i n the total knee prosthesis. SOFT TISSUE: There is anterior, prepatellar soft tissue swelling and joint effusion. IMPRESSION: Joint effusion and soft tissue swelling. No fracture. Stable appearance of knee prosthesis. DATA REPOSITORY: RADIATION DOSE DELIVERED:
[2021-01-25 21:01] VITALS: BP 117/52; PULSE 77; O2SAT 98
--- NOTE | 2021-01-25 21:08 | ED.GENADUL_ITS ---
Discharge Plan Disposition Patient Disposition: HOME Condition: Improving Discharge Details Clinical Impression: Infection of right prepatellar bursa Primary Care Provider: Harshil Krueger ED Provider: Miguel Angel Guevara Home Meds and New Rx's Prescriptions: Continued gabapentin 600 mg tablet 1,200 mg PO BID RF: 0 albuterol sulfate [Ventolin HFA] 90 mcg/actuation HFA aerosol inhaler 2 puff IH .[id number] PRNRF: 0 sertraline 100 mg tablet 100 mg PO DAILY RF: 0 triamcinolone acetonide 0.1 % cream 1 applic topical DAILY RF: 0 torsemide 10 mg Tablet 10 mg PO DAILY PRN PRNRF: 0 omeprazole 20 MG capsule,delayed release(DR/EC) 20 mg PO HS RF: 0 acetaminophen [Tylenol Extra Strength] 500 mg tablet 500 mg PO Q6H PRNQty: 90 RF: 0 naproxen 500 mg Tablet 500 mg PO BID Qty: 120 RF: 0 No Action clonazepam 1 mg tablet 1 mg PO HS RF: 0 Discharge Instructions Additional Instructions: You received 1 g of Rocephin as an antibiotic this evening. This will last for 24 hours. I discussed your case with Dr. Maximilian li. He asked that you call the orthopedic office in the morning at [phone] and they will see you again tomorrow for recheck. May continue Tylenol and naproxen as needed for pain. May use the provided oxycodone as needed for severe or breakthrough pain. Please do not use your clonazepam while taking oxycodone. Return to the ER in the interim for any acute concern. Discharge Data Discharge Date/Time-TO BE ENTERED AT DEPARTURE: 01/25/21 23:11 Medical Decision Making 55-year-old female presents from home with complaints of right knee and leg pain. She states she awoke this morning with right thigh and knee pain that radiates proximal and distal. Is worse with weightbearing. She denies any antecedent injury or illness. She called and made an appointment to be seen in orthopedic clinic where screening labs were obtained and arthrocentesis of the right knee was attempted with no fluid returned. The patient had a white blood cell count of 13, ESR of 12, C-reactive protein of 1.8. She returned home and due to persistent pain now seeks evaluation in the ER. She also notes she feels as if she is generally ill with a low-grade fever and has had some urinary frequency and urgency. She is afebrile with a temp of 37, pulse 76, blood pressure 120/66. The right lateral hip and knee are tender to palpation and with range of motion. The patient was referred for x-ray. Repeat CBC was obtained and she was given parenteral analgesia. X-ray unremarkable. White count is persistently elevated at 13.8 with left shift. She has had some improvement of the pain following the ministration of medications. I discussed the case with Dr. Yao who was concerned for prepatellar bursitis and feels intra-articular infection less likely. Patient states she is desirous of returning to home for follow-up in outpatient clinic tomorrow. I will administer a dose of ceftriaxone per my discussion with Dr. Yao. The patient again confirms she would prefer to discharge to home. I consented her for the use of a small number of narcotic analgesics for home use. She is to call the orthopedic office in the morning for an appointment time tomorrow. She will return to the ER for any acute concerns. HPI General Mode of arrival: ambulatory . Date/Time Provider Initiated Documentation: 01/25/21 20:19 . Limitations to Documentation: no limitations . Information obtained by: patient . History of Present Illness 55 year old F presents to the emergency department with the chief complaint of Right leg pain, general malaise, described as moderate, Quality is described as dull and constant, and is localized to the right and lower extremity. Patient proximal and distal. Patient started experiencing this hour(s) and it has been constant. Rest improves symptom(s), Movement worsens symptoms . Patient notes other (Low-grade fever, skin feels hot, increased frequency of urine, mild headache). Patient did receive the following treatments prior to arrival, NSAID Related Data Home Medications Medication Instructions Recorded Confirmed omeprazole 20 mg PO HS 04/27/17 01/25/21 torsemide 10 mg PO DAILY PRN PRN 07/16/18 01/25/21 albuterol sulfate 90 mcg/actuation 2 puff IH .[id number] PRN gm 04/08/19 01/25/21 aerosol inhaler gabapentin 600 mg tablet 1,200 mg PO BID 04/08/19 01/25/21 triamcinolone acetonide 0.1 % 1 applic TOPICAL DAILY 07/06/20 01/25/21 topical cream clonazepam 1 mg tablet 1 mg PO HS tab 07/09/20 01/25/21 sertraline 100 mg tablet 100 mg PO DAILY 07/09/20 01/25/21 acetaminophen [Tylenol Extra 500 mg PO Q6H PRN #90 tab 09/22/20 01/25/21 Strength] naproxen 500 mg PO BID #120 tab 09/22/20 01/25/21 Previous Rx's Medication Instructions Recorded acetaminophen [Tylenol Extra 500 mg PO Q6H PRN #90 tab 09/22/20 Strength] naproxen 500 mg PO BID #120 tab 09/22/20 Allergies Allergy/AdvReac Type Severity Reaction Status Date / Time Penicillins Allergy Intermediate Skin Rash Unverified 01/26/21 10:59 pravastatin AdvReac Intermediate leaky Unverified 01/26/21 10:59 stools General Stated Complaint: Orthopedic ELSY: 3 Review of Systems Narrative: Positive COVID-19 in November. Question recent UTI, now with persistent urinary urgency. Feels that her skin is crawling as it has with previous infections. Pain with walking. Was seen in orthopedic clinic today. 6 systems reviewed and otherwise negative [facility] Medical History Chronic low back pain Complex tear of medial meniscus of right knee as current injury (11/06/17) COPD (chronic obstructive pulmonary disease) Depression Dyspepsia Fibromyalgia Greater trochanteric bursitis of both hips (01/01/18) Headache Hyperlipidemia Knee joint pain Marital problems Meralgia paraesthetica Nasal lesion Obesity Peripheral edema Perirectal abscess Plantar fasciitis Primary osteoarthritis of right knee (12/04/17) Prurigo nodularis PTSD (post-traumatic stress disorder) Restless leg syndrome Sleep apnea Somatic dysfunction of sacral region Tendonitis of left rotator cuff Confirmed RTC tear Thoracic spine pain Tobacco abuse Trochanteric bursitis of both hips Urinary frequency Urinary hesitancy Weakness Surgical History Abdominal hysterectomy (04/25/11) section (04/25/11) Cholecystectomy (04/25/11) Hx of hysterectomy Incision & Drainage, Abscess or Hematoma (05/03/17) periectal abscess cavity S/P left rotator cuff repair (09/22/20) Status post arthroscopy of right knee Partial medial meniscectomy, medial chondroplasty, removal of loose bodies Date of surgery: November 21, 2017 Dr. 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 Status post total knee replacement, right July 2018 Social History Smoking/Tobacco Use Status: Current every day Tobacco Type: cigarettes Smoking packs per day: 1 Smoking cigarettes per day: 20.0 Years smoked: 44 Smoking pack- years: 44.00 Smoking risk assessment performed?: Yes Alcohol Intake: current Alcohol Intake frequency: holidays/special occasions only Drug use: Never Substance use type: does not use Current gender identity: female Do you feel safe at home: Yes Do you feel safe in your relationship?: Yes Exam Narrative Exam Narrative: GEN: awake, alert, oriented 3. Pleasant, well groomed, interactive. HEAD: Normocephalic, atraumatic ENT: Mucous membranes moist, oropharynx unremarkable, External ear exam unremarkable EYES: PERRL, EOMI NECK: Full ROM, no DOUGLAS, no menigismus CHEST/RESP: Nontender, clear to auscultation bilateral, no wheeze/rhonchi/rales CARDIOVASCULAR: RRR, no murmur, rub sayra. 2+ Rad pulse bilateral ABDOMEN: Soft, nontender, no mass. +Bowel sounds Back: None EXT: Right leg range of motion limited by pain. Tender overlying right hip laterally with palpation. Pain with flexion of the right knee. No significant swelling or erythema appreciated. Neuro: Grossly normal neurologic exam, conversant, interactive. Psych: Speech fluent, thoughts congruent, affect normal Course Vital Signs Vital signs: Vital Signs Temperature 37.0 C 01/25/21 20:41 Pulse 76 01/25/21 20:41 Respiratory Rate 20 01/25/21 20:41 Blood Pressure 120/66 01/25/21 20:41 Pulse Oximetry 98 01/25/21 20:41 Temperature 37.0 C 01/25/21 20:41 Temperature Source Temporal Artery Scan 01/25/21 20:41 Pulse 76 01/25/21 20:41 Respiratory Rate 20 01/25/21 20:41 Respiratory Effort Non-Labored 01/25/21 20:49 Blood Pressure 120/66 01/25/21 20:41 Blood Pressure Position Supine 01/25/21 20:41 Pulse Oximetry 98 01/25/21 20:41 Oxygen Delivery Method Room Air 01/25/21 20:41 Oxygen Flow Rate 0 01/25/21 20:41 Pain Level 10 01/25/21 20:52
[2021-01-25 21:16] LABS: Abs Immature Grans 0.05 10^3/uL (0.0-0.06); Absolute Basophil Count 0.04 10^3/uL (0.0-0.2); Absolute Eosinophil Count 0.14 10^3/uL (0.0-0.7); Absolute Neutrophil Count 8.87 10^3/uL (1.2-6.7); Basophils % 0.3; HCT 36.3 % (36.0-46.0); HGB 12.1 g/dL (11.2-15.7); Immature Grans % 0.4; Lymphocytes % 22.4; MCH 32.3 pg (27.0-33.0); MCHC 33.3 % (32.0-36.0); MCV 96.8 fL (80-95); MPV 9.7 fL (8.0-11.0); Monocytes % 11.7; Neutrophils % 64.2; Nucleated RBC 0 %; Platelet Count 336 10^3/uL (130-400); RBC 3.75 10^6/uL (3.93-5.22); RDW 12.9 % (11.7-14.6); WBC 13.81 10^3/uL (4.4-10.8)
[2021-01-25] MEDS: Ketorolac 15 MG/ML VIAL IVP (21:16)
[2021-01-25] MEDS: HYDROmorphone 2 MG/ML VIAL 0.5 MG IVP (21:16)
[2021-01-25 21:20] LABS: Absolute Lymphocyte Count 3.09 10^3/uL (1.2-3.4); Absolute Monocyte Count 1.62 10^3/uL (0.1-0.8)
[2021-01-25 21:24] LABS: Bilirubin Negative (Negative); Blood Negative (Negative); Clarity Clear (Clear); Glucose Negative (Negative); Ketones Negative (Negative); Leukocyte Esterase Negative (Negative); Nitrite Negative (Negative); Specific Gravity 1.015 (1.005-1.025); pH 7.5 (5-8)
[2021-01-25 21:29] LABS: ALT 33 U/L (14-59); AST 16 U/L (15-37); Albumin 3.8 g/dL (3.4-5.0); Alkaline Phosphatase 77 U/L (46-116); Anion Gap 8.5 mmol/L (3-11); BUN 13 mg/dL (7-18); Bilirubin, Total 0.3 mg/dL (0.2-1.0); CO2 26.5 mmol/L (21.0-32.0); CREATININE 0.9 mg/dL (0.55-1.02); Calcium 8.5 mg/dL (8.5-10.1); Chloride 105 mmol/L (98-107); Glucose 121 mg/dL (74-106); Potassium 3.9 mmol/L (3.5-5.1); Sodium 140 mmol/L (136-145); Total Protein 7.4 g/dL (6.4-8.2)
[2021-01-25 21:45] LABS: Diff Comment Diff Reviewed; RBC Morphology Normal
[2021-01-25] MEDS: cefTRIAXone 1 GM/50 ML BAG IVPB (22:37)
--- NOTE | 2021-01-25 23:14 | DI.VRAD_ITS ---
PROCEDURE INFORMATION: Exam: XR Right Knee Exam date and time: 01/25/2021 9:08 PM Age: 55 years old Clinical indication: Right; Prior surgery; Surgery date: 6+ months; Surgery type: Knee replacement; Patient HX: Pain, no known trauma, per patient. Visited ortho today and tried to drain but nothing to drain TECHNIQUE: Imaging protocol: XR Right knee. Views: 3 views. COMPARISON: CR XR KNEE RT 2V AP,LAT 08/05/2019 2:16 PM FINDINGS: Bones/joints: No acute osseous findings. There is a total knee replacement in good position. No evidence of loosening. No periprosthetic fracture. Soft tissues: There is suggestion of soft tissue density in the suprapatellar joint space which may be related to suprapatellar collection. Mild soft tissue swelling is seen around the knee with thickening in the region of the distal quadriceps muscle and patellar tendon which may be related to edema/inflammation. IMPRESSION: 1. Total knee replacement good position without evidence of periprosthetic fracture. 2. Soft tissue swelling around the knee with suggestion of suprapatellar collection and possible edema/inflammation in the distal quadriceps musculature/patellar tendon. Consider further evaluation with MRI if symptoms persist. Dictated and Authenticated by: Haleigh Buckner MD. Ordering:GREGORY Michelle MD
== END 2021-01-25 23:11 | disposition home or self-care (01) ==
PROVIDERS: Emergency Provider Emergency Medicine; PCP Internal Medicine
DX: M71.161 Other infective bursitis, right knee (principal); Z96.651 Presence of right artificial knee joint; Z86.16 Personal history of COVID-19
CPT/HCPCS: 36415; 73562; 80053; 96365; 96375; 99284; 81003; 85025; J0696; J1885

== ENCOUNTER → 2021-01-26 10:58 | Outpatient (BNVA) | payer OTHER, SELFPAY | PROVIDERS: PCP Internal Medicine; Referring Provider Internal Medicine; Visit Provider Student in an Organized Health Care Education/Training Program | DX: T84.53XA Infection and inflammatory reaction due to internal right knee prosthesis, initial encounter (principal); M71.161 Other infective bursitis, right knee; Z96.651 Presence of right artificial knee joint | CPT/HCPCS: 99214 ==

== ENCOUNTER 2021-01-26 12:12 | Inpatient (IN) | payer OTHER, SELFPAY ==
[2021-01-26 12:55] VITALS: BP 143/81; PULSE 94; RESP 22; TEMP 38.9; O2SAT 100
[2021-01-26 13:48] LABS: HGB 11.9 g/dL (11.2-15.7)
[2021-01-26] MEDS: Ketorolac 30 MG/ML VIAL IVP ×2 (13:49→19:51)
[2021-01-26] MEDS: Acetaminophen 325 MG TAB 650 MG PO (13:50)
[2021-01-26] MEDS: MORPHine 10 MG/ML VIAL IVP (13:51)
[2021-01-26] MEDS: Normal Saline 1,000 ML 60 ML IV (13:52)
[2021-01-26 13:56] LABS: Source Nasal/Nares
[2021-01-26 13:58] LABS: Anion Gap 9.7 mmol/L (3-11); BUN 10 mg/dL (7-18); CO2 25.3 mmol/L (21.0-32.0); CREATININE 0.9 mg/dL (0.55-1.02); Calcium 8.6 mg/dL (8.5-10.1); Chloride 102 mmol/L (98-107); Glucose 109 mg/dL (74-106); Potassium 3.8 mmol/L (3.5-5.1); Sodium 137 mmol/L (136-145)
[2021-01-26] MEDS: ceFAZolin 2 GM/50 ML BAG IVPB ×2 (14:04→19:51)
[2021-01-26 14:37] LABS: COVID-19 PCR Negative (Negative)
[2021-01-26] MEDS: MORPHine 4 MG/ML SYR IVP ×3 (15:06→23:25)
--- NOTE | 2021-01-26 15:40 | NUR.NOTE ---
Dea arrived on the floor at 14:50. Please see Assessment I & Assessment II documentation. [facility]
[2021-01-26 16:18] VITALS: BP 97/60; PULSE 80; RESP 18; TEMP 36.8; O2SAT 96
[2021-01-26 19:07] VITALS: RESP 15; RESP 20
[2021-01-26 19:31] VITALS: BP 107/68; PULSE 75; RESP 17; TEMP 36.8; O2SAT 98
[2021-01-26] MEDS: Gabapentin 600 MG TAB 1200 MG PO (19:51)
[2021-01-26 21:00] VITALS: RESP 15; RESP 20
[2021-01-26] MEDS: clonazePAM 1 MG TAB PO (21:24)
[2021-01-26 23:54] VITALS: BP 125/79; PULSE 81; RESP 18; TEMP 36.7; O2SAT 100
[2021-01-27] VITALS (16 sets, daily range): BP systolic 104–132; BP diastolic 38–94; PULSE 60–82; RESP 15–24; TEMP 35.8–37.2; O2SAT 89–98; BMI 46.1
[2021-01-27] MEDS: Ketorolac 30 MG/ML VIAL IVP ×3 (01:11→21:22)
[2021-01-27] MEDS: ceFAZolin 2 GM/50 ML BAG IVPB ×4 (01:12→20:03)
[2021-01-27] MEDS: MORPHine 4 MG/ML SYR IVP ×4 (03:32→20:08)
--- NOTE | 2021-01-27 06:24 | W.ANESPRE ---
General Info Date of Service Date Performed: 01/27/21 Height: 5 ft 4 in Weight: 122 kg Body Mass Index (BMI): 46.1 Surgical Procedure: Operation Date: 01/27/21 08:10 Proposed Procedures Side Surgeon p Knee Polyethylene Exchange Right Miguel Angel Yao MD s Debridement Miguel Angel Yao MD Meds Allergies and Home Medications Allergies Allergy/AdvReac Type Severity Reaction Status Date / Time Penicillins Allergy Intermediate Skin Rash Unverified 01/26/21 10:59 pravastatin AdvReac Intermediate leaky Unverified 01/26/21 10:59 stools Home Medication Medication Instructions Recorded omeprazole 20 mg PO HS 04/27/17 torsemide 10 mg PO DAILY PRN PRN 07/16/18 albuterol sulfate 90 mcg/actuation 2 puff IH .[id number] PRN gm 04/08/19 aerosol inhaler gabapentin 600 mg tablet 1,200 mg PO BID 04/08/19 triamcinolone acetonide 0.1 % 1 applic TOPICAL DAILY 07/06/20 topical cream clonazepam 1 mg tablet 1 mg PO HS tab 07/09/20 sertraline 100 mg tablet 100 mg PO DAILY 07/09/20 acetaminophen [Tylenol Extra 500 mg PO Q6H PRN #90 tab 09/22/20 Strength] naproxen 500 mg PO BID #120 tab 09/22/20 Current Visit Medications: Current Medications Generic Name Dose Route Start Last Admin Trade Name Freq PRN Reason Stop Dose Admin Acetaminophen 650 mg 01/26/21 12:24 01/26/21 13:50 Acetaminophen 325 Mg Tab PO 650 mg Q4H PRN PRN Administration Hydrocodone Bitart/Acetaminophen 0 tab 01/26/21 12:24 Hydrocodone 5/Acetaminophen 325 Tab PO Q6H PRN PRN Pain Albuterol Sulfate 2 puff 01/26/21 12:33 Albuterol Hfa 8 Gm 60 Puff Inh IH Q4H PRN PRN Clonazepam 1 mg 01/26/21 22:00 01/26/21 21:24 Clonazepam 1 Mg Tab PO 1 mg HS EDE Administration Gabapentin 1,200 mg 01/26/21 20:00 01/26/21 19:51 Gabapentin 600 Mg Tab PO 1,200 mg BID EDE Administration Sodium Chloride 1,000 mls @ 60 mls/hr 01/26/21 12:30 01/26/21 13:52 Saline 1000ml Bag IV 60 mls/hr INFUSION EDE Administration Cefazolin Sodium/Dextrose 2 gm in 50 mls @ 100 mls/hr 01/26/21 14:00 01/27/21 01:12 Ancef Duplex IVPB 100 mls/hr Q6H EDE Administration Ondansetron HCl 4 mg/ Sodium 52 mls @ 200 mls/hr 01/26/21 12:18 Chloride IVPB Q6H PRN PRN Ketorolac Tromethamine 30 mg 01/26/21 14:00 01/27/21 01:11 Ketorolac 30 Mg/Ml Vial IVP 01/31/21 13:59 30 mg Q6H EDE Administration Morphine Sulfate 2 - 4 mg 01/26/21 13:46 01/27/21 05:29 Morphine 4 Mg/Ml Syr IVP 4 mg Q1H PRN PRN Administration Nicotine 1 cartridge 01/26/21 16:39 01/26/21 17:32 Nicotine 10 Mg/Cartridge 30 Cart/Pkg IH 1 cartridge Q2H PRN PRN Administration Sertraline HCl 100 mg 01/27/21 08:30 Sertraline 50 Mg Tab PO DAILY EDE Torsemide 10 mg 01/27/21 08:30 Torsemide 20 Mg Tab PO DAILY EDE PFSH Active Problems Active Problems: Problem Status Onset Code Infection of total right knee replacement T84.53XA Infection of right prepatellar bursa M71.161 Pain in right knee M25.561 Low back pain radiating to lower extremity M54.5 S/P left rotator cuff repair 09/22/20 Z98.890 BPPV (benign paroxysmal positional vertigo) H81.10 Screening for colon cancer Z12.11 Claustrophobia F40.240 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 M19.071 Primary osteoarthritis of left knee M17.12 History of total right knee replacement (TKR) Z96.651 Tenosynovitis 01/06/14 M65.9 Greater trochanteric bursitis of both hips 01/01/18 M70.61, M70.62 Medical History Medical History Chronic low back pain Complex tear of medial meniscus of right knee as current injury (11/06/17) COPD (chronic obstructive pulmonary disease) Depression Dyspepsia Fibromyalgia Greater trochanteric bursitis of both hips (01/01/18) Headache Hyperlipidemia Knee joint pain Marital problems Meralgia paraesthetica Nasal lesion Obesity Peripheral edema Perirectal abscess Plantar fasciitis Primary osteoarthritis of right knee (12/04/17) Prurigo nodularis PTSD (post-traumatic stress disorder) Restless leg syndrome Sleep apnea Somatic dysfunction of sacral region Tendonitis of left rotator cuff Confirmed RTC tear Thoracic spine pain Tobacco abuse Trochanteric bursitis of both hips Urinary frequency Urinary hesitancy Weakness Surgical History Surgical History Abdominal hysterectomy (04/25/11) section (04/25/11) Cholecystectomy (04/25/11) Hx of hysterectomy Incision & Drainage, Abscess or Hematoma (05/03/17) periectal abscess cavity S/P left rotator cuff repair (09/22/20) Status post arthroscopy of right knee Partial medial meniscectomy, medial chondroplasty, removal of loose bodies Date of surgery: November 21, 2017 Dr. 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 Status post total knee replacement, right July 2018 Tobacco Smoking/Tobacco Use Status: Current every day Tobacco Type: cigarettes Smoking packs per day: 1 Smoking cigarettes per day: 20 Years smoked: 44 Alcohol Alcohol Intake: current Alcohol intake frequency: holidays/special occasions only Substance Use Substance use: Never Substance use type: does not use Vital Signs and Lab Results Vital Signs Most Recent Vital Signs in EMR: Most Recent Vital Signs Temp Pulse Resp BP Pulse Ox 36.9 C 82 20 110/63 97 01/27/21 04:32 01/27/21 04:32 01/27/21 04:32 01/27/21 04:32 01/27/21 04:32 Lab Results Result Diagrams: 01/26/21 13:10 01/26/21 13:10 Blood Type / Crossmatch: No Data to Display Complete Blood Count: White Blood Count 13.81 10^3/uL (4.4-10.8) H 01/25/21 20:40 01/25/21 Red Blood Count 3.75 10^6/uL (3.93-5.22) L 01/25/21 20:40 01/25/21 Hemoglobin 11.9 g/dL (11.2-15.7) 01/26/21 13:10 01/26/21 Hematocrit 36.3 % (36.0-46.0) 01/25/21 20:40 01/25/21 Platelet Count 336 10^3/uL (130-400) 01/25/21 20:40 01/25/21 Complete Metabolic Panel: Sodium Level 137 mmol/L (136-145) 01/26/21 13:10 01/26/21 Potassium Level 3.8 mmol/L (3.5-5.1) 01/26/21 13:10 01/26/21 Chloride Level 102 mmol/L (98-107) 01/26/21 13:10 01/26/21 Carbon Dioxide Level 25.3 mmol/L (21.0-32.0) 01/26/21 13:10 01/26/21 Blood Urea Nitrogen 10 mg/dL (7-18) 01/26/21 13:10 01/26/21 Creatinine 0.9 mg/dL (0.55-1.02) 01/26/21 13:10 01/26/21 Calcium Level 8.6 mg/dL (8.5-10.1) 01/26/21 13:10 01/26/21 Albumin 3.8 g/dL (3.4-5.0) 01/25/21 20:40 01/25/21 Glucose Level 109 mg/dL (74-106) H 01/26/21 13:10 01/26/21 C-Reactive Protein 1.81 mg/dL (0.0-0.3) H 01/25/21 12:00 01/25/21 Liver Function Panel: Alanine Aminotransferase (ALT/SGPT) 33 U/L (14-59) 01/25/21 20:40 01/25/21 Aspartate Amino Transf (AST/SGOT) 16 U/L (15-37) 01/25/21 20:40 01/25/21 Coagulation Panel: No Data to Display Cardiac Panel: No Data to Display Arterial Blood Gas: No Data to Display Venous Blood Gas: No Data to Display Pancreas Panel: No Data to Display Thyroid Panel: No Data to Display Infectious Disease: Coronavirus (COVID-19)(PCR) Negative (Negative) 01/26/21 13:15 01/26/21 Coronavirus 2019 Source Nasal/nares 01/26/21 13:15 01/26/21 Blood Cultures: No Data to Display Toxicology Panel: No Data to Display Anesthesia Assessment and Plan Anesthesia History Personal History: No History of Anesthesia Complications Family History: No Family History of Anesthesia Complications Exercise Tolerance Exercise Tolerance: Metabolic Equivalents>4 Cardiac & Pulmonary Exam Cardiac Exam: Normal S1/S2 Heart Sounds Pulmonary Exam: Clear Bilateral Breath Sounds Airway Exam Known Difficult Airway: No Mallampati Class: 4 Mouth Opening: Narrow (< 3cm) Thyromental Distance: Less than 3 cm Neck Range of Motion: Limited ROM Neck Circumference: Thick Teeth Condition: Normal Dentition ASA Classification ASA Score: ASA 3 Emergency Case?: No NPO Status NPO Status: NPO Clears >2 hours, Solids >8 hours Anesthesia Plan Resuscitation Status: Full Code Anesthesia Technique: General Anesthesia Airway Planned: Natural Airway Monitors Used: Standard Monitors Preoperative Comments:: 55 yo with infected knee for poly exchange/washout. discussed risks, benefits, and alternatives of spinal vs GA. plan for GA with block. Discussed she will likely need a new IV since she has a tenuous appearing one currently. Has been getting morphine for pain every 2 hours. ketorolac at 0100. cefazolin 2 at 1900. previous glide 3 grade 1, lma 5, previous multiple spinal attempts with eventual success.
[2021-01-27] MEDS: Lactated Ringers 1,000 ML 30 ML IV (07:47)
--- NOTE | 2021-01-27 08:04 | RESPIRATORY ---
Pt's own Respironics SystemOne Auto-BiPAP machine. Max IPAP: 24 cmH2O Min EPAP: 14 cmH2O PS Min/Max: 5 cmH2O No O2 bleed in. Face Mask: Medium DME: [facility]
--- NOTE | 2021-01-27 08:28 | W.ANESNERVE ---
Nerve Block Single Injection Procedure Date and Time Date Performed: 01/27/21 Procedure Start: 07:40 Location Where Procedure Performed Procedure Location: PACU Reason Performed: Postoperative Analgesia Requesting Provider: Miguel Angel Yao Timeout Performed Timeout Performed: Yes Monitoring Used ECG, Blood Pressure and SpO2 Sterility Sterility: Hand Hygiene, Surgical Cap, Surgical Mask, Sterile Gloves and Chlorhexidine Sedation Given During Procedure Sedation Given (Indicate Dose Given): Versed IV Dose:: 2 mg Patient Mental Status Patient Mental Status: Sedate with meaningful communication Nerve Block 1st Nerve Block: Laterality: Right Block Type: Adductor Canal Needle / Catheter Used: 100mm SonoPlex II Local Anesthetic Bolus (Indicate Dose Given): Lidocaine used for local infiltration of skin and Bupivacaine 0.375% Dose:: 10 mL Additives (Indicate Dose Given): None Ultrasound: Sterile probe cover and gel used Ultrasound Image Saved?: Yes Nerve Stimulator: Not Used Paresthesia: None Procedure Tolerated: No Complications Procedure Outcome: Successful Performed By: Toy Barnhart
[2021-01-27] MEDS: Tranexamic Acid 1,000 MG/10 ML VIAL 1000 MG (09:47)
[2021-01-27] MEDS: HYDROmorphone 2 MG/ML VIAL IVP ×3 (10:41→11:22)
--- NOTE | 2021-01-27 10:59 | W.PM.OP ---
Date of service: 01/27/21 Time of Service: 10:59 Operative Note Operative Note DATE OF PROCEDURE: 01/27/21 PRE-OP DIAGNOSIS: Infected right total knee replacement POST-OP DIAGNOSIS: same PROCEDURE: Incision and drainage and debridement with polyexchange of infected right total knee replacement SURGEON: Miguel Angel Yao PACKAGE DELIVERY ROOM SERVICE RUNNER: Gale Marrero ANESTHESIA TYPE: General LMA/ETT and Primary Nerve Block Refer to Anesthesia Record ESTIMATED BLOOD LOSS: 200 PATHOLOGY: none sent TOURNIQUET TIME: 90 COMPLICATIONS: None Patient was transported to: PACU Patient's condition: stable Implants: 5 x 7 mm polyethylene tibial insert posterior cruciate stabilized Indications: This is a 55-year-old white female patient of Dr. Martines, with a 48-hour history of progressive right knee pain and swelling. She had undergone a right total knee replacement on 07/20/2018. Postoperatively she had minor superficial wound problems. However, she has been pain-free and functioning well for the past 2 years. She woke up on 01/25/2021 with pain in her right knee. She denies any trauma at all. The pain was bothering her enough that she went to the orthopedic clinic. Labs were drawn and her knee is aspirated. It was a dry tap. Sed rate was normal and the C-reactive protein was mildly elevated. White blood cell count was 14,000. She was sent home with the plan of telephone follow-up. That evening on the 01/25/2021 she presented to the emergency room because of increasing right knee pain. She was not febrile at the time. Repeat white blood cell count was still around 14,000 with no change from earlier in the day. I was consulted by phone. I recommended a gram of IV Rocephin, pain meds and a follow-up the next day on 01/26/2021 if she was worse. She presented to the orthopedic clinic on 01/26/2021 now febrile with increasing pain. Repeat aspiration resulted in 20 cc of obviously purulent material. White blood cell count was over 30,000. I felt that she had a septic arthritis of her right total knee. I recommended admission to the hospital with planned irrigation debridement and polyexchange to treat the infection and hopefully save her knee replacement. The risk of complications the procedure and expected postop course were explained to the patient in detail preoperatively. Findings: Large effusion of purulent fluid under pressure. Significant synovitis. Procedure Description: Patient was taken to the operating room on 01/27/2021 where a femoral nerve block was administered on the right leg. Once a good nerve block was obtained the patient was then brought into the operating room placed supine operating table and a general anesthetic was administered. A proximal tourniquet was applied to the right upper thigh. Leg was exsanguinated by elevation and the tourniquet was inflated to 350 mmHg. The leg was prepped and draped free in the usual sterile fashion. An anterior midline incision was made in line with her previous total knee scar. The incision was extended proximally and distally to allow for better exposure. Incision was carried down through the subcu down to the quad tendon there was an obvious large effusion and bulging of the capsule just proximal and medial to the patella. I incised this area and pus on the pressure came out and probably shot out a good 12 to 18 inches. I then completed a medial parapatellar capsular incision extended proximally longitudinally with a quad tendon. There was extensive synovitis present. I proceeded to perform a an extensive synovectomy restoring medial and lateral gutters and the suprapatellar pouch. Using an osteotome I then removed the tibial insert. There was some mucoid type material in some of the recesses in the tibial baseplate this was removed. I was able to get access to the posterior recesses of the knee and was able to do a thorough debridement of abnormal synovium using rongeurs. Once I thought the synovectomy was complete 6 L of normal saline solution. I then also instilled a solution of chlorhexidine 0.05% into the knee and allowed it to stay there for 2 minutes before suctioning. Resorbable calcium sulfate beads were then mixed on the back table along with gentamicin powder. The beads were then placed into the knee and packed into the medial lateral gutters and suprapatellar pouch. The quadriceps tendon was repaired with interrupted [id number] sutures of #1 PDS. The medial parapatellar capsular incision was repaired with interrupted [id number] sutures of #1 PDS. Subcu was approximated interrupted 2-0 Vicryl sutures skin edges were approximated with skin yoselyn. Negative pressure skin dressing was applied the knee was then wrapped with 6 inch Ronny bandages. The tourniquet had been released prior to closing the subcu, after wrapping the leg with an Esmarch bandage. This resulted in a dry wound in the subcu was approximated interrupted 2-0 Vicryl suture and skin is approximated with skin yoselyn. Estimated blood loss was 200 cc. 1 g of tranexamic acid was given IV after the tourniquet was released. A knee immobilizer splint was applied to maintain the knee in extension. The patient's anesthesia was reversed without complications. She tolerated procedure well and was discharged to recovery room in good condition.
--- NOTE | 2021-01-27 11:18 | PDOC.CMIN ---
- If Service Date Differs Date of service: 01/27/21 Time of Service: 11:18 Care Management Initial Assess REASON FOR HOSPITALIZATION:: Infected Right knee PAST MEDICAL HISTORY/PAST SURGICAL HISTORY:: Medical History. Chronic low back pain. Complex tear of medial meniscus of right knee as current injury (11/06/17). COPD (chronic obstructive pulmonary disease). Depression. Dyspepsia. Fibromyalgia. Greater trochanteric bursitis of both hips (01/01/18). Headache. Hyperlipidemia. Knee joint pain. Marital problems. Meralgia paraesthetica. Nasal lesion. Obesity. Peripheral edema. Perirectal abscess. Plantar fasciitis. Primary osteoarthritis of right knee (12/04/17). Prurigo nodularis. PTSD (post-traumatic stress disorder). Restless leg syndrome. Sleep apnea. Somatic dysfunction of sacral region. Tendonitis of left rotator cuff. Confirmed RTC tear. Thoracic spine pain. Tobacco abuse. Trochanteric bursitis of both hips. Urinary frequency. Urinary hesitancy. Weakness. Surgical History. Abdominal hysterectomy (04/25/11). section (04/25/11). Cholecystectomy (04/25/11). Hx of hysterectomy. Incision & Drainage, Abscess or Hematoma (05/03/17). periectal abscess cavity. S/P left rotator cuff repair (09/22/20). Status post arthroscopy of right knee. Partial medial meniscectomy, medial chondroplasty, removal of loose bodies. Date of surgery: November 21, 2017. Dr. Curtis. Status post revision of total knee replacement. July 2018. Status post total knee replacement, right. July 2018 PREVIOUS FUNCTIONAL STATUS/SOCIAL/FAMILY SUPPORTS:: Dea lives in [place] with her , Citlalli. She has a daughter that lives nearby. She is independent at baseline with ADLs and transportation. She receives disability. 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 CURRENT FUNCTIONAL STATUS:: Per report, Dea will go to the OR today for surgical wash out. She will likely require IV antibiotics and will need her pain well controlled prior to discharge. Dea had just been brought up to her room when [place] attempted to meet with her post operatively. She was resting and CM chose not to wake her at this time. CM will continue to follow. ADVANCE DIRECTIVES:: None on file at [facility], she does not want to complete at this time Has patient been provided with info about the portal/API?: Yes Did the patient sign up for the portal?: Yes CODE STATUS:: Full Code INSURANCE COVERAGE / FINANCIAL ISSUES:: MCR/ Financial assistance CURRENT HOME/COMMUNITY SERVICES/EQUIPMENT:: No current services. PRIMARY CARE PHYSICIAN:: Dr. Krueger POTENTIAL DISCHARGE NEEDS:: Follow up appointments. PATIENT/FAMILY EDUCATION NEEDS:: Discharge education, follow-up plan of care, limitations, self-management and ask me 3 ANTICIPATED BARRIERS TO DISCHARGE:: None identified. TRANSPORTATION:: Via private vehicle with spouse. PLAN:: Dea will go to the OR today for surgical wash out. Anticipate Dea will return home when medically cleared. She will be driven home via private vehicle by her spouse. She will follow up with her PCP and discharge plan of care. CM will continue to follow.
[2021-01-27] MEDS: LORazepam 2 MG/ML VIAL IVP (11:26)
[2021-01-27] MEDS: Normal Saline 1,000 ML 60 ML IV (12:13)
[2021-01-27] MEDS: ACETAMINOPHEN 1,000 MG/100 ML BTL 400 MG IVPB ×3 (12:28→23:32)
--- NOTE | 2021-01-27 13:10 | W.ANESPOSTOP ---
Postoperative Evaluation Date, Time and Location Date Performed: 01/27/21 Time Performed: 13:10 Patient Location: PACU Vital Signs Most Recent Imported Vital Signs: Most Recent Vital Signs Temp Pulse Resp BP Pulse Ox 37.2 C 72 16 116/71 97 01/27/21 12:34 01/27/21 12:34 01/27/21 12:34 01/27/21 12:34 01/27/21 12:34 Pain Score Most Recent Pain Score: Most Recent Pain Score Pain Level [Right Knee] 01/27/21 02:19 Pain Level 5 01/27/21 12:28 Assessment Mental Status: Awake (Alert & Oriented to Patient Baseline) Airway and Respiratory Function: Patent airway with normal (patient baseline) respiratory exam Cardiovascular Function: Hemodynamically Stable Hydration Status: Adequately Hydrated Nausea & Vomiting: No Nausea or Vomiting Pain: Pain is tolerable/mild (<5/10) Peripheral Nerve Block: Patient did not receive a nerve block
[2021-01-27] MEDS: Lidocaine 5% Patch 1 PATCH TP (14:25)
--- NOTE | 2021-01-27 14:48 | IN_ITS ---
Date of service: 01/28/21 Time of Service: 02:48 PT Notes Visit Reasons: INFECTED RIGHT KNEE Physical Therapy Inpatient Initial Evaluation Date: 01/27/2021 Referring Doctor: Miguel Angel Yao MD PT Orders: PT CONSULT: OOB ambulating in room this afternoon. WBAT to right leg Precautions: Fall. Standard. Activity as tolerated. Patient Profile/Admitting Diagnosis: Dea is a 55-year-old female who presented to the ED 01/25/2021 with complaints of right thigh, knee, leg pain that is worse with weight bearing. She is diagnosed with infection of right total knee arthroplasty prosthesis/joint and is status post irrigation and debridement with polyethylene exchange on postoperative day 0. PMHX: Medical History? Chronic low back pain Complex tear of medial meniscus of right knee as current injury (11/06/17) COPD (chronic obstructive pulmonary disease) Depression Dyspepsia Fibromyalgia Greater trochanteric bursitis of both hips (01/01/18) Headache Hyperlipidemia Knee joint pain Marital problems Meralgia paraesthetica Nasal lesion Obesity Peripheral edema Perirectal abscess Plantar fasciitis Primary osteoarthritis of right knee (12/04/17) Prurigo nodularis PTSD (post-traumatic stress disorder) Restless leg syndrome Sleep apnea Somatic dysfunction of sacral region Tendonitis of left rotator cuff Confirmed RTC tearThoracic spine pain Tobacco abuse Trochanteric bursitis of both hips Urinary frequency Urinary hesitancy Weakness Surgical History? Abdominal hysterectomy (04/25/11) section (04/25/11) Cholecystectomy (04/25/11) Hx of hysterectomy Incision & Drainage, Abscess or Hematoma (05/03/17) periectal abscess cavityS/P left rotator cuff repair (09/22/20) Status post arthroscopy of right knee Partial medial meniscectomy, medial chondroplasty, removal of loose bodies Date of surgery: November 21, 2017 Dr. 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Status post total knee replacement, right July 2018 Social History/Home Situation: Lives with significant other in a private home with 2 steps to enter, 1 rail. Used front wheeled walker 2 to 3 days prior to surgery due to worsening pain otherwise independent with all ADLs prior to symptom onset. Currently on disability. Equipment Owned/DME: Front wheeled walker Subjective: Reports 5/10 aching pain in the right knee and hip at rest and with weight bearing which she says is much more bearable than how she had been doing prior to surgery. Denies headache, chest pain, and dizziness throughout session. Reported fatigue towards the end of ambulation activity that resolved with rest. Appreciative of removal of knee immobilizer while seated on chair and when lying down in bed. Understands the importance of placement of knee immobilizer when standing up or when weight bearing. Objective: General Observation: Seated on bedside recliner with legs elevated. Cryo/Cuff on right knee. Knee immobilizer partially attached to secure Cryo/Cuff. Wound vacuum in place. Ronny wraps to right LE. IV in the right UV. Mental Status: Alert and oriented as to person, place, time, and purpose. Able to pay attention, focus, and respond appropriately. Pain: 5/10 in right knee and hip ROM: Right Lower Extremity: Hip flexion limited to about 100 degrees with pain at end range. Hip abduction allows about 20 degrees with pain at end range. Hip ER/IR WFL. Knee flexion not tested. Knee extension not tested. Ankle dorsiflexion/eversion WFL. Ankle plantarflexion/inversion WFL. Left Lower Extremity: Hip flexion WFL. Hip abduction WFL. Hip ER/IR WFL. Knee flexion WFL. Knee extension. Ankle dorsiflexion WFL. Ankle plantarflexion WFL. Strength: Right Lower Extremity: Hip flexors 4-/5. Hip abductors 4-/5. Hip external rotators 4-/5. Hip internal rotators 4-/5. Knee flexors not tested. Knee extensors not tested. Ankle dorsiflexors/evertors 5/5. Ankle plantarflexors/invertors 5/5.4 Left Lower Extremity: Hip flexors 5/5. Hip abductors 5/5. Hip external rotators 5/5. HIp internal rotators 5/5. Knee flexors 5/5. Knee extensors 5/5. Ankle dorsiflexors/evertors 5/5. Ankle plantarflexors/invertors 5/5. Bed Mobility/Transfers: Sit to stand contact-guard assist Stand to sit contact-guard assist Bed to chair contact-guard assist Chair to bed contact-guard assist Gait: Guided patient through level surface ambulation of up to 250 feet using a front wheeled walker with WBAT on the right LE requiring contact-guard assist with knee immobilizer on right limiting right knee flexion. Patient reports knee pain at 5/10 with decreased gait speed. Complained of fatigue requiring 2 standing rests towards the end of activity. No L OB. Minimal shortness of breath noted which resolved with rest. Balance: Static Sitting: Normal Dynamic Sitting: Normal Static Standing: Fair Dynamic Standing: Fair Special Tests: Mobility Limitations Standardized Measure [facility] AM-PAC 6 clicks Basic Mobility Inpatient Short Form: Raw Score: 16 CMS Score: 54% deficit Informed Consent/Education: Patient was instructed in purpose of PT consult and plan of care. Agreeable to proceed with established PT POC to achieve personal goals. Assessment: Dea demonstrates functional mobility decline requiring the assistance of 1 person and the use of a front wheeled walker for all mobility ADL performance, weakness in the right hip and knee muscle groups, impairment in balance, decreased activity tolerance, and increased risk for falls due to postoperative status. Patient will benefit from home health PT services in order to progress mobility level using least restrictive assistive ambulatory device, assess home safety, identify additional equipment needs, and establish a functional maintenance program that will increase ability of patient to remain at home. Patient presents with clinical signs and symptoms consistent with current/admitting diagnoses that have resulted to mobility limitations, gait instability, generalized weakness, and impairment of motor control as demonstrated by the following impairment level findings: 1. Decreased strength to right hip and knee major muscle groups 2. Impaired sitting/standing balance 3. Impaired activity tolerance 4. Limitation of joint range of motion in right hip and knee Impairments are contributing to the following functional limitations: 1. Dependent bed mobility skills 2. Increased dependence with transfers 3. Inability to safely ambulate without assistive device and physical assistance 4. Increase completion time for mobility ADL performance 5. Increased fall risk 6. Inability to negotiate steps alone safely 7. Inability to return to prior living environment at this time Patient is assessed as a 19591 moderate complexity based on the following: History: 55-year-old female with past medical history as indicated above Examination: Demonstrable impairment in strength, balance, and mobility level with underlying impairments and functional limitations as exhibited above as well as deficit score of 54% utilizing the [facility] Mobility Inpatient Short Form Presentation: Evolving Decision Makin moderate complexity Goals: Goals X1 week 1. Supine-Sit independent 2. Sit-Supine independent 3. Sit-Stand independent 4. Stand-Sit independent 5. Bed-Chair independent 6. Chair-Bed independent 7. Independent gait on level surface with use of front wheeled walker for at least 500 feet without report of pain nor dyspnea 8. Independent stair negotiation while holding onto 1 rail for at least 3 steps without report of pain nor dyspnea 9. Independent with home exercise program 10. Good static and dynamic standing balance/tolerance Plan of Care/Treatment Plan: 1-2x/day, 7 days/week x 1 week. Plan of care has been reviewed with the NEEDLE SETTER providing the service under Physical Therapy direction. Initiate Physical Therapy intervention for pain management as needed, strengthening, bed mobility, transfers, gait, stairs, balance training, and use of assistive device. DISCHARGE RECOMMENDATIONS: Patient will benefit from home health PT services in order to progress mobility level using least restrictive assistive ambulatory device, assess home safety, identify additional equipment needs, and establish a functional maintenance program that will increase ability of patient to remain at home. May resume outpatient PT services if no longer homebound once discharged. TREATMENT CODE/TIME: 9716 2 x 20 minutes, 9753 0 x 25 minutes beginning at 14:48 PM. Thank you for the opportunity to participate in the care of this patient. Jazmine Sidhu PT, DPT, CLT [facility] [place], [place]
[2021-01-27] MEDS: HYDROcodone 5/Acetaminophen 325 TAB PO (14:55)
[2021-01-27] MEDS: oxyCODONE-CR 10 MG TABCR PO (18:16)
[2021-01-27] MEDS: Gabapentin 600 MG TAB 1200 MG PO (20:03)
[2021-01-27] MEDS: clonazePAM 1 MG TAB PO (21:22)
[2021-01-28] VITALS (8 sets, daily range): BP systolic 113–136; BP diastolic 57–77; PULSE 65–79; RESP 16–24; TEMP 36.1–36.9; O2SAT 94–99
[2021-01-28] MEDS: Patch Removal 1 EACH TP (00:01)
[2021-01-28] MEDS: ceFAZolin 2 GM/50 ML BAG IVPB ×2 (01:56→08:23)
[2021-01-28] MEDS: MORPHine 4 MG/ML SYR IVP (02:02)
[2021-01-28] MEDS: Ketorolac 30 MG/ML VIAL IVP ×4 (03:34→21:19)
[2021-01-28] MEDS: oxyCODONE-CR 10 MG TABCR PO ×2 (05:55→17:54)
[2021-01-28] MEDS: ACETAMINOPHEN 1,000 MG/100 ML BTL 400 MG IVPB (05:56)
[2021-01-28] MEDS: Normal Saline 1,000 ML 60 ML IV ×2 (06:59→23:20)
[2021-01-28] MEDS: Normal Saline Flush 10 ML SYR (08:00)
[2021-01-28] MEDS: LORazepam 2 MG/ML VIAL IVP (08:23)
[2021-01-28] MEDS: Torsemide 20 MG TAB 10 MG PO (08:24)
[2021-01-28] MEDS: Sertraline 50 MG TAB 100 MG PO (08:25)
[2021-01-28] MEDS: Gabapentin 600 MG TAB 1200 MG PO ×2 (08:26→19:29)
[2021-01-28] MEDS: HYDROcodone 5/Acetaminophen 325 TAB PO ×2 (08:26→20:27)
--- NOTE | 2021-01-28 08:38 | W.PM.PROGNOT ---
Date of Service Date of service: 01/28/21 Time of Service: 08:39 Assessment and Plan Assessment and plan (1) Infection of total right knee replacement: Status: Acute Assessment and plan: Assessment: Infected total knee replacement on the right. She is feeling dramatically better following incision and debridement of right total knee with polyexchange. She is growing staph aureus but is sensitive to all antibiotics which is a good prognostic sign for eradicating the infection. Plan: Continue with Ancef IV for now. Will check CBC daily. Will mobilize with PT today, including beginning some active flexion of her right knee. Will DC her Vera. Have explained to her the necessity of inpatient stay for now. She is going to need 6 weeks of IV antibiotic treatment through a PICC line. She understands that the goal is to save her total knee replacement and understands the need for inpatient stay for now. Subjective Subjective Patient reports: tolerating a regular diet and afebrile Interval history since last seen: She feels dramatically better this morning. Pain is minimal. She is crying because she is disappointed that she has to stay in the hospital rather than going home. She feels like she could go home now. Exam Narrative Exam Narrative: She is afebrile vital signs stable. CBC is not back yet today. One of her blood cultures is growing some gram-positive cocci. Culture from her knee is growing staph aureus that is sensitive to everything. She is presently sitting comfortably in a chair. She has no swelling of her right foot or ankle. Good active motion of her right ankle. Good urine output. Objective Last Vital Signs Temp 36.9 C 01/28/21 08:02 Pulse 75 01/28/21 08:02 Resp 18 01/28/21 08:02 BP 128/68 01/28/21 08:02 Pulse Ox 98 01/28/21 08:02
--- NOTE | 2021-01-28 08:55 | CMPROGNOTE_ITS ---
- If Service Date Differs Date of service: 01/28/21 Time of Service: 08:55 Care Management Progress Note S/O: Dea was sitting up in bed when C<M met with her. She was pleasant in interaction and agreeable to conversation. CM raised the issue of terminal superintendent IVAB therapy with Dea to determine her preference - home vs Infusion Center. Dea indicated that she would prefer to come to the Infusion Center as it'll get me out of the house for a little while every day. She verbalized that she felt it would be less complicated. She is hoping to be discharged tomorrow and the outpatient infusions would start on Monday. A: Dea is a 55 year old woman admitted on 01/26/21 with an infected knee P:Anticipate Dea will return home when medically cleared. She will be driven home via private vehicle by her spouse Citlalli. She will follow up with her PCP and discharge plan of care. CM will continue to follow and support Dea and her discharge planning concerns.
--- NOTE | 2021-01-28 10:38 | PTTR_ITS ---
Date of service: 01/28/21 Time of Service: 10:05 PT Notes Visit Reasons: INFECTED RIGHT KNEE Inpatient Physical Therapy Treatment Note [facility] Date: 01/28/2021 PRECAUTIONS: Activity as tolerated, WBAT R SUBJECTIVE: Dea is pleasant and agreeable to participating in PT. She would like to d/c to home [place]. She reports that she is feeling much better. She also reports that per Dr. Yao, she no longer requires the knee immobilizer. OBJECTIVE: PAIN: Patient c/o R knee pain with incorrect pattern with stair training, self- corrected BED MOBILITY/TRANSFERS Supine-sit: I with HOB flat Sit-supine: I with HOB flat Sit-stand: I Stand-sit: I Bed-Chair: S in a.m.; I in p.m. Chair-bed: S in a.m.; I in p.m. GAIT Assistive Device: FWW Weight bearing: WBAT R Assist: S Distance: 300' in a.m.; 200' in p.m. Deviation: No knee immobilizer - patient able to perform SLR x10 without assist. THEREX: Patient was instructed in a LE strengthening and stabilization program, completed in a supine position in a.m. and in a seated position in p.m., as per flow sheet. STAIRS: Up/down 3x4 and 2x6 using U rail and a step-to pattern with supervision. ASSESSMENT: Patient demonstrates independence with all bed mobility, transfers, and short-distance ambulation, at this time. She is able to complete SLR x10 without assist, therefore does not require knee immobilizer at this time. PLAN: Continue with global strengthening and continue progressing gait distance with FWW for improved activity tolerance. TREATMENT CODE/TIME: Session 1: 25 minutes; 66691, 10108 (10:05) Session 2: 15 minutes; 94069 (13:20)
[2021-01-28] MEDS: Lidocaine 5% Patch 1 PATCH TP (11:52)
--- NOTE | 2021-01-28 14:54 | CHAPLAIN ---
Dea said she received bad news today, and that the infection in her knee replacement is now in her blood. She said she will likely go home tomorrow and come in daily for infusions. She seemed to be fine with this. She said it will get her up and moving and out of the house. She lives in [place], [place] with a partner and daughter.
[2021-01-28] MEDS: cefTRIAXone 2 GM/50 ML BAG IVPB (15:02)
[2021-01-28] MEDS: rifAMPin 300 MG CAP PO (16:10)
[2021-01-28] MEDS: clonazePAM 1 MG TAB PO (21:19)
[2021-01-28] MEDS: Omeprazole 20 MG CAPCR PO (21:19)
[2021-01-29] MEDS: Patch Removal 1 EACH TP
[2021-01-29] MEDS: Ketorolac 30 MG/ML VIAL IVP ×2 (03:19→09:51)
[2021-01-29 03:51] VITALS: BP 130/70; PULSE 73; RESP 20; TEMP 36.7; O2SAT 98
[2021-01-29] MEDS: oxyCODONE-CR 10 MG TABCR PO (05:55)
--- NOTE | 2021-01-29 06:25 | DSE_ITS ---
DS: Diagnosis Discharge Diagnosis (1) Infection of total right knee replacement: Status: Acute Discharge Plan Disposition Patient Disposition: HOME Condition: Good Discharge Details Reason For Visit: INFECTED RIGHT KNEE Admit Date/Time: 01/26/21 12:12 Admit Provider: Armin Curtis Attending Provider: Armin Curtis Primary Care Provider: Unknown,Unknown Hospital Course Hospital Course: Dea was admitted to the hospital for additional management of infected right total knee. She was seen as an outpatient for this diagnosis was confirmed due to elevated white blood cell count within the synovial fluid and gross purulence. On hospital day #2 she was taken to the operating room by Dr. Yao for an open irrigation washout with aggressive synovectomy and polyethylene exchange along with the placement of antibiotic beads. Her fluid cultures began to grow methicillin susceptible staph aureus and therefore her antibiotics were switched to cefazolin. She tolerated antibiotics well. Her pain was controlled with oral agents that she is able to mobilize with physical therapy. On postop day #3 she was doing well and was deemed safe for discharge to home with anti biotics to be delivered in the infusion room. She did have 1 blood culture initially positive for staph aureus and therefore her midline was kept in place. Her second set of blood cultures will continue to be followed with likely transitioning of her midline to a PICC line in the outpatient setting. Home Meds and New Rx's Prescriptions: New ceftriaxone in dextrose,iso-os 2 gram/50 mL Piggyback 2 g IVPB Q24H Qty: 0 RF: 0 hydrocodone-acetaminophen 5-325 mg tablet 1 tab PO Q4H PRN (Reason: pain) Qty: 18 RF: 0 aspirin 81 mg tablet,delayed release (DR/EC) 81 mg PO BID Qty: 60 RF: 0 docusate sodium [Colace] 100 mg capsule 100 mg PO BID PRNQty: 10 RF: 0 rifampin 300 mg capsule 300 mg PO BID AC Qty: 60 RF: 0 Continued gabapentin 600 mg tablet 1,200 mg PO BID RF: 0 albuterol sulfate [Ventolin HFA] 90 mcg/actuation HFA aerosol inhaler 2 puff [id number] PRNRF: 0 sertraline 100 mg tablet 100 mg PO DAILY RF: 0 triamcinolone acetonide 0.1 % cream 1 applic topical DAILY RF: 0 clonazepam 1 mg tablet 1 mg PO HS RF: 0 torsemide 10 mg Tablet 10 mg PO DAILY PRN PRNRF: 0 omeprazole 20 MG capsule,delayed release(DR/EC) 20 mg PO HS RF: 0 acetaminophen [Tylenol Extra Strength] 500 mg tablet 500 mg PO Q6H PRNQty: 90 RF: 0 naproxen 500 mg Tablet 500 mg PO BID Qty: 120 RF: 0 Discharge Instructions Additional Instructions: Knee Discharge Instructions Activity: The most important activity is to walk. You should try to take short walks a few times a day. It is important that when resting you work on keeping the knee straight. Avoid putting a pillow behind the knee as this will encourage flexion. Work on range of motion exercises as provided by Physical Therapy. - Outpatient physical therapy can help regain your motion and strength and I do recommend starting with them. Unlike after the total knee replacement, regaining motion should be easier after this washout surgery. - You should wear the MADELINE hose on both legs for 2 weeks. You may remove these at night. You may also use any compression sock in place of the MADELINE hose. Dressing: Keep the Mepilex dressing in place for at least one week although I would recommend keeping it on the wound for the first two weeks as long as not soiled or unraveling. (You may also get a new dressing from infusion staff or the office if necessary). The wound and dressing may get wet but avoid soaking the dressing or otherwise it will need to be changed. I recommend covering the dressing with cling wrap (saran wrap) to minimize it from getting soaked. If it gets wet, just pat dry. If it starts to peel off then it will need to be changed. Medications: Antibiotics: You have two antibiotics. The first is delivered through the IV - Ceftriaxone. This will be administered by the infusion room on a daily basis. Routine care of the IV access will also be performed at that time. You currently have a midline which is not as durable as a PICC line. Once the second blood cultures returns negative this may be exchanged in the infusion room. You also have an oral antibiotic, Rifampin. This should be taken before meals. You can take both pills at one time or one pill twice a day. It may turn your tears and urine orange - this is normal. - You should take Tylenol and anti-inflammatory Naproxen as your primary pain control medications. - You have been prescribed a stronger pain medication Hydrocodone for breakthrough pain, take as needed as prescribed. - You should also use your stomach acid reduction agent Omeprazole to help reduce stomach acid and reflux. - Continue your Gabapentin - You will be taking [Aspirin 81mg twice a day] for DVT prevention unless instructed otherwise. - If you have constipation you should take Colace or Miralax (both [id number]). It takes most people 3-4 days to have a bowel movement. Follow-up: 2 weeks If you have any acute concerns or questions, please do not hesitate to contact the office at [phone]. You may contact Dr. Curits with any questions after hours through the hospital at [phone] or on his cell phone at [phone]. Referrals: Armin Curtis MD [ [facility] STAFF PHYSICIAN] - Activity:: Activity as Tolerated Equipment/Supplies:: No Equipment Needed Diet:: As Tolerated Discharge Orders Discharge Orders: Discharge Order (Routine); Ordered 01/29/21 Ordered By: Armin Curtis DS: Summary Time Spent with Patient providing and/or coordinating discharge services: Less than 30 minutes Status at Discharge Functional status at discharge: uses cane/walker Overall status at discharge: patient is progressing back to baseline Mental Status: mental status grossly normal Speech and Movement: speech and movement normal Mood: congruent mood Affect: normal affect Exam Psych Mental Status: mental status grossly normal Speech and Movement: speech and movement normal Mood: congruent mood Affect: normal affect DS: Data Vitals/I&O Vitals and I&O: Vital Signs Temperature 36.7 C 01/29/21 03:51 Temperature Source Temporal Artery Scan 01/29/21 03:51 Pulse 73 01/29/21 03:51 Pulse Rhythm Regular 01/29/21 03:53 Respiratory Rate 20 01/29/21 03:51 Respiratory Effort Non-Labored 01/29/21 03:53 Respiratory Depth Normal 01/29/21 03:53 Respiratory Pattern Normal 01/28/21 05:06 Blood Pressure 130/70 01/29/21 03:51 Pulse Oximetry 98 01/29/21 03:51 Respiratory End-tidal CO2 38 01/27/21 11:37 Oxygen Delivery Method Bi-pap 01/29/21 03:51 Oxygen Flow Rate 0 01/28/21 23:54 Fraction of Inspired Oxygen (FIO2) 21 01/28/21 00:49 Pain Level 5 01/29/21 05:55 Intake & Output 01/28/21 01/28/21 01/29/21 11:59 23:59 11:59 Intake Total 1630 / 4541 2911 / 4541 Output Total 2050 / 2650 600 / 2650 1100 / 1100 Balance -420 / 1891 2311 / 1891 -1100 / -1100 Intake: IV 1150 / 3131 1981 / 3131 Oral 480 / 1410 930 / 1410 Output: Urine 2049 / 2650 600 / 2650 1100 / 1100 Other: Urine Color Light Giulia Yellow Light Giulia Urine Appearance Clear Clear Clear Urine Odor None None Voiding Methods Indwelling Catheter Toilet Toilet Data Completed and Pending Labs on day of discharge: Labs from last 24 hours 01/29/21 01/29/21 05:35 05:35 WBC Pending RBC Pending Hgb Pending Hct Pending MCV Pending MCH Pending MCHC Pending RDW Pending Plt Count Pending MPV Pending Immature Gran % Pending Neutrophils % Pending Lymphocytes % Pending Monocytes % Pending Eosinophils % Pending Basophils % Pending Absolute Neutrophils Pending Absolute Lymphocytes Pending Absolute Monocytes Pending Absolute Eosinophils Pending Absolute Basophils Pending Sodium Pending Potassium Pending Chloride Pending Carbon Dioxide Pending Anion Gap Pending BUN Pending Creatinine Pending Estimated GFR/1.73 m2 Pending Glucose Pending Calcium Pending Total Bilirubin Pending AST Pending ALT Pending Alkaline Phosphatase Pending C-Reactive Protein Pending Total Protein Pending Albumin Pending 01/28/21 12:25 Blood Blood Culture - Pending 01/28/21 12:10 Blood Blood Culture - Pending Preliminary micro results at discharge 01/26/21 13:32 Blood Culture - Preliminary Blood NO GROWTH 48 HOURS 01/28/21 12:25 Blood Culture - Pending Blood 01/28/21 12:10 Blood Culture - Pending Blood 01/26/21 13:10 Blood Culture - Preliminary Blood Staphylococcus Aureus [facility] Medical History Chronic low back pain Complex tear of medial meniscus of right knee as current injury (11/06/17) COPD (chronic obstructive pulmonary disease) Depression Dyspepsia Fibromyalgia Greater trochanteric bursitis of both hips (01/01/18) Headache Hyperlipidemia Knee joint pain Marital problems Meralgia paraesthetica Nasal lesion Obesity Peripheral edema Perirectal abscess Plantar fasciitis Primary osteoarthritis of right knee (12/04/17) Prurigo nodularis PTSD (post-traumatic stress disorder) Restless leg syndrome Sleep apnea Somatic dysfunction of sacral region Tendonitis of left rotator cuff Confirmed RTC tear Thoracic spine pain Tobacco abuse Trochanteric bursitis of both hips Urinary frequency Urinary hesitancy Weakness Surgical History Abdominal hysterectomy (04/25/11) section (04/25/11) Cholecystectomy (04/25/11) Hx of hysterectomy Incision & Drainage, Abscess or Hematoma (05/03/17) periectal abscess cavity S/P left rotator cuff repair (09/22/20) Status post arthroscopy of right knee Partial medial meniscectomy, medial chondroplasty, removal of loose bodies Date of surgery: November 21, 2017 Dr. 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 Status post total knee replacement, right July 2018 Social History Smoking/Tobacco Use Status: Current every day Tobacco Type: cigarettes Smoking packs per day: 1 Smoking cigarettes per day: 20.0 Years smoked: 44 Smoking pack- years: 44.00 Smoking risk assessment performed?: Yes Alcohol Intake: current Alcohol Intake frequency: holidays/special occasions only Drug use: Never Substance use type: does not use Current gender identity: female Do you feel safe at home: Yes Do you feel safe in your relationship?: Yes
[2021-01-29 07:05] LABS: Abs Immature Grans 0.05 10^3/uL (0.0-0.06); Absolute Basophil Count 0.05 10^3/uL (0.0-0.2); Absolute Eosinophil Count 0.13 10^3/uL (0.0-0.7); Absolute Lymphocyte Count 3.57 10^3/uL (1.2-3.4); Absolute Neutrophil Count 7.75 10^3/uL (1.2-6.7); Basophils % 0.4; HCT 27.5 % (36.0-46.0); HGB 9.2 g/dL (11.2-15.7); Immature Grans % 0.4; Lymphocytes % 28.1; MCH 32.2 pg (27.0-33.0); MCHC 33.5 % (32.0-36.0); MCV 96.2 fL (80-95); MPV 9.8 fL (8.0-11.0); Monocytes % 9.1; Nucleated RBC 0 %; Platelet Count 351 10^3/uL (130-400); RBC 2.86 10^6/uL (3.93-5.22); RDW-SD 46.3 fL
[2021-01-29 07:09] LABS: Absolute Monocyte Count 1.16 10^3/uL (0.1-0.8)
[2021-01-29 07:15] VITALS: BP 134/70; PULSE 73; RESP 18; TEMP 36.5; O2SAT 99
[2021-01-29 07:22] LABS: ALT 17 U/L (14-59); AST 13 U/L (15-37); Albumin 2.7 g/dL (3.4-5.0); Alkaline Phosphatase 75 U/L (46-116); BUN 20 mg/dL (7-18); Bilirubin, Total 0.3 mg/dL (0.2-1.0); C-Reactive Protein 13.09 mg/dL (0.0-0.3); Calcium 10.3 mg/dL (8.5-10.1); Chloride 109 mmol/L (98-107); Estimated GFR 57.15 (mL/min/1.73m2); Glucose 114 mg/dL (74-106); Potassium 4.1 mmol/L (3.5-5.1); Sodium 144 mmol/L (136-145); Total Protein 6.9 g/dL (6.4-8.2)
[2021-01-29] MEDS: rifAMPin 300 MG CAP PO (07:55)
[2021-01-29] MEDS: Sertraline 50 MG TAB 100 MG PO (07:55)
[2021-01-29] MEDS: Gabapentin 600 MG TAB 1200 MG PO (07:55)
[2021-01-29] MEDS: HYDROcodone 5/Acetaminophen 325 TAB PO (08:41)
[2021-01-29 11:28] VITALS: BP 130/70; PULSE 70; RESP 19; TEMP 36.5; O2SAT 99
[2021-01-29] MEDS: cefTRIAXone 2 GM/50 ML BAG IVPB (11:53)
[2021-01-29] MEDS: Lidocaine 5% Patch 1 PATCH TP (11:54)
--- NOTE | 2021-01-29 18:13 | PDOC.CMDIS ---
- If Service Date Differs Date of service: 01/29/21 Time of Service: 18:13 LACE Index Scoring Tool - Questions: Length of Stay (in days): 3 Acuity (Admit via E.D.?): No Comorbidities: Chronic Pulmonary Disease E.D. Visits: 1 - Answers: Total Score: 6 Risk of Readmission: Low Risk Care Management Discharge Reason for Hospitalization: Infected Right knee Discharge Plan: Dea will be discharged home and return to the Infusion Room daily for IVAB therapy. She will follow up with her community providers and plan of care and transport with her spouse Citlalli. Patient/Family Education Needs: Discharge education, follow-up plan of care, limitations, self-management and ask me 3
--- NOTE | 2021-02-01 11:21 | INDS_ITS ---
Date of service: 02/01/21 PT Notes Visit Reasons: INFECTED RIGHT KNEE Physical Therapy Inpatient Discharge Summary Date: 02/01/2021 Dates of service: 01/27/2021 through 01/29/2021 This is a clinical summary of care provided on the duration of dates listed above. No charge was made in the completion of this documentation. Referring Doctor: Miguel Angel Yao MD PT Orders: PT CONSULT: OOB ambulating in room this afternoon.? WBAT to right leg Precautions: Fall. Standard. Activity as tolerated. Patient Profile/Admitting Diagnosis: Dea is a 55-year-old female who presented to the ED 01/25/2021 with complaints of right thigh, knee, leg pain that is worse with weight bearing.? 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 PMHX: Medical History? Chronic low back pain Complex tear of medial meniscus of right knee as current injury (11/06/17) COPD (chronic obstructive pulmonary disease) Depression Dyspepsia Fibromyalgia Greater trochanteric bursitis of both hips (01/01/18) Headache Hyperlipidemia Knee joint pain Marital problems Meralgia paraesthetica Nasal lesion Obesity Peripheral edema Perirectal abscess Plantar fasciitis Primary osteoarthritis of right knee (12/04/17) Prurigo nodularis PTSD (post-traumatic stress disorder) Restless leg syndrome Sleep apnea Somatic dysfunction of sacral region Tendonitis of left rotator cuff Confirmed RTC tearThoracic spine pain Tobacco abuse Trochanteric bursitis of both hips Urinary frequency Urinary hesitancy Weakness Surgical History? Abdominal hysterectomy (04/25/11) section (04/25/11) Cholecystectomy (04/25/11) Hx of hysterectomy Incision & Drainage, Abscess or Hematoma (05/03/17) periectal abscess cavityS/P left rotator cuff repair (09/22/20) Status post arthroscopy of right knee Partial medial meniscectomy, medial chondroplasty, removal of loose bodies Date of surgery: November 21, 2017 Dr. 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Status post total knee replacement, right July 2018 Social History/Home Situation: Lives with significant other in a private home with 2 steps to enter, 1 rail.? Used front wheeled walker 2 to 3 days prior to surgery due to worsening pain otherwise independent with all ADLs prior to symptom onset.? Currently on disability. Equipment Owned/DME: Front wheeled walker Subjective: NT. See most recent IN STORE DEMONSTRATOR notes. Objective: General Observation: NT. See most recent IN STORE DEMONSTRATOR notes. Mental Status: NT. See most recent IN STORE DEMONSTRATOR notes. Pain: NT. See most recent IN STORE DEMONSTRATOR notes. ROM: Right Lower Extremity: Hip flexion limited to about 100 degrees with pain at end range. Hip abduction allows about 20 degrees with pain at end range. Hip ER/IR WFL. Knee flexion not tested. Knee extension not tested. Ankle dorsiflexion/eversion WFL. Ankle plantarflexion/inversion WFL. Left Lower Extremity: Hip flexion WFL. Hip abduction WFL. Hip ER/IR WFL. Knee flexion WFL. Knee extension. Ankle dorsiflexion WFL. Ankle plantarflexion WFL. Strength: Right Lower Extremity: Hip flexors 4-/5. Hip abductors 4-/5. Hip external rotators 4-/5. Hip internal rotators 4-/5. Knee flexors not tested. Knee extensors not tested. Ankle dorsiflexors/evertors 5/5. Ankle plantarflexors/invertors 5/5.4 Left Lower Extremity: Hip flexors 5/5. Hip abductors 5/5. Hip external rotators 5/5. HIp internal rotators 5/5. Knee flexors 5/5. Knee extensors 5/5. Ankle dorsiflexors/evertors 5/5. Ankle plantarflexors/invertors 5/5. Bed Mobility/Transfers: Sit to stand independent Stand to sit independent Bed to chair independent Chair to bed independent Gait: Guided patient through level surface ambulation of up to 250 feet using a front wheeled walker with WBAT on the right LE requiring contact-guard assist without knee immobilizer on right. Josie improved. Step height improved. Balance: Static Sitting: Normal Dynamic Sitting: Normal Static Standing: Fair Dynamic Standing: Fair Assessment: Dea continues to demonstrate functional mobility decline requiring the assistance of 1 person and the use of a front wheeled walker for all mobility ADL performance, weakness in the right hip and knee muscle groups, impairment in balance, decreased activity tolerance, and increased risk for falls due to postoperative status.? Dea will have a follow up appoitnemtn with Dr. Curtis on 02/01/2021 to determine need for continued services. Patient continues to present presents with clinical signs and symptoms consistent with current/admitting diagnoses that have resulted to mobility li mitations, gait instability, generalized weakness, and impairment of motor control as demonstrated by the following impairment level findings: 1.? Decreased strength to right hip and knee major muscle groups 2.? Impaired sitting/standing balance 3.? Impaired activity tolerance 4.? Limitation of joint range of motion in right hip and knee Impairments are continuing to contribute to the following functional limitations: 1.? Inability to safely ambulate without assistive device 2.? Increased completion time for mobility ADL performance 3.? Increased fall risk 4.? Inability to negotiate steps alone safely Goals: Goals X1 week 1. Supine-Sit independent MET 2. Sit-Supine independent MET 3. Sit-Stand independent MET 4. Stand-Sit independent MET 5. Bed-Chair independent MET 6. Chair-Bed independent MET 7. Independent gait on level surface with use of front wheeled walker for at least 500 feet without report of pain nor dyspnea NOT MET 8. Independent stair negotiation while holding onto 1 rail for at least 3 steps without report of pain nor dyspnea NOT MET 9. Independent with home exercise program NOT MET 10. Good static and dynamic standing balance/tolerance NOT MET DISCHARGE RECOMMENDATIONS: Patient will benefit from home health PT services in order to progress mobility level using least restrictive assistive ambulatory device, assess home safety, identify additional equipment needs, and establish a functional maintenance program that will increase ability of patient to remain at home.? May resume outpatient PT services if no longer homebound once discharged. TREATMENT CODE/TIME: DC Thank you for the opportunity to participate in the care of this patient. Jazmine Sidhu PT, DPT, CLT [facility] [place], [place]
== END 2021-01-29 13:05 | disposition home or self-care (01) | DRG 468 ==
PROVIDERS: Orthopaedic Surgery; Physician Assistant Surgical; Admitting Provider Student in an Organized Health Care Education/Training Program; Visit Provider Student in an Organized Health Care Education/Training Program
PROC: 0SPV0JZ Removal of Synthetic Substitute from Right Knee Joint, Tibial Surface, Open Approach (ICD-10-PCS; CPT 27486; principal; 2021-01-27 08:00)
PROC: 0SPV0JZ Removal of Synthetic Substitute from Right Knee Joint, Tibial Surface, Open Approach (ICD-10-PCS; CPT 27486; 2021-01-27 08:00)
DX: T84.53XA Infection and inflammatory reaction due to internal right knee prosthesis, initial encounter (principal); M54.5 Low back pain; J44.9 Chronic obstructive pulmonary disease, unspecified; F32.9 Major depressive disorder, single episode, unspecified; M79.7 Fibromyalgia; E78.5 Hyperlipidemia, unspecified; G57.10 Meralgia paresthetica, unspecified lower limb; E66.9 Obesity, unspecified; R60.0 Localized edema; F43.10 Post-traumatic stress disorder, unspecified; G25.81 Restless legs syndrome; G47.30 Sleep apnea, unspecified; F17.210 Nicotine dependence, cigarettes, uncomplicated; B95.61 Methicillin susceptible Staphylococcus aureus infection as the cause of diseases classified elsewhere
CPT/HCPCS: 27486; 20704; 36410; 36415; 76942; 80048; 80053; 87040; 87077; 87635; 97110; 97162; 97530; 85018; 85025; 86140; 87186; 94667; J0131; J0690; J1100; J1885; J2001; J2060; J2250; J2270; J2405; J3490

== ENCOUNTER 2021-01-26 12:48 | Outpatient (REF) | payer OTHER, SELFPAY ==
[2021-01-26 12:47] LABS: Clarity Cloudy
[2021-01-26 12:48] LABS: Mononuclear Cells 20 %; Polynuclear Cells 80 %
== END 2021-01-26 12:49 | disposition home or self-care (01) ==
LOC: LBN 12:48
PROVIDERS: Visit Provider Student in an Organized Health Care Education/Training Program
DX: M71.161 Other infective bursitis, right knee (principal); T84.53XA Infection and inflammatory reaction due to internal right knee prosthesis, initial encounter; R60.0 Localized edema
CPT/HCPCS: 87077; 87070; 87075; 87186; 87205; 89051; 89060

== ENCOUNTER 2021-01-30 16:47 | Emergency (ER) | payer OTHER, SELFPAY ==
[2021-01-30 16:53] VITALS: BP 154/66; PULSE 91; RESP 20; TEMP 37.2; O2SAT 99
--- NOTE | 2021-01-30 16:58 | W.ED.GENAD ---
Discharge Plan Disposition Patient Disposition: HOME Condition: Stable Discharge Details Clinical Impression: Infection of total right knee replacement Primary Care Provider: Harshil Krueger ED Provider: Elena Ken Home Meds and New Rx's Prescriptions: No Action gabapentin 600 mg tablet 1,200 mg PO BID RF: 0 albuterol sulfate [Ventolin HFA] 90 mcg/actuation HFA aerosol inhaler 2 puff IH .[id number] PRNRF: 0 sertraline 100 mg tablet 100 mg PO DAILY RF: 0 triamcinolone acetonide 0.1 % cream 1 applic topical DAILY RF: 0 lidocaine 5 % adhesive patch,medicated 1 patch topical DAILY Qty: 30 RF: 0 metaxalone 800 mg tablet 800 mg PO TID PRN (Reason: muscle pain) Qty: 12 RF: 0 oxycodone 5 mg tablet 5 mg PO Q4H MDD 30mg PRN (Reason: pain) Qty: 12 RF: 0 prednisone 5 mg tablets,dose pack See Rx Instructions PO PER PKG DIR Qty: 21 RF: 0 clonazepam 1 mg tablet 1 mg PO HS RF: 0 torsemide 10 mg Tablet 10 mg PO DAILY PRN PRNRF: 0 omeprazole 20 MG capsule,delayed release(DR/EC) 20 mg PO DAILY RF: 0 acetaminophen [Tylenol Extra Strength] 500 mg tablet 500 mg PO Q6H PRNQty: 90 RF: 0 ceftriaxone in dextrose,iso-os 2 gram/50 mL Piggyback 2 g IVPB Q24H Qty: 0 RF: 0 aspirin 81 mg tablet,delayed release (DR/EC) 81 mg PO BID Qty: 60 RF: 0 docusate sodium [Colace] 100 mg capsule 100 mg PO BID PRNQty: 10 RF: 0 rifampin 300 mg capsule 300 mg PO BID AC Qty: 60 RF: 0 naproxen 500 mg Tablet 500 mg PO BID Qty: 120 RF: 0 Discharge Instructions Instructions: Cellulitis (ED), Precautions after Total Joint Replacement Surgery (ED) Additional Instructions: Dr. Curtis's phone number is: [phone] please call him for any further concerns or issues. At this time it is expected to have some swelling and drainage. Please continue with the antibiotic antibiotic regimen today and previously set up with the infusion center. Keep a bulky dressing on the incision until Monday as instructed. If the dressing becomes soaked through you may change it we will give you some additional dressing materials if you need to replace the current dressing at home. Reasons to return to the ED include fever, vomiting, dizziness, feeling overall sicker. Follow up with primary care provider in 3-5 days. Return to ED sooner if any worsening or concerns. Increase oral fluids. Please take Tylenol or Ibuprofen with food every 4-6 hours as needed for pain and swelling. Referrals: Armin Curtis MD [ [facility] STAFF PHYSICIAN] - Harshil Krueger MD [Primary Care Provider] - Discharge Data Discharge Date/Time-TO BE ENTERED AT DEPARTURE: 01/30/21 19:07 Medical Decision Making 55-year-old female presents to the ER after being discharged from the hospital yesterday. Patient states that before she presented today to the infusion center for IV antibiotic infusions, she noticed that the dressing that was in place was soaked with pus and serosanguineous drainage. The patient then removed the drainage at home and presented to the infusion center. The infusion center RN changed the dressing. Patient states that she expressed yellow cottage cheese like drainage from the knee incision. Upon arrival there is drainage noted serosanguineous in nature she does have an swollen extremity. She reports increased burning and pain. She denies any fever chills nausea vomiting or any sort of systemic symptoms. 1706: Ortho MD application assistant paged. 1729: Spoke with Dr. Muhammad who is on-call with orthopedic surgery discussed patient case in details with him, he recommends obtaining labs including CBC CMP ESR and C-reactive protein as a baseline reference for further follow-up in the office next week. He does advise that the CBC and sed rate may be elevated today due to the recent surgery. Also I did speak with Dr. Curtis who is well involved in the patient's care and he recommends reinforcing the incision site with a pressure type bulky dressing with 4 x 4's, ABD pad and Medipore tape. I will instruct patient to contact Dr. Curtis directly for any further problems or concerns at his request. This text was generated using [employer] system, please disregard any oddities of phrase or misspellings. HPI General Mode of arrival: wheelchair. Date/Time Provider Initiated Documentation: 01/30/21 16:47. Limitations to Documentation: no limitations. Information obtained by: patient. HPI Narrative: 55-year-old female presents to the ER after being discharged from the hospital yesterday. Patient states that before she presented today to the infusion center for IV antibiotic infusions, she noticed that the dressing that was in place was soaked with pus and serosanguineous drainage. The patient then removed the drainage at home and presented to the infusion center. The infusion center RN changed the dressing. Patient states that she expressed yellow cottage cheese like drainage from the knee incision. Upon arrival there is drainage noted serosanguineous in nature she does have an swollen extremity. She reports increased burning and pain. She denies any fever chills nausea vomiting or any sort of systemic symptoms. Related Data Home Medications Medication Instructions Recorded Confirmed omeprazole 20 mg PO DAILY 04/27/17 01/30/21 torsemide 10 mg PO DAILY PRN PRN 07/16/18 01/30/21 albuterol sulfate 90 mcg/actuation 2 puff IH .[id number] PRN gm 04/08/19 01/30/21 aerosol inhaler gabapentin 600 mg tablet 1,200 mg PO BID 04/08/19 01/30/21 triamcinolone acetonide 0.1 % 1 applic TOPICAL DAILY 07/06/20 01/30/21 topical cream clonazepam 1 mg tablet 1 mg PO HS tab 07/09/20 01/30/21 sertraline 100 mg tablet 100 mg PO DAILY 07/09/20 01/30/21 acetaminophen [Tylenol Extra 500 mg PO Q6H PRN #90 tab 09/22/20 01/30/21 Strength] aspirin 81 mg PO BID #60 tab 01/29/21 01/30/21 ceftriaxone in dextrose,iso-os 2 g IVPB Q24H #0 ea 01/29/21 01/30/21 docusate sodium [Colace] 100 mg PO BID PRN #10 cap 01/29/21 01/30/21 naproxen 500 mg PO BID #120 tab 01/29/21 01/30/21 rifampin 300 mg PO BID AC #60 cap 01/29/21 01/30/21 lidocaine 5 % topical patch 1 patch TOPICAL DAILY #30 ea 01/31/21 metaxalone 800 mg tablet 800 mg PO TID PRN #12 tab 01/31/21 oxycodone 5 mg tablet 5 mg PO Q4H PRN #12 tab MDD 30mg 01/31/21 prednisone 5 mg tablets in a dose See Rx Instructions PO PER PKG DIR 01/31/21 pack #21 dose pk Previous Rx's Medication Instructions Recorded acetaminophen [Tylenol Extra 500 mg PO Q6H PRN #90 tab 09/22/20 Strength] aspirin 81 mg PO BID #60 tab 01/29/21 ceftriaxone in dextrose,iso-os 2 g IVPB Q24H #0 ea 01/29/21 docusate sodium [Colace] 100 mg PO BID PRN #10 cap 01/29/21 naproxen 500 mg PO BID #120 tab 01/29/21 rifampin 300 mg PO BID AC #60 cap 01/29/21 lidocaine 5 % topical patch 1 patch TOPICAL DAILY #30 ea 01/31/21 metaxalone 800 mg tablet 800 mg PO TID PRN #12 tab 01/31/21 oxycodone 5 mg tablet 5 mg PO Q4H PRN #12 tab MDD 30mg 01/31/21 prednisone 5 mg tablets in a dose See Rx Instructions PO PER PKG DIR 01/31/21 pack #21 dose pk Allergies Allergy/AdvReac Type Severity Reaction Status Date / Time Penicillins Allergy Intermediate Skin Rash Unverified 01/30/21 16:58 pravastatin AdvReac Intermediate leaky Unverified 01/30/21 16:58 stools General Stated Complaint: Cellulitis ELSY: 3 Review of Systems All systems reviewed & are unremarkable except as noted in HPI and below Musculoskeletal Musculoskeletal: Reports as per HPI (History of infected knee replacement), Reports joint swelling and Reports other (Incisional drainage and extremity swelling status post right knee surgery) [facility] Medical History Chronic low back pain Complex tear of medial meniscus of right knee as current injury (11/06/17) COPD (chronic obstructive pulmonary disease) Depression Dyspepsia Fibromyalgia Greater trochanteric bursitis of both hips (01/01/18) Headache Hyperlipidemia Knee joint pain Marital problems Meralgia paraesthetica Nasal lesion Obesity Peripheral edema Perirectal abscess Plantar fasciitis Primary osteoarthritis of right knee (12/04/17) Prurigo nodularis PTSD (post-traumatic stress disorder) Restless leg syndrome Sleep apnea Somatic dysfunction of sacral region Tendonitis of left rotator cuff Confirmed RTC tear Thoracic spine pain Tobacco abuse Trochanteric bursitis of both hips Urinary frequency Urinary hesitancy Weakness Surgical History Abdominal hysterectomy (04/25/11) section (04/25/11) Cholecystectomy (04/25/11) Hx of hysterectomy Incision & Drainage, Abscess or Hematoma (05/03/17) periectal abscess cavity S/P left rotator cuff repair (09/22/20) Status post arthroscopy of right knee Partial medial meniscectomy, medial chondroplasty, removal of loose bodies Date of surgery: November 21, 2017 Dr. 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 Status post total knee replacement, right July 2018 Social History Smoking/Tobacco Use Status: Current every day Tobacco Type: cigarettes Smoking packs per day: 1 Smoking cigarettes per day: 20.0 Years smoked: 44 Smoking pack-years: 44.00 Smoking risk assessment performed?: Yes Alcohol Intake: current Alcohol Intake frequency: holidays/special occasions only Drug use: Never Substance use type: does not use Current gender identity: female Do you feel safe at home: Yes Do you feel safe in your relationship?: Yes Exam Extrem Right lower extremity: normal capillary refill, edema Details: non-pitting and lower leg Left lower extremity: knee and lower leg Knee images: 1. Vertical surgical incision noted with yoselyn in place, Small amount of light yellow thick drainage noted from distal incision site. Mild serosanguinous drainage noted. Course Vital Signs Vital signs: Vital Signs Temperature 37.2 C 01/30/21 16:53 Pulse 91 H 01/30/21 16:53 Respiratory Rate 20 01/30/21 16:53 Blood Pressure 154/66 H 01/30/21 16:53 Pulse Oximetry 99 01/30/21 16:53 Temperature 37.2 C 01/30/21 16:53 Temperature Source Oral 01/30/21 16:53 Pulse 91 H 01/30/21 16:53 Respiratory Rate 20 01/30/21 16:53 Blood Pressure 154/66 H 01/30/21 16:53 Blood Pressure Position Sitting 01/30/21 16:53 Pulse Oximetry 99 01/30/21 16:53 Oxygen Delivery Method Room Air 01/30/21 16:53 Oxygen Flow Rate 0 01/30/21 16:53 Pain Level 5 01/30/21 16:53
[2021-01-30 17:59] LABS: Lactate 1.1 mmol/L (0.6-1.4)
[2021-01-30 18:01] LABS: Absolute Basophil Count 0.05 10^3/uL (0.0-0.2); Absolute Eosinophil Count 0.29 10^3/uL (0.0-0.7); Absolute Lymphocyte Count 2.63 10^3/uL (1.2-3.4); Absolute Monocyte Count 1.24 10^3/uL (0.1-0.8); Absolute Neutrophil Count 5.44 10^3/uL (1.2-6.7); Basophils % 0.5; HCT 29.8 % (36.0-46.0); HGB 9.9 g/dL (11.2-15.7); MCH 31.9 pg (27.0-33.0); MCHC 33.2 % (32.0-36.0); MCV 96.1 fL (80-95); MPV 9.2 fL (8.0-11.0); Monocytes % 12.7; Neutrophils % 55.8; Nucleated RBC 0 %; Platelet Count 402 10^3/uL (130-400); RDW 13.2 % (11.7-14.6); RDW-SD 46.5 fL; WBC 9.75 10^3/uL (4.4-10.8)
[2021-01-30 18:15] LABS: C-Reactive Protein 12.09 mg/dL (0.0-0.3)
[2021-01-30 18:18] LABS: ESR 60 mm/hr (0-30)
[2021-01-30 18:19] LABS: ALT 50 U/L (14-59); AST 41 U/L (15-37); Alkaline Phosphatase 103 U/L (46-116); Anion Gap 8.7 mmol/L (3-11); BUN 16 mg/dL (7-18); Bilirubin, Total 0.6 mg/dL (0.2-1.0); CO2 29.3 mmol/L (21.0-32.0); CREATININE 1.1 mg/dL (0.55-1.02); Calcium 9.6 mg/dL (8.5-10.1); Chloride 107 mmol/L (98-107); Glucose 121 mg/dL (74-106); Potassium 3.9 mmol/L (3.5-5.1); Sodium 145 mmol/L (136-145); Total Protein 7.2 g/dL (6.4-8.2)
[2021-01-30 19:10] VITALS: BP 121/54; PULSE 83; RESP 18; TEMP 36.8; O2SAT 98
== END 2021-01-30 19:07 | disposition home or self-care (01) ==
PROVIDERS: Emergency Provider Registered Nurse Emergency; PCP Internal Medicine
DX: T84.53XD Infection and inflammatory reaction due to internal right knee prosthesis, subsequent encounter (principal)
CPT/HCPCS: 36415; 80053; 85652; 99281; 83605; 85025; 86140; 99282

== ENCOUNTER 2021-02-02 11:13 | Inpatient (IN) | payer OTHER, SELFPAY ==
[2021-02-02] MEDS: oxyCODONE 5 MG TAB PO (13:25)
[2021-02-02] MEDS: HYDROmorphone 2 MG/ML VIAL 0.5 MG IVP ×2 (13:43→15:44)
[2021-02-02] MEDS: Normal Saline Flush 10 ML SYR ×4 (13:44→22:40)
[2021-02-02] MEDS: Lidocaine 5% Patch 1 PATCH TP (14:04)
[2021-02-02] MEDS: Acetaminophen 500 MG TAB PO (14:04)
--- NOTE | 2021-02-02 15:05 | CHAPLAIN ---
Dea was struggle with pain when stopped in her room. She had recently been admitted. She was here last week to have her knee replacement repaired. It was infected and she later became septic and has been coming in for daily infusions since leaving on 01/29. Over the weekend, she said she had tremendous pain from her knee and her sciatica, and her partner brought Dea in today for pain relief. Dea was frustrated that she first was offered the same med she was taking at home, which had not been affective, she explained. A bit later she was given something else. Dea's sister in law in Rev. Gina Lang, a retired [employer] [facility] [facility] [place] [facility] relief pilot. eDa said that she asked Gina if God had forsaken her and was that why she was in so much pain. Dea said the Gina reassured her that God was with her and had not forsaken her. Dea and I talked about how we don't always feel protected by God, but we aren't abandoned God, and that everyone deals with difficulties, from small things, to terrible things, that life throws at us. The pain meds began to work and Dea became less tense, and relaxed some. She said she has not eaten or slept in four days, and agreed to try to eat a turkey sandwich and some chicken noodle soup.
[2021-02-02 15:17] VITALS: BP 115/66; PULSE 83; RESP 17; TEMP 36; O2SAT 97
[2021-02-02] MEDS: cefTRIAXone 2 GM/50 ML BAG IVPB (15:26)
[2021-02-02] MEDS: rifAMPin 300 MG CAP PO (16:49)
--- NOTE | 2021-02-02 17:18 | HPE_ITS ---
Date of service: 02/02/21 Time of Service: 15:18 Assessment and Plan Assessment and plan (1) Infection of total right knee replacement: Status: Acute Assessment and plan: This appears to be doing well. I recommend at this time we continue with rifampin and ceftriaxone for management. Continue to keep covered with a Mepilex dressing or other dressing. Qualifiers: Encounter type: sequela Qualified Code(s): T84.53XS - Infection and inflammatory reaction due to internal right knee prosthesis, sequela (2) Low back pain radiating to lower extremity: Status: Acute Assessment and plan: Dea has this acutely worsening pain about her low back, buttock and down the right leg. This appears to be some form of sciatica which she has had in the past. However, she has never had this severe. Most likely, this is simply just uncontrolled and acutely worsening due to her limitations from recent illness as well as the recent surgery for the right knee. However, given the history of a positive blood culture, infected knee, and worsening back pain in the setting of this history, infectious etiology must be considered. I do worry there could be an epidural abscess pushing on the nerve root and possibly soft tissue abscess around the nerves in the buttock. However, I still find this is going to be unlikely. Nevertheless, given this history I would like to 10 MRI of the lumbar spine and into the right hip. (3) Acute pain: Status: Acute Assessment and plan: Dea has acute pain which is currently uncontrolled with a host of regimens started at home. At this point, we will have to use stronger medications. I do not have a pain service here to consult so therefore we will start with managing this multimodal. She is already on 2400 mg of gabapentin and therefore I want to avoid increasing this. I will place her on ketorolac 15 mg 4 times daily. Additionally, we will start diazepam 5 mg 4 times daily scheduled. She will have hydromorphone IV as well as p.o. options. We will see how this does overnight tonight and adjust accordingly. Continue with heat and cold as tolerated. History of Present Illness History of Present Illness Chief Complaint: Acute Pain Narrative: Dea is a 55-year-old who has been quite sick for the past few months. She contracted COVID-19 and then reported being terribly sick at home for a while afterwards. She had the acute onset of pain difficulty with ambulation about the right leg. She is found to have an infected total knee on the right side. This knee was many years old, approximate 2-/2, and this was irrigated and debrided by Dr. Yao. She tolerated this procedure well. She does have a history of some sciatica and right worse than left leg numbness but it was very mild at this point. She is able to discharge home. However, that a few days of being home she had increasing pain about the low back, buttock and right leg. The buttock pain was the worst followed by the back and then the pain going down the leg. Additionally, she reports having increasing burning to the anterior thighs, more on the right than on the left. While some of the symptoms have been present prior to the knee infection they have acutely worsened over the past few days to the point that she is unable to have any pain relief all day long. She is unable to sleep. She has been crying nonstop and even thought about ways to end it. She currently expresses no suicidal ideation. Although she is expressly done with hurting. Given this presentation admitted to the hospital for acute inpatient management of her pain and work-up of these new and worsening symptoms. Review of Systems All systems reviewed & are unremarkable except as noted in HPI and below PFSH Medical History Chronic low back pain Complex tear of medial meniscus of right knee as current injury (11/06/17) COPD (chronic obstructive pulmonary disease) Depression Dyspepsia Fibromyalgia Greater trochanteric bursitis of both hips (01/01/18) Headache Hyperlipidemia Knee joint pain Marital problems Meralgia paraesthetica Nasal lesion Obesity Peripheral edema Perirectal abscess Plantar fasciitis Primary osteoarthritis of right knee (12/04/17) Prurigo nodularis PTSD (post-traumatic stress disorder) Restless leg syndrome Sleep apnea Somatic dysfunction of sacral region Tendonitis of left rotator cuff Confirmed RTC tear Thoracic spine pain Tobacco abuse Trochanteric bursitis of both hips Urinary frequency Urinary hesitancy Weakness Surgical History Abdominal hysterectomy (04/25/11) section (04/25/11) Cholecystectomy (04/25/11) Hx of hysterectomy Incision & Drainage, Abscess or Hematoma (05/03/17) periectal abscess cavity S/P left rotator cuff repair (09/22/20) Status post arthroscopy of right knee Partial medial meniscectomy, medial chondroplasty, removal of loose bodies Date of surgery: November 21, 2017 Dr. 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 Status post total knee replacement, right July 2018 Social History Smoking/Tobacco Use Status: Current every day Tobacco Type: cigarettes Smoking packs per day: 1 Smoking cigarettes per day: 20.0 Years smoked: 44 Smoking pack- years: 44.00 Smoking risk assessment performed?: Yes Alcohol Intake: current Alcohol Intake frequency: holidays/special occasions only Drug use: Never Substance use type: does not use Current gender identity: female Do you feel safe at home: Yes Do you feel safe in your relationship?: Yes Meds Allergies and Home Medications Allergies Allergy/AdvReac Type Severity Reaction Status Date / Time Penicillins Allergy Intermediate Skin Rash Unverified 01/30/21 16:58 pravastatin AdvReac Intermediate leaky Unverified 01/30/21 16:58 stools Home Medications Medication Instructions Recorded Confirmed Type omeprazole 20 mg PO DAILY 04/27/17 02/02/21 History torsemide 10 mg PO DAILY PRN PRN 07/16/18 02/02/21 History albuterol sulfate 90 mcg/actuation 2 puff [id number] PRN gm 04/08/19 02/02/21 History aerosol inhaler gabapentin 600 mg tablet 1,200 mg PO BID 04/08/19 02/02/21 History triamcinolone acetonide 0.1 % 1 applic TOPICAL DAILY 07/06/20 02/02/21 History topical cream clonazepam 1 mg tablet 1 mg PO HS tab 07/09/20 02/02/21 History sertraline 100 mg tablet 100 mg PO DAILY 07/09/20 02/02/21 History acetaminophen [Tylenol Extra 500 mg PO Q6H PRN #90 tab 09/22/20 02/02/21 Rx Strength] aspirin 81 mg PO BID #60 tab 01/29/21 02/02/21 Rx ceftriaxone in dextrose,iso-os 2 g IVPB Q24H #0 ea 01/29/21 02/02/21 Rx docusate sodium [Colace] 100 mg PO BID PRN #10 cap 01/29/21 02/02/21 Rx naproxen 500 mg PO BID #120 tab 01/29/21 02/02/21 Rx rifampin 300 mg PO BID AC #60 cap 01/29/21 02/02/21 Rx lidocaine 5 % topical patch 1 patch TOPICAL DAILY #30 ea 01/31/21 02/02/21 Rx metaxalone 800 mg tablet 800 mg PO TID PRN #12 tab 01/31/21 02/02/21 Rx oxycodone 5 mg tablet 5 mg PO Q4H PRN #12 tab MDD 30mg 01/31/21 02/02/21 Rx prednisone 5 mg tablets in a dose See Rx Instructions PO PER PKG DIR 01/31/21 02/02/21 Rx pack #21 dose pk Exam Narrative Exam Narrative: Dea is lying supine in the bed. She is easily arousable. She appears uncomfortable but not in any acute distress. Alert and oriented x3. Head is normocephalic and atraumatic. She is able participate in the examination. Heart rate rhythm are regular. Chest is clear to auscultation bilaterally. The right knee is evaluated and shows a healing wound. Vickie are intact. No erythema. No actively expressible or draining fluid from the right knee. She is given the knee in full extension while in the bed. She is able tolerate some gentle motion of the right knee with minimal pain. She has exquisite pain with any attempted mobility of the right leg. She feels this is in the posterior aspect of the right hip, the buttock area. She also reports pain in the low back with any passive flexion of the right hip. She has pain to palpation of the midline lower spine, approximately L5 region as well as significant pain over the sciatic notch and within the buttock on the right side. She also has notable pain over the trochanteric bursa about the right hip. Straight leg raise causes pain down into the right leg. She reports this seems to travel down from the buttock, posterior thigh, medial leg and medial ankle. She feels that there is a overwhelming burning sensation over the anterior thigh although she endorses full sensation. She also feels numbness and tingling in the toes but is able to discriminate sensation distally. While there may be some very mild weakness of great toe extension ankle dorsiflexion, somewhat limited by pain, there is no carole foot drop. Elsewhere muscle strength is grossly 4+ out of 5, once again limited mostly by pain. Results Labs Labs: Laboratory Results - last 24 hr 02/02/21 18:18 COVID-19 Source Nasal/nares SARS-CoV-2 (PCR) Negative Last Vital Signs Temp 36.6 C 02/02/21 19:47 Pulse 80 02/02/21 19:47 Resp 16 02/02/21 19:47 BP 153/77 H 02/02/21 19:47 Pulse Ox 99 02/02/21 19:47 COVID-19 Screening Have you, or household traveled for leisure in last 14 days?: No Had IN PERSON contact w/suspected or confirmed C-19 person: No
[2021-02-02] MEDS: HYDROmorphone 4 MG TAB PO (18:09)
[2021-02-02 18:27] LABS: Source Nasal/Nares
[2021-02-02 19:47] VITALS: BP 153/77; PULSE 80; RESP 16; TEMP 36.6; O2SAT 99
[2021-02-02] MEDS: diazePAM 5 MG TAB PO (19:56)
[2021-02-02] MEDS: Gabapentin 600 MG TAB 1200 MG PO (19:56)
[2021-02-02] MEDS: Aspirin E.C. 81 MG TABEC PO (19:56)
[2021-02-02] MEDS: Naproxen 500 MG TAB PO (19:56)
[2021-02-02] MEDS: Lidocaine Patch Removal 1 EACH TD (19:58)
[2021-02-02 20:53] LABS: COVID-19 PCR Negative (Negative)
[2021-02-02] MEDS: HYDROmorphone 2 MG/ML VIAL 1 MG IVP ×2 (21:29→22:39)
[2021-02-02 23:58] VITALS: BP 148/76; PULSE 82; RESP 17; TEMP 36.3; O2SAT 98
--- NOTE | 2021-02-03 | DI.MRI_ITS ---
Exam(s) MR LOWER JOINT RT WO/W EXAM: MR LOWER JOINT RT WO/W CLINICAL HISTORY: R buttock pain and sciatica, recent sepsis TECHNIQUE: Multiplanar multisequence MRI of the knee was performed. COMPARISON: No exams were available for comparison FINDINGS: INTRAPELVIC: Uterus is surgically absent there are no abnormal adnexal findings. No free fluid in th e pelvis. There is no intrapelvic or inguinal adenopathy. Urinary bladder is not distended. No abn ormal perirectal findings. MARROW:There is no evidence of pelvic nor hip fracture. No avascular necrosis. No asymmetric hip monica int effusion. There are no significant osseous lesions. No evidence of decubitus ulcer nor signal a bnormality at the ischial tuberosities. No abnormal intraosseous enhancement. Sacroiliac joints appear unremarkable. MUSCULATURE: No abnormal signal nor mass related to the musculature of the pelvis, hips, and buttocks . No abnormal enhancement. RIGHT HIP ADDITIONAL SEQUENCES: No stress fracture. No prominent joint effusion. Mild degenerative changes in the hip joint. There is some subarticular signal abnormality in the anterosuperior labrum . No distinct degenerative subarticular cysts evident. No obvious labral tear nor evidence of paral abral cyst. No evidence of trochanteric nor iliopsoas bursitis. IMPRESSION: 1. No significant intrapelvic findings. Uterus is surgically absent. There are no abnormal adnexal masses and no free fluid in the pelvis. There is no intrapelvic adenopathy. No inguinal adenopathy 2. No abnormal findings in the musculature around the hip. 3. Mild degenerative changes in the right hip. No obvious labral tear nor paralabral cyst. No promi nent hip joint effusion. 4. There is no abnormal marrow signal in the bones of the pelvis. DATA REPOSITORY:
--- NOTE | 2021-02-03 | DI.MRI_ITS ---
Exam(s) MR LUMBAR SPINE WO/W EXAM: MR LUMBAR SPINE WO/W CLINICAL HISTORY: low back pain, RLE radiculopathy, recent infection. TECHNIQUE: Multiplanar multisequence MRI of the Lumbar spine was performed. Both pre and post contra st infused sequences were performed. Contrast infused was 20 mL Dotarem COMPARISON: MR MR LUMBAR SPINE WO from 11/27/2020 MR MR LUMBAR SPINE WO from 11/27/2020 FINDINGS: Five lumbar vertebrae are presumed. Conus medullaris is at the L1-2 level. There is no evidence of conus mass nor subjacent clumping of intrathecal nerve roots to suggest arachnoiditis. The distal thecal sac is at the lower S1 level and appears unremarkable.There is no evidence of Tarlov intrasacral cysts nor other significant findings within the sacral canal Bones:There are no fractures nor ominous osseous lesions in the lumbar vertebral bodies and visualize d sacrum. There are no prominent Modic type sub endplate marrow edema changes in the lumbosacral spi nal column. With respect to the individual levels... T12-L1: Unremarkable L1-2: Normal disc height and signal. No disc herniation nor central canal stenosis.No foraminal steno sis L2-3: Normal disc height. No disc herniation nor central canal stenosis.No foraminal stenosis.No face t arthropathy. L3-4: Normal disc height. Mild symmetrical annular bulging without a dominant disc herniation.Centra l canal dimensions are lower normal. There are short AP dimensions the pedicles, this on development al basis. There is no significant foraminal stenosis. There isno facet arthropathy. L4-5: This level exhibits normal disc height. There is mild (approximately 1-2 millimeters) anterior listhesis of L4 relative to L5 which is related to moderate degenerative changes in both facet joint s at this level. There are no pars defects. This level exhibits mild central spinal canal stenosis. There is some impingement on upon the posterior thecal sac due to an element of epidural lipomatosi s posteriorly, this fat having benign appearance and unchanged from the prior MRI scan of 11/27/2020. There is mild central canal stenosis at this level. Mild narrowing of the exiting neural foramina bilaterally unchanged from the previous study. This is mostly related to the short AP dimensions of the pedicles (which is on a developmental basis) and some degenerative change in the facet joints. T his appears unchanged from the prior study L5-S1: Normal disc height and signal. No disc herniation. No central spinal canal stenosis. Mild l eft facet arthropathy. Right facet joint appears unremarkable. There is no evidence of significant foraminal stenosis this level. Soft tissues: Left kidney parapelvic cysts noted, previously documentedpsoas muscles appear symmetri jose. No evidence of abdominal aortic aneurysm. There is no obvious abnormal enhancement in the soft tissues nor within the epidural space. IMPRESSION: 1. Findings as described above but without significant change compared to the recent MRI scan of [facility] 2020. 2. On this contrast infused study there is no abnormal enhancement evident in the lumbosacral spinal column, disc spaces, epidural space, paraspinal soft tissues, nor the vertebral bodies. DATA REPOSITORY:
[2021-02-03] MEDS: HYDROmorphone 2 MG/ML VIAL 1 MG IVP ×3 (00:52→06:37)
[2021-02-03] MEDS: Ketorolac 15 MG/ML VIAL IVP ×5 (03:07→20:48)
[2021-02-03 03:54] VITALS: BP 102/65; PULSE 67; RESP 20; TEMP 36.3; O2SAT 98
[2021-02-03 07:23] LABS: Anion Gap 8.3 mmol/L (3-11); BUN 14 mg/dL (7-18); C-Reactive Protein 3.12 mg/dL (0.0-0.3); CO2 27.7 mmol/L (21.0-32.0); CREATININE 0.7 mg/dL (0.55-1.02); Calcium 8.7 mg/dL (8.5-10.1); Chloride 105 mmol/L (98-107); Glucose 110 mg/dL (74-106); Potassium 3.7 mmol/L (3.5-5.1); Sodium 141 mmol/L (136-145)
[2021-02-03 07:24] LABS: Abs Immature Grans 0.14 10^3/uL (0.0-0.06); Absolute Basophil Count 0.06 10^3/uL (0.0-0.2); Absolute Eosinophil Count 0.35 10^3/uL (0.0-0.7); Absolute Lymphocyte Count 3.22 10^3/uL (1.2-3.4); Absolute Monocyte Count 1.05 10^3/uL (0.1-0.8); Basophils % 0.5; Eosinophils % 3.2; HCT 28.4 % (36.0-46.0); HGB 9.2 g/dL (11.2-15.7); Immature Grans % 1.3; Lymphocytes % 29.2; MCH 32.1 pg (27.0-33.0); MCHC 32.4 % (32.0-36.0); MPV 8.7 fL (8.0-11.0); Monocytes % 9.5; Neutrophils % 56.3; Nucleated RBC 0 %; Platelet Count 540 10^3/uL (130-400); RBC 2.87 10^6/uL (3.93-5.22); RDW 13.2 % (11.7-14.6); RDW-SD 47.1 fL; WBC 11.02 10^3/uL (4.4-10.8)
[2021-02-03] MEDS: Lidocaine 5% Patch 1 PATCH TP (07:36)
[2021-02-03] MEDS: Omeprazole 20 MG CAPCR PO (07:36)
[2021-02-03] MEDS: rifAMPin 300 MG CAP PO ×2 (07:36→15:52)
[2021-02-03 08:40] VITALS: BP 96/61; PULSE 74; RESP 15; TEMP 36.3; O2SAT 94
[2021-02-03] MEDS: Gabapentin 600 MG TAB 1200 MG PO ×2 (08:40→20:47)
[2021-02-03] MEDS: Sertraline 50 MG TAB 100 MG PO (08:41)
[2021-02-03] MEDS: Aspirin E.C. 81 MG TABEC PO ×2 (08:43→20:47)
[2021-02-03] MEDS: diazePAM 5 MG TAB PO ×5 (08:44→20:47)
--- NOTE | 2021-02-03 10:45 | PDOC.CMIN ---
- If Service Date Differs Date of service: 02/03/21 Time of Service: 10:45 Care Management Initial Assess REASON FOR HOSPITALIZATION:: Infection of right total knee replacement PAST MEDICAL HISTORY/PAST SURGICAL HISTORY:: Medical History . Chronic low back pain. Complex tear of medial meniscus of right knee as current injury (11/06/17). COPD (chronic obstructive pulmonary disease). Depression. Dyspepsia. Fibromyalgia. Greater trochanteric bursitis of both hips (01/01/18). Headache. Hyperlipidemia. Knee joint pain. Marital problems. Meralgia paraesthetica. Nasal lesion. Obesity. Peripheral edema. Perirectal abscess. Plantar fasciitis. Primary osteoarthritis of right knee (12/04/17). Prurigo nodularis. PTSD (post-traumatic stress disorder). Restless leg syndrome. Sleep apnea. Somatic dysfunction of sacral region. Tendonitis of left rotator cuff. Confirmed RTC tear. Thoracic spine pain. Tobacco abuse. Trochanteric bursitis of both hips. Urinary frequency. Urinary hesitancy. Weakness. Surgical History . Abdominal hysterectomy (04/25/11). section (04/25/11). Cholecystectomy (04/25/11). Hx of hysterectomy. Incision & Drainage, Abscess or Hematoma (05/03/17). periectal abscess cavity. S/P left rotator cuff repair (09/22/20). Status post arthroscopy of right knee. Partial medial meniscectomy, medial chondroplasty, removal of loose bodies. Date of surgery: November 21, 2017. Dr. Curtis. Status post revision of total knee replacement. July 2018. Status post total knee replacement, right. July 2018 PREVIOUS FUNCTIONAL STATUS/SOCIAL/FAMILY SUPPORTS:: Dea lives in [place], [place] with her , Citlalli. She has a daughter that lives nearby. Dea is independent at baseline with ADLs and transportation. She is currently disabled and receives disability. CURRENT FUNCTIONAL STATUS:: Dea was sitting up in bed when CM met with her. She was very talkative and shared the details of her experience at home over the weekend when she was discharged from [facility]. She verbalized that she pushed to be released early and blamed her desire to smoke for the early departure. She recounted being in the worst sciatica-like pain she has ever experienced and the fact that she could not get it under control at home. She also explained that Dr. Curtis had acknowledged that she has been through a lot physically in the past 6 months and that her body just has not had time to heal. She fell in June injuring her shoulder which required surgery in September. Then she developed Covid in November and is still not fully recovered. Dea then developed a serious infection in her right knee at the site of a previous total knee replacement and ended up with sepsis. During the course of conversation, Dea admitted that she has been a bit unpleasant with some of the staff and understands that it is not anyone's fault that she is so uncomfortable. Dea had an MRI today and verbalized that her biggest fear is that it will be negatve and no one will know where the problem is or how to fix it. ADVANCE DIRECTIVES:: None on file Has patient been provided with info about the portal/API?: Yes Did the patient sign up for the portal?: Yes (previously) CODE STATUS:: Full Code INSURANCE COVERAGE / FINANCIAL ISSUES:: [facility] - Medicare replacement plan. Financial Assist CURRENT HOME/COMMUNITY SERVICES/EQUIPMENT:: Dea has a walker and was coming to the Infusion center for IVAB before she was readmitted PRIMARY CARE PHYSICIAN:: Harshil Krueger MD POTENTIAL DISCHARGE NEEDS:: Follow up with PCP, surgeon and plan of care PATIENT/FAMILY EDUCATION NEEDS:: Review of discharge instructions, medications, limitations, follow up plan, Ask Me Three ANTICIPATED BARRIERS TO DISCHARGE:: requires 6 weeks of IVAB. Unable to come to Infusion Center and unable to afford copay for home infusion TRANSPORTATION:: via private vehicle with Citlalli PLAN:: Dea will pola be discharged home with no new services. She will resume outpatient antibiotic therapy at the Infusion Center and follow up with her surgeon and PCP. Dea will transport with Citlalli via private vehicle. will continue to support Dea and her discharge planning needs. Readmission - Within the Past 30 Days Yes or No: Y - Date of First Admission Date of 1st Admission: 01/26/21 - Date of this Admission Date of Admission: 02/02/21 This admission was: Direct Admit - Office Visit Since 1st Admission Have you seen your PCP in the office since discharge?: No Had an appointment Been Scheduled?: Yes - I. Interview patient and/or Family Difficulty reaching your doctor or getting an office appt?: No Have you had trouble purchasing/ or taking medication?: No Have you had trouble with getting meals at home?: No Describe your typical meals since you have been home: has not had much of an appetite Did you feel ready for discharge when you left the last time: Yes Did you call your physician beore you came to the ED?: Yes Did your physician tell you to come in?: Yes - Assessment for Readmission Summary of readmission circumstances, based upon interviews: Dea was discharged a bit earlier than planned because she wanted to be able to smoke cigarettes. It is unknown what caused the increased pain which is sciatica-like in nature.
[2021-02-03] MEDS: Normal Saline Flush 10 ML SYR IVP ×2 (10:53→11:32)
[2021-02-03] MEDS: Gadoterate meglumine 20 ML VIAL IVP (10:54)
[2021-02-03] MEDS: HYDROmorphone 4 MG TAB PO ×3 (11:30→22:05)
[2021-02-03 11:54] VITALS: BP 107/67; PULSE 73; RESP 16; TEMP 36.4; O2SAT 98
[2021-02-03] MEDS: cefTRIAXone 2 GM/50 ML BAG IVPB (14:17)
[2021-02-03 15:43] VITALS: BP 108/71; PULSE 72; RESP 16; TEMP 36.5; O2SAT 98
--- NOTE | 2021-02-03 16:06 | CHAPLAIN ---
Dea was sitting up in bed when I visited. Her partner, Citlalli was visiting with her. Dea said her pain is better controlled today but she had an MRI that last and hour and a half and it was painful for her to lie still. She said Dr. Curtis is trying to figure out why she having pain in her hip. She recently had her revision of her knee replacement as it was infected.
[2021-02-03] MEDS: methylPREDNISolone ACETATE 80 MG/ML VIAL IJ (17:24)
[2021-02-03] MEDS: Bupivacaine 0.5% Pres-Free 10 ML VIAL IJ (17:27)
[2021-02-03 19:57] VITALS: BP 141/77; PULSE 85; RESP 18; TEMP 36.3; O2SAT 98
[2021-02-03] MEDS: Normal Saline Flush 10 ML SYR 20 ML IVP (20:48)
--- NOTE | 2021-02-03 21:02 | PGE_ITS ---
Date of Service Date of service: 02/03/21 Time of Service: 16:03 Assessment and Plan Assessment and plan (1) Acute pain: Status: Acute Assessment and plan: Dea does seem like she is doing better. Although she says the pain is intolerable when the meds are wearing off she seems much more comfortable. The MRI does not demonstrate any infectious etiology within the right hip or the right back. At this point we will continue with the current pain regimen. Given the negative MRI, I can't understand her pain complaints and think that this may be some hypersentiivity to some pain about the leg and the only reproducible thing on exam would be the trochanteric bursa, which she has had issues with in the past. (2) Infection of total right knee replacement: Status: Acute Assessment and plan: Continue with Rifampin and Ceftriaxone. Qualifiers: Encounter type: sequela Qualified Code(s): T84.53XS - Infection and inflammatory reaction due to internal right knee prosthesis, sequela (3) Trochanteric bursitis, right hip: Status: Acute Assessment and plan: She definitely has clinical findings of trochanteric bursa, I could explain this as all of the symptoms. However, it is the only option that I have to pursue. While I would not like to inject any thing in the setting of infection, the benefit may outweight the risk. She is taking significant pain medicaitons for the pain and if an injection may improve that, then it would be worthwhile. She has negative blood cultures and a down- trending CRP so I offered this to Dea. She agrees to proceed. PROCEDURE: After a review of the risks of the injection, the patient agreed to proceed. The right hip was identified by the patient as the correct side. The point of maximal tenderness overlying the greater trochanter was marked by the patient and then by myself. The area was prepped with alcohol. The skin was anesthetized with ethyl chloride. Using a spinal needle, the trochanteric bursa was entered until the spinal needle encountered bone. The needle was withdrawn a few millimeters and 8 cc of 0.5 some bupivacaine and 80 mg of Depo-Medrol were successfully injected with easy flow and no resistance. The wound was then dressed with a Band-Aid. She tolerated this well. We will follow its result and hopefully improve her pain. Subjective Subjective Interval history since last seen: Dea reports that the pain is improved. She feels that the pain is better but when the meds are wearing off the pain gets quite untoleratble. She denies any knee pain. She once again reports that pain is worse in the low back and buttock and the posterior hip in addition to the heavy, burning sensation of the anterior thighs. She denies any fever or chills. Exam Narrative Exam Narrative: Sitting up in the chair. NAD. AAOx3. Exquisite pain of the posterior hip, in the soft tissues posteirio to the greater trochanter as well as on the greater trochanter. Some pain along the IT band. No pain with passive range of motion of the hip. Objective Last Vital Signs Temp 36.3 C L 02/03/21 19:57 Pulse 85 02/03/21 19:57 Resp 18 02/03/21 19:57 BP 141/77 H 02/03/21 19:57 Pulse Ox 98 02/03/21 19:57 Laboratory Results - last 24 hr 02/03/21 02/03/21 05:35 06:40 WBC 11.02 H RBC 2.87 L Hgb 9.2 L Hct 28.4 L MCV 99.0 H MCH 32.1 MCHC 32.4 RDW 13.2 Plt Count 540 H MPV 8.7 Immature Gran % 1.3 Neutrophils % 56.3 Lymphocytes % 29.2 Monocytes % 9.5 Eosinophils % 3.2 Basophils % 0.5 Nucleated RBC % 0 Absolute Neutrophils 6.20 Absolute Lymphocytes 3.22 Absolute Monocytes 1.05 H Absolute Eosinophils 0.35 Absolute Basophils 0.06 Sodium 141 Potassium 3.7 Chloride 105 Carbon Dioxide 27.7 Anion Gap 8.3 BUN 14 Creatinine 0.7 Estimated GFR/1.73 m2 >= 60.00 Glucose 110 H Calcium 8.7 C-Reactive Protein 3.12 H Objective Narrative Objective Narrative: MRI of the lumbar spine and the hip were reviewed along with the radiology report. This shows no sign of abscess. No fluid collections are seen within the epidural space or around any nerve roots. No abnormal bony signal to suggest osteomyelitis nor changes to suggest discitis. No significant fluid in the SI joint. No significant nerve root impingement. No joint effusion of the hip.
[2021-02-03] MEDS: Lidocaine Patch Removal 1 EACH TD (22:04)
[2021-02-03 23:54] VITALS: BP 133/80; PULSE 85; RESP 18; TEMP 36.6; O2SAT 97
[2021-02-04] MEDS: HYDROmorphone 4 MG TAB PO ×2 (01:51→04:56)
[2021-02-04 03:30] VITALS: BP 128/76; PULSE 82; RESP 19; TEMP 36.3; O2SAT 97
[2021-02-04 07:22] VITALS: BP 135/80; PULSE 70; RESP 16; TEMP 37.3; O2SAT 94
[2021-02-04] MEDS: Omeprazole 20 MG CAPCR PO (07:43)
[2021-02-04] MEDS: rifAMPin 300 MG CAP PO (07:43)
--- NOTE | 2021-02-04 08:15 | W.PM.DS.N ---
Date of service: 02/04/21 Time of Service: 08:15 DS: Diagnosis Discharge Diagnosis (1) Acute pain: Status: Acute (2) Infection of total right knee replacement: Status: Acute (3) Trochanteric bursitis, right hip: Status: Acute Discharge Plan Disposition Patient Disposition: HOME Condition: Improving Discharge Details Reason For Visit: Infection of right TKA; postoperative pain Admit Date/Time: 02/02/21 11:13 Admit Provider: Armin Curtis Attending Provider: Armin Curtis Primary Care Provider: Harshil Krueger Hospital Course Hospital Course: Dea is admitted to the hospital as a direct admit due to acute pain issues. She is initially started on a regimen of narcotic pain medications in addition to benzodiazepines. This did seem to help out her pain significantly. However, she was continued to have low back and right buttock pain. An MRI of the lumbar spine and the right hip was performed and showed no signs of infection or acute process. Therefore I performed a trochanteric bursal injection on hospital day #2. This helped out her symptoms significantly and she now feels ready to go home. She still is recovering from an active knee infection on the right side but this is appearing well. She will resume infusions. Home Meds and New Rx's Prescriptions: New hydromorphone 4 mg Tablet 4 mg PO Q4H PRN PRNQty: 18 RF: 0 Narcan 4 mg/actuation spray,non-aerosol 4 mg intranasal Q2M PRNQty: 2 RF: 0 diazepam 5 mg tablet 5 mg PO TID PRNQty: 15 RF: 0 acetaminophen 500 mg tablet 1,000 mg PO Q8H PRN (Reason: pain) Qty: 90 RF: 3 Continued gabapentin 600 mg tablet 1,200 mg PO BID RF: 0 albuterol sulfate [Ventolin HFA] 90 mcg/actuation HFA aerosol inhaler 2 puff IH .[id number] PRNRF: 0 sertraline 100 mg tablet 100 mg PO DAILY RF: 0 triamcinolone acetonide 0.1 % cream 1 applic topical DAILY RF: 0 lidocaine 5 % adhesive patch,medicated 1 patch topical DAILY Qty: 30 RF: 0 metaxalone 800 mg tablet 800 mg PO TID PRN (Reason: muscle pain) Qty: 12 RF: 0 prednisone 5 mg tablets,dose pack See Rx Instructions PO PER PKG DIR Qty: 21 RF: 0 torsemide 10 mg Tablet 10 mg PO DAILY PRN PRNRF: 0 naproxen 500 mg Tablet 500 mg PO BID Qty: 120 RF: 0 omeprazole 20 MG capsule,delayed release(DR/EC) 20 mg PO DAILY RF: 0 ceftriaxone in dextrose,iso-os 2 gram/50 mL Piggyback 2 g IVPB Q24H Qty: 0 RF: 0 aspirin 81 mg tablet,delayed release (DR/EC) 81 mg PO BID Qty: 60 RF: 0 docusate sodium [Colace] 100 mg capsule 100 mg PO BID PRNQty: 10 RF: 0 rifampin 300 mg capsule 300 mg PO BID AC Qty: 60 RF: 0 Discontinued oxycodone 5 mg tablet 5 mg PO Q4H MDD 30mg PRN (Reason: pain) Qty: 12 RF: 0 clonazepam 1 mg tablet 1 mg PO HS RF: 0 acetaminophen [Tylenol Extra Strength] 500 mg tablet 500 mg PO Q6H PRNQty: 90 RF: 0 Discharge Instructions Additional Instructions: Activity: You may move as tolerated. Stretches to the hip are recommended as you have previously done in the past. Work on keeping the knee straight as much as possible. Dressing: Keep the knee covered with a Mepilex dressing for another 1 week. Vickie may be removed at 2.5 weeks post-op. Medications: - You should continue with infusions of Ceftriaxone of 2g daily. You also have the Rifampin for infection treatment. - You have Hydromorphone 4mg tablets for acute pain. Take as needed. - You have been prescribed Diazepam. Take this regularly fo rhte next few days and then restart your Clonazepam. - Resume Acetaminophen and Naproxen. Follow-up: 2 weeks Stand Alone Forms: Nursing Discharge Form Referrals: Armin Curtis MD [ [facility] STAFF PHYSICIAN] - Activity:: Activity as Tolerated Equipment/Supplies:: No Equipment Needed Diet:: As Tolerated Discharge Orders Discharge Orders: Discharge Order (Routine); Ordered 02/04/21 Ordered By: Armin Curtis DS: Summary Time Spent with Patient providing and/or coordinating discharge services: Less than 30 minutes Status at Discharge Functional status at discharge: uses cane/walker Overall status at discharge: patient is progressing back to baseline Mental Status: mental status grossly normal Speech and Movement: speech and movement normal Mood: congruent mood Affect: normal affect Exam Psych Mental Status: mental status grossly normal Speech and Movement: speech and movement normal Mood: congruent mood Affect: normal affect DS: Data Vitals/I&O Vitals and I&O: Vital Signs Temperature 37.3 C 02/04/21 07:22 Temperature Source Tympanic 02/04/21 07:22 Pulse 70 02/04/21 07:22 Pulse Rhythm Regular 02/04/21 04:59 Respiratory Rate 16 02/04/21 07:22 Respiratory Effort Short of Breath 02/04/21 04:59 Respiratory Depth Deep 02/04/21 04:59 Respiratory Pattern Tachypnea 02/04/21 04:59 Blood Pressure 135/80 02/04/21 07:22 Pulse Oximetry 94 02/04/21 07:22 Oxygen Delivery Method Room Air 02/04/21 07:22 Oxygen Flow Rate 0 02/04/21 07:22 Fraction of Inspired Oxygen (FIO2) 21 02/02/21 18:41 Pain Level 8 02/04/21 07:22 Comment 02/03/21 08:40 Intake & Output 02/03/21 02/03/21 02/04/21 11:59 23:59 11:59 Intake Total 760 / 1240 480 / 1240 320 / 320 Balance 760 / 1240 480 / 1240 320 / 320 Intake: IV 40 / 60 20 / 60 20 / 20 Oral 720 / 1180 460 / 1180 300 / 300 Other: Urine Color Yellow Pale Yellow Urine Appearance Clear Clear Clear Urine Odor Normal None Voiding Methods Toilet Toilet Toilet [facility] Medical History Chronic low back pain Complex tear of medial meniscus of right knee as current injury (11/06/17) COPD (chronic obstructive pulmonary disease) Depression Dyspepsia Fibromyalgia Greater trochanteric bursitis of both hips (01/01/18) Headache Hyperlipidemia Knee joint pain Marital problems Meralgia paraesthetica Nasal lesion Obesity Peripheral edema Perirectal abscess Plantar fasciitis Primary osteoarthritis of right knee (12/04/17) Prurigo nodularis PTSD (post-traumatic stress disorder) Restless leg syndrome Sleep apnea Somatic dysfunction of sacral region Tendonitis of left rotator cuff Confirmed RTC tear Thoracic spine pain Tobacco abuse Trochanteric bursitis of both hips Urinary frequency Urinary hesitancy Weakness Surgical History Abdominal hysterectomy (04/25/11) section (04/25/11) Cholecystectomy (04/25/11) Hx of hysterectomy Incision & Drainage, Abscess or Hematoma (05/03/17) periectal abscess cavity S/P left rotator cuff repair (09/22/20) Status post arthroscopy of right knee Partial medial meniscectomy, medial chondroplasty, removal of loose bodies Date of surgery: November 21, 2017 Dr. 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 Status post total knee replacement, right July 2018 Social History Smoking/Tobacco Use Status: Current every day Tobacco Type: cigarettes Smoking packs per day: 1 Smoking cigarettes per day: 20.0 Years smoked: 44 Smoking pack-years: 44.00 Smoking risk assessment performed?: Yes Alcohol Intake: current Alcohol Intake frequency: holidays/special occasions only Drug use: Never Substance use type: does not use Current gender identity: female Do you feel safe at home: Yes Do you feel safe in your relationship?: Yes
[2021-02-04] MEDS: Lidocaine 5% Patch 1 PATCH TP (08:33)
[2021-02-04] MEDS: Ketorolac 15 MG/ML VIAL IVP (08:34)
[2021-02-04] MEDS: diazePAM 5 MG TAB PO (08:34)
[2021-02-04] MEDS: Aspirin E.C. 81 MG TABEC PO (08:34)
[2021-02-04] MEDS: Sertraline 50 MG TAB 100 MG PO (08:34)
[2021-02-04] MEDS: Gabapentin 600 MG TAB 1200 MG PO (08:35)
[2021-02-04 08:42] VITALS: RESP 24
[2021-02-04] MEDS: Normal Saline Flush 10 ML SYR 20 ML IVP (08:53)
--- NOTE | 2021-02-04 10:31 | PDOC.CMDIS ---
- If Service Date Differs Date of service: 02/04/21 Time of Service: 10:31 LACE Index Scoring Tool - Questions: Length of Stay (in days): 2 Acuity (Admit via E.D.?): No Comorbidities: Chronic Pulmonary Disease E.D. Visits: 3 - Answers: Total Score: 7 Risk of Readmission: Low Risk Care Management Discharge Reason for Hospitalization: Infection of right total knee replacement Discharge Plan: Dea will be discharged home with no new services. She will resume outpatient antibiotic therapy at the [facility]fusion [facility] and follow up with her surgeon and PCP. Dea will transport with [employer]lalli via private vehicle. Patient/Family Education Needs: Review of discharge instructions, medications, limitations, follow up plan, Ask Me Three Services Needed at Discharge: Infusion Therapy
== END 2021-02-04 09:15 | disposition home or self-care (01) | DRG 558 ==
PROVIDERS: Admitting Provider Student in an Organized Health Care Education/Training Program; PCP Internal Medicine; Visit Provider Student in an Organized Health Care Education/Training Program
DX: M70.61 Trochanteric bursitis, right hip (principal); T84.53XA Infection and inflammatory reaction due to internal right knee prosthesis, initial encounter; Z68.41 Body mass index [BMI] 40.0-44.9, adult; M70.62 Trochanteric bursitis, left hip; M54.5 Low back pain; J44.9 Chronic obstructive pulmonary disease, unspecified; F32.9 Major depressive disorder, single episode, unspecified; M79.7 Fibromyalgia; E78.5 Hyperlipidemia, unspecified; G57.10 Meralgia paresthetica, unspecified lower limb; E66.9 Obesity, unspecified; R60.0 Localized edema; F43.10 Post-traumatic stress disorder, unspecified; G25.81 Restless legs syndrome; F17.210 Nicotine dependence, cigarettes, uncomplicated
CPT/HCPCS: 20610; 72158; 80048; 87635; 99222; 99231; 99238; 73723; 85025; 86140; J1040; J1885; J3490

== ENCOUNTER 2021-02-08 00:51 | Outpatient (RCR) | payer OTHER, SELFPAY ==
[2021-01-30] MEDS: cefTRIAXone 2 GM/50 ML BAG IVPB (13:21)
[2021-01-31] MEDS: Normal Saline Flush 10 ML SYR IVP (13:24)
[2021-01-31] MEDS: cefTRIAXone 2 GM/50 ML BAG IVPB (13:55)
[2021-02-01] MEDS: Bacitracin 1 PACKET (12:42)
[2021-02-01] MEDS: cefTRIAXone 2 GM/50 ML BAG IVPB (12:49)
[2021-02-01] MEDS: Normal Saline Flush 10 ML SYR IVP (12:52)
[2021-02-04] MEDS: Normal Saline Flush 10 ML SYR IVP (13:08)
[2021-02-04] MEDS: cefTRIAXone 2 GM/50 ML BAG IVPB (13:08)
[2021-02-05] MEDS: cefTRIAXone 2 GM/50 ML BAG IVPB (13:10)
[2021-02-05] MEDS: Normal Saline Flush 10 ML SYR IVP (13:11)
[2021-02-06] MEDS: cefTRIAXone 2 GM/50 ML BAG IVPB (13:10)
[2021-02-06] MEDS: Normal Saline Flush 10 ML SYR IVP (13:31)
[2021-02-07] MEDS: Normal Saline Flush 10 ML SYR IVP (13:11)
[2021-02-07] MEDS: cefTRIAXone 2 GM/50 ML BAG IVPB (13:11)
[2021-02-08] MEDS: cefTRIAXone 2 GM/50 ML BAG IVPB (13:05)
[2021-02-08] MEDS: Normal Saline Flush 10 ML SYR IVP (13:08)
== END 2021-02-08 23:59 | disposition home or self-care (01) ==
LOC: INF 00:51
PROVIDERS: Visit Provider Student in an Organized Health Care Education/Training Program
DX: T84.53XA Infection and inflammatory reaction due to internal right knee prosthesis, initial encounter (principal); Z79.2 Long term (current) use of antibiotics; Z45.2 Encounter for adjustment and management of vascular access device
CPT/HCPCS: 36573; 96365

== ENCOUNTER → 2021-02-22 11:19 | Outpatient (BNVA) | payer OTHER, SELFPAY | PROVIDERS: PCP Internal Medicine; Referring Provider Internal Medicine; Visit Provider Student in an Organized Health Care Education/Training Program | DX: Z47.1 Aftercare following joint replacement surgery (principal); T84.53XS Infection and inflammatory reaction due to internal right knee prosthesis, sequela ==

== ENCOUNTER 2021-03-10 02:19 | Outpatient (RCR) | payer OTHER, SELFPAY ==
[2021-02-09] MEDS: Normal Saline Flush 10 ML SYR IVP (13:16)
[2021-02-09] MEDS: cefTRIAXone 2 GM/50 ML BAG IVPB (13:16)
[2021-02-10] MEDS: cefTRIAXone 2 GM/50 ML BAG IVPB (13:18)
[2021-02-10] MEDS: Normal Saline Flush 10 ML SYR IVP (13:19)
[2021-02-10 13:36] LABS: Abs Immature Grans 0.04 10^3/uL (0.0-0.06); Absolute Eosinophil Count 0.31 10^3/uL (0.0-0.7); Absolute Lymphocyte Count 3.17 10^3/uL (1.2-3.4); Absolute Monocyte Count 0.93 10^3/uL (0.1-0.8); Absolute Neutrophil Count 5.28 10^3/uL (1.2-6.7); Eosinophils % 3.2; HCT 30.3 % (36.0-46.0); HGB 10.1 g/dL (11.2-15.7); Immature Grans % 0.4; Lymphocytes % 32.2; MCH 32.1 pg (27.0-33.0); MCHC 33.3 % (32.0-36.0); MCV 96.2 fL (80-95); MPV 8.9 fL (8.0-11.0); Monocytes % 9.5; Neutrophils % 53.7; Nucleated RBC 0 %; Platelet Count 603 10^3/uL (130-400); RBC 3.15 10^6/uL (3.93-5.22); RDW 13.2 % (11.7-14.6); RDW-SD 46.4 fL; WBC 9.83 10^3/uL (4.4-10.8)
[2021-02-10 13:49] LABS: ALT 41 U/L (14-59); AST 24 U/L (15-37); Albumin 3.5 g/dL (3.4-5.0); Alkaline Phosphatase 98 U/L (46-116); Anion Gap 8.6 mmol/L (3-11); BUN 14 mg/dL (7-18); Bilirubin, Total 0.3 mg/dL (0.2-1.0); C-Reactive Protein 1.09 mg/dL (0.0-0.3); CO2 27.4 mmol/L (21.0-32.0); CREATININE 0.7 mg/dL (0.55-1.02); Calcium 8.9 mg/dL (8.5-10.1); Chloride 106 mmol/L (98-107); Glucose 89 mg/dL (74-106); Potassium 3.9 mmol/L (3.5-5.1); Sodium 142 mmol/L (136-145); Total Protein 7.9 g/dL (6.4-8.2)
[2021-02-11] MEDS: cefTRIAXone 2 GM/50 ML BAG IVPB (13:06)
[2021-02-11] MEDS: Normal Saline Flush 10 ML SYR IVP (13:06)
[2021-02-12] MEDS: Normal Saline Flush 10 ML SYR IVP (13:14)
[2021-02-12] MEDS: cefTRIAXone 2 GM/50 ML BAG IVPB (13:14)
[2021-02-13] MEDS: cefTRIAXone 2 GM/50 ML BAG IVPB (13:13)
[2021-02-13] MEDS: Normal Saline Flush 10 ML SYR IVP (13:16)
[2021-02-14] MEDS: cefTRIAXone 2 GM/50 ML BAG IVPB (13:21)
[2021-02-14] MEDS: Normal Saline Flush 10 ML SYR IVP (13:21)
[2021-02-15] MEDS: cefTRIAXone 2 GM/50 ML BAG IVPB (13:05)
[2021-02-15] MEDS: Normal Saline Flush 10 ML SYR IVP (13:23)
[2021-02-16] MEDS: cefTRIAXone 2 GM/50 ML BAG IVPB (13:09)
[2021-02-16] MEDS: Normal Saline Flush 10 ML SYR IVP (13:09)
[2021-02-17] MEDS: cefTRIAXone 2 GM/50 ML BAG IVPB (13:36)
[2021-02-17] MEDS: Normal Saline Flush 10 ML SYR IVP (13:36)
[2021-02-17 13:44] LABS: Abs Immature Grans 0.02 10^3/uL (0.0-0.06); Absolute Basophil Count 0.05 10^3/uL (0.0-0.2); Absolute Eosinophil Count 0.37 10^3/uL (0.0-0.7); Absolute Lymphocyte Count 2.27 10^3/uL (1.2-3.4); Absolute Monocyte Count 0.51 10^3/uL (0.1-0.8); Absolute Neutrophil Count 4.14 10^3/uL (1.2-6.7); Basophils % 0.7; HCT 31.4 % (36.0-46.0); HGB 10.2 g/dL (11.2-15.7); Immature Grans % 0.3; Lymphocytes % 30.8; MCH 31.7 pg (27.0-33.0); MCHC 32.5 % (32.0-36.0); MCV 97.5 fL (80-95); MPV 8.8 fL (8.0-11.0); Monocytes % 6.9; Neutrophils % 56.3; Nucleated RBC 0 %; Platelet Count 485 10^3/uL (130-400); RBC 3.22 10^6/uL (3.93-5.22); RDW 13.4 % (11.7-14.6); RDW-SD 47.7 fL; WBC 7.36 10^3/uL (4.4-10.8)
[2021-02-17 14:00] LABS: ALT 28 U/L (14-59); AST 15 U/L (15-37); Albumin 3.5 g/dL (3.4-5.0); Alkaline Phosphatase 92 U/L (46-116); Anion Gap 9.4 mmol/L (3-11); BUN 12 mg/dL (7-18); Bilirubin, Total 0.4 mg/dL (0.2-1.0); C-Reactive Protein 0.96 mg/dL (0.0-0.3); CO2 25.6 mmol/L (21.0-32.0); CREATININE 0.8 mg/dL (0.55-1.02); Calcium 8.9 mg/dL (8.5-10.1); Chloride 108 mmol/L (98-107); Glucose 127 mg/dL (74-106); Potassium 3.5 mmol/L (3.5-5.1); Sodium 143 mmol/L (136-145); Total Protein 7.7 g/dL (6.4-8.2)
[2021-02-18] MEDS: cefTRIAXone 2 GM/50 ML BAG IVPB (12:45)
[2021-02-18] MEDS: Normal Saline Flush 10 ML SYR IVP (12:48)
[2021-02-19] MEDS: cefTRIAXone 2 GM/50 ML BAG IVPB (13:09)
[2021-02-19] MEDS: Normal Saline Flush 10 ML SYR IVP (13:09)
[2021-02-20] MEDS: cefTRIAXone 2 GM/50 ML BAG IVPB (13:13)
[2021-02-20 13:14] VITALS: BP 110/70; PULSE 77; RESP 15; TEMP 36.5; O2SAT 97
[2021-02-20] MEDS: Normal Saline Flush 10 ML SYR IVP (13:14)
[2021-02-21] MEDS: cefTRIAXone 2 GM/50 ML BAG IVPB (13:18)
[2021-02-21] MEDS: Normal Saline Flush 10 ML SYR IVP (13:19)
[2021-02-22] MEDS: cefTRIAXone 2 GM/50 ML BAG IVPB (13:10)
[2021-02-22] MEDS: Normal Saline Flush 10 ML SYR IVP (13:12)
[2021-02-23] MEDS: Normal Saline Flush 10 ML SYR IVP (13:11)
[2021-02-23] MEDS: cefTRIAXone 2 GM/50 ML BAG IVPB (13:11)
[2021-02-24] MEDS: cefTRIAXone 2 GM/50 ML BAG IVPB (13:18)
[2021-02-24 13:34] LABS: Abs Immature Grans 0.02 10^3/uL (0.0-0.06); Absolute Basophil Count 0.04 10^3/uL (0.0-0.2); Absolute Eosinophil Count 0.34 10^3/uL (0.0-0.7); Absolute Lymphocyte Count 2.04 10^3/uL (1.2-3.4); Absolute Neutrophil Count 2.78 10^3/uL (1.2-6.7); Basophils % 0.7; Eosinophils % 5.8; HCT 32.8 % (36.0-46.0); HGB 10.8 g/dL (11.2-15.7); Immature Grans % 0.3; Lymphocytes % 35.1; MCH 32.1 pg (27.0-33.0); MCHC 32.9 % (32.0-36.0); MCV 97.6 fL (80-95); MPV 8.9 fL (8.0-11.0); Monocytes % 10.3; Neutrophils % 47.8; Nucleated RBC 0 %; Platelet Count 364 10^3/uL (130-400); RBC 3.36 10^6/uL (3.93-5.22); RDW 13.2 % (11.7-14.6); RDW-SD 47.3 fL; WBC 5.82 10^3/uL (4.4-10.8)
[2021-02-24] MEDS: Normal Saline Flush 10 ML SYR IVP (13:40)
[2021-02-24 13:46] LABS: ALT 35 U/L (14-59); AST 15 U/L (15-37); Albumin 3.7 g/dL (3.4-5.0); Alkaline Phosphatase 94 U/L (46-116); Anion Gap 9.2 mmol/L (3-11); BUN 12 mg/dL (7-18); Bilirubin, Total 0.3 mg/dL (0.2-1.0); C-Reactive Protein 0.41 mg/dL (0.0-0.3); CO2 25.8 mmol/L (21.0-32.0); CREATININE 0.7 mg/dL (0.55-1.02); Calcium 9.1 mg/dL (8.5-10.1); Chloride 107 mmol/L (98-107); Glucose 86 mg/dL (74-106); Potassium 4.1 mmol/L (3.5-5.1); Sodium 142 mmol/L (136-145); Total Protein 7.9 g/dL (6.4-8.2)
[2021-02-25] MEDS: cefTRIAXone 2 GM/50 ML BAG IVPB (13:03)
[2021-02-25] MEDS: Normal Saline Flush 10 ML SYR IVP (13:03)
[2021-02-26] MEDS: Normal Saline Flush 10 ML SYR IVP (13:07)
[2021-02-26] MEDS: cefTRIAXone 2 GM/50 ML BAG IVPB (13:07)
[2021-02-27] MEDS: cefTRIAXone 2 GM/50 ML BAG IVPB (13:16)
[2021-02-27] MEDS: Normal Saline Flush 10 ML SYR IVP (13:23)
[2021-02-28] MEDS: cefTRIAXone 2 GM/50 ML BAG IVPB (13:15)
[2021-02-28] MEDS: Normal Saline Flush 10 ML SYR IVP (13:16)
[2021-03-01] MEDS: cefTRIAXone 2 GM/50 ML BAG IVPB (12:46)
[2021-03-01] MEDS: Normal Saline Flush 10 ML SYR IVP (12:51)
[2021-03-02] MEDS: cefTRIAXone 2 GM/50 ML BAG IVPB (13:10)
[2021-03-02] MEDS: Normal Saline Flush 10 ML SYR IVP (13:13)
[2021-03-03] MEDS: cefTRIAXone 2 GM/50 ML BAG IVPB (13:21)
[2021-03-03] MEDS: Normal Saline Flush 10 ML SYR IVP (13:21)
[2021-03-03 13:42] LABS: Abs Immature Grans 0.01 10^3/uL (0.0-0.06); Absolute Basophil Count 0.05 10^3/uL (0.0-0.2); Absolute Eosinophil Count 0.22 10^3/uL (0.0-0.7); Absolute Lymphocyte Count 2.35 10^3/uL (1.2-3.4); Absolute Monocyte Count 0.55 10^3/uL (0.1-0.8); Absolute Neutrophil Count 2.43 10^3/uL (1.2-6.7); Basophils % 0.9; Eosinophils % 3.9; HCT 34.2 % (36.0-46.0); HGB 11.1 g/dL (11.2-15.7); Immature Grans % 0.2; Lymphocytes % 41.9; MCH 31.8 pg (27.0-33.0); MCHC 32.5 % (32.0-36.0); MPV 9.2 fL (8.0-11.0); Monocytes % 9.8; Neutrophils % 43.3; Nucleated RBC 0 %; Platelet Count 320 10^3/uL (130-400); RBC 3.49 10^6/uL (3.93-5.22); RDW 13.3 % (11.7-14.6); RDW-SD 47.8 fL; WBC 5.61 10^3/uL (4.4-10.8)
[2021-03-03 13:57] LABS: ALT 28 U/L (14-59); AST 14 U/L (15-37); Albumin 3.8 g/dL (3.4-5.0); Alkaline Phosphatase 91 U/L (46-116); Anion Gap 9.3 mmol/L (3-11); BUN 12 mg/dL (7-18); Bilirubin, Total 0.4 mg/dL (0.2-1.0); C-Reactive Protein 0.31 mg/dL (0.0-0.3); CO2 26.7 mmol/L (21.0-32.0); CREATININE 0.7 mg/dL (0.55-1.02); Calcium 9.1 mg/dL (8.5-10.1); Chloride 107 mmol/L (98-107); Glucose 80 mg/dL (74-106); Sodium 143 mmol/L (136-145); TSH (W/Ref FT4) 1.54 uIU/mL (0.36-3.74); Total Protein 7.7 g/dL (6.4-8.2)
[2021-03-04] MEDS: Normal Saline Flush 10 ML SYR IVP (13:01)
[2021-03-04] MEDS: cefTRIAXone 2 GM/50 ML BAG IVPB (13:01)
[2021-03-05] MEDS: cefTRIAXone 2 GM/50 ML BAG IVPB (13:07)
[2021-03-05] MEDS: Normal Saline Flush 10 ML SYR IVP (13:08)
[2021-03-06] MEDS: cefTRIAXone 2 GM/50 ML BAG IVPB (13:29)
[2021-03-06] MEDS: Normal Saline Flush 10 ML SYR IVP (13:29)
[2021-03-07] MEDS: Normal Saline Flush 10 ML SYR IVP (13:15)
[2021-03-07] MEDS: cefTRIAXone 2 GM/50 ML BAG IVPB (13:15)
[2021-03-08] MEDS: cefTRIAXone 2 GM/50 ML BAG IVPB (13:10)
[2021-03-08] MEDS: Normal Saline Flush 10 ML SYR IVP (13:11)
[2021-03-08 14:25] LABS: IgA 299 mg/dL (85-499); Interpretation (See Note); Tissue Transglutaminase IgA <1.2 U/mL (<4.0)
[2021-03-09] MEDS: cefTRIAXone 2 GM/50 ML BAG IVPB (13:12)
[2021-03-09] MEDS: Normal Saline Flush 10 ML SYR IVP (13:12)
[2021-03-10] MEDS: Normal Saline Flush 10 ML SYR IVP (13:06)
[2021-03-10] MEDS: cefTRIAXone 2 GM/50 ML BAG IVPB (13:06)
[2021-03-10 13:19] LABS: Abs Immature Grans 0.02 10^3/uL (0.0-0.06); Absolute Basophil Count 0.05 10^3/uL (0.0-0.2); Absolute Eosinophil Count 0.24 10^3/uL (0.0-0.7); Absolute Lymphocyte Count 2.41 10^3/uL (1.2-3.4); Absolute Monocyte Count 0.62 10^3/uL (0.1-0.8); Absolute Neutrophil Count 3.69 10^3/uL (1.2-6.7); Basophils % 0.7; Eosinophils % 3.4; HCT 35.3 % (36.0-46.0); HGB 11.6 g/dL (11.2-15.7); Immature Grans % 0.3; Lymphocytes % 34.3; MCH 32.3 pg (27.0-33.0); MCHC 32.9 % (32.0-36.0); MCV 98.3 fL (80-95); MPV 9.4 fL (8.0-11.0); Monocytes % 8.8; Neutrophils % 52.5; Nucleated RBC 0 %; Platelet Count 350 10^3/uL (130-400); RBC 3.59 10^6/uL (3.93-5.22); RDW 13.2 % (11.7-14.6); RDW-SD 47.8 fL; WBC 7.03 10^3/uL (4.4-10.8)
[2021-03-10 13:30] LABS: ALT 30 U/L (14-59); AST 15 U/L (15-37); Albumin 3.8 g/dL (3.4-5.0); Alkaline Phosphatase 88 U/L (46-116); Anion Gap 8.6 mmol/L (3-11); BUN 16 mg/dL (7-18); Bilirubin, Total 0.5 mg/dL (0.2-1.0); C-Reactive Protein 0.47 mg/dL (0.0-0.3); CO2 24.4 mmol/L (21.0-32.0); CREATININE 0.8 mg/dL (0.55-1.02); Calcium 8.8 mg/dL (8.5-10.1); Chloride 108 mmol/L (98-107); Glucose 130 mg/dL (74-106); Potassium 3.8 mmol/L (3.5-5.1); Sodium 141 mmol/L (136-145); Total Protein 7.7 g/dL (6.4-8.2)
== END 2021-03-10 23:59 | disposition home or self-care (01) ==
LOC: INF 02:19
PROVIDERS: PCP Internal Medicine; Visit Provider Student in an Organized Health Care Education/Training Program
DX: T84.53XA Infection and inflammatory reaction due to internal right knee prosthesis, initial encounter (principal); Z45.2 Encounter for adjustment and management of vascular access device
CPT/HCPCS: 36592; 80053; 82784; 83516; 96365; 84443; 85025; 86140

== ENCOUNTER 2021-03-11 14:00 | Outpatient (RCR) | payer OTHER, SELFPAY ==
[2021-03-11 00:20] VITALS: BP 110/70; PULSE 77; RESP 15; TEMP 36.5
[2021-03-11] MEDS: Normal Saline Flush 10 ML SYR IVP (13:12)
[2021-03-11] MEDS: cefTRIAXone 2 GM/50 ML BAG IVPB (13:12)
[2021-03-11] MEDS: Bacitracin 1 PACKET (13:43)
== END 2021-04-10 23:59 | disposition home or self-care (01) ==
LOC: INF 14:00
PROVIDERS: PCP Internal Medicine; Visit Provider Student in an Organized Health Care Education/Training Program
DX: T84.53XA Infection and inflammatory reaction due to internal right knee prosthesis, initial encounter (principal); Z79.2 Long term (current) use of antibiotics
CPT/HCPCS: 96365

== ENCOUNTER → 2021-03-22 13:01 | Outpatient (BNVA) | payer OTHER, SELFPAY | PROVIDERS: PCP Internal Medicine; Referring Provider Internal Medicine; Visit Provider Student in an Organized Health Care Education/Training Program | DX: M25.561 Pain in right knee (principal); T84.53XD Infection and inflammatory reaction due to internal right knee prosthesis, subsequent encounter ==

== ENCOUNTER 2021-04-23 14:04 | Outpatient (REF) | payer OTHER, SELFPAY ==
[2021-04-23 20:45] LABS: Abs Immature Grans 0.01 10^3/uL (0.0-0.06); Absolute Basophil Count 0.04 10^3/uL (0.0-0.2); Absolute Eosinophil Count 0.14 10^3/uL (0.0-0.7); Absolute Lymphocyte Count 2.79 10^3/uL (1.2-3.4); Absolute Neutrophil Count 2.71 10^3/uL (1.2-6.7); Basophils % 0.6; Eosinophils % 2.2; HCT 39.1 % (36.0-46.0); HGB 12.6 g/dL (11.2-15.7); Immature Grans % 0.2; Lymphocytes % 43.7; MCHC 32.2 % (32.0-36.0); MCV 96.3 fL (80-95); Neutrophils % 42.3; Nucleated RBC 0 %; Platelet Count 382 10^3/uL (130-400); RBC 4.06 10^6/uL (3.93-5.22); RDW 12.8 % (11.7-14.6); RDW-SD 45.5 fL; WBC 6.39 10^3/uL (4.4-10.8)
[2021-04-23 20:59] LABS: ESR 26 mm/hr (0-30)
== END 2021-04-23 14:05 | disposition home or self-care (01) ==
LOC: NCHCN 14:04
PROVIDERS: PCP Internal Medicine; Visit Provider Family Medicine
DX: M00.861 Arthritis due to other bacteria, right knee (principal)
CPT/HCPCS: 85652; 85025

== ENCOUNTER 2021-06-21 15:12 | Outpatient (CLI) | payer MEDICARE, SELFPAY ==
--- NOTE | 2021-06-21 15:00 | DI.RAD_ITS ---
Exam(s) XR FOOT LT COMPLETE EXAM: XR FOOT LT COMPLETE CLINICAL HISTORY: eval L 5th MT pain TECHNIQUE: COMPARISON: CR XR FOOT LT COMPLETE from 08/05/2019 FINDINGS: Three views were obtained. There are mild davis articular changes. No focal seen. IMPRESSION: RADIATION DOSE DELIVERED: Total DLP
== END 2021-06-21 15:13 | disposition home or self-care (01) ==
LOC: DIORS 15:12
PROVIDERS: PCP Internal Medicine; Referring Provider Internal Medicine; Visit Provider Student in an Organized Health Care Education/Training Program
DX: M79.672 Pain in left foot (principal); M76.72 Peroneal tendinitis, left leg; T84.53XS Infection and inflammatory reaction due to internal right knee prosthesis, sequela
CPT/HCPCS: 99212; 73630

== ENCOUNTER → 2021-07-26 01:41 | Outpatient (CLI) | payer MEDICARE, SELFPAY ==
--- NOTE | 2021-07-26 15:00 | DI.MAMMO_ITS ---
Exam(s) MAMMO SCREENING EXAM: MAMMO SCREENING CLINICAL HISTORY: SCREENING FOR BREAST CANCER Z12.39. TECHNIQUE: Bilateral full field digital CC and MLO mammographic images were obtained with 3D tomosyn thesis and utilizing computer aided detection (CAD). COMPARISON: Prior mammograms dating back to 2014, the most recent being June 2018. FINDINGS: There has been no significant change in the appearance and distribution of the fibroglandular tissue There are no new spiculated masses nor malignant appearing microcalcification groups. There is no significant architectural distortion nor skin thickening-retraction. IMPRESSION: No radiographic evidence of malignancy. BI-RADS Category 1 - Negative Breast Density - Category B - Scattered areas of fibroglandular density Breast density Category C or D implies that the patient has dense breast tissue. Dense breast tissue can make it harder to find cancer on a mammogram. Dense breast tissue is also associated with an incr eased risk of breast cancer. This information about the result of the mammogram report was provided to the patient to raise their awareness. Use this report when you speak with the patient about their risks for breast cancer, which includes their family history. At that time, you may recommend additional screening tests (Ultrasoun d or MRI) as these tests may add significant information. A negative radiographic report should not delay biopsy if a dominant or clinically suspicious mass is present. Up to ten percent of cancers are not identified on mammography. A negative report may reinforce clinical impression. Adenosis and dense breasts may obscure an underlying neoplasm. False positive reports average 6 to 10%. Patient will receive a letter notifying them of these results.
== END ==
PROVIDERS: PCP Internal Medicine; Visit Provider Family Medicine
DX: Z12.31 Encounter for screening mammogram for malignant neoplasm of breast (principal)
CPT/HCPCS: 77063; 77067

== ENCOUNTER 2021-08-01 11:23 | Emergency (ER) | payer MEDICARE, SELFPAY ==
[2021-08-01 11:31] VITALS: BP 135/88; PULSE 72; RESP 16; TEMP 36.6; O2SAT 99
--- NOTE | 2021-08-01 11:49 | ED.GENADUL_ITS ---
Discharge Plan Disposition Patient Disposition: HOME Condition: Stable Discharge Details Clinical Impression: UTI (urinary tract infection) Primary Care Provider: Harshil Krugeer ED Provider: Indiana Webb Home Meds and New Rx's Prescriptions: New sulfamethoxazole-trimethoprim [Bactrim DS] 800-160 mg tablet 1 tab PO BID 3 Days Qty: 6 RF: 0 Continued gabapentin 600 mg tablet 2,400 mg PO BID RF: 0 albuterol sulfate [Ventolin HFA] 90 mcg/actuation HFA aerosol inhaler 2 puff IH .[id number] PRNRF: 0 triamcinolone acetonide 0.1 % cream 1 applic topical DAILY RF: 0 Narcan 4 mg/actuation spray,non-aerosol 4 mg intranasal Q2M PRNQty: 2 RF: 0 naproxen 500 mg Tablet 500 mg PO BID Qty: 120 RF: 0 sucralfate 1 gram tablet PO TID RF: 0 clonazepam 0.5 mg tablet 0.25 mg PO QHS RF: 0 sertraline 100 mg tablet 200 mg PO DAILY RF: 0 omeprazole 20 MG capsule,delayed release(DR/EC) 20 mg PO DAILY RF: 0 Discharge Instructions Instructions: Urinary Tract Infection in Women (ED) Additional Instructions: Your urine is concerning for urinary tract infection. Please encourage hydration. Please take the antibiotics as prescribed. Even if symptoms improve, please take the entire course. You may use the Azo, the [id number] medication, to help with the discomfort of urination. Please take as directed on the packaging. Please call your primary care doctor tomorrow to discuss changing settings on your BiPAP machine to help prevent abdominal distention has been noted. If you develop fever/chills, flank pain, inability stay hydrated or other new/worsening symptom please seek care urgently once again. Otherwise, please follow-up with primary care in the next 2 weeks for reevaluation. Referrals: Harshil Krueger MD [Primary Care Provider] - Discharge Data Discharge Date/Time-TO BE ENTERED AT DEPARTURE: 08/01/21 12:26 Medical Decision Making Patient is a pleasant 55 year old female presenting today with c/c of UTI. States that for the past week she has had frequency/urgency of urination. Reports that she develop dysurea and hematuria 2 dys ago. Denies fevers but states she did have sweating once. Denies back or flank pain. No vaginal discharge. No change in bowel habits. Denies blood in her stool. States that she has also had increased cough. Active smoker, has chronic cough. Stats that she has had increase in cough but is questioning if this is associated with cold weather when she is hunting. States yesterday and today she had 2 separate episodes of vertigo. Has hx of vertigo. Denies JULIEN this week. No focal deficit. States that this felt like her vertigo has in the past. Came on when she rolling over in bed. When she had her vertigo, patient vomited x 1. Is not currently dizzy or vertiginous. Also states that her abdomen has been more bloated int he morning. Has had large amount of gas in the AM. States that this has been ongoing since the pressure on her BiPAP was increased. Denies abdominal pain or bloating now. On exam, patient appears nontoxic. VS stable. No nystagmus at this time. Again, patient denies being vertignous now, sounds like it only occured when she rolled over quickly in bed. Lungs are clear on auscultation. Normal cardiac exam. Abdomen benign, no pain currently. No CVA tenderness. Patient's primary concern today with for possible UTI. UA pending. No evidence of pyelonephritis on exam today. Patient also has a number of other complaints. We discussed furhter evaluation of her increased cough including CXR. However, she would like to hold off as she is linking this to the noxious stimuli of the cold weakther. She will continue to monitor her symptoms and pay attention to when her cough increases. She will discuss further with PCP. In regard to her vertigo, she describes this the same as she has had in the past. She has not had any deficits,none noted on exam. As she does not describe this as new, has complete resolution now, will hold off on further workup. In regard to her bloating, it sounds like this is associated with the increased BiPAP setting. I advised that she discuss with PCP in [place] AM. She describes large jump in pressure, perhaps coming down some with help with her bloating and gas. UA concerning for UTI. Reviewed previous culture and sensitivity. She was finishing Kelfex when symptoms started, will start on Bactrim. She has Azo at home, has not tried any yet to hlep with symptom management. Advised she could try this. Encouraged hydration. Encouraged smoking cessation. ADvised close f/u with PCP. Return precuations discussed. All of her questions and concerns were addressed, she is in agreement with this plan. HPI General Mode of arrival: ambulatory . Date/Time Provider Initiated Documentation: 08/01/21 11:49 . Limitations to Documentation: no limitations . Information obtained by: patient, family (), RN notes reviewed and old records reviewed . History of Present Illness 55 year old F presents to the emergency department with the chief complaint of dysurea, frequency and urgency, described as moderate, Quality is described as burning, and is localized to the genitals. Patient reports no radiation. Patient started experiencing this week(s) (1) and it has been constant. No relieving factors improve symptom(s), No exacerbating factors reported . Patient notes cough (states hx of smoking, reports slightly worse cough), headaches (states she has chronic JULIEN, no worse this week than previous) and nausea/vomiting (vomited x 1 when she had vertigo. Has hx of vertigo); denies confusion, chest pain, fever/chills, rash, shortness of breath and syncope. Patient did receive the following treatments prior to arrival, none Related Data Home Medications Medication Instructions Recorded Confirmed omeprazole 20 mg PO DAILY 04/27/17 08/01/21 albuterol sulfate 90 mcg/actuation 2 puff IH .[id number] PRN gm 04/08/19 08/01/21 aerosol inhaler gabapentin 600 mg tablet 2,400 mg PO BID 04/08/19 08/01/21 triamcinolone acetonide 0.1 % 1 applic TOPICAL DAILY 07/06/20 08/01/21 topical cream Narcan 4 mg INTRANASAL Q2M PRN #2 ea 02/04/21 06/21/21 naproxen 500 mg PO BID #120 tab 02/04/21 08/01/21 clonazepam 0.25 mg PO QHS 08/01/21 08/01/21 sertraline 200 mg PO DAILY 08/01/21 08/01/21 sucralfate PO TID 08/01/21 sulfamethoxazole-trimethoprim 1 tab PO BID 3 Days #6 tab 08/01/21 [Bactrim DS] Previous Rx's Medication Instructions Recorded Narcan 4 mg INTRANASAL Q2M PRN #2 ea 02/04/21 naproxen 500 mg PO BID #120 tab 02/04/21 sulfamethoxazole-trimethoprim 1 tab PO BID 3 Days #6 tab 08/01/21 [Bactrim DS] Allergies Allergy/AdvReac Type Severity Reaction Status Date / Time Penicillins Allergy Intermediate Skin Rash Verified 08/01/21 11:39 pravastatin AdvReac Intermediate leaky Verified 08/01/21 11:39 stools General Stated Complaint: Urinary ELSY: 3 Review of Systems Constitutional Constitutional: Reports as per HPI, Denies chills, Reports fatigue and Denies fever(s) ENT Ears, Nose, Mouth, and Throat: Reports vertigo Cardiovascular Cardiovascular: Denies chest pain, Denies dyspnea and Denies dyspnea on exertion Respiratory Respiratory: Reports cough, Denies hemoptysis, Denies pain on inspiration, Denies pain with cough, Denies dyspnea and Denies dyspnea on exertion Gastrointestinal Gastrointestinal: Denies abdominal pain, Denies change in bowel habits, Denies nausea and Reports vomiting (x1 this AM when she had vertigo episode) Genitourinary Genitourinary: Reports as per HPI Musculoskeletal Musculoskeletal: Reports as per HPI and Denies back pain Integumentary/Breasts Skin/Breast: Reports as per HPI and Denies rash Neurologic Neurologic: Reports vertigo Endocrine Endocrine: Reports fatigue PFSH Medical History Chronic low back pain Complex tear of medial meniscus of right knee as current injury (11/06/17) COPD (chronic obstructive pulmonary disease) Depression Dyspepsia Fibromyalgia Greater trochanteric bursitis of both hips (01/01/18) Headache Hyperlipidemia Knee joint pain Marital problems Meralgia paraesthetica Nasal lesion Obesity Peripheral edema Perirectal abscess Plantar fasciitis Primary osteoarthritis of right knee (12/04/17) Prurigo nodularis PTSD (post-traumatic stress disorder) Restless leg syndrome Sleep apnea Somatic dysfunction of sacral region Tendonitis of left rotator cuff Confirmed RTC tear Thoracic spine pain Tobacco abuse Trochanteric bursitis of both hips Urinary frequency Urinary hesitancy Weakness Surgical History Status post arthroscopy of right knee Partial medial meniscectomy, medial chondroplasty, removal of loose bodies Date of surgery: November 21, 2017 Dr. 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 Status post total knee replacement, right July 2018 Social History Smoking/Tobacco Use Status: Current every day Tobacco Type: cigarettes Smoking packs per day: 1 Smoking cigarettes per day: 20.0 Years smoked: 44 Smoking pack-years: 44.00 Smoking risk assessment performed?: Yes Alcohol Intake: current Alcohol Intake frequency: holidays/special occasions only Drug use: Never Substance use type: does not use Current gender identity: female Do you feel safe at home: Yes Do you feel safe in your relationship?: Yes Exam Const General: cooperative, healthy appearing, comfortable, no acute distress, well developed and well groomed Nutritional Appearance: well nourished and overweight Orientation: alert and awake Eyes General: appearance normal, both eyes and all related structures EOM: EOM intact bilaterally and No nystagmus Resp Effort & Inspection: normal respiratory effort and no respiratory distress Auscultation: clear to auscultation bilaterally, no rales, no rhonchi and no wheezes Cardio Rate: regular rate Rhythm: regular rhythm Heart Sounds: S1 normal and S2 normal GI Inspection: normal to inspection Palpation: soft, no hepatosplenomegaly, not firm, no guarding, not rigid and nontender Back/Spine/Pelvis Back: no CVA tenderness Skin General skin exam: no rashes or lesions noted Trauma: no lacerations or abrasions Neuro General: patient alert and patient awake Cranial Nerves: no nystagmus Cognition: normal cognition Speech: speech normal Gait: normal gait Psych Appearance: grossly normal and well kempt Mental Status: mental status grossly normal Speech and Movement: speech and movement normal Course Vital Signs Vital signs: Vital Signs Temperature 36.6 C 08/01/21 11:31 Pulse 72 08/01/21 11:31 Respiratory Rate 16 08/01/21 11:31 Blood Pressure 135/88 08/01/21 11:31 Pulse Oximetry 99 08/01/21 11:31 Temperature 36.6 C 08/01/21 11:31 Temperature Source Skin 08/01/21 11:31 Pulse 72 08/01/21 11:31 Respiratory Rate 16 08/01/21 11:31 Respiratory Effort Non-Labored 08/01/21 11:39 Blood Pressure 135/88 08/01/21 11:31 Blood Pressure Position Sitting 08/01/21 11:31 Pulse Oximetry 99 08/01/21 11:31 Oxygen Delivery Method Room Air 08/01/21 11:31 Oxygen Flow Rate 0 08/01/21 11:31 Pain Level 8 08/01/21 11:45
[2021-08-01 11:57] LABS: Bilirubin Negative (Negative); Blood Moderate (Negative); Clarity Sl Cloudy (Clear); Glucose Negative (Negative); Ketones Negative (Negative); Leukocyte Esterase Moderate (Negative); Nitrite Negative (Negative); Specific Gravity 1.015 (1.005-1.025); Urobilinogen 0.2 EU/dL (Up TO 0.2); pH 6.5 (5-8)
[2021-08-01 12:01] LABS: Bacteria Few HPF (Negative); C & S Indicated? Yes; Casts Negative LPF (Negative); Crystals Negative HPF (Negative); Epithelial Cells Few HPF (Negative); Mucus Trace (Negative); RBC >50 HPF (0-2); WBC 20-50 HPF (0-5)
== END 2021-08-01 12:26 | disposition home or self-care (01) ==
PROVIDERS: Emergency Provider Physician Assistant; PCP Internal Medicine
DX: N39.0 Urinary tract infection, site not specified (principal); B96.20 Unspecified Escherichia coli [E. coli] as the cause of diseases classified elsewhere
CPT/HCPCS: 87077; 99283; 81003; 81015; 87086; 87186

== ENCOUNTER 2021-08-11 16:37 | Outpatient (REF) | payer MEDICARE, SELFPAY ==
[2021-08-11 22:19] LABS: Bilirubin Negative (Negative); Blood Negative (Negative); Clarity Clear (Clear); Glucose Negative (Negative); Ketones Negative (Negative); Leukocyte Esterase Negative (Negative); Nitrite Negative (Negative); Specific Gravity >= 1.030 (1.005-1.025); Urobilinogen 0.2 EU/dL (Up TO 0.2)
== END 2021-08-11 16:38 | disposition home or self-care (01) ==
LOC: NCHCN 16:37
PROVIDERS: Family Medicine; PCP Internal Medicine; Visit Provider Internal Medicine
DX: R30.0 Dysuria (principal)
CPT/HCPCS: 81003

== ENCOUNTER 2021-08-12 01:12 | Outpatient (CLI) | payer MEDICARE, SELFPAY ==
--- NOTE | 2021-08-12 | DI.RAD_ITS ---
Exam(s) XR SHOULDER RT COMPLETE 2+V EXAM: XR SHOULDER RT COMPLETE 2+V CLINICAL HISTORY: TENDINITIS RT SHOULDER, M75.91, SHOULDER PAIN. TECHNIQUE: 2D digital imaging was performed. COMPARISON: CR,XR XR SHOULDER LT COMPLETE 2+V from 06/29/2020 FINDINGS: There is no evidence acute fracture or dislocation. No calcifications seen in the lateral subacromia l space. However, there is a 4 x 2 millimeter calcific density seen at the superior aspect of the os seous glenoid, possibly significant. No obvious degenerative changes in the glenohumeral joint. Minimal degenerative changes in the AC monica int. IMPRESSION: DATA REPOSITORY: RADIATION DOSE DELIVERED:
== END 2021-08-12 01:32 ==
PROVIDERS: PCP Internal Medicine; Visit Provider Family Medicine
DX: M75.81 Other shoulder lesions, right shoulder (principal); M85.9 Disorder of bone density and structure, unspecified
CPT/HCPCS: 73030

== ENCOUNTER 2021-09-07 18:46 | Outpatient (REF) | payer MEDICARE, SELFPAY | END 2021-09-07 18:47 | disposition home or self-care (01) | LOC: LBN 18:46 | PROVIDERS: PCP Internal Medicine; Visit Provider Nurse Practitioner Family | DX: R30.0 Dysuria (principal) | CPT/HCPCS: 87077; 87086; 87186 ==

== ENCOUNTER → 2021-11-01 13:27 | Outpatient (BNVA) | payer MEDICARE, SELFPAY | PROVIDERS: PCP Internal Medicine; Referring Provider Internal Medicine; Visit Provider Student in an Organized Health Care Education/Training Program | DX: M75.51 Bursitis of right shoulder (principal); M75.21 Bicipital tendinitis, right shoulder; M75.81 Other shoulder lesions, right shoulder | CPT/HCPCS: 20610; 99212; J1040 ==

== ENCOUNTER 2021-11-18 12:51 | Outpatient (CLI) | payer MEDICARE, SELFPAY ==
[2021-11-18 13:06] VITALS: BP 129/75; PULSE 63; RESP 20; O2SAT 98
--- NOTE | 2021-11-18 13:30 | DI.RAD_ITS ---
Exam(s) XR PAIN CLINIC SACRIOILIAC 2V EXAM: XR PAIN CLINIC SACRIOILIAC 2V CLINICAL HISTORY: Dx: Sacroiliac Joint Dysfunction TECHNIQUE: 2D and realtime digital imaging was performed. COMPARISON: No exams were available for comparison FINDINGS: C-arm fluoroscopy was utilized by Dr. De Leon during apparent right SI joint injection. Hard copy shows needle placement at the right SI joint. IMPRESSION: RADIATION DOSE DELIVERED: sultana Torres=15.3 mGy
--- NOTE | 2021-11-18 13:30 | PDOC.PAIN ---
Pain Clinic Procedure Note Procedure Note Procedure Note: INTRA-ARTICULAR SI JOINT INJECTION Dea Sifuentes has been referred to the [facility] for intra-articular SI joint injection. COMMENTS: I recently evaluated the patient on 11/03/21. Her pre-procedure pain VAS was 6/10. Dx: Right sacroiliac joint dysfunction Patient was interviewed and the medical record reviewed. There were no medical, pharmacologic, radiographic or other structural contraindications to attempting fluoroscopically guided intra-articular SI joint injection. Risks and expected side effects as well as potential benefit of the procedure were reviewed and voiced concerns addressed. The printed consent form was signed and witnessed. Standard time-out procedure was performed. Patient was placed in the prone position on the fluoroscopy table and automated blood pressure cuff and pulse oximeter applied. The skin entry point for approaching right SI joint was identified under the most advantageous fluoroscopic view and marked. Following thorough Chlorhexadine preparation of the skin and draping and 1% lidocaine infiltration of the skin entry point and subcutaneous tissues, a 22 gauge spinal needle was placed under fluoroscopic guidance into right SI joint was identified under the most advantageous fluoroscopic view and marked. Following thorough Chlorhexadine preparation of the skin and draping and 1% lidocaine infiltration of the skin entry point and subcutaneous tissues, a 22 gauge 5 spinal needle was placed under fluoroscopic guidance into the right SI joint. Intra-articular placement was confirmed by a clear arthrogram resulting from the injection of 0.25ml Omnipaque 240. Next I injected 80mg Depomedrol intra-articularily with an initial reproduction of a significant component of the usual pain. This was followed by 1ml of 1% lidocaine. The needle was then removed without difficulty. Vital signs were stable throughout the procedure and were as recorded in the docflowsheet by the nursing staff. If given, dosages of intravenous drugs for anxiolysis and analgesia were documented in MAR. Follow up plans and appointments were discussed with the patient. Post procedure instruction was given as documented in nursing documentation and having met discharge criteria, and was discharged from the [facility] Management [facility]. COMMENTS: Her post-procedure pain VAS was 1/10. If this procedure is found to be effective, it can be completed up to 3 times every 12 months. Joseph De Leon DO, MPH [facility] CC: Harshil Krueger
[2021-11-18] MEDS: methylPREDNISolone ACETATE 80 MG/ML VIAL IJ (13:44)
[2021-11-18] MEDS: Omnipaque 240 MG/ML 50 ML BTL IJ (13:44)
[2021-11-18 13:46] VITALS: BP 131/72; PULSE 69; RESP 15; O2SAT 98
== END 2021-11-18 12:52 | disposition home or self-care (01) ==
LOC: PC 12:52
PROVIDERS: PCP Internal Medicine; Visit Provider Preventive Medicine Occupational Medicine
DX: M53.3 Sacrococcygeal disorders, not elsewhere classified
CPT/HCPCS: 27096; 72200; J1040; Q9967

== ENCOUNTER 2022-02-16 09:47 | Outpatient (CLI) | payer MEDICARE, SELFPAY ==
[2022-02-16 10:03] VITALS: BP 139/68; PULSE 62; RESP 20; TEMP 36.6; O2SAT 96
--- NOTE | 2022-02-16 10:44 | DI.RAD_ITS ---
Exam(s) XR PAIN CLINIC SACRIOILIAC 2V EXAM: XR PAIN CLINIC SACRIOILIAC 2V CLINICAL HISTORY: DX: SI joint dysfunction TECHNIQUE: 2D and realtime digital imaging was performed. Radiologist not present. CONTRAST MATERIAL: None. COMPARISON: No exams were available for comparison FINDINGS: Fluoroscopy was provided for pain management therapy. Please refer to procedure report or details. Cumulative dose: Ka,r=17.0 mGy IMPRESSION: RADIATION DOSE DELIVERED:
[2022-02-16 10:53] VITALS: BP 125/70; PULSE 61; RESP 14; O2SAT 99
[2022-02-16] MEDS: methylPREDNISolone ACETATE 80 MG/ML VIAL IJ (10:55)
[2022-02-16] MEDS: Omnipaque 240 MG/ML 50 ML BTL IJ (10:56)
--- NOTE | 2022-02-16 14:04 | PDOC.PAIN ---
Pain Clinic Procedure Note Procedure Note Procedure Note: INTRA-ARTICULAR SI JOINT INJECTION Dea Sifuentes has been referred to the [facility] Management Center for intra-articular SI joint injection. COMMENTS: I did her first right SIJ injection on 11/18/21. Pre-procedure pain VAS = 6/10. Dx: Lumbosacral spondylosis without myelopathy Patient was interviewed and the medical record reviewed. There were no medical, pharmacologic, radiographic or other structural contraindications to attempting fluoroscopically guided intra-articular SI joint injection. Risks and expected side effects as well as potential benefit of the procedure were reviewed and voiced concerns addressed. The printed consent form was signed and witnessed. Standard time-out procedure was performed. Patient was placed in the prone position on the fluoroscopy table and automated blood pressure cuff and pulse oximeter applied. The skin entry point for approaching right SI joint was identified under the most advantageous fluoroscopic view and marked. Following thorough Chlorhexadine preparation of the skin and draping and 1% lidocaine infiltration of the skin entry point and subcutaneous tissues, a 22 gauge spinal needle was placed under fluoroscopic guidance into right SI joint was identified under the most advantageous fluoroscopic view and marked. Intra-articular placement was confirmed by a clear arthrogram resulting from the injection of 0.25ml Omnipaque 240, 1ml 1% lidocaine, and 80mg Depomedrol were injected intra-articularily with an initial reproduction of a significant component of the usual pain. Vital signs were stable throughout the procedure and were as recorded in the docflowsheet by the nursing staff. If given, dosages of intravenous drugs for anxiolysis and analgesia were documented in MAR. Follow up plans and appointments were discussed with the patient. Post procedure instruction was given as documented in nursing documentation and having met discharge criteria, and was discharged from the Pain Management Center. COMMENTS: Post-procedure pain VAS was 3/10. Joseph De Leon DO, MPH [facility]-Pain Management [facility] CC: Harshil Krueger
== END 2022-02-16 09:48 | disposition home or self-care (01) ==
LOC: PC 09:47
PROVIDERS: PCP Internal Medicine; Visit Provider Preventive Medicine Occupational Medicine
DX: M53.3 Sacrococcygeal disorders, not elsewhere classified (principal); M54.50 Low back pain, unspecified
CPT/HCPCS: 27096; 72200; J1040; Q9967

== ENCOUNTER → 2022-05-09 11:00 | Outpatient (BNVA) | payer MEDICARE, SELFPAY | PROVIDERS: PCP Internal Medicine; Referring Provider Internal Medicine; Visit Provider Surgery | DX: Z12.11 Encounter for screening for malignant neoplasm of colon (principal); K64.8 Other hemorrhoids; E66.9 Obesity, unspecified | CPT/HCPCS: 99242 ==

== ENCOUNTER 2022-05-27 07:18 | Day surgery (SDC) | payer MEDICARE, SELFPAY ==
--- NOTE | 2022-05-26 19:17 | COLE_ITS ---
Colonoscopy Report Date of procedure: 05/27/22 Pre-op diagnosis general: crc screening Post-op diagnosis procedure note: other (anal fissure) Surgeon: Evangelina Pierce Anesthesia Type: General:No Airway Estimated blood loss (mL): 0 Pathology: none sent Complications: None Disposition: same day Prep: Miralax/Dulcolax Retraction Time: 8 Procedure Description: After informed consent was obtained the patient was taken to the procedure room and placed in a left decubitous position. Monitors were applied and a time out was done. The patients name, date of , procedure, allergies to medications and metal in their body was reviewed. The patient was then sedated. Once s edated and comfortable a rectal exam was done. External exam was normal. She does have an anal fissure in the 6 o'clock position. There is active bleeding, but minimal blood loss. Internal exam revealed a normal sphincter tone and no palpable masses. The scope was then introduced and retrofelexed. No internal hemorrhoids were identified. The scope was then advanced to the cecum w/out difficulty. The TI and appendiceal orifice were identified. The prep was BB PS 3 in all segments for a total of 9. The scope was then slowly retracted over 8 minutes back into the rectum. There are no polyps, AVMs, or diverticula visualized today. The mucosa is pink and healthy with a normal vascular pattern. Anal Fissure at 6 o'clock position otherwise negative. the scope was removed and the patient was woken up and taken back to Same day surgery in stable condition. The patient tolerated the procedure well and there were no immediate complications. Follow up: The patient should follow up in 10 years unless they develop changes in bowel habits or other new gastrointestinal complaints.
--- NOTE | 2022-05-26 19:18 | PDOC.DSDIS_ITS ---
Discharge Plan Disposition Patient Disposition: HOME Condition: Good Discharge Details Reason For Visit: colon scope Attending Provider: Evangelina Pierce Primary Care Provider: Yaya Meadows Home Meds and New Rx's Prescriptions: New nitroglycerin 0.4 % (w/w) ointment 1 inch PA BID Qty: 30 6RF Rx Instructions: apply to affected area Continued fluoxetine 40 mg capsule 60 mg PO DAILY acetaminophen 500 mg tablet 500 mg PO Q6H PRN albuterol sulfate [Ventolin HFA] 90 mcg/actuation HFA aerosol inhaler 2 puff IH .[id number] PRN triamcinolone acetonide 0.1 % cream 1 applic topical DAILY Label Comments: Patient uses PRN acetaminophen 500 mg capsule 1,000 mg PO QID PRN gabapentin 600 mg tablet 1,200 mg PO BID naloxone [Narcan] 4 mg/actuation spray,non-aerosol 4 mg intranasal Q2M PRNQty: 2 0RF Rx Instructions: spray 1 dose into ONE nostril; alternate nostrils w each dose until help arrives naproxen 500 mg Tablet 500 mg PO BID Qty: 120 0RF clonazepam 0.5 mg tablet 0.5 mg PO QHS Label Comments: TAKE 1/2 TO 1 TABLET BY MOUTH EACH NIGHT NEEDED omeprazole 20 mg capsule,delayed release(DR/EC) 40 mg PO DAILY Discontinued bisacodyl [Dulcolax (bisacodyl)] 5 mg tablet,delayed release (DR/EC) 5 mg PO ONCE Qty: 4 0RF polyethylene glycol 3350 17 gram/dose powder 17 g PO ONCE Qty: 238 0RF Discharge Instructions Additional Instructions: DSU Colonoscopy Post- Op Instructions Instructions for Everyone who is given Anesthesia: For your safety, please do the following for the next twenty-four (24) hours: *Do Not operate a motor vehicle (car, truck, motorcycle, etc.) *Do Not drink alcoholic beverages or use any recreational drugs for the first 24 hours or while taking pain medications. The medications in your body may have a reaction that can be dangerous. *Do Not make any important decisions or sign any important papers. Findings: anal fissure -apply nitro ointment BID. -no straining to move bowels Follow up: 6wks 1. No lifting over 20 pounds or strenuous activity for the first 24 hours after your procedure. After 24 hours there are no restrictions on your activity but you may feel fatigued for a few days. 2. After you arrive home you may have a light meal and return to your normal diet as you can tolerate it without feeling sick to your stomach. 3. You may have a bloated, gaseous feeling in your belly (abdomen) after a colonoscopy. Passing gas and belching will help. Walking or lying down on your left side with your knees flexed may relieve the discomfort. Call the office at [phone] (Office) or [phone] (Hospital) right away if you notice any of the following: a.Vomiting of blood or ?coffee ground stools?. b.Rectal bleeding 1Tbsp, blood clots or continuous bleeding. c.Severe belly (abdominal) pain. d.A hard distended belly (abdomen) and an inability to pass gas. 4. Please don?t expect to have a normal BM (bowel movement) for 2-3 days after your procedure. 5. If there are questions regarding the findings of your procedure, please contact your doctor 6. If you are unable to contact your doctor with a problem, contact the hospital at [phone]. 7. Continue all your regular medications unless directed otherwise. I understand the above instructions and have no questions. Signature of Patient or Adult Escort Name of Responsible Adult Escort Signature of Nurse Date/Time Activity:: see above Diet:: see above Discharge Orders Discharge Orders: Discharge Order (Routine); Ordered 05/26/22 Ordered By: Evangelina Pierce
[2022-05-27 07:30] VITALS: BP 119/66; PULSE 62; RESP 18; TEMP 36.4; O2SAT 99
[2022-05-27] MEDS: Lactated Ringers 1,000 ML 80 ML IV (07:54)
--- NOTE | 2022-05-27 08:06 | W.ANESPRE ---
General Info Date of Service Date Performed: 05/27/22 Height: 5 ft 4 in Weight: 107.6 kg Body Mass Index (BMI): 40.7 Surgical Procedure: Operation Date: 05/27/22 08:25 Proposed Procedure Side Surgeon p Colonoscopy Evangelina Pierce DO s Internal Hemorrhoid Banding Evangelina Pierce DO Meds Allergies and Home Medications Allergies Allergy/AdvReac Type Severity Reaction Status Date / Time Penicillins Allergy Intermediate Skin Rash Verified 05/27/22 07:41 pravastatin AdvReac Intermediate leaky Verified 05/27/22 07:41 stools Home Medication Medication Instructions Recorded albuterol sulfate 90 mcg/actuation 2 puff inhalation .[id number] PRN 04/08/19 aerosol inhaler (Ventolin HFA) triamcinolone acetonide 0.1 % 1 applic topical DAILY 07/06/20 topical cream naloxone 4 mg/actuation nasal 4 mg intranasal Q2M PRN #2 ea 02/04/21 spray (Narcan) naproxen 500 mg tablet 500 mg PO BID #120 tabs 02/04/21 acetaminophen 500 mg capsule 1,000 mg PO QID PRN 10/15/21 gabapentin 600 mg tablet 1,200 mg PO BID 10/15/21 acetaminophen 500 mg tablet 500 mg PO Q6H PRN 11/01/21 fluoxetine 40 mg capsule 60 mg PO DAILY 11/01/21 clonazepam 0.5 mg tablet 0.5 mg PO QHS 05/09/22 omeprazole 20 mg capsule,delayed 40 mg PO DAILY 05/09/22 release Current Visit Medications: Current Medications Generic Name Dose Route Start Last Admin Trade Name Aramisq PRN Reason Stop Dose Admin Hyoscyamine Sulfate 0.125 mg 05/26/22 19:16 Hyoscyamine 0.125 Mg Sl/Oral/Chew SL DIRECTED PRN Ringer's Solution 1,000 mls @ 80 mls/hr 05/27/22 06:00 05/27/22 07:54 IV 06/25/22 23:59 80 mls/hr INFUSION EDE Administration IV Miscellaneous Supplies 1 each 05/27/22 06:00 Iv Access IV 06/25/22 23:59 DIRECTED EDE Ondansetron HCl 4 mg 05/26/22 19:16 Ondansetron 4 Mg/2 Ml Vial IVP Q4H PRN PRN Nausea / Vomiting Sodium Chloride 0 ml 05/27/22 06:00 Normal Saline Flush 10 Ml Syr IV 06/25/22 23:59 PRN PRN Sodium Chloride 0 ml 05/27/22 06:00 Normal Saline 10 Ml Vial IJ 06/25/22 23:59 DIRECTED PRN Sterile Water 0 ml 05/27/22 06:00 Water,Injection,Sterile 10 Ml Vial IJ 06/25/22 23:59 DIRECTED PRN PFSH Active Problems Active Problems: Problem Status Onset Code Colon cancer screening Z12.11 Internal hemorrhoids with other complication K64.8 Sacroiliac joint dysfunction of right side M53.3 Right rotator cuff tendinitis M75.81 Biceps tendinitis of right upper extremity M75.21 Bursitis of shoulder, right M75.51 Insomnia G47.00 Anxiety F41.9 UTI (urinary tract infection) N39.0 Peroneal tendinitis, left leg M76.72 Trochanteric bursitis, right hip M70.61 Acute pain R52 Infection of total right knee replacement T84.53XA Low back pain radiating to lower extremity M54.5 S/P left rotator cuff repair 09/22/20 Z98.890 BPPV (benign paroxysmal positional vertigo) H81.10 Screening for colon cancer Z12.11 Claustrophobia F40.240 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 M19.071 Primary osteoarthritis of left knee M17.12 History of total right knee replacement (TKR) Z96.651 Tenosynovitis 01/06/14 M65.9 Greater trochanteric bursitis of both hips 01/01/18 M70.61, M70.62 Medical History Medical History Chronic low back pain Complex tear of medial meniscus of right knee as current injury (11/06/17) Dysuria Headache Knee joint pain Marital problems Peripheral edema Primary osteoarthritis of right knee (12/04/17) Prurigo nodularis Tendonitis of left rotator cuff Confirmed RTC tear Thoracic spine pain Urinary frequency Surgical History Surgical History History of arthroscopic surgery of shoulder History of delivery (~04/25/11) History of cholecystectomy History of total hysterectomy Status post arthroscopy of right knee (~11/22/17) Partial medial meniscectomy, medial chondroplasty, removal of loose bodies Date of surgery: November 21, 2017 Dr. 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 Status post total knee replacement, right July 2018 Tobacco Smoking/Tobacco Use Status: Current every day Tobacco Type: cigarettes Smoking packs per day: 1 Smoking cigarettes per day: 20 Years smoked: 44 Alcohol Alcohol Intake: current Alcohol intake frequency: holidays/special occasions only Substance Use Substance use: Never Substance use type: does not use Vital Signs and Lab Results Vital Signs Most Recent Vital Signs in EMR: Most Recent Vital Signs Temp Pulse Resp BP Pulse Ox 36.4 C L 62 18 119/66 99 05/27/22 07:30 05/27/22 07:30 05/27/22 07:30 05/27/22 07:30 05/27/22 07:30 Lab Results Blood Type / Crossmatch: No Data to Display Complete Blood Count: No Data to Display Complete Metabolic Panel: No Data to Display Liver Function Panel: No Data to Display Coagulation Panel: No Data to Display Cardiac Panel: No Data to Display Arterial Blood Gas: No Data to Display Venous Blood Gas: No Data to Display Pancreas Panel: No Data to Display Thyroid Panel: No Data to Display Infectious Disease: No Data to Display Blood Cultures: No Data to Display Toxicology Panel: No Data to Display Anesthesia Assessment and Plan Anesthesia History Personal History: No History of Anesthesia Complications Family History: No Family History of Anesthesia Complications Exercise Tolerance Exercise Tolerance: Metabolic Equivalents>4 Pertinent Negatives Pertinent Negatives: No Major Cardiovascular Symptoms or Complaints Cardiac & Pulmonary Exam Cardiac Exam: Normal S1/S2 Heart Sounds Pulmonary Exam: Clear Bilateral Breath Sounds Implantable Cardiac Device Does patient have a Pacemaker or an ICD?: No Airway Exam Known Difficult Airway: No Mallampati Class: 4 Mouth Opening: Narrow (< 3cm) Thyromental Distance: Less than 3 cm Neck Range of Motion: Limited ROM Neck Circumference: Thick Teeth Condition: Normal Dentition ASA Classification ASA Score: ASA 3 Emergency Case?: No NPO Status NPO Status: NPO Clears >2 hours, Solids >8 hours Anesthesia Plan Resuscitation Status: Full Code Anesthesia Technique: General Anesthesia Airway Planned: Natural Airway Monitors Used: Standard Monitors Preoperative Comments:: Previous Mac 3, Grade 3 view Patient reports GERD well controlled.
[2022-05-27 08:10] VITALS: BMI 40.7
[2022-05-27 09:00] VITALS: BP 115/65; PULSE 57; RESP 16; TEMP 36.1; O2SAT 97
--- NOTE | 2022-05-27 09:03 | W.ANESPOSTOP ---
Postoperative Evaluation Date, Time and Location Date Performed: 05/27/22 Time Performed: 09:03 Patient Location: Day Surgery Unit Vital Signs Most Recent Imported Vital Signs: Most Recent Vital Signs Temp Pulse Resp BP Pulse Ox 36.4 C L 62 18 119/66 99 05/27/22 07:30 05/27/22 07:30 05/27/22 07:30 05/27/22 07:30 05/27/22 07:30 Most Recent Manually Entered Vital Signs: Adult Blood Pressure: 115/65 Heart Rate: 56 Respirations: 12 Oxygen Saturation (%): 98 Temperature (C): 36.3 C Pain Score (0-10 Scale): 0 Assessment Mental Status: Awake (Alert & Oriented to Patient Baseline) Airway and Respiratory Function: Patent airway with normal (patient baseline) respiratory exam Cardiovascular Function: Hemodynamically Stable Hydration Status: Adequately Hydrated Nausea & Vomiting: No Nausea or Vomiting Pain: Pt. Denies Any Pain Peripheral Nerve Block: Patient did not receive a nerve block
[2022-05-27 09:04] VITALS: BP 115/65; PULSE 56; RESP 12; TEMPC 36.3; O2SAT 98
== END 2022-05-27 10:05 | disposition home or self-care (01) ==
PROVIDERS: PCP Family Medicine; Visit Provider Surgery
PROC: 0DJD8ZZ Inspection of Lower Intestinal Tract, Via Natural or Artificial Opening Endoscopic (ICD-10-PCS; CPT 45378; principal; 2022-05-27 08:15)
DX: Z12.11 Encounter for screening for malignant neoplasm of colon (principal); K60.2 Anal fissure, unspecified
CPT/HCPCS: G0121

== ENCOUNTER 2022-07-18 13:43 | Outpatient (CLI) | payer MEDICARE, SELFPAY ==
--- NOTE | 2022-07-18 12:45 | DI.RAD_ITS ---
Exam(s) XR KNEE RT 2V AP,LAT EXAM: XR KNEE RT 2V AP,LAT CLINICAL HISTORY: s/p right TKA. TECHNIQUE: 2D digital imaging was performed. COMPARISON: CR,XR XR KNEE RT 3V AP,LAT,IDA from 01/25/2021 FINDINGS: Two views: Stable position alignment of the components of the prosthesis. No fracture nor loosening evident. IMPRESSION: DATA REPOSITORY: RADIATION DOSE DELIVERED:
== END 2022-07-18 13:44 | disposition home or self-care (01) ==
LOC: DIORS 13:44
PROVIDERS: PCP Family Medicine; Referring Provider Family Medicine; Visit Provider Physician Assistant
DX: T84.53XD Infection and inflammatory reaction due to internal right knee prosthesis, subsequent encounter (principal); M54.50 Low back pain, unspecified; Z96.651 Presence of right artificial knee joint; G89.29 Other chronic pain
CPT/HCPCS: 99213; 73560

== ENCOUNTER 2022-07-20 12:51 | Outpatient (CLI) | payer MEDICARE, SELFPAY ==
--- NOTE | 2022-07-20 06:00 | DI.RAD_ITS ---
Exam(s) XR PAIN CLINIC SACRIOILIAC 2V EXAM: XR PAIN CLINIC SACRIOILIAC 2V CLINICAL HISTORY: DX: sacroiliac dysfunction TECHNIQUE: 2D and realtime digital imaging was performed. CONTRAST MATERIAL: Refer to procedure report. COMPARISON: No exams were available for comparison FINDINGS: Fluoroscopy was provided for Dr. De Leon during the performance of a right SI joint injection. Please refer to the procedure report for complete details. Ka,r=13.8 mGy IMPRESSION:
[2022-07-20 12:59] VITALS: BP 132/78; PULSE 61; RESP 20; TEMP 36.5; O2SAT 96
--- NOTE | 2022-07-20 13:28 | PDOC.PAIN ---
Date of service: 07/20/22 Time of Service: 13:28 Pain Clinic Procedure Note Procedure Note Procedure Note: INTRA-ARTICULAR SI JOINT INJECTION Dea Sifuentes has been referred to the [facility] for intra-articular SI joint injection. COMMENTS: She has previously evaluated in this clinic. She has also had this procedure in the past. DX: Sacroiliac joint dysfunction Pre-procedure pain VAS was 8/10. Patient was interviewed and the medical record reviewed. There were no medical, pharmacologic, radiographic or other structural contraindications to attempting fluoroscopically guided intra-articular SI joint injection. Risks and expected side effects as well as potential benefit of the procedure were reviewed and voiced concerns addressed. The printed consent form was signed and witnessed. Standard time-out procedure was performed. Patient was placed in the prone position on the fluoroscopy table and automated blood pressure cuff and pulse oximeter applied. The skin entry point for approaching the bilateral SI joints was identified under the most advantageous fluoroscopic view and marked. Following thorough Chlorhexadine preparation of the skin and draping and 1% lidocaine infiltration of the skin entry point and subcutaneous tissues, a 22 gauge spinal needle was placed under fluoroscopic guidance into the bilateral SI joints was identified under the most advantageous fluoroscopic view and marked. Intra-articular placement was confirmed by a clear arthrogram resulting from the injection of 0.25ml Omnipaque 240, 1ml 1% lidocaine, and 40mg Depomedrol were injected intra-articularily with an initial reproduction of a significant component of the usual pain. Vital signs were stable throughout the procedure and were as recorded in the docflowsheet by the nursing staff. If given, dosages of intravenous drugs for anxiolysis and analgesia were documented in MAR. Follow up plans and appointments were discussed with the patient. Post procedure instruction was given as documented in nursing documentation and having met discharge criteria, and was discharged from the [facility] Management [facility]. COMMENTS: This procedure can be completed up to 3 times per 12 months. Post-procedure pain VAS was 3/10. She is going to make a follow up visit in the clinic to review her back pain. Joseph De Leon DO, MPH [facility]-Pain Management [facility] CC: Yaya Meadows
[2022-07-20] MEDS: Lidocaine 1% Pres-Free 5 ML VIAL IJ (13:36)
[2022-07-20] MEDS: methylPREDNISolone ACETATE 80 MG/ML VIAL IJ (13:36)
[2022-07-20] MEDS: Omnipaque 240 MG/ML 50 ML BTL IJ (13:37)
[2022-07-20 13:39] VITALS: BP 131/74; PULSE 64; RESP 16; O2SAT 99
== END 2022-07-20 12:52 | disposition home or self-care (01) ==
LOC: PC 12:51
PROVIDERS: PCP Family Medicine; Visit Provider Preventive Medicine Occupational Medicine
DX: M54.50 Low back pain, unspecified (principal); M53.3 Sacrococcygeal disorders, not elsewhere classified
CPT/HCPCS: G0260; 27096; 72200; J1040; Q9967

== ENCOUNTER 2022-11-01 01:04 | Outpatient (CLI) | payer MEDICARE, SELFPAY ==
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
== END 2022-11-01 01:24 ==
LOC: DI 01:04
PROVIDERS: PCP Family Medicine; Visit Provider Preventive Medicine Occupational Medicine
DX: M51.24 Other intervertebral disc displacement, thoracic region (principal)
CPT/HCPCS: 72146

== ENCOUNTER 2022-11-23 08:50 | Outpatient (CLI) | payer MEDICARE, SELFPAY ==
[2022-11-23 08:59] VITALS: BP 135/72; PULSE 63; RESP 20; TEMP 36.4; O2SAT 99
--- NOTE | 2022-11-23 09:00 | DI.RAD_ITS ---
Exam(s) XR PAIN CLINIC THORACIC SP 2V EXAM: XR PAIN CLINIC THORACIC SP 2V CLINICAL HISTORY: Dx: Thoracic Radiculopathy TECHNIQUE: 2D and realtime digital imaging was performed. CONTRAST MATERIAL: Refer to procedure report. COMPARISON: No exams were available for comparison FINDINGS: Fluoroscopy was provided for Dr. De Leon during the performance of a thoracic epidural steroid injectio n. Please refer to the procedure report for complete details. Ka,r=32.2 mGy IMPRESSION:
[2022-11-23] MEDS: Dexamethasone Sod. Phos./Pres-Free 10 MG/ML VIAL IJ (09:44)
[2022-11-23 10:02] VITALS: BP 151/69; PULSE 60; RESP 14; O2SAT 100
[2022-11-23] MEDS: Omnipaque 240 MG/ML 50 ML BTL IJ (10:02)
--- NOTE | 2022-11-23 10:11 | PDOC.PAIN ---
Date of service: 11/23/22 Time of Service: 10:15 Pain Clinic Procedure Note Procedure Note Procedure Note: Thoracic Epidural Steroid Injection Dea Sifuentes has been referred to the Pain Management Center for thoracic epidural steroid injection. COMMENTS: I previously evaluated her in the clinic. She had a recent thoracic MRI revealing a herniated disc. Dx: Thoracic herniated disc Pre-procedure pain VAS score: 8/10 Ms. Sifuentes was interviewed and the medical record reviewed. There were no medical, pharmacologic, radiographic or other structural contraindications to attempting fluoroscopically guided epidural steroid injection. Risks and expected side effects as well as potential benefit of the procedure were reviewed with Ms. Sifuentes, and Ms. Sifuentes voiced concerns addressed. The printed consent form was signed and witnessed. Standard time-out procedure was performed. The patient was placed in the prone position on the fluoroscopy table and automated blood pressure cuff and pulse oximeter applied. The skin entry point for entering the epidural space by a midline T7-T8 interlaminar approach was identified under fluoroscopy and marked. Following thorough Chlorhexadine preparation of the skin and draping and 1% lidocaine infiltration of the skin entry point and subcutaneous tissues, an 18 gauge Tuohy needle was placed under fluoroscopic guidance and with loss of resistance technique into the C7-T1 epidural space. Upon needle placement and loss of resistance there were no paresthesiae or return of blood or CSF through the needle. 1 cc of Omnipaque 240 was injected with clear epidural spread in the A/P, lateral and oblique views. 15 mg of preservative free Dexomethasone was injected with no unusual discomfort expressed by Ms. Sifuentes. This was flushed with 1 cc of normal saline and the needle was removed. Ms. Maria Araujos vital signs were stable throughout the procedure and were as recorded in the docflowsheet by the nursing staff. Follow up plans and appointments were discussed with the Ms. Sifuentes. Post procedure instruction was given as documented in nursing documentation and having met discharge criteria, Ms. Sifuentes was discharged from the Pain Management Center. COMMENTS: Post-procedure pain VAS was 8/10 with no new symptoms. Joseph De Leon DO, MPH [facility]-Pain Management [facility]-Center for [facility] CC: Yaya Meadows
== END 2022-11-23 08:51 | disposition home or self-care (01) ==
LOC: PC 08:51
PROVIDERS: PCP Family Medicine; Visit Provider Preventive Medicine Occupational Medicine
DX: M51.24 Other intervertebral disc displacement, thoracic region (principal)
CPT/HCPCS: 62321; 72070; Q9967

== ENCOUNTER 2023-01-26 15:54 | Outpatient (REF) | payer MEDICARE, SELFPAY ==
[2023-01-26 20:49] LABS: Abs Immature Grans 0.01 10^3/uL (0.0-0.06); Absolute Basophil Count 0.05 10^3/uL (0.0-0.2); Absolute Eosinophil Count 0.12 10^3/uL (0.0-0.7); Absolute Lymphocyte Count 3.24 10^3/uL (1.2-3.4); Absolute Monocyte Count 0.73 10^3/uL (0.1-0.8); Absolute Neutrophil Count 4.44 10^3/uL (1.2-6.7); Basophils % 0.6; Eosinophils % 1.4; HCT 38.3 % (36.0-46.0); Immature Grans % 0.1; Lymphocytes % 37.7; MCH 32.3 pg (27.0-33.0); MCHC 33.9 % (32.0-36.0); MCV 95 fL (80-95); MPV 9.7 fL (8.0-11.0); Monocytes % 8.5; Neutrophils % 51.7; Platelet Count 372 10^3/uL (130-400); RBC 4.03 10^6/uL (3.93-5.22); RDW 13.2 % (11.7-14.6); RDW-SD 46.4 fL; WBC 8.59 10^3/uL (4.4-10.8)
[2023-01-26 21:08] LABS: ALT 25 U/L (14-59); AST 15 U/L (15-37); Albumin 4.1 g/dL (3.4-5.0); Alkaline Phosphatase 76 U/L (46-116); Anion Gap 8.7 mmol/L (3-11); BUN 18 mg/dL (7-18); Bilirubin, Total 0.2 mg/dL (0.2-1.0); CO2 27.3 mmol/L (21.0-32.0); CREATININE 0.9 mg/dL (0.55-1.02); Calcium 9.4 mg/dL (8.5-10.1); Chloride 105 mmol/L (98-107); Estimated GFR 73.64 (mL/min/1.73m2); Glucose 100 mg/dL (74-106); Potassium 4.4 mmol/L (3.5-5.1); Sodium 141 mmol/L (136-145); Total Protein 7.5 g/dL (6.4-8.2)
== END 2023-01-26 15:55 | disposition home or self-care (01) ==
LOC: NCHCN 15:54
PROVIDERS: PCP Family Medicine; Visit Provider Family Medicine
DX: F41.8 Other specified anxiety disorders (principal); M79.7 Fibromyalgia; J44.9 Chronic obstructive pulmonary disease, unspecified; G47.33 Obstructive sleep apnea (adult) (pediatric)
CPT/HCPCS: 80053; 85025

== ENCOUNTER 2023-02-22 15:05 | Outpatient (REF) | payer MEDICARE, SELFPAY ==
[2023-02-22 17:13] LABS: Bacteria Negative HPF (Negative); Casts Negative LPF (Negative); Crystals Negative HPF (Negative); Epithelial Cells Rare HPF (Negative); Mucus Negative (Negative); RBC 0-2 HPF (0-2); WBC 0-2 HPF (0-5)
[2023-02-22 17:14] LABS: C & S Indicated? C&S Done As Ordered
== END 2023-02-22 15:06 | disposition home or self-care (01) ==
LOC: LBN 15:05
PROVIDERS: PCP Family Medicine; Visit Provider Physician Assistant Medical
DX: R35.0 Frequency of micturition (principal)
CPT/HCPCS: 81015; 87086

== ENCOUNTER 2023-04-19 14:16 | Outpatient (CLI) | payer MEDICARE, SELFPAY ==
--- NOTE | 2023-04-19 06:00 | DI.RAD_ITS ---
Exam(s) XR PAIN CLINIC SACRIOILIAC 2V EXAM: XR PAIN CLINIC SACRIOILIAC 2V CLINICAL HISTORY: Dx: Sacroiliac Joint Dysfunction. TECHNIQUE: Fluoroscopy was provided for the referring physician for guidance with performing pain cl inic injection procedure. COMPARISON: No exams were available for comparison FINDINGS: Please see procedure note for details. Fluoro time: 27.7 seconds RADIATION DOSE DELIVERED: Ka,r=13.38 mGy
[2023-04-19 14:35] VITALS: BP 115/68; PULSE 61; RESP 20; TEMP 36.4; O2SAT 98
[2023-04-19] MEDS: Omnipaque 240 MG/ML 50 ML BTL IJ (15:04)
[2023-04-19] MEDS: methylPREDNISolone ACETATE 80 MG/ML VIAL IJ (15:05)
[2023-04-19 15:20] VITALS: BP 150/75; PULSE 66; RESP 21; O2SAT 98
--- NOTE | 2023-04-20 16:23 | PDOC.PAIN_ITS ---
Date of service: 04/19/23 Time of Service: 15:39 Pain Managment Procedure Note Procedure Note Procedure Note: PROCEDURE NOTE BILATERAL INTRA-ARTICULAR SACROILIAC JOINT INJECTION Date of Service: April 19, 2023 Patient: Dea Sifuentes Provider: Joseph Gamez DO, MPH COMMENTS: I previously evaluated the patient in the office and their symptoms in relation to the sacroiliac joint pain have remained the same. Pre-operative diagnosis: Sacroiliac joint dysfunction Post-operative diagnosis: Same Pre-procedure pain: VAS= 7/10 Dea Sifuentes has been referred to our [facility] for a Bilateral intra-articular Sacroiliac joint injection. Dea was interviewed and the medical record reviewed. There were no medical, pharmacologic, radiographic or other structural contraindications to attempting a fluoroscopically-guided, contrast-enhanced, intra-articular Sacroiliac joint injection. The risks, benefits, and potential side effects of this procedure were reviewed with the patient. Questions and concerns were addressed. After it was clear that Dea was fully informed about the procedure, the printed consent form was signed by the patient and myself. Dea was placed in the prone position on the fluoroscopy table and an automated blood pressure cuff, 3 lead EKG, and pulse oximeter were applied. The skin entry point for approaching the Right sacroiliac joint was identified under the most advantageous fluoroscopic view and marked. Following thorough Chlorhexadine preparation of the skin and draping with sterile surgical drapes, 2 mls of 1% l idocaine was infiltrated into the skin at the entry point and the surrounding subcutaneous tissues. Next, a 3.5 22G spinal needle was placed under fluoroscopic guidance into the Right sacroiliac joint. Intra-articular placement was confirmed by a clear arthrogram resulting from the injection of 0.25ml of Omnipaque-240. Next, 1 ml of Depo- Medrol 40 mg/ml was injected intra- articularly with an initial reproduction of a significant component of the usual pain. This was followed with 1 ml of 1% Lidocaine. The needle was then removed without difficulty. (49 ml of Omnipaque-240 was wasted). The exact procedure was completed on the opposite sacroiliac joint. Dea's vital signs were stable throughout the procedure and were as recorded in nursing records. Follow up plans and appointments were discussed with Dea. Post procedure instructions were given as documented in nursing records. Having met discharge criteria, Dea was discharged from the [facility]. COMMENTS: Post-procedure pain: VAS= 0/10. If the patient receives at least 50% improvement in pain and/or function for at least 3 months, this procedure can be repeated if needed. I personally performed this entire procedure. JOSEPH GAMEZ DO, MPH [facility]-subspecialty board certification in Pain Medicine [facility]-[place] [facility]
== END 2023-04-19 14:17 | disposition home or self-care (01) ==
LOC: PC 14:19
PROVIDERS: PCP Family Medicine; Visit Provider Preventive Medicine Occupational Medicine
DX: M54.50 Low back pain, unspecified (principal); M46.1 Sacroiliitis, not elsewhere classified
CPT/HCPCS: 27096; 72200; J1040; Q9967

== ENCOUNTER 2023-06-05 09:58 | Emergency (ER) | payer MEDICARE, SELFPAY ==
--- NOTE | 2023-06-05 10:00 | DI.RAD_ITS ---
Exam(s) XR SHOULDER RT COMPLETE 2+V EXAM: XR SHOULDER RT COMPLETE 2+V CLINICAL HISTORY: Right shoulder pain status post fall. TECHNIQUE: 2D digital imaging was performed. COMPARISON: CR XR SHOULDER RT COMPLETE 2+V from 08/12/2021 FINDINGS: Five views. No evidence of acute fracture or dislocation of the humeral head. Subacromial space is not diminishe d. However, there is a 5 x 2 mm cyst calcification in the soft tissues immediately above the superio r aspect of the glenoid fossa. Cannot exclude avulsion at this level versus capsular pathology. There are no obvious degenerative changes in the glenohumeral joint. Mild degenerative changes in th e AC joint. No osseous lesions evident. No adjacent rib fractures. IMPRESSION: There is a 5 x 2 mm calcific density immediately above the glenoid fossa. This may not be acute. DATA REPOSITORY: RADIATION DOSE DELIVERED:
--- NOTE | 2023-06-05 10:05 | W.ED.GENAD ---
Discharge Plan Disposition Patient Disposition: Home Discharge Details Clinical Impression: Acute pain of right shoulder, Adhesive capsulitis of right shoulder Primary Care Provider: Yaya Meadows ED Provider: Adam Grace Home Meds and New Rx's Prescriptions: Continued fluoxetine 40 mg capsule 60 mg PO DAILY acetaminophen 500 mg tablet 500 mg PO Q6H PRN albuterol sulfate [Ventolin HFA] 90 mcg/actuation HFA aerosol inhaler 2 puff IH .[id number] PRN tizanidine 2 mg tablet 2 mg PO Q8H PRN (Reason: muscle spasticity) Qty: 30 0RF triamcinolone acetonide 0.1 % cream 1 applic topical DAILY Patient Comments: Patient uses PRN acetaminophen 500 mg capsule 1,000 mg PO QID PRN Patient Comments: not taking gabapentin 600 mg tablet 1,200 mg PO BID naproxen 500 mg Tablet 500 mg PO BID Qty: 120 0RF clonazepam 0.5 mg tablet 0.5 mg PO QHS Patient Comments: TAKE 1/2 TO 1 TABLET BY MOUTH EACH NIGHT NEEDED omeprazole 20 mg capsule,delayed release(DR/EC) 40 mg PO DAILY bupropion HCl 75 mg Tablet 75 mg PO DAILY Rx Instructions: administer 6 hours apart Discharge Instructions Instructions: Shoulder Pain (ED) Additional Instructions: You were seen in the emergency department for your shoulder pain. Your x-ray showed no sign of any fractures. Please follow-up with your primary care provider in 1 week. Please take the following pain medications in addition to your naproxen. For your pain please take medications as follows: 1. Take acetaminophen (Tylenol), 1,000 mg (two 500 mg tabs) every 6 hours If you develop any numbness tingling in your hand or any color changes in your hand please return to the emergency department. Please complete the pendulum exercises as we discussed. Stand Alone Forms: Work Release Discharge Data Discharge Date/Time-TO BE ENTERED AT DEPARTURE: 06/05/23 11:48 HPI General Date/Time Provider Initiated Documentation: 06/05/23 10:05. HPI Narrative: HPI This is a [id number] 57-year-old female arriving via private vehicle in the setting of right shoulder pain. Patient reports that she was sitting at a football game on some bleachers 2 mornings ago. Her right foot slipped and she fell backwards catching her fall with an outstretched right hand. She has had worsening pain since then and she had decreased range of motion this morning and increasing pain. She has been taking naproxen twice daily. She did not strike her head. She did not lose consciousness. She has prior left-sided rotator cuff injury. Exam General: Well-appearing in no acute distress speaking in complete sentences. Head: Normocephalic, atraumatic. Eye: Extraocular eye movements intact. No conjunctival injection. No scleral icterus. Ear, nose, mouth, throat: Grossly normal inspection. Normal voice, handling secretions normally. Neck: Trachea midline. Cardiovascular: Well-perfused distal extremities. Respiratory: Nonlabored respiration. Gastrointestinal: Nondistended abdomen. Musculoskeletal: Right shoulder with mild swelling. No significant erythema. Patient is able to abduct her right shoulder to approximately 90 degrees. She has limitation in extending her right shoulder which she can only do to approximately 10 degrees. She can flex her right shoulder to approximately 90 degrees. She can touch her right hand to her contralateral left shoulder. No tenderness in the humerus nor in her elbow. Sensation and motor function intact in the right hand across the radial, median, and ulnar nerve distributions. 2+ right radial pulse. Cap refill less than 2 seconds to the right fingertips. Skin: Normal for age and race, grossly normal temperature and turgor. No acute rash. Neurologic: Alert and appropriate, no apparent acute deficits. Psychiatric: Mood and manner are appropriate. Grooming and personal hygiene are appropriate. MDM This is an overall very well-appearing normothermic and not tachycardic 57-year-old [id number] female with right AC joint tenderness status post fall 2 days ago. She has no clavicular tenderness to suggest clavicular fracture. No pain out of proportion to suggest necrotizing soft tissue infection. Patient does have mild swelling but no significant erythema so doubt septic joint. Patient is able to touch her right hand to her contralateral left shoulder so I am not suspicious for shoulder dislocation. We will complete plain films to assess for any acute osseous abnormalities and if this is negative anticipate discharge with outpatient primary care follow-up as patient may certainly benefit from an MRI once her swelling improves as she certainly may have a ligamentous injury to her rotator cuff. Patient has no tenderness in her humerus nor her elbow. No head strike to suggest benefit from CT head. She does have some mild tenderness over her AC joint and she certainly could have a mild AC joint separation. 11:38 AM On plain films patient had no acute osseous abnormalities although she did have a calcific density immediately above the glenoid fossa. As result she certainly could have adhesive capsulitis. I have asked health community living coach Priscilla to have the patient seen with 1 week by her primary care provider as she may benefit from MRI if her symptoms do not improve or if she fails physical therapy. I instructed her on pendulum activities with which she was familiar from prior contralateral injury. Chronic conditions affecting the care of the patient: N/A History obtained from an outside historian: N/A External record review: No [facility] EMR records Medications: Acetaminophen Social determinants of health affecting disposition: N/A Management discussed with: N/A Treatment/interventions considered: N/A Response to therapies provided: N/A Related Data Home Medications Medication Instructions Recorded Confirmed albuterol sulfate 90 mcg/actuation 2 puff inhalation .[id number] PRN 04/08/19 06/05/23 aerosol inhaler (Ventolin HFA) triamcinolone acetonide 0.1 % 1 applic topical DAILY 07/06/20 06/05/23 topical cream naproxen 500 mg tablet 500 mg PO BID #120 tabs 02/04/21 06/05/23 acetaminophen 500 mg capsule 1,000 mg PO QID PRN 10/15/21 06/05/23 gabapentin 600 mg tablet 1,200 mg PO BID 10/15/21 06/05/23 acetaminophen 500 mg tablet 500 mg PO Q6H PRN 11/01/21 06/05/23 fluoxetine 40 mg capsule 60 mg PO DAILY 11/01/21 06/05/23 clonazepam 0.5 mg tablet 0.5 mg PO QHS 05/09/22 06/05/23 omeprazole 20 mg capsule,delayed 40 mg PO DAILY 05/09/22 06/05/23 release tizanidine 2 mg tablet 2 mg PO Q8H PRN muscle spasticity 07/19/22 06/05/23 #30 tabs bupropion HCl 75 mg tablet 75 mg PO DAILY 04/19/23 06/05/23 Previous Rx's Medication Instructions Recorded naproxen 500 mg tablet 500 mg PO BID #120 tabs 02/04/21 tizanidine 2 mg tablet 2 mg PO Q8H PRN muscle spasticity 07/19/22 #30 tabs Allergies Allergy/AdvReac Type Severity Reaction Status Date / Time Penicillins Allergy Intermediate Skin Rash Verified 06/05/23 10:19 pravastatin AdvReac Intermediate leaky Verified 06/05/23 10:19 stools General ELSY: 3 PFSH All Active Problems Acute pain of right shoulder (Acute) Adhesive capsulitis of right shoulder (Acute) Thoracic back pain (Acute) Sacroiliac joint dysfunction (Acute) Colon cancer screening (Acute) Internal hemorrhoids with other complication (Acute) Sacroiliac joint dysfunction of right side (Acute) Right rotator cuff tendinitis (Acute) Biceps tendinitis of right upper extremity (Acute) Bursitis of shoulder, right (Acute) Insomnia (Acute) Anxiety (Chronic) UTI (urinary tract infection) (Acute) Trochanteric bursitis, right hip (Acute) Low back pain radiating to lower extremity (Acute) S/P left rotator cuff repair (Acute 09/22/20) BPPV (benign paroxysmal positional vertigo) (Acute) Screening for colon cancer (Acute) Claustrophobia (Acute) 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 (Acute) great to MTP joint Primary osteoarthritis of left knee (Chronic) Corticosteroid injection: 12/03/18, 09/12/18 History of total right knee replacement (TKR) (Chronic) 07/20/2018 Revision of arthrotomy on 08/09/2018 Medical History Chronic low back pain Complex tear of medial meniscus of right knee as current injury (11/06/17) Dysuria Headache Knee joint pain Marital problems Peripheral edema Primary osteoarthritis of right knee (12/04/17) Prurigo nodularis Tendonitis of left rotator cuff Confirmed RTC tear Thoracic spine pain Urinary frequency Surgical History History of arthroscopic surgery of shoulder History of delivery (~04/25/11) History of cholecystectomy History of total hysterectomy Status post arthroscopy of right knee (~11/22/17) Partial medial meniscectomy, medial chondroplasty, removal of loose bodies Date of surgery: November 21, 2017 Dr. 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 Status post total knee replacement, right July 2018 Social History Smoking/Tobacco Use Status: Current every day Tobacco Type: cigarettes Smoking packs per day: 1 Smoking cigarettes per day: 20.0 Years smoked: 44 Smoking pack-years: 44.00 Smoking risk assessment performed?: Yes Alcohol Intake: current Alcohol Intake frequency: holidays/special occasions only Drug use: Never Substance use type: does not use Current gender identity: female Do you feel safe at home: Yes Do you feel safe in your relationship?: Yes
[2023-06-05 10:15] VITALS: BP 122/73; PULSE 60; RESP 17; TEMP 36.6; O2SAT 99
--- NOTE | 2023-06-05 11:41 | NUR.NOTE ---
Referral faxed to PCP for right shoulder pain to be seen within 1 week. Nursing Note:
[2023-06-05] MEDS: Acetaminophen 500 MG TAB 1000 MG PO (11:45)
== END 2023-06-05 11:48 | disposition home or self-care (01) ==
PROVIDERS: Emergency Provider Emergency Medicine; PCP Family Medicine
DX: M75.01 Adhesive capsulitis of right shoulder (principal)
CPT/HCPCS: 99283; 73030

== ENCOUNTER 2023-06-13 11:32 | Emergency (ER) | payer MEDICARE, SELFPAY ==
[2023-06-13 11:44] VITALS: BP 114/54; PULSE 68; RESP 17; TEMP 36.7; O2SAT 97
--- NOTE | 2023-06-13 11:45 | DI.RAD_ITS ---
Exam(s) XR SHOULDER RT COMPLETE 2+V EXAM: XR SHOULDER RT COMPLETE 2+V CLINICAL HISTORY: Fall, Pain. TECHNIQUE: 2D digital imaging was performed. Five views. COMPARISON: CR XR SHOULDER RT COMPLETE 2+V from 06/05/2023 FINDINGS: BONES: No acute fracture is present. No bony destructive lesion is seen. There is spurring at the un dersurface of the acromion. JOINTS: No dislocation present. Glenohumeral joint space is maintained. Mild spurring at glenoid. Chronic appearing small bony density superior to the glenoid. Mild degenerative changes of the AC monica int. SOFT TISSUE: Normal. IMPRESSION: Degenerative changes. No acute abnormality. DATA REPOSITORY: RADIATION DOSE DELIVERED:
--- NOTE | 2023-06-13 12:02 | ED.GENADUL_ITS ---
Discharge Plan Disposition Patient Disposition: Home Discharge Details Clinical Impression: Sprain of right shoulder, Degenerative joint disease of right shoulder Primary Care Provider: Yaya Meadows ED Provider: Elena Ken Home Meds and New Rx's Prescriptions: No Action fluoxetine 40 mg capsule 60 mg PO DAILY acetaminophen 500 mg tablet 500 mg PO Q6H PRN albuterol sulfate [Ventolin HFA] 90 mcg/actuation HFA aerosol inhaler 2 puff IH .[id number] PRN tizanidine 2 mg tablet 2 mg PO Q8H PRN (Reason: muscle spasticity) Qty: 30 0RF triamcinolone acetonide 0.1 % cream 1 applic topical DAILY Patient Comments: Patient uses PRN acetaminophen 500 mg capsule 1,000 mg PO QID PRN Patient Comments: not taking gabapentin 600 mg tablet 1,200 mg PO BID naproxen 500 mg Tablet 500 mg PO BID Qty: 120 0RF clonazepam 0.5 mg tablet 0.5 mg PO QHS Patient Comments: TAKE 1/2 TO 1 TABLET BY MOUTH EACH NIGHT NEEDED omeprazole 20 mg capsule,delayed release(DR/EC) 40 mg PO DAILY bupropion HCl 75 mg Tablet 75 mg PO DAILY Rx Instructions: administer 6 hours apart Discharge Instructions Instructions: Shoulder Sprain (ED) Additional Instructions: Wear the splint as needed for comfort. Rest, Ice. Continue taking the naproxen as done previously. No evidence of acute fracture on the Xrays, you do have some degenerative changes such as arthritis. I do suspect a sprain. If no improvement in 1-2 weeks please follow up with Orthopedics. Follow up with primary care provider in 3-5 days. Return to ED sooner if any worsening or concerns. Increase oral fluids. Please take Tylenol or Ibuprofen with food every 4-6 hours as needed for pain and swelling. 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 Patient reports that she was thrown off landing on her landing on her right shoulder. She denies any loss of consciousness did not hit her head, denies any neck or back pain. She does have pain to her right shoulder whenever she tries to move it. Denies any elbow pain no wrist pain distal CMS intact radial pulses intact. She does have a past medical history of insomnia anxiety, UTI, claustrophobia, PTSD, depression, COPD, cholecystectomy she has had her hysterectomy. She does take gabapentin and naproxen which she took prior to her arrival. She was seen here couple weeks ago for a injury of the same shoulder. XR ordered. XR shows no acute abnormality, sling given to patient and instructed to RICE and follow up in 1-2 weeks if no improvement. This text was generated using [employer] system, please disregard any oddities of phrase or misspellings. Imaging Data Radiologic Study: Imaging: X-Ray Radiologist's impression: EXAM:? XR SHOULDER RT COMPLETE 2+V CLINICAL HISTORY: ? Fall, Pain.? TECHNIQUE:? 2D digital imaging was performed.? Five views. COMPARISON:? CR XR SHOULDER RT COMPLETE 2+V from 06/05/2023 FINDINGS: BONES: No acute fracture is present. No bony destructive lesion is seen.? There is spurring at the undersurface of the acromion. JOINTS: No dislocation present.? Glenohumeral joint space is maintained.? Mild spurring at glenoid.? Chronic appearing small bony density superior to the glenoid.? Mild degenerative changes of the AC joint. SOFT TISSUE: Normal. IMPRESSION: Degenerative changes.? No acute abnormality.? HPI General Mode of arrival: ambulatory . Date/Time Provider Initiated Documentation: 06/13/23 11:58 . Limitations to Documentation: no limitations . Information obtained by: patient, RN notes reviewed and old records reviewed . 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 Patient reports that she was thrown off landing on her landing on her right shoulder. She denies any loss of consciousness did not hit her head, denies any neck or back pain. She does have pain to her right shoulder whenever she tries to move it. Denies any elbow pain no wrist pain distal CMS intact radial pulses intact. She does have a past medical history of insomnia anxiety, UTI, claustrophobia, PTSD, depression, COPD, cholecystectomy she has had her hysterectomy. She does take gabapentin and naproxen which she took prior to her arrival. She was seen here couple weeks ago for a injury of the same shoulder. Related Data Home Medications Medication Instructions Recorded Confirmed albuterol sulfate 90 mcg/actuation 2 puff inhalation .[id number] PRN 04/08/19 06/13/23 aerosol inhaler (Ventolin HFA) triamcinolone acetonide 0.1 % 1 applic topical DAILY 07/06/20 06/13/23 topical cream naproxen 500 mg tablet 500 mg PO BID #120 tabs 02/04/21 06/13/23 acetaminophen 500 mg capsule 1,000 mg PO QID PRN 10/15/21 06/13/23 gabapentin 600 mg tablet 1,200 mg PO BID 10/15/21 06/13/23 acetaminophen 500 mg tablet 500 mg PO Q6H PRN 11/01/21 06/13/23 fluoxetine 40 mg capsule 60 mg PO DAILY 11/01/21 06/13/23 clonazepam 0.5 mg tablet 0.5 mg PO QHS 05/09/22 06/13/23 omeprazole 20 mg capsule,delayed 40 mg PO DAILY 05/09/22 06/13/23 release tizanidine 2 mg tablet 2 mg PO Q8H PRN muscle spasticity 07/19/22 06/13/23 #30 tabs bupropion HCl 75 mg tablet 75 mg PO DAILY 04/19/23 06/13/23 Previous Rx's Medication Instructions Recorded naproxen 500 mg tablet 500 mg PO BID #120 tabs 02/04/21 tizanidine 2 mg tablet 2 mg PO Q8H PRN muscle spasticity 07/19/22 #30 tabs Allergies Allergy/AdvReac Type Severity Reaction Status Date / Time Penicillins Allergy Intermediate Skin Rash Verified 06/13/23 11:50 pravastatin AdvReac Intermediate leaky Verified 06/13/23 11:50 stools General Stated Complaint: Orthopedic ELSY: 3 Review of Systems All systems reviewed & are unremarkable except as noted in HPI and below Musculoskeletal Musculoskeletal: Reports as per HPI and Reports arthralgias PFSH All Active Problems Acute pain of right shoulder (Acute) Adhesive capsulitis of right shoulder (Acute) Sprain of right shoulder (Acute) Degenerative joint disease of right shoulder (Acute) Thoracic back pain (Acute) Sacroiliac joint dysfunction (Acute) Colon cancer screening (Acute) Internal hemorrhoids with other complication (Acute) Sacroiliac joint dysfunction of right side (Acute) Right rotator cuff tendinitis (Acute) Biceps tendinitis of right upper extremity (Acute) Bursitis of shoulder, right (Acute) Insomnia (Acute) Anxiety (Chronic) UTI (urinary tract infection) (Acute) Trochanteric bursitis, right hip (Acute) Low back pain radiating to lower extremity (Acute) S/P left rotator cuff repair (Acute 09/22/20) BPPV (benign paroxysmal positional vertigo) (Acute) Screening for colon cancer (Acute) Claustrophobia (Acute) 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 (Acute) great to MTP joint Primary osteoarthritis of left knee (Chronic) Corticosteroid injection: 12/03/18, 09/12/18 History of total right knee replacement (TKR) (Chronic) 07/20/2018 Revision of arthrotomy on 08/09/2018 Medical History Chronic low back pain Complex tear of medial meniscus of right knee as current injury (11/06/17) Dysuria Headache Knee joint pain Marital problems Peripheral edema Primary osteoarthritis of right knee (12/04/17) Prurigo nodularis Tendonitis of left rotator cuff Confirmed RTC tear Thoracic spine pain Urinary frequency Surgical History History of arthroscopic surgery of shoulder History of delivery (~04/25/11) History of cholecystectomy History of total hysterectomy Status post arthroscopy of right knee (~11/22/17) Partial medial meniscectomy, medial chondroplasty, removal of loose bodies Date of surgery: November 21, 2017 Dr. 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 Status post total knee replacement, right July 2018 Social History Smoking/Tobacco Use Status: Current every day Tobacco Type: cigarettes Smoking packs per day: 1 Smoking cigarettes per day: 20.0 Years smoked: 44 Smoking pack- years: 44.00 Smoking risk assessment performed?: Yes Alcohol Intake: current Alcohol Intake frequency: holidays/special occasions only Drug use: Never Substance use type: does not use Housing: house Current gender identity: female Do you feel safe at home: Yes Do you feel safe in your relationship?: Yes Exam Narrative Exam Narrative: General: Well Developed, Awake and Alert, conversant. Skin: Warm and Dry HEENT: Head: No palpable deformities, Normocephalic Eyes: Pupils PERRLA, EOM's intact. No periorbital eccymosis or step off Ears: Canal patent. Tympanic membranes are clear . No pratt's sign, no hemptympanum. Nose/Face: Atraumatic. Facial bones nontender to palpation and stable with manipulation. Mouth/Throat: No intraoral trauma. Teeth and mandible are intact. Neck: No midline tenderness, no step off, no deformity to palpation of C-spine. Trachea midline. Chest: No surface trauma. Nontender without crepitus or deformity. Lungs clear to ausculatation bilaterally. Heart: RRR, no rubs, murmurs or gallop. Abdomen: No abrasions, ecchymosis, or surface trauma. Nondistended. Nontender to palpation no guarding, rebound, or rigidity. Pelvis: Nontender to palpation and stable to compression. Femoral pulses strong and equal Extremities: no surface trauma. Sensation intact. Peripheral pulses intact and equal. Tenderness with palpation to her anterior right shoulder. No obvious deformity Neuro: ANO x4, GCS 15, cranial nerves II through XII intact. Motor and sensory exam nonfocal. Reflexes are symmetric. Course Vital Signs Vital signs: Vital Signs Temperature 36.7 C 06/13/23 11:44 Pulse 68 06/13/23 11:44 Respiratory Rate 17 06/13/23 11:44 Blood Pressure 114/54 L 06/13/23 11:44 Pulse Oximetry 97 06/13/23 11:44 Temperature 36.7 C 06/13/23 11:44 Temperature Source Temporal Artery Scan 06/13/23 11:44 Pulse 68 06/13/23 11:44 Respiratory Rate 17 06/13/23 11:44 Respiratory Effort Normal 06/13/23 11:48 Blood Pressure 114/54 L 06/13/23 11:44 Blood Pressure Position Sitting 06/13/23 11:44 Pulse Oximetry 97 06/13/23 11:44 Oxygen Delivery Method Room Air 06/13/23 11:44 Oxygen Flow Rate 0 06/13/23 11:44 Pain Level 10 06/13/23 11:49
== END 2023-06-13 12:56 | disposition home or self-care (01) ==
PROVIDERS: Emergency Provider Registered Nurse Emergency; PCP Family Medicine
DX: S43.401A Unspecified sprain of right shoulder joint, initial encounter (principal); M19.011 Primary osteoarthritis, right shoulder; W31.89XA Contact with other specified machinery, initial encounter; Y93.H2 Activity, gardening and landscaping; Y92.017 Garden or yard in single-family (private) house as the place of occurrence of the external cause; Y99.9 Unspecified external cause status
CPT/HCPCS: 99283; 73030

== ENCOUNTER → 2023-07-12 07:56 | Outpatient (BNVA) | payer MEDICARE, SELFPAY | PROVIDERS: PCP Family Medicine; Referring Provider Family Medicine; Visit Provider Student in an Organized Health Care Education/Training Program | DX: M75.101 Unspecified rotator cuff tear or rupture of right shoulder, not specified as traumatic (principal) | CPT/HCPCS: 99213 ==

== ENCOUNTER → 2023-07-28 01:36 | Outpatient (CLI) | payer MEDICARE, SELFPAY ==
--- NOTE | 2023-07-28 08:00 | DI.MRI_ITS ---
Exam(s) MR UPPER JOINT RT WO EXAM: MR UPPER JOINT RT WO CLINICAL HISTORY: PAIN, ? RTC TEAR,M75.101 TECHNIQUE: Multiplanar multisequence MRI of the shoulder was performed. COMPARISON: MR MR UPPER JOINT LT WO from 08/27/2020 CR XR SHOULDER RT COMPLETE 2+V from 06/13/2023 FINDINGS: MARROW:There is no evidence of fracture, Hill-Sachs deformity, nor ominous osseous lesions. ROTATOR CUFF MECHANISM: AC JOINT/ACROMIUM: There moderate degenerative changes in the AC joint. This causes impingement upon the supraspinatus. There is no evidence of os acromiale. Supraspinatus: There is a full-thickness tear of the supraspinatus with continuity of fluid between t he glenohumeral joint and subacromial space. There is retraction musculotendinous junction to the mi d humeral head level. AP measurement of the bare area is 2 cm. No obvious muscle atrophy. Infraspinatus: Intact. No evidence of tear nor muscle atrophy. Teres Minor: Intact. No evidence of tear nor muscle atrophy. Subscapularis/anterior cuff: There is partial tearing of the more superior multipennate insertional f ibers of this tendon at the level the lesser tuberosity. BICEPS TENDON: The biceps tendon is displaced medially from the intertubercular groove but still brigid ins attached to the anterosuperior labrum. LABRUM: There is no abnormal signal in the superior labrum posterior to the biceps tendon attachment site. The posterior labrum is intact. The anterior labrum is intact. Inferior labrum is intact. N o evidence of Bankart type lesion. The inferior glenohumeral ligament appears intact. GLENOHUMERAL JOINT: There is a moderate sized glenohumeral joint which extends into the inferior and subcoracoid recesses. No loose intra-articular bodies evident. Mild synovial thickening. No degenerat fabrice subarticular cysts. Minimal articular cartilage loss. No osteophytes. QUADRILATERAL SPACE: No evidence of mass in the region of the axillary nerve and dorsal circumflex hu meral vessels. Visualized triceps muscle at this level appears unremarkable. IMPRESSION: 1. There is full-thickness tear of the supraspinatus with retraction of the musculotendinous junction to the mid humeral head level. 2. There is partial tearing of the more superior aspect of the multipennate insertional fibers of the anterior cuff-subscapularis. 3. There is medial displacement of the long head biceps tendon from the intertubercular groove but wi thout tearing of this structure from the anterosuperior labrum. There is no evidence of labral tear nor paralabral cyst. 4. Moderate size glenohumeral joint effusion. No loose intra-articular bodies evident. Mild degene rative changes in the glenohumeral joint. No osteophytes. Moderate degenerative changes in the AC j oint with some impingement at this level. DATA REPOSITORY:
== END ==
PROVIDERS: PCP Family Medicine; Visit Provider Student in an Organized Health Care Education/Training Program
DX: M75.121 Complete rotator cuff tear or rupture of right shoulder, not specified as traumatic (principal); M25.461 Effusion, right knee
CPT/HCPCS: 73221

== ENCOUNTER → 2023-08-02 01:37 | Outpatient (CLI) | payer MEDICARE, SELFPAY ==
--- NOTE | 2023-08-02 | DI.MAMMO_ITS ---
Exam(s) MAMMO SCREENING EXAM: MAMMO SCREENING 2014 through 2020 CLINICAL HISTORY: SCREENING, Z12.31 TECHNIQUE: Mammograms were interpreted according to the usual protocol including computer analysis w [employer] CAD system, tomosynthesis and C-view imaging. COMPARISON: No exams were available for comparison FINDINGS: The breasts are composed of scattered fibroglandular densities, Breast Density category B. No suspicious masses or suspicious microcalcifications are seen. No skin thickening or abnormal axillary lymph nodes are seen. There has been no significant change from prior exams. IMPRESSION: BI-RADS Category 1, Negative mammogram Yearly screening mammography is recommended. Breast Density - Category B, scattered fibroglandular densities. A negative radiographic report should not delay biopsy if a dominant or clinically suspicious mass is present. Up to ten percent of cancers are not identified on mammography. A negative report may reinforce clinical impression. Adenosis and dense breasts may obscure an underlying neoplasm. False positive reports average 6 to 10%. Patient will receive a letter notifying them of these results.
== END ==
PROVIDERS: PCP Family Medicine; Visit Provider Family Medicine
DX: Z12.31 Encounter for screening mammogram for malignant neoplasm of breast (principal)
CPT/HCPCS: 77063; 77067

== ENCOUNTER → 2023-08-08 13:17 | Outpatient (BNVA) | payer MEDICARE, SELFPAY | PROVIDERS: PCP Family Medicine; Referring Provider Family Medicine; Visit Provider Student in an Organized Health Care Education/Training Program | DX: M75.121 Complete rotator cuff tear or rupture of right shoulder, not specified as traumatic (principal); M75.21 Bicipital tendinitis, right shoulder | CPT/HCPCS: 99214 ==

== ENCOUNTER 2023-08-11 08:01 | Day surgery (SDC) | payer MEDICARE, SELFPAY ==
[2023-08-11] VITALS (13 sets, daily range): BP systolic 119–144; BP diastolic 52–86; PULSE 59–73; RESP 14–19; TEMP 36.1–36.6; O2SAT 94–99; BMI 39.1
--- NOTE | 2023-08-11 06:57 | W.ANESPRE ---
General Info Date of Service Date Performed: 08/11/23 Height: 5 ft 4 in Weight: 103.419 kg Body Mass Index (BMI): 39.1 Surgical Procedure: Operation Date: 08/11/23 09:55 Proposed Procedure Side Surgeon p Shoulder Rotator Cuff Arthroscopic w/Extensive Debridement, Biceps Tenodesis, Subacromial Decompression Right Jean Basurto MD Meds Allergies and Home Medications Allergies Allergy/AdvReac Type Severity Reaction Status Date / Time Penicillins Allergy Intermediate Skin Rash Verified 08/11/23 08:30 pravastatin AdvReac Intermediate leaky Verified 08/11/23 08:30 stools Home Medication Medication Instructions Recorded albuterol sulfate 90 mcg/actuation 2 puff inhalation .[id number] PRN 04/08/19 aerosol inhaler (Ventolin HFA) triamcinolone acetonide 0.1 % 1 applic topical DAILY 07/06/20 topical cream acetaminophen 500 mg capsule 1,000 mg PO QID PRN 10/15/21 gabapentin 600 mg tablet 1,200 mg PO BID 10/15/21 acetaminophen 500 mg tablet 500 mg PO Q6H PRN 11/01/21 fluoxetine 40 mg capsule 60 mg PO DAILY 11/01/21 clonazepam 0.5 mg tablet 0.5 mg PO QHS 05/09/22 omeprazole 20 mg capsule,delayed 40 mg PO DAILY 05/09/22 release tizanidine 2 mg tablet 2 mg PO Q8H PRN muscle spasticity 07/19/22 #30 tabs bupropion HCl 75 mg tablet 75 mg PO DAILY 04/19/23 aspirin 81 mg capsule 81 mg PO DAILY prevent blood clot 08/11/23 7 days #7 caps naproxen 250 mg tablet 250 - 500 mg (1 - 2 x 250 mg) PO 08/11/23 BID PRN moderate pain and swelling #40 tabs oxycodone 5 mg tablet 5 - 10 mg (1 - 2 x 5 mg) PO .q4-6h 08/11/23 PRN severe pain #18 tabs Current Visit Medications: Current Medications Generic Name Dose Route Start Last Admin Trade Name Freq PRN Reason Stop Dose Admin Ringer's Solution 1,000 mls @ 30 mls/hr 08/11/23 06:00 IV 09/09/23 23:59 INFUSION EDE Cefazolin Sodium/Dextrose 2 gm in 50 mls @ 100 mls/hr 08/11/23 06:00 Ancef Duplex IVPB 09/09/23 23:59 PREOP EDE IV Miscellaneous Supplies 1 each 08/11/23 06:00 Iv Access IV 09/09/23 23:59 DIRECTED EDE Sodium Chloride 0 ml 08/11/23 06:00 Normal Saline Flush 10 Ml Syr IV 09/09/23 23:59 PRN PRN Sodium Chloride 0 ml 08/11/23 06:00 Normal Saline 10 Ml Vial IJ 09/09/23 23:59 DIRECTED PRN Sterile Water 0 ml 08/11/23 06:00 Water,Injection,Sterile 10 Ml Vial IJ 09/09/23 23:59 DIRECTED PRN PFSH Active Problems Active Problems: Problem Status Onset Code Tendonitis of long head of biceps brachii of right shoulder M75.21 Right rotator cuff tear M75.101 Thoracic back pain M54.6 Sacroiliac joint dysfunction M53.3 Colon cancer screening Z12.11 Internal hemorrhoids with other complication K64.8 Sacroiliac joint dysfunction of right side M53.3 Right rotator cuff tendinitis M75.81 Biceps tendinitis of right upper extremity M75.21 Bursitis of shoulder, right M75.51 Insomnia G47.00 Anxiety F41.9 UTI (urinary tract infection) N39.0 Trochanteric bursitis, right hip M70.61 Low back pain radiating to lower extremity M54.5 S/P left rotator cuff repair 09/22/20 Z98.890 BPPV (benign paroxysmal positional vertigo) H81.10 Screening for colon cancer Z12.11 Claustrophobia F40.240 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 M19.071 Primary osteoarthritis of left knee M17.12 History of total right knee replacement (TKR) Z96.651 Medical History Medical History Dysuria Tendonitis of left rotator cuff Confirmed RTC tear Marital problems Prurigo nodularis Thoracic spine pain Peripheral edema Chronic low back pain Knee joint pain Urinary frequency Headache Primary osteoarthritis of right knee (12/04/17) Complex tear of medial meniscus of right knee as current injury (11/06/17) Surgical History Surgical History History of arthroscopic surgery of shoulder L shoulder History of total hysterectomy History of cholecystectomy History of delivery (~04/25/11) Status post revision of total knee replacement July 2018 Status post total knee replacement, right July 2018 Status post arthroscopy of right knee (~11/22/17) Partial medial meniscectomy, medial chondroplasty, removal of loose bodies Date of surgery: November 21, 2017 Dr. Curtis Tobacco Smoking/Tobacco Use Status: Current every day Tobacco Type: cigarettes Smoking packs per day: 1 Smoking cigarettes per day: 20 Years smoked: 44 Alcohol Alcohol Intake: current Alcohol intake frequency: holidays/special occasions only Substance Use Substance use: Never Substance use type: does not use Vital Signs and Lab Results Lab Results Blood Type / Crossmatch: No Data to Display Complete Blood Count: No Data to Display Complete Metabolic Panel: No Data to Display Liver Function Panel: No Data to Display Coagulation Panel: No Data to Display Cardiac Panel: No Data to Display Arterial Blood Gas: No Data to Display Venous Blood Gas: No Data to Display Pancreas Panel: No Data to Display Thyroid Panel: No Data to Display Infectious Disease: No Data to Display Blood Cultures: No Data to Display Toxicology Panel: No Data to Display Anesthesia Assessment and Plan Anesthesia History Personal History: No History of Anesthesia Complications Family History: No Family History of Anesthesia Complications Exercise Tolerance Exercise Tolerance: Metabolic Equivalents>4 Pertinent Negatives Pertinent Negatives: No Major Cardiovascular Symptoms or Complaints Cardiac & Pulmonary Exam Cardiac Exam: Normal S1/S2 Heart Sounds Pulmonary Exam: Clear Bilateral Breath Sounds Implantable Cardiac Device Does patient have a Pacemaker or an ICD?: No Airway Exam Known Difficult Airway: No Mallampati Class: 4 Mouth Opening: Narrow (< 3cm) Thyromental Distance: Less than 3 cm Neck Range of Motion: Limited ROM Neck Circumference: Thick Teeth Condition: Normal Dentition ASA Classification ASA Score: ASA 3 Emergency Case?: No NPO Status NPO Status: NPO Clears >2 hours, Solids >8 hours Anesthesia Plan Resuscitation Status: Full Code Anesthesia Technique: General Anesthesia Airway Planned: Natural Airway Pain Management: Surgeon and patient request nerve block Monitors Used: Standard Monitors Preoperative Comments:: 01/27/2021 previous glide 3 grade 1, lma 5, previous multiple spinal attempts with eventual success. 05/27/2023: Previous Mac 3, Grade 3 view Patient reports GERD well controlled.
--- NOTE | 2023-08-11 07:36 | PDOC.DSDIS_ITS ---
Date of service: 08/11/23 Time of Service: 14:00 Discharge Plan Disposition Patient Disposition: Home Condition: Stable Discharge Details Attending Provider: Jean Basurto Primary Care Provider: Yaya Meadows Home Meds and New Rx's Prescriptions: New naproxen 250 mg tablet 250 - 500 mg PO BID PRN (Reason: moderate pain and swelling) Qty: 40 0RF oxycodone 5 mg tablet 5 - 10 mg PO .q4-6h PRN (Reason: severe pain) Qty: 18 0RF aspirin 81 mg capsule 81 mg PO DAILY 7 Days Qty: 7 0RF Continued fluoxetine 40 mg capsule 60 mg PO DAILY acetaminophen 500 mg tablet 500 mg PO Q6H PRN albuterol sulfate [Ventolin HFA] 90 mcg/actuation HFA aerosol inhaler 2 puff IH .[id number] PRN tizanidine 2 mg tablet 2 mg PO Q8H PRN (Reason: muscle spasticity) Qty: 30 0RF triamcinolone acetonide 0.1 % cream 1 applic topical DAILY Patient Comments: Patient uses PRN acetaminophen 500 mg capsule 1,000 mg PO QID PRN Patient Comments: not taking gabapentin 600 mg tablet 1,200 mg PO BID clonazepam 0.5 mg tablet 0.5 mg PO QHS Patient Comments: TAKE 1/2 TO 1 TABLET BY MOUTH EACH NIGHT NEEDED omeprazole 20 mg capsule,delayed release(DR/EC) 40 mg PO DAILY bupropion HCl 75 mg Tablet 75 mg PO DAILY Rx Instructions: administer 6 hours apart Discontinued naproxen 500 mg Tablet 500 mg PO BID Qty: 120 0RF naproxen 250 mg tablet 250 mg PO BID PRN Discharge Instructions Additional Instructions: Surgery: Right shoulder arthroscopy with massive rotator cuff repair (supraspinatus, medial transtendinous infraspinatus, and subscapularis), biceps tenodesis, extensive debridement, and subacromial decompression. Activity: For 6 weeks, you should keep your arm at your side in a neutral position at all times except for physical therapy. Do not try to lift or raise your arm using your own muscles. You should use the sling whenever you are out of the house. You may have to adjust the abduction pillow or remove it for comfort. At home it is best to remove the sling and rest the arm on a pillow at your side or support the operative side with your other hand. You may allow the arm to dangle at your side. A physical therapy prescription will be sent electronically to begin in about 3 weeks. CONSERVATIVE protocol. Prescriptions: Aspirin 81 mg take 1 daily to prevent a blood clot for 7 days Naproxen 250 mg take 1-2 every 12 hours with a meal as needed for moderate pain Oxycodone 5 mg take 1-2 every 4-6 hours as needed for severe pain You may use [id number] Tylenol (acetaminophen) as needed for mild pain. These pain medications may be taken all at once or in different combinations as needed. Also, recommend Colace (docusate) as a stool softener as surgery and pain medicine cause constipation. You may try [id number] diphenhydramine (Benadryl) 25-50 mg nightly as a sleep aid Dressings: Remove shoulder bandage after 3 days. Leave the sticky Steri-Strips in place until they fall off or remove them after you shower. Cover the incisions with Band-Aids or leave them open to air. You may shower after 5 days. Follow-up: 10-[address] Basurto You may take off the leg compression stockings this evening at home. You may also leave them on a few days longer if you have a history of leg swelling or edema. Let us know right away if you develop any redness, drainage, fevers, chest pain, or trouble breathing. Do not drink alcohol or drive for at least 24 hours after anesthesia. Please call the office during business hours with any questions or concerns. Stand Alone Forms: Anesthesia Discharge Inst., Rosario.Nerve Block Instructions, Una Silva (DSU) Referrals: Jean Basurto MD [ [facility] STAFF PHYSICIAN] - 08/22/23 1:45 pm Discharge Orders Discharge Orders: Discharge Order (Routine); Ordered 08/11/23 Ordered By: Radha Feldman DS: Diagnosis Discharge Diagnosis (1) Right rotator cuff tear: Status: Acute
[2023-08-11] MEDS: Lactated Ringers 1,000 ML 30 ML IV (09:05)
[2023-08-11] MEDS: ceFAZolin 2 GM/50 ML BAG IVPB (09:58)
--- NOTE | 2023-08-11 10:21 | W.ANESNERVE ---
Nerve Block Single Injection Procedure Date and Time Date Performed: 08/11/23 Procedure Start: 09:32 Location Where Procedure Performed Procedure Location: Day Surgery Unit Reason Performed: Postoperative Analgesia Requesting Provider: Joseph Thayer Timeout Performed Timeout Performed: Yes Monitoring Used ECG, Blood Pressure and SpO2 Sterility Sterility: Hand Hygiene, Surgical Cap, Surgical Mask and Chlorhexidine Sedation Given During Procedure Sedation Given (Indicate Dose Given): Versed IV Dose:: 2 mg Patient Mental Status Patient Mental Status: Sedate with meaningful communication Nerve Block 1st Nerve Block: Laterality: Right Block Type: Interscalene Ultrasound Image Saved?: Yes Needle / Catheter Used: 100mm SonoPlex II Local Anesthetic Bolus (Indicate Dose Given): Lidocaine used for local infiltration of skin, Injected in 3-5ml increments after negative blood aspiration, Bupivacaine 0.5% Dose:: 10 ml and Exparel Dose:: 10 ml Additives (Indicate Dose Given): Normal Saline Ultrasound: Sterile probe cover and gel used Nerve Stimulator: Supplement to Ultrasound use and No twitch or parasthesia noted < 0.5 mA Paresthesia: None Procedure Tolerated: No Complications and Patient did not tolerate well (Reported significant discomfort locally during movement of needle from beginning to end of nerve block. No paresthesias, no stimulation elicited. ) Procedure Outcome: Successful Procedure Comment: Preprocedural evaluation with tingling/altered sensation in fingertips, per patient intermittent, and reduced strength on operative side due to injury. Performed By: Joseph Thayer
[2023-08-11] MEDS: Bupivacaine 0.25% Pres-Free 30 ML VIAL (10:24)
[2023-08-11] MEDS: EPINEPHrine 10 MG/10 ML ML (10:24)
--- NOTE | 2023-08-11 13:11 | ROE_ITS ---
Date of service: 08/11/23 Time of Service: 12:00 Operative Note Operative Note DATE OF PROCEDURE: 08/11/23 PRE-OP DIAGNOSIS: Right: 1. Rotator cuff tear 2. LHB medial subluxation/ tendinopathy 3. Bursitis POST-OP DIAGNOSIS: same PROCEDURE: Right: 1. Massive rotator cuff repair, CPT# 18905 modifier 22. This involved complex repair of the infraspinatus, supraspinatus, and subscapularis using anchors and sutures to reattach the rotator cuff back to the footprint of the lesser and greater tuberosity requiring significantly increased preoperative counseling, operative time, surgical difficulty, increased number of implants, and will require more frequent postoperative attention with a higher risk for complication/failure. 2. Arthroscopic biceps tenodesis, CPT# 12395. This involved arthroscopically suturing, relocating, and reattaching the long head of the biceps tendon to the proximal humerus at the superior margin of the bicipital groove with a screw at the correct tension. 3. Extensive debridement, CPT# 77756. This involved using arthroscopic hand instruments, power instruments, and radiofrequency instruments to release the long head of the biceps tendon and debride areas of labral tearing, synovitis, and chondromalacia about the glenoid, lesser tuberosity working the glenohumeral joint anteriorly, superiorly and posteriorly as well as release capsular adhesions about the retracted subscapularis. 4. Subacromial decompression with partial acromioplasty, CPT# 92845. This involved using arthroscopic power instruments and a radiofrequency wand to complete a bursectomy and smooth the undersurface of the acromion. The medical claims assistant was medically required in order to help assist in techniques above, which require positioning the arm, holding the arthroscope, and manip ulating multiple instruments and sutures at the same time. This cannot be done without the help of an experienced medical claims assistant. SURGEON: Jean Basurto OPERATIONS ASSISTANT: Radha Feldman ANESTHESIA TYPE: Local By Surgeon, General LMA/ETT and Primary Nerve Block Refer to Anesthesia Record ESTIMATED BLOOD LOSS: 10 PATHOLOGY: none sent COMPLICATIONS: None Patient was transported to: PACU Patient's condition: stable Implants: Arthrex: 4.75mm SwiveLocks x 3 Indications: The patient was diagnosed with the above conditions and appropriately indicated for surgical intervention. Please see complete medical record for details. Findings: Exam under anesthesia: Full range of motion, no instability Glenohumeral joint: Significant anterior and superior, only moderate posterior synovitis. Significant upper portion about 50% delaminated retracted subscapularis tendon tear. Medial biceps subluxation from the bicipital groove with moderate partial intrasubstance tearing. Scarring capsular adhesions retracted subscapularis and capsule. Mild labral fraying injection globally. Moderate central glenoid chondromalacia, and moderate to high-grade somewhat global central to superior humeral head chondromalacia. Subacromial space: Significant bursitis, significantly thickened abnormal rotator cuff tearing involving medial trans tenderness infraspinatus tearing from far posterior to supraspinatus anteriorly crossing the transverse humeral ligament into the subscapularis tear. The supraspinatus was torn from the medial aspect of the greater tuberosity with notable tendon remnant still present. Chronic fibrinous changes about the exposed greater tuberosity. Medial portion of the moderately retracted supraspinatus infraspinatus tendon with profound thickening abnormal somewhat concerning for degenerated tendon Procedure Description: In the operating room, general anesthesia was induced. Bilateral shoulders were examined. The patient was positioned in the beachchair position. All bony prominences were well-padded. Preoperative antibiotics were administered. The shoulder was prepped and draped in the usual sterile fashion. The correct patient, procedure, and side of the procedure were all verified prior to incision. Starting through the posterior portal a standard complete diagnostic arthroscopy was performed of the glenohumeral joint including inspection of the long head of the biceps, anterior and superior labrum, subscapularis tendon, supraspinatus and infraspinatus tendons, and axillary recess. The glenoid and humeral head cartilage as well as the posterior labrum were inspected from an anterior viewing portal. Significant findings and interventions noted above. Of note, the significant synovitis was debrided, the rotator interval was recreated with manual traction on the biceps tendon laterally. The subscapularis was released from anterior capsule using liberator and elevators. Appropriate excursion was confirmed laterally. The lesser tuberosity was debrided and abraded to optimize healing. The subscapularis was debrided to a more normal tendon margin but it was significantly thickened and degenerated with intrasubstance tearing as well. An additional anterior superior lateral portal was established working through the full-thickness supraspinatus tear to aid in anterior repairs. An all-arthroscopic suprapectoral biceps tenodesis was performed working through the anterior superior lateral with initially a loop and tack method, but given the degenerated tendon from the foramen over the subluxation lesser tuberosity, the scorpion was used to pass the FiberLink and through the tendon, wraparound the tendon a couple times, through the tendon tendon again, and then repeated wrapping around and then through the tendon lastly for extra fixation. The biceps tendon was then tenotomized with arthroscopic scissors from the superior labrum and retracted to the superior aspect bicipital groove for later repair/ With the biceps tendon out of the way, the subscapularis was repaired. The self retrieving suture passer was used to shuttle a FiberTape medial through the body of the subscapularis to the tear with a FiberLink cinch mode at the superior margin incorporating a separate flap of tissue. The lesser tuberosity had been prepared to optimize healing. The undersized punch was used given concern for poor bone quality, repair sutures loaded on a knotless SwiveLock anchor, which was deployed with appropriate tension and reduction on the subscapularis repair with the arm in neutral position to avoid loss of external rotation. There was good recreation of normal subscapularis tendon anatomy. The knotless mechanism was then used shuttled through the upper subscapularis and then back through the anchor eyelet adding additional fixation. The repair was stable through external rotation. The tendon was followed medial again and like debridement done of the capsular adhesions which were now brought more laterally and easily accessible. Starting through the posterior portal, the arthroscope was directed into the subacromial space. A posterior superior lateral portal was created. A combination of power instruments and a radiofrequency ablator were used to debride bursitis anteriorly, posteriorly, and laterally as well as expose and smooth bone spurring on the undersurface of the acromion. The coracoacromial ligament was released. The bursectomy was completed viewing laterally and working from posteriorly and the rotator cuff was thoroughly inspected with findings noted above. Significant time was spent preparing the abnormally torn tendon while preserving tendon both medial laterally for repair especially of the infraspinatus. The supraspinatus could be reapposed to the prepared medial margin of the greater tuberosity centrally and anteriorly just past the subscapularis repair and bicipital groove. The infraspinatus could be reapposed [id number] through its large trans tendinous tear. The repair was started far posteriorly using the 90 degree lasso and the scorpion, which had a challenging time passing suture through the abnormally thickened tendon, placing 4 [id number] suture tape repair stitches for complete repair and reapposition of the infraspinatus large tear up to the junction of the supraspinatus near the exposed greater tuberosity. The suture pairs were secured with [facility] arthroscopic knots. Next, the supraspinatus was confirmed to reapposed to the prepared and optimized medial margin of the greater tuberosity leaving the remainder of the lateral tendon remnant present. With repair anteriorly and posteriorly subscap and infraspinatus the supraspinatus was now closer in position. The self retrieving suture passer was used to place inverted horizontal mattress FiberTape in the central to posterior aspect of the supraspinatus tear followed by a FiberLink suture tape in cinch mode centrally more medially, all of these repair sutures were brought out to an intermediate row 4.75 mm SwiveLock anchor, which had been previously punched with the undersized punched through lateral remnant supraspinatus tissue. This this anchor brought the supraspinatus nicely over the medial footprint defect as well as brought the supraspinatus edge medially to the lateral tendon remnant. The anterior part of the supraspinatus tear was now largely reduced, the self retrieving suture passer used to place another inverted horizontal mattress FiberTape. The punch was brought in most anteriorly for a similar intermediate type row anchor, the supraspinatus repair sutures as well as the maintained biceps tenodesis repair suture were loaded on another 4.75 mm swivel lock anchor, which was deployed with appropriate tension on both the remaining rotator cuff repair and completing the biceps tenodesis. The large repairs were inspected and remarkably good tendon to tendon repair of the infraspinatus and reapposition of the supraspinatus to greater tuberosity and lateral tendon remnant all confirmed. The repairs were stable through range of motion and testing. The shoulder was drained of arthroscopic fluid. All portal sites were copiously irrigated. These incisions were closed using 3-0 Monocryl in a buried fashion and then covered with Mastisol, Steri-Strips, Xeroform, dry gauze, and ABDs. The dressings were covered and secured with Medipore tape. The operative extremity was placed into a sling for immobilization. The patient awoke from anesthesia without complication and was transferred to the recovery room in a stable condition.
[2023-08-11] MEDS: fentaNYL 100 MCG/2 ML VIAL IVP (14:12)
--- NOTE | 2023-08-11 14:50 | W.ANESPOSTOP ---
Postoperative Evaluation Date, Time and Location Date Performed: 08/11/23 Time Performed: 14:50 Patient Location: PACU Vital Signs Most Recent Imported Vital Signs: Most Recent Vital Signs Temp Pulse Resp BP Pulse Ox 36.3 C L 69 14 132/61 94 08/11/23 14:25 08/11/23 14:25 08/11/23 14:25 08/11/23 14:25 08/11/23 14:25 Pain Score Most Recent Pain Score: Most Recent Pain Score Pain Level 0 08/11/23 09:30 Assessment Mental Status: Awake (Alert & Oriented to Patient Baseline) Airway and Respiratory Function: Patent airway with normal (patient baseline) respiratory exam Cardiovascular Function: Hemodynamically Stable Hydration Status: Adequately Hydrated Nausea & Vomiting: No Nausea or Vomiting Pain: Pt. Denies Any Pain Peripheral Nerve Block: Regional nerve block not resolved at time of post operative discharge Postoperative Comments:: Discussed care of arm, need to protect limb for duration of block. Patient demonstrated understanding. Patient is cleared to go home at this time, so long as passes DSU metrics.
== END 2023-08-11 16:34 | disposition home or self-care (01) ==
LOC: SUR 08:01
PROVIDERS: PCP Family Medicine; Visit Provider Student in an Organized Health Care Education/Training Program
PROC: (CPT 29827; principal; 2023-08-11 09:45)
DX: M75.101 Unspecified rotator cuff tear or rupture of right shoulder, not specified as traumatic (principal); K21.9 Gastro-esophageal reflux disease without esophagitis; M75.21 Bicipital tendinitis, right shoulder
CPT/HCPCS: 29827; 29828; 29823; 29826; 76942; J0131; J0690; J1100; J1885; J2001; J2250; J2371; J2405; J2704; J3010

== ENCOUNTER → 2023-08-22 13:53 | Outpatient (BNVA) | payer MEDICARE, SELFPAY | PROVIDERS: PCP Family Medicine; Referring Provider Family Medicine; Visit Provider Student in an Organized Health Care Education/Training Program | DX: Z47.89 Encounter for other orthopedic aftercare (principal); M75.101 Unspecified rotator cuff tear or rupture of right shoulder, not specified as traumatic; M75.21 Bicipital tendinitis, right shoulder ==

== ENCOUNTER → 2023-10-03 13:11 | Outpatient (BNVA) | payer MEDICARE, SELFPAY | PROVIDERS: PCP Family Medicine; Visit Provider Student in an Organized Health Care Education/Training Program | DX: Z47.89 Encounter for other orthopedic aftercare (principal); M75.21 Bicipital tendinitis, right shoulder ==

== ENCOUNTER 2023-11-02 13:00 | Outpatient (REF) | payer MEDICARE, SELFPAY | END 2023-11-02 13:01 | disposition home or self-care (01) | LOC: NCHCN 13:00 | PROVIDERS: PCP Family Medicine; Referring Provider Family Medicine; Visit Provider Family Medicine | DX: R39.9 Unspecified symptoms and signs involving the genitourinary system (principal) | CPT/HCPCS: 87086 ==

== ENCOUNTER 2024-01-29 14:18 | Outpatient (REF) | payer MEDICARE, SELFPAY ==
[2024-01-29 21:08] LABS: Abs Immature Grans 0.02 10^3/uL (0.0-0.06); Absolute Basophil Count 0.05 10^3/uL (0.0-0.2); Absolute Eosinophil Count 0.09 10^3/uL (0.0-0.7); Absolute Lymphocyte Count 2.91 10^3/uL (1.2-3.4); Absolute Monocyte Count 0.59 10^3/uL (0.1-0.8); Absolute Neutrophil Count 3.34 10^3/uL (1.2-6.7); Basophils % 0.7 %; Eosinophils % 1.3 %; HCT 38.1 % (36.0-46.0); HGB 12.6 g/dL (11.2-15.7); Immature Grans % 0.3 %; Lymphocytes % 41.6 %; MCH 32.1 pg (27.0-33.0); MCHC 33.1 % (32.0-36.0); MCV 97 fL (80-95); MPV 9.8 fL (8.0-11.0); Monocytes % 8.4 %; Neutrophils % 47.7 %; Platelet Count 387 10^3/uL (130-400); RBC 3.92 10^6/uL (3.93-5.22); RDW 12.8 % (11.7-14.6); RDW-SD 45.9 fL
[2024-01-29 21:18] LABS: ALT 26 U/L (14-59); AST 14 U/L (15-37); Albumin 4.3 g/dL (3.4-5.0); Alkaline Phosphatase 80 U/L (46-116); Anion Gap 8.7 mmol/L (3-11); BUN 15 mg/dL (7-18); Bilirubin, Total 0.4 mg/dL (0.2-1.0); CO2 26.3 mmol/L (21.0-32.0); CREATININE 0.8 mg/dL (0.55-1.02); Calcium 9.3 mg/dL (8.5-10.1); Chloride 104 mmol/L (98-107); Glucose 87 mg/dL (74-106); LDL CHOLESTEROL 128 mg/dL (<100); Potassium 4.3 mmol/L (3.5-5.1); Sodium 139 mmol/L (136-145); Total Protein 7.3 g/dL (6.4-8.2)
== END 2024-01-29 14:19 | disposition home or self-care (01) ==
LOC: NCHCN 14:18
PROVIDERS: PCP Family Medicine; Visit Provider Family Medicine
DX: Z00.00 Encounter for general adult medical examination without abnormal findings (principal)
CPT/HCPCS: 80053; 83721; 85025

== ENCOUNTER 2024-02-07 10:35 | Outpatient (CLI) | payer MEDICARE, SELFPAY ==
[2024-02-07 10:44] VITALS: BP 156/80; PULSE 63; RESP 20; TEMP 36.6; O2SAT 96
[2024-02-07 11:32] VITALS: PULSE 64; O2SAT 99
[2024-02-07] MEDS: methylPREDNISolone ACETATE 40 MG/ML VIAL IJ (11:35)
[2024-02-07] MEDS: Lidocaine 2% Multi-Dose 20 ML VIAL IJ (11:35)
[2024-02-07] MEDS: Nerve Block Tray 1 EACH MC (11:35)
--- NOTE | 2024-02-07 14:42 | PDOC.PAIN ---
Date of service: 02/07/24 Time of Service: 14:42 US Guided Injections Type of Ultrasound Guided Injection: Bilateral Trochanteric Bursa Injection Pre-Procedural Evaluation Pain to the bilateral lateral hips Referral Patient has been referred to the [facility] for Bilateral Trochanteric Bursa Injection for a chief complaint of Pain to the bilateral lateral hips Pre-Procedural Pain Score Pre-procedural pain score: 8/10 Reason for Exam Pain to the bilateral lateral hips Patient Interview Patient was interviewed and medical record reviewed: Yes There were no contraindications to performing an US guided procedure. Risks,expected side effects, potential benefits were reviewed. The patient consent form was signed and witnessed. Standard time out procedure was performed. Patient Safety No skin abnormalities at the injection sites. Procedure Description No sedation given for procedure Patient was placed in the left lateral recumbent and right lateral recumbent position and the following Pulse Ox applied. Pre-Procedure ultrasound scanning performed using a Linear 9 MHz probe Site Preparation Chloroprep Local Anesthesia Skin and subcutaneous tissues anesthetized with: 4 mL of Lidocaine 2%. A 21 G 3.5 Pajunk ultrasound needle was placed under live US guidance using an in-plane approach to the target area. After visualization of the needle tip at the target area Depo-Medrol 40mg per cc and Lidocaine 2% were used. Total of Injectate/Medication Note: 1 cc of Depomedrol and 2 cc of 2% Lidocaine to each site. Negative aspiration for blood. [place] were removed without difficulty. Ultrasound images were captured and stored. Patient Mental Status Patient was alert during procedure Vital Signs Vital signs were stable throughout the procedure and recorded by nursing. Follow Up/Discharge Follow up plans and appointments were discussed with patient. Post procedure instruction was given as documented in nursing documentation. Discharge criteria met and patient discharged from [facility] Management [facility]: Yes Post Procedure Pain Post Procedure Pain: 0/10 Patient tolerated procedure well Procedure Outcome: Successful Bursa Injection (bilateral trochanteric bursas) Non US Guided Injections Procedure Description Patient was placed in the left lateral recumbent and right lateral recumbent position Post Procedure Pain Post Procedure Pain: 0/10
== END 2024-02-07 10:36 | disposition home or self-care (01) ==
LOC: PC 10:36
PROVIDERS: PCP Family Medicine; Visit Provider Preventive Medicine Occupational Medicine
DX: M25.551 Pain in right hip (principal); M25.552 Pain in left hip
CPT/HCPCS: 20611; J1010; J2003

== ENCOUNTER 2024-02-16 09:49 | Emergency (ER) | payer MEDICARE, SELFPAY ==
[2024-02-16 09:51] VITALS: BP 158/77; PULSE 63; RESP 16; TEMP 36.9; O2SAT 99
--- NOTE | 2024-02-16 12:00 | DI.CT_ITS ---
Exam(s) CT ABDOMEN PELVIS W EXAM: CT ABDOMEN PELVIS W CLINICAL HISTORY: right groin pain, worse with ambulation TECHNIQUE: Imaging Protocol: Axial computed tomography images with coronal and sagittal reformatted images were created and reviewed. CONTRAST MATERIAL: Intravenous: Omnipaque 350 Contrast volume:100 mL Oral: No COMPARISON: No exams were available for comparison FINDINGS: ABDOMEN: Lung Bases: Normal where visualized. Liver: Normal density. No measurable mass. Portal, Superior Mesenteric, and Splenic Veins: Unremarkable. Gallbladder and Biliary Tract: Status post cholecystectomy. No biliary ductal dilatation. Pancreas: Normal density, no abnormal calcifications or inflammatory process. Spleen: Normal. Adrenals: No masses seen. Kidneys: Normal size, contour and axis. No radiodense stones or obstructive uropathy. There is a simp le left renal cyst. No follow-up is recommended. Abdominal Aorta: Abdominal portion non-dilated. Atherosclerotic calcification is present. Bowel: No obstruction or bowel wall thickening. Appendix is unremarkable. Peritoneal Cavity: No ascites, collection or mesenteric inflammatory response. No free air. Lymph Nodes: Within normal limits. Bones: Within normal limits for the patient's age. There is grade 1 anterolisthesis of L4 on L5. Soft Tissues: Unremarkable. There is no evidence of an inguinal hernia. No inguinal adenopathy. The muscles appear symmetric and of normal density. PELVIS: Bladder: Symmetric distention, no gross wall thickening. Reproductive Organs: Status post hysterectomy. Lymph Nodes: Within normal limits. Bones: Within normal limits for the patient's age. IMPRESSION: 1. No acute abdominal or pelvic process. 2. No evidence of an inguinal mass or hernia. 3. Status post cholecystectomy and hysterectomy. RADIATION DOSE DELIVERED: 1,325.83mGy.cm Total DLP DATA REPOSITORY: All CT scans at this facility are submitted to the National Radiology Data Registry (NRDR) Dose Index Registry (DIR) with the [employer] (ACR). RADIATION OPTIMIZATION: All CT scans at this facility use at least one of these dose optimization te chniques: automated exposure control; mA and/or kV adjustment per patient size (includes targeted exa ms where dose is matched to clinical indication); or iterative reconstruction.
[2024-02-16 12:31] LABS: Abs Immature Grans 0.02 10^3/uL (0.0-0.06); Absolute Basophil Count 0.04 10^3/uL (0.0-0.2); Absolute Eosinophil Count 0.12 10^3/uL (0.0-0.7); Absolute Lymphocyte Count 2.88 10^3/uL (1.2-3.4); Absolute Monocyte Count 0.64 10^3/uL (0.1-0.8); Absolute Neutrophil Count 4.81 10^3/uL (1.2-6.7); Basophils % 0.5 %; Eosinophils % 1.4 %; HCT 37.1 % (36.0-46.0); HGB 12.5 g/dL (11.2-15.7); Immature Grans % 0.2 %; Lymphocytes % 33.8 %; MCH 32.6 pg (27.0-33.0); MCHC 33.7 % (32.0-36.0); MCV 97 fL (80-95); Monocytes % 7.5 %; Neutrophils % 56.6 %; Platelet Count 353 10^3/uL (130-400); RBC 3.83 10^6/uL (3.93-5.22); RDW-SD 46.1 fL; WBC 8.51 10^3/uL (4.4-10.8)
[2024-02-16 12:45] LABS: ALT 23 U/L (14-59); AST 11 U/L (15-37); Albumin 3.8 g/dL (3.4-5.0); Alkaline Phosphatase 79 U/L (46-116); Anion Gap 8.2 mmol/L (3-11); BUN 15 mg/dL (7-18); Bilirubin, Total 0.4 mg/dL (0.2-1.0); CO2 28.8 mmol/L (21.0-32.0); CREATININE 0.7 mg/dL (0.55-1.02); Calcium 8.9 mg/dL (8.5-10.1); Chloride 105 mmol/L (98-107); Estimated GFR 98.95 (mL/min/1.73m2); Glucose 91 mg/dL (74-106); Potassium 4.4 mmol/L (3.5-5.1); Sodium 142 mmol/L (136-145); Total Protein 7.2 g/dL (6.4-8.2)
[2024-02-16] MEDS: Normal Saline - Diluent 50 ML VIAL IJ (13:21)
[2024-02-16] MEDS: Normal Saline Flush 10 ML SYR IVP (13:22)
[2024-02-16] MEDS: Omnipaque 350 MG/ML 100 ML BTL IJ (13:22)
[2024-02-16 14:18] VITALS: BP 152/62; PULSE 80; RESP 18
--- NOTE | 2024-02-16 14:21 | ED.GENADUL_ITS ---
Discharge Plan Disposition Patient Disposition: Home Condition: Stable Discharge Details Clinical Impression: Right groin pain Primary Care Provider: Yaya Meadows ED Provider: Randy Reis Home Meds and New Rx's Prescriptions: Continued fluoxetine 40 mg capsule 60 mg PO DAILY acetaminophen 500 mg tablet 500 mg PO Q6H PRN albuterol sulfate [Ventolin HFA] 90 mcg/actuation HFA aerosol inhaler 2 puff IH .[id number] PRN tizanidine 2 mg tablet 2 mg PO Q8H PRN (Reason: muscle spasticity) Qty: 30 0RF triamcinolone acetonide 0.1 % cream 1 applic topical DAILY Patient Comments: Patient uses PRN acetaminophen 500 mg capsule 1,000 mg PO QID PRN Patient Comments: not taking gabapentin 600 mg tablet 1,200 mg PO BID clonazepam 0.5 mg tablet 0.5 mg PO QHS Patient Comments: TAKE 1/2 TO 1 TABLET BY MOUTH EACH NIGHT NEEDED omeprazole 20 mg capsule,delayed release(DR/EC) 40 mg PO DAILY bupropion HCl 75 mg Tablet 150 mg PO DAILY Rx Instructions: administer 6 hours apart naproxen 250 mg tablet 250 - 500 mg PO BID PRN (Reason: moderate pain and swelling) Qty: 40 0RF Discharge Instructions Instructions: Groin Pain (ED) Additional Instructions: CT of your abdomen pelvis was performed and revealed no acute abdominal or pelvic process. There was no evidence of an inguinal mass or hernia on the imaging study. Please contact your primary care physician to arrange follow-up. Please schedule follow-up appointment to be rechecked next week. Return to the ER immediately for any worsening or new concerning symptoms. Referrals: Yaya Meadows MD [Primary Care Provider] - Discharge Data Discharge Date/Time-TO BE ENTERED AT DEPARTURE: 02/16/24 14:54 HPI General Mode of arrival: ambulatory . Date/Time Provider Initiated Documentation: 02/16/24 10:00 . Limitations to Documentation: no limitations . Information obtained by: patient . HPI Narrative: 58-year-old female presents with right groin pain over the past several weeks, worse with weightbearing and when ambulating. Pain described as grabbing. Pain is sharp at times and can be severe with weightbearing. She did take Tylenol this morning with some relief. Patient denies any recent injury and no traumatic events. No difficulty urinating. Related Data Home Medications Medication Instructions Recorded Confirmed albuterol sulfate 90 mcg/actuation 2 puff inhalation .[id number] PRN 04/08/19 02/16/24 aerosol inhaler (Ventolin HFA) triamcinolone acetonide 0.1 % 1 applic topical DAILY 07/06/20 02/16/24 topical cream acetaminophen 500 mg capsule 1,000 mg PO QID PRN 10/15/21 02/16/24 gabapentin 600 mg tablet 1,200 mg PO BID 10/15/21 02/16/24 acetaminophen 500 mg tablet 500 mg PO Q6H PRN 11/01/21 02/16/24 fluoxetine 40 mg capsule 60 mg PO DAILY 11/01/21 02/16/24 clonazepam 0.5 mg tablet 0.5 mg PO QHS 05/09/22 02/16/24 omeprazole 20 mg capsule,delayed 40 mg PO DAILY 05/09/22 02/16/24 release tizanidine 2 mg tablet 2 mg PO Q8H PRN muscle spasticity 07/19/22 02/16/24 #30 tabs bupropion HCl 75 mg tablet 150 mg PO DAILY 04/19/23 02/16/24 naproxen 250 mg tablet 250 - 500 mg (1 - 2 x 250 mg) PO 08/11/23 02/16/24 BID PRN moderate pain and swelling #40 tabs Previous Rx's Medication Instructions Recorded tizanidine 2 mg tablet 2 mg PO Q8H PRN muscle spasticity 07/19/22 #30 tabs naproxen 250 mg tablet 250 - 500 mg (1 - 2 x 250 mg) PO 08/11/23 BID PRN moderate pain and swelling #40 tabs Allergies Allergy/AdvReac Type Severity Reaction Status Date / Time Penicillins Allergy Intermediate Skin Rash Verified 02/16/24 10:06 pravastatin AdvReac Intermediate leaky Verified 02/16/24 10:06 stools General Stated Complaint: Orthopedic ELSY: 4 Review of Systems Constitutional Constitutional: Denies fever(s) Gastrointestinal Gastrointestinal: Denies abdominal pain, Denies diarrhea, Denies nausea and Denies vomiting Genitourinary Genitourinary: Denies abnormal vaginal bleeding and Denies difficulty voiding Integumentary/Breasts Skin/Breast: Denies rash Course Vital Signs Vital signs: Vital Signs Temperature 36.9 C 02/16/24 09:51 Pulse 63 02/16/24 09:51 Respiratory Rate 16 02/16/24 09:51 Blood Pressure 158/77 H 02/16/24 09:51 Pulse Oximetry 99 02/16/24 09:51 Temperature 36.9 C 02/16/24 09:51 Temperature Source Tympanic 02/16/24 09:51 Pulse 80 02/16/24 14:18 Pulse Rhythm Regular 02/16/24 14:18 Pulse Strength Normal 02/16/24 14:18 Respiratory Rate 18 02/16/24 14:18 Respiratory Effort Normal 02/16/24 14:18 Respiratory Depth Normal 02/16/24 14:18 Blood Pressure 152/62 H 02/16/24 14:18 Blood Pressure Mean 92 02/16/24 14:18 Blood Pressure Position Supine 02/16/24 14:18 Pulse Oximetry 99 02/16/24 09:51 Oxygen Delivery Method Room Air 02/16/24 14:18 Oxygen Flow Rate 0 02/16/24 14:18 Pain Level 4 02/16/24 14:18 Lab/Test Results Lab/Test Results: Laboratory Tests Range/Units 02/16/24 12:26 WBC (4.4-10.8) 10^3/uL 8.51 RBC (3.93-5.22) 10^6/uL 3.83 L Hgb (11.2-15.7) g/dL 12.5 Hct (36.0-46.0) % 37.1 MCV (80-95) fL 97 H MCH (27.0-33.0) pg 32.6 MCHC (32.0-36.0) % 33.7 RDW (11.7-14.6) % 13.0 Plt Count (130-400) 10^3/uL 353 MPV (8.0-11.0) fL 9.0 Immature Gran % % 0.2 Neutrophils % % 56.6 Lymphocytes % % 33.8 Monocytes % % 7.5 Eosinophils % % 1.4 Basophils % % 0.5 Nucleated RBC % (0.0-0.3) % 0.0 Absolute Neutrophils (1.2-6.7) 10^3/uL 4.81 Absolute Lymphocytes (1.2-3.4) 10^3/uL 2.88 Absolute Monocytes (0.1-0.8) 10^3/uL 0.64 Absolute Eosinophils (0.0-0.7) 10^3/uL 0.12 Absolute Basophils (0.0-0.2) 10^3/uL 0.04 Sodium (136-145) mmol/L 142 Potassium (3.5-5.1) mmol/L 4.4 Chloride (98-107) mmol/L 105 Carbon Dioxide (21.0-32.0) mmol/L 28.8 Anion Gap (3-11) mmol/L 8.2 BUN (7-18) mg/dL 15 Creatinine (0.55-1.02) mg/dL 0.7 Est GFR (CKD-EPI 2020) (mL/min/1.73m2) 98.95 Glucose (74-106) mg/dL 91 Calcium (8.5-10.1) mg/dL 8.9 Total Bilirubin (0.2-1.0) mg/dL 0.4 AST (15-37) U/L 11 L ALT (14-59) U/L 23 Alkaline Phosphatase (46-116) U/L 79 Total Protein (6.4-8.2) g/dL 7.2 Albumin (3.4-5.0) g/dL 3.8 Medical Decision Making 58-year-old female presents with right groin pain over the past several weeks, worse with weightbearing and when ambulating. Patient is focally tender in right inguinal crease. No palpable mass. Concern for inguinal hernia versus mass versus musculoskeletal etiology. Labs reviewed and nondiagnostic. CT of the abdomen pelvis was ordered to assess for acute surgical process and was interpreted by radiology: 1. No acute abdominal or pelvic process. 2. No evidence of an inguinal mass or hernia. 3. Status post cholecystectomy and hysterectomy. Patient was administered Tylenol as requested for her discomfort. Plan for discharge with outpatient follow-up with PCP. Usual and customary discharge instructions were reviewed with the patient. Lab Data Lab results reviewed: Yes I reviewed the patient's lab results. Labs: Laboratory Tests Range/Units 02/16/24 12:26 WBC (4.4-10.8) 10^3/uL 8.51 RBC (3.93-5.22) 10^6/uL 3.83 L Hgb (11.2-15.7) g/dL 12.5 Hct (36.0-46.0) % 37.1 MCV (80-95) fL 97 H MCH (27.0-33.0) pg 32.6 MCHC (32.0-36.0) % 33.7 RDW (11.7-14.6) % 13.0 Plt Count (130-400) 10^3/uL 353 MPV (8.0-11.0) fL 9.0 Immature Gran % % 0.2 Neutrophils % % 56.6 Lymphocytes % % 33.8 Monocytes % % 7.5 Eosinophils % % 1.4 Basophils % % 0.5 Nucleated RBC % (0.0-0.3) % 0.0 Absolute Neutrophils (1.2-6.7) 10^3/uL 4.81 Absolute Lymphocytes (1.2-3.4) 10^3/uL 2.88 Absolute Monocytes (0.1-0.8) 10^3/uL 0.64 Absolute Eosinophils (0.0-0.7) 10^3/uL 0.12 Absolute Basophils (0.0-0.2) 10^3/uL 0.04 Sodium (136-145) mmol/L 142 Potassium (3.5-5.1) mmol/L 4.4 Chloride (98-107) mmol/L 105 Carbon Dioxide (21.0-32.0) mmol/L 28.8 Anion Gap (3-11) mmol/L 8.2 BUN (7-18) mg/dL 15 Creatinine (0.55-1.02) mg/dL 0.7 Est GFR (CKD-EPI 2020) (mL/min/1.73m2) 98.95 Glucose (74-106) mg/dL 91 Calcium (8.5-10.1) mg/dL 8.9 Total Bilirubin (0.2-1.0) mg/dL 0.4 AST (15-37) U/L 11 L ALT (14-59) U/L 23 Alkaline Phosphatase (46-116) U/L 79 Total Protein (6.4-8.2) g/dL 7.2 Albumin (3.4-5.0) g/dL 3.8 Quality:SDOH Health Related Social Needs: Health related social needs risk of homeless PFSH All Active Problems (Updated 02/07/24 @ 10:59 by Bebe Hermosillo RN) Right groin pain (Acute) No-show for appointment (Acute) Tendonitis of long head of biceps brachii of right shoulder (Acute) Right rotator cuff tear (Acute) Thoracic back pain (Acute) Sacroiliac joint dysfunction (Acute) Colon cancer screening (Acute) Internal hemorrhoids with other complication (Acute) Sacroiliac joint dysfunction of right side (Acute) Right rotator cuff tendinitis (Acute) Biceps tendinitis of right upper extremity (Acute) Bursitis of shoulder, right (Acute) Insomnia (Acute) Anxiety (Chronic) UTI (urinary tract infection) (Acute) Trochanteric bursitis, right hip (Acute) Low back pain radiating to lower extremity (Acute) S/P left rotator cuff repair (Acute 09/22/20) BPPV (benign paroxysmal positional vertigo) (Acute) Screening for colon cancer (Acute) Claustrophobia (Acute) pt. 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 (Acute) great to MTP joint Primary osteoarthritis of left knee (Chronic) Corticosteroid injection: 12/03/18, 09/12/18 History of total right knee replacement (TKR) (Chronic) 07/20/2018 Revision of arthrotomy on 08/09/2018 Medical History (Updated 02/16/24 @ 14:25 by Randy Reis MD) Dysuria Tendonitis of left rotator cuff Confirmed RTC tear Marital problems Prurigo nodularis Thoracic spine pain Peripheral edema Chronic low back pain Knee joint pain Urinary frequency Headache Primary osteoarthritis of right knee (12/04/17) Complex tear of medial meniscus of right knee as current injury (11/06/17) Surgical History (Updated 02/07/24 @ 10:59 by Bebe Hermosillo RN) H/O shoulder surgery right History of arthroscopic surgery of shoulder L shoulder History of total hysterectomy History of cholecystectomy History of delivery (~04/25/11) Status post revision of total knee replacement July 2018 Status post total knee replacement, right July 2018 Status post arthroscopy of right knee (~11/22/17) Partial medial meniscectomy, medial chondroplasty, removal of loose bodies Date of surgery: November 21, 2017 Dr. Curtis Social History Smoking/Tobacco Use Status: Current every day Tobacco Type: cigarettes Smoking packs per day: 1 Smoking cigarettes per day: 20.0 Years smoked: 44 Smoking pack- years: 44.00 Smoking risk assessment performed?: Yes Alcohol Intake: current Alcohol Intake frequency: holidays/special occasions only Drug use: Never Substance use type: does not use Details: alcohol: summer 2022 Housing: house Current gender identity: female Do you feel safe at home: Yes Do you feel safe in your relationship?: Yes Additional Social history: unable to assess privately
[2024-02-16] MEDS: Acetaminophen 325 MG TAB 650 MG PO (14:40)
[2024-02-16 14:41] VITALS: BP 140/95; PULSE 58; RESP 16; TEMP 36.6; O2SAT 98
== END 2024-02-16 14:54 | disposition home or self-care (01) ==
PROVIDERS: Emergency Provider Student in an Organized Health Care Education/Training Program; PCP Family Medicine
DX: R10.31 Right lower quadrant pain (principal); F17.200 Nicotine dependence, unspecified, uncomplicated
CPT/HCPCS: 36415; 80053; 99285; 74177; 85025; 99283; J3490

== ENCOUNTER 2024-05-09 14:37 | Emergency (ER) | payer MEDICARE, SELFPAY ==
--- NOTE | 2024-05-09 14:30 | RT.EKG_ITS ---
APPROVED REPORT Exam: Resting ECG Reason for Exam: Chest pain Patient Location: E HR:79 bpm ECG Measurements Heart Rate 79 AXIS FL 140 P 38 QRSd 81 QRS 19 QT 393 T 44 QTc 452 Conclusion Sinus rhythm 79 sinus no stemi
[2024-05-09 14:39] VITALS: BP 135/68; PULSE 81; RESP 16; TEMP 36.9; O2SAT 95
[2024-05-09 15:29] VITALS: BP 165/51; PULSE 78; RESP 16; TEMP 37.5; O2SAT 97
--- NOTE | 2024-05-09 15:30 | DI.RAD_ITS ---
Exam(s) XR PORTABLE CHEST AP EXAM: XR PORTABLE CHEST AP CLINICAL HISTORY: cough TECHNIQUE: 2D digital imaging was performed. COMPARISON: CT CT CHEST WO from 06/29/2020 FINDINGS: LUNGS: Clear. No pleural abnormality seen. HEART: Normal size. AORTA: Normal diameter. BONES: Unremarkable for age. Soft tissues: Unremarkable. IMPRESSION: No acute findings. DATA REPOSITORY: RADIATION DOSE DELIVERED:
[2024-05-09] MEDS: Normal Saline 1,000 ML 1000 ML IV (16:05)
[2024-05-09 16:06] LABS: Abs Immature Grans 0.05 10^3/uL (0.0-0.06); Absolute Monocyte Count 0.92 10^3/uL (0.1-0.8); Basophils % 0.3 %; Eosinophils % 0.1 %; HCT 40.4 % (36.0-46.0); HGB 13.5 g/dL (11.2-15.7); Immature Grans % 0.3 %; Lymphocytes % 9.6 %; MCH 32.5 pg (27.0-33.0); MCHC 33.4 % (32.0-36.0); MCV 97 fL (80-95); Monocytes % 6.4 %; Neutrophils % 83.3 %; Platelet Count 344 10^3/uL (130-400); RBC 4.16 10^6/uL (3.93-5.22); RDW 13.3 % (11.7-14.6); RDW-SD 47.9 fL; WBC 14.33 10^3/uL (4.4-10.8)
[2024-05-09 16:08] LABS: Absolute Basophil Count 0.04 10^3/uL (0.0-0.2); Absolute Eosinophil Count 0.01 10^3/uL (0.0-0.7); Absolute Lymphocyte Count 1.38 10^3/uL (1.2-3.4); Absolute Neutrophil Count 11.94 10^3/uL (1.2-6.7); ESR 22 mm/hr (0-30)
[2024-05-09] MEDS: Acetaminophen 500 MG TAB 1000 MG PO (16:20)
[2024-05-09 16:21] LABS: C-Reactive Protein 9.76 mg/dL (<or=0.5); Lipase 24 U/L (16-77)
[2024-05-09 16:22] LABS: ALT 21 U/L (14-59); AST 15 U/L (15-37); Albumin 3.9 g/dL (3.4-5.0); Alkaline Phosphatase 88 U/L (46-116); Anion Gap 9.9 mmol/L (3-11); BUN 12 mg/dL (7-18); Bilirubin, Total 0.31 mg/dL (0.2-1.0); CO2 26.1 mmol/L (21.0-32.0); CREATININE 0.9 mg/dL (0.55-1.02); Calcium 9.2 mg/dL (8.5-10.1); Chloride 100 mmol/L (98-107); Estimated GFR 73.19 (mL/min/1.73m2); Glucose 105 mg/dL (74-106); Potassium 3.8 mmol/L (3.5-5.1); Sodium 136 mmol/L (136-145); Total Protein 8.2 g/dL (6.4-8.2)
[2024-05-09 16:42] VITALS: PULSE 79; RESP 23; O2SAT 97
[2024-05-09 16:46] VITALS: BP 132/33; PULSE 77; PULSE 78; RESP 23; O2SAT 98
[2024-05-09 16:50] VITALS: PULSE 77; RESP 23; O2SAT 98
[2024-05-09] MEDS: Omnipaque 350 MG/ML 100 ML BTL IJ (17:00)
[2024-05-09] MEDS: Normal Saline - Diluent 50 ML VIAL IJ (17:01)
[2024-05-09 17:02] LABS: C Diff PCR Negative (Negative)
--- NOTE | 2024-05-09 17:11 | DI.CT_ITS ---
Exam(s) CT ABDOMEN PELVIS W EXAM: CT ABDOMEN PELVIS W CLINICAL HISTORY: abd pain, diarrhea. TECHNIQUE: Imaging Protocol: Axial computed tomography images with coronal and sagittal reformatted images were created and reviewed CONTRAST MATERIAL: Intravenous: Omnipaque-350 100cc Oral: None COMPARISON: CT CT ABDOMEN PELVIS W from 02/16/2024 FINDINGS: VISUALIZED LUNG BASES: No nodules nor pleural effusions evident. ABDOMEN: There is no ascites. LIVER: There are no focal hepatic lesions evident. No dilated intrahepatic ducts. GALLBLADDER/BILIARY: The gallbladder is again noted be surgically absent. CBD is not dilated. PANCREAS: No evidence of pancreatic mass nor dilatation of the pancreatic duct. SPLEEN: Spleen is not enlarged. No obvious intrasplenic lesions. Splenic and portal veins are paten t. ADRENALS: There are no significant adrenal masses. KIDNEYS:Benign-appearing cyst in the left kidney is again noted. Not require further workup. No preston id renal masses. No calculi. No hydronephrosis.. ABDOMINAL AORTA: Abdominal aorta is not enlarged. LYMPH NODES:There is no retroperitoneal nor paraaortic adenopathy. ABDOMINAL WALL: No evidence of significant anterior abdominal wall nor inguinal hernia. GI: There is no colitis pattern involving the right-side of the colon above the level of the ileoceca l valve, of the right hepatic flexure and colon. There appears to be relative sparing of the colon a t and distal to the splenic flexure, including the sigmoid and rectosigmoid. The appendix appears un remarkable. PELVIS: GI: No evidence of appendicitis.There is no significant sigmoid diverticular disease. LYMPH NODES: There is no intrapelvic nor inguinal adenopathy. REPRODUCTIVE: The uterus is surgically absent. There are no abnormal adnexal masses. URINARY BLADDER: No calculi nor obvious masses evident OSSEOUS: No fractures and no significant osseous lesions. There is mild degenerative anterolisthesis of L4 upon L5 related to facet arthropathy. There are no pars defects. IMPRESSION: 1. Main new finding here is a colitis pattern involving the colon from the cecum to the splenic flexu re, not evident on recent CT scan of 02/16/2024. There appears to be relative sparing of the colon d istal to the splenic flexure, including sparing of the sigmoid and rectosigmoid. 2. No evidence of appendicitis nor diverticulitis. 3. Again noted is evidence of prior cholecystectomy and hysterectomy. RADIATION DOSE DELIVERED: 905.16mGy.cm Total DLP DATA REPOSITORY: All CT scans at this facility are submitted to the National Radiology Data Registry (NRDR) Dose Index Registry (DIR) with the [employer] (ACR). RADIATION OPTIMIZATION: All CT scans at this facility use at least one of these dose optimization te chniques: automated exposure control; mA and/or kV adjustment per patient size (includes targeted exa ms where dose is matched to clinical indication); or iterative reconstruction.
--- NOTE | 2024-05-09 17:16 | ED.GENADUL_ITS ---
Discharge Plan Disposition Patient Disposition: Home Condition: Stable Discharge Details Clinical Impression: Colitis Primary Care Provider: Yaya Meadows ED Provider: Luciano Vora Home Meds and New Rx's Prescriptions: New ciprofloxacin HCl [Cipro] 500 mg tablet 500 mg PO BID 5 Days Qty: 10 0RF No Action fluoxetine 40 mg capsule 60 mg PO DAILY acetaminophen 500 mg tablet 500 mg PO Q6H PRN albuterol sulfate [Ventolin HFA] 90 mcg/actuation HFA aerosol inhaler 2 puff IH [id number] PRN tizanidine 2 mg tablet 2 mg PO Q8H PRN (Reason: muscle spasticity) Qty: 30 0RF triamcinolone acetonide 0.1 % cream 1 applic topical DAILY Patient Comments: Patient uses PRN acetaminophen 500 mg capsule 1,000 mg PO QID PRN Patient Comments: not taking gabapentin 600 mg tablet 1,200 mg PO BID clonazepam 0.5 mg tablet 0.5 mg PO QHS Patient Comments: TAKE 1/2 TO 1 TABLET BY MOUTH EACH NIGHT NEEDED omeprazole 20 mg capsule,delayed release(DR/EC) 40 mg PO DAILY bupropion HCl 75 mg Tablet 150 mg PO DAILY Rx Instructions: administer 6 hours apart naproxen 250 mg tablet 250 - 500 mg PO BID PRN (Reason: moderate pain and swelling) Qty: 40 0RF Discharge Instructions Instructions: Colitis (DC) Additional Instructions: * You have colitis based on your symptoms and CT imaging * Start the antibiotic as prescribed. Do not take the tizanidine while you are taking the antibiotic * Make sure to increase your water and electrolyte intake * Return if you develop continued fever, severe abdominal pain, inability to tolerate anything by mouth refill your diarrhea is worsening * You should follow-up with your PCP next week for reevaluation and make sure that you are symptoms and have resolved * You should have a colonoscopy approximately 2 months after resolution of symptoms to evaluate for complete healing Stand Alone Forms: Work Release HPI General Date/Time Provider Initiated Documentation: 05/09/24 15:33 . Limitations to Documentation: no limitations . Information obtained by: patient . HPI Narrative: 58-year-old female with past medical history including tobacco abuse, COPD, presents for evaluation of not feeling well for a few weeks. She states that earlier this week she started having productive cough. Last night she started having fever. The fever was associated with watery diarrhea. She has had multiple episodes of diarrhea. The diarrhea is associated with crampy abdominal pain. No vomiting. No pain outside of having a bowel movement. No blood in her diarrhea. Denies any fever today, but does report having chills. No known sick contacts. No known food issues. Related Data Home Medications ?Medication ?Instructions ?Recorded ?Confirmed albuterol sulfate 90 mcg/actuation 2 puff inhalation .[id number] PRN 04/08/19 02/16/24 aerosol inhaler (Ventolin HFA) triamcinolone acetonide 0.1 % 1 applic topical DAILY 07/06/20 02/16/24 topical cream acetaminophen 500 mg capsule 1,000 mg PO QID PRN 10/15/21 02/16/24 gabapentin 600 mg tablet 1,200 mg PO BID 10/15/21 02/16/24 acetaminophen 500 mg tablet 500 mg PO Q6H PRN 11/01/21 02/16/24 fluoxetine 40 mg capsule 60 mg PO DAILY 11/01/21 02/16/24 clonazepam 0.5 mg tablet 0.5 mg PO QHS 05/09/22 02/16/24 omeprazole 20 mg capsule,delayed 40 mg PO DAILY 05/09/22 02/16/24 release tizanidine 2 mg tablet 2 mg PO Q8H PRN muscle spasticity 07/19/22 02/16/24 #30 tabs bupropion HCl 75 mg tablet 150 mg PO DAILY 04/19/23 02/16/24 naproxen 250 mg tablet 250 - 500 mg (1 - 2 x 250 mg) PO 08/11/23 02/16/24 BID PRN moderate pain and swelling #40 tabs ciprofloxacin HCl 500 mg tablet 500 mg PO BID 5 days #10 tabs 05/09/24 (Cipro) Previous Rx's ?Medication ?Instructions ?Recorded tizanidine 2 mg tablet 2 mg PO Q8H PRN muscle spasticity 07/19/22 #30 tabs naproxen 250 mg tablet 250 - 500 mg (1 - 2 x 250 mg) PO 08/11/23 BID PRN moderate pain and swelling #40 tabs ciprofloxacin HCl 500 mg tablet 500 mg PO BID 5 days #10 tabs 05/09/24 (Cipro) Allergies Allergy/AdvReac Type Severity Reaction Status Date / Time Penicillins Allergy Intermediate Skin Rash Verified 05/09/24 14:45 pravastatin AdvReac Intermediate leaky Verified 05/09/24 14:45 stools General Stated Complaint: [facility] ELSY: 3 Exam Narrative Exam Narrative: Review of Systems: All systems reviewed & are unremarkable except as noted in HPI and below Well-developed, no acute distress NCAT PERRL, normal conjunctiva Moist mucous membranes RRR, no murmur Unlabored respiratory effort, clear bilaterally, no wheezing, no crackles Nondistended abdomen, soft nontender Course Vital Signs Vital signs: Vital Signs Temperature 36.9 C 05/09/24 14:39 Pulse 81 05/09/24 14:39 Respiratory Rate 16 05/09/24 14:39 Blood Pressure 135/68 05/09/24 14:39 Pulse Oximetry 95 05/09/24 14:39 Temperature 37.5 C 05/09/24 15:29 Temperature Source Oral 05/09/24 15:29 Pulse 77 05/09/24 16:46 Pulse 77 05/09/24 16:50 Respiratory Rate 23 05/09/24 16:50 Respiratory Effort Labored 05/09/24 15:29 Respiratory Depth Normal 05/09/24 15:29 Respiratory Pattern Normal 05/09/24 15:29 Blood Pressure 132/33 L 05/09/24 16:46 Blood Pressure Mean 68 05/09/24 16:46 Blood Pressure Position Supine 05/09/24 15:29 Pulse Oximetry 98 05/09/24 16:50 Oxygen Delivery Method Room Air 05/09/24 15:29 Oxygen Flow Rate 0 05/09/24 14:39 Pain Level 5 05/09/24 15:29 Lab/Test Results Lab/Test Results: 05/09/24 15:57 Blood Blood Culture - Pending 05/09/24 16:57 Blood Blood Culture - Pending Laboratory Tests Range/Units 05/09/24 05/09/24 15:57 16:09 WBC (4.4-10.8) 10^3/uL 14.33 H RBC (3.93-5.22) 10^6/uL 4.16 Hgb (11.2-15.7) g/dL 13.5 Hct (36.0-46.0) % 40.4 MCV (80-95) fL 97 H MCH (27.0-33.0) pg 32.5 MCHC (32.0-36.0) % 33.4 RDW (11.7-14.6) % 13.3 Plt Count (130-400) 10^3/uL 344 MPV (8.0-11.0) fL 9.0 Immature Gran % % 0.3 Neutrophils % % 83.3 Lymphocytes % % 9.6 Monocytes % % 6.4 Eosinophils % % 0.1 Basophils % % 0.3 Nucleated RBC % (0.0-0.3) % 0.0 Absolute Neutrophils (1.2-6.7) 10^3/uL 11.94 H Absolute Lymphocytes (1.2-3.4) 10^3/uL 1.38 Absolute Monocytes (0.1-0.8) 10^3/uL 0.92 H Absolute Eosinophils (0.0-0.7) 10^3/uL 0.01 Absolute Basophils (0.0-0.2) 10^3/uL 0.04 ESR (0-30) mm/hr 22 Sodium (136-145) mmol/L 136 Potassium (3.5-5.1) mmol/L 3.8 Chloride (98-107) mmol/L 100 Carbon Dioxide (21.0-32.0) mmol/L 26.1 Anion Gap (3-11) mmol/L 9.9 BUN (7-18) mg/dL 12 Creatinine (0.55-1.02) mg/dL 0.9 Est GFR (CKD-EPI 2020) (mL/min/1.73m2) 73.19 Glucose (74-106) mg/dL 105 Calcium (8.5-10.1) mg/dL 9.2 Total Bilirubin (0.2-1.0) mg/dL 0.31 AST (15-37) U/L 15 ALT (14-59) U/L 21 Alkaline Phosphatase (46-116) U/L 88 C-Reactive Protein (<or=0.5) mg/dL 9.76 H Total Protein (6.4-8.2) g/dL 8.2 Albumin (3.4-5.0) g/dL 3.9 Lipase (16-77) U/L 24 Stl C.difficile Tox PCR (Negative) Negative Medical Decision Making Emergent evaluation of diarrheal illness. Patient has a soft nontender abdomen. She was having fever at home. Is afebrile here, but does have an elevated temperature. Initial differential includes diverticulitis, colitis, lower adonis picion for perforation or intra-abdominal abscess. The patient's symptoms have only been ongoing since yesterday, so I doubt electrolyte derangement or significant dehydration. Will resuscitate with IV fluids given the number of time she has have diarrhea. Plan for lab work, CT imaging. She is also complaining of a cough, she is a chronic smoker with COPD. She has tested negative for COVID 2 times. She is not hypoxic, have increased work of breathing or other signs of pulmonary abnormality but will obtain chest x-ray to evaluate. Lab work was reviewed. CBC concerning for a leukocytosis of 14 with a slight shift. ESR and is not elevated, CRP is elevated at 9. This is concerning for an infectious or inflammatory etiology. CMP does not reveal significant electrolyte derangement or abnormality in her renal function. Liver testing is also normal. Lipase is negative, making pancreatitis unlikely. Her urinalysis is not infected. CT imaging of her abdomen was obtained. Per the radiology report: IMPRESSION: 1. Findings of mild colitis involving a long segment of the proximal colon, as described above. 2. No clear change in simple appearing left renal cyst. 3. Status post cholecystectomy and hysterectomy. The patient feels much better after fluid resuscitation and treatment in the emergency department. She is tolerating p.o., she is not having a significant amount of diarrhea and I anticipate that she will likely be able to keep up hydration status at home. The patient requests to go home and feels comfortable doing so. Will treat her colitis with ciprofloxacin. As she has been having fevers and having signs of white count, the patient was provided return precautions including worsening symptoms, not tolerating medication, severe pain. I recommend that she follow-up closely with her PCP for reevaluation and follow-up with surgery for outpatient colonoscopy 8 weeks after the resolution of her colitis. Quality:SDOH Health Related Social Needs: Health related social needs risk of homeless PFSH All Active Problems Colitis (Acute) No-show for appointment (Acute) Tendonitis of long head of biceps brachii of right shoulder (Acute) Right rotator cuff tear (Acute) Thoracic back pain (Acute) Sacroiliac joint dysfunction (Acute) Colon cancer screening (Acute) Internal hemorrhoids with other complication (Acute) Sacroiliac joint dysfunction of right side (Acute) Right rotator cuff tendinitis (Acute) Biceps tendinitis of right upper extremity (Acute) Bursitis of shoulder, right (Acute) Insomnia (Acute) Anxiety (Chronic) UTI (urinary tract infection) (Acute) Trochanteric bursitis, right hip (Acute) Low back pain radiating to lower extremity (Acute) S/P left rotator cuff repair (Acute 09/22/20) BPPV (benign paroxysmal positional vertigo) (Acute) Screening for colon cancer (Acute) Claustrophobia (Acute) pt. 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 (Acute) great to MTP joint Primary osteoarthritis of left knee (Chronic) Corticosteroid injection: 12/03/18, 09/12/18 History of total right knee replacement (TKR) (Chronic) 07/20/2018 Revision of arthrotomy on 08/09/2018 Medical History Dysuria Tendonitis of left rotator cuff Confirmed RTC tear Marital problems Prurigo nodularis Thoracic spine pain Peripheral edema Chronic low back pain Knee joint pain Urinary frequency Headache Primary osteoarthritis of right knee (12/04/17) Complex tear of medial meniscus of right knee as current injury (11/06/17) Surgical History H/O shoulder surgery right History of arthroscopic surgery of shoulder L shoulder History of total hysterectomy History of cholecystectomy History of delivery (~04/25/11) Status post revision of total knee replacement July 2018 Status post total knee replacement, right July 2018 Status post arthroscopy of right knee (~11/22/17) Partial medial meniscectomy, medial chondroplasty, removal of loose bodies Date of surgery: November 21, 2017 Dr. Curtis Social History Smoking/Tobacco Use Status: Current every day Tobacco Type: cigarettes Smoking packs per day: 1 Smoking cigarettes per day: 20.0 Years smoked: 44 Smoking pack- years: 44.00 Smoking risk assessment performed?: Yes Alcohol Intake: current Alcohol Intake frequency: holidays/special occasions only Drug use: Never Substance use type: does not use Details: alcohol: summer 2022 Housing: house Current gender identity: female Do you feel safe at home: Yes Do you feel safe in your relationship?: Yes Additional Social history: unable to assess privately
--- NOTE | 2024-05-09 17:42 | DI.VRAD_ITS ---
PROCEDURE INFORMATION: Exam: CT Abdomen And Pelvis With Contrast Exam date and time: 05/09/2024 5:02 PM Age: 58 years old Clinical indication: Abdominal pain; Generalized; Patient HX: Abd pain, diarrhea TECHNIQUE: Imaging protocol: Computed tomography of the abdomen and pelvis with contrast. Radiation optimization: All CT scans at this facility use at least one of these dose optimization techniques: automated exposure control; mA and/or kV adjustment per patient size (includes targeted exams where dose is matched to clinical indication); or iterative reconstruction. Contrast material: [id number]; Contrast volume: 100 ml; Contrast route: INTRAVENOUS (IV); COMPARISON: CT ABDOMEN PELVIS W 02/16/2024 1:22 PM FINDINGS: Liver: Normal. No mass. Gallbladder and biliary ducts: There has been a cholecystectomy. There is no biliary ductal dilatation. Pancreas: The pancreas is mildly atrophic, but otherwise appears unremarkable without focal lesion or evidence of acute inflammation. Spleen: Normal. No splenomegaly. Adrenal glands: Normal. No mass. Kidneys and ureters: There is a simple appearing 2.2 x 3.3 cm parapelvic left renal cysts, without clear change from prior study. There are multiple subcentimeter low-dense renal lesions which are too small to characterize but likely represent benign cysts. No renal or ureteral stones are identified. There is no hydronephrosis or hydroureter. Stomach and bowel: There is mild edematous wall thickening and mucosal hyperenhancement of the proximal colon from the distal ascending colon through the distal transverse colon, consistent with mild colitis, new since prior study. The small bowel appears normal. There is no bowel dilatation to suggest obstruction or ileus. Appendix: The appendix is well-visualized and appears normal. Intraperitoneal space: There is no evidence of free intraperitoneal fluid. There is no free intraperitoneal air. Vasculature: The aorta and iliac arteries demonstrate moderate atherosclerotic calcification without aneurysm formation. Lymph nodes: Unremarkable. No enlarged lymph nodes. Urinary bladder: No bladder stones are identified. Reproductive: There has been a hysterectomy. Bones/joints: There is moderate hypertrophic facet arthrosis at L4-L5. Again noted is mild grade 1 anterolisthesis of L4 on L5, unchanged. There is multilevel mild spondylosis of the lower thoracic and lumbar spine. No acute fractures or subluxations are identified. Soft tissues: Unremarkable. IMPRESSION: 1. Findings of mild colitis involving a long segment of the proximal colon, as described above. 2. No clear change in simple appearing left renal cyst. 3. Status post cholecystectomy and hysterectomy. Dictated and Authenticated by: Adam Gustafson MD. Ordering:SHEBA Salinas MD
[2024-05-09 18:15] LABS: Bilirubin Negative (Negative); Blood Negative (Negative); Clarity Clear (Clear); Glucose Negative (Negative); Ketones Negative (Negative); Leukocyte Esterase Negative (Negative); Nitrite Negative (Negative); Urobilinogen 0.2 mg/dL (Up to 0.2); pH 5.5 (5-8)
--- NOTE | 2024-05-10 15:32 | W.ED.FU ---
Date of service: 05/10/24 Time of Service: 15:32 Follow Up Plan: Patient's blood culture bottle is growing gram-positive cocci in clusters which could be a false positive. I called and spoke with the patient she is still having abdominal cramping but otherwise has no fevers or other systemic symptoms. I recommended she return to have repeat blood culture bottles drawn and also to return if she feels more ill or has symptoms such as high fevers. She voiced understanding of these instructions.
[2024-05-10 22:52] LABS: Campylobacter PCR Negative (Negative); Shiga Toxin PCR Negative (Negative); Shigella/Enteroinvasive Ecoli Negative (Negative)
[2024-05-11 11:12] LABS: Salmonella PCR Positive (Negative)
--- NOTE | 2024-05-11 11:13 | NUR.NOTE ---
Access chart due to lab result salmonella positive. Result given to Dr. Grace. Nursing Note:
--- NOTE | 2024-05-15 08:43 | NUR.NOTE ---
Accessed patient chart to see if antibiotic was given for blood cultures. Result given to Dr Almeida Note:
== END 2024-05-09 18:32 | disposition home or self-care (01) ==
PROVIDERS: Emergency Provider Emergency Medicine; PCP Family Medicine
DX: R50.9 Fever, unspecified; K52.9 Noninfective gastroenteritis and colitis, unspecified
CPT/HCPCS: 36415; 80053; 83690; 85652; 87040; 87077; 87493; 87505; 93005; 96360; 96361; 99285; 71045; 74177; 81003; 85025; 86140; 87186; 93010; 99283; J3490

== ENCOUNTER 2024-05-10 17:36 | Emergency (ER) | payer MEDICARE, SELFPAY ==
[2024-05-10 17:39] VITALS: BP 135/89; PULSE 79; RESP 18; TEMP 36.6; O2SAT 98
[2024-05-10 18:01] VITALS: BP 135/89; PULSE 79; RESP 18; TEMP 36.6; O2SAT 98
--- NOTE | 2024-05-10 18:11 | ED.GENADUL_ITS ---
Discharge Plan Disposition Patient Disposition: Home Condition: Stable Discharge Details Clinical Impression: Colitis, Acute hypokalemia Primary Care Provider: Yaya Meadows ED Provider: Elena Ken Home Meds and New Rx's Prescriptions: Continued fluoxetine 40 mg capsule 60 mg PO DAILY acetaminophen 500 mg tablet 500 mg PO Q6H PRN albuterol sulfate [Ventolin HFA] 90 mcg/actuation HFA aerosol inhaler 2 puff IH .[id number] PRN tizanidine 2 mg tablet 2 mg PO Q8H PRN (Reason: muscle spasticity) Qty: 30 0RF triamcinolone acetonide 0.1 % cream 1 applic topical DAILY Patient Comments: Patient uses PRN acetaminophen 500 mg capsule 1,000 mg PO QID PRN Patient Comments: not taking gabapentin 600 mg tablet 1,200 mg PO BID clonazepam 0.5 mg tablet 0.5 mg PO QHS Patient Comments: TAKE 1/2 TO 1 TABLET BY MOUTH EACH NIGHT NEEDED omeprazole 20 mg capsule,delayed release(DR/EC) 40 mg PO DAILY bupropion HCl 75 mg Tablet 150 mg PO DAILY Rx Instructions: administer 6 hours apart naproxen 250 mg tablet 250 - 500 mg PO BID PRN (Reason: moderate pain and swelling) Qty: 40 0RF ciprofloxacin HCl [Cipro] 500 mg tablet 500 mg PO BID 5 Days Qty: 10 0RF Discharge Instructions Instructions: Hypokalemia, High Potassium Diet, Colitis (DC) Additional Instructions: The blood culture results will be back in 2 to 3 days. Continue with the antibiotics as previously prescribed. Continue with oral electrolyte rehydration such as Gatorade or similar. You did have slightly low potassium today which can be expected with large amounts of diarrhea. You were given a potassium supplement here in the department. Please practice a high potassium diet and increase foods with high potassium content. Follow up with primary care provider in 3-5 days. Return to ED sooner if any worsening or concerns. Referrals: Yaya Meadows MD [Primary Care Provider] - 3 days HPI General Mode of arrival: ambulatory . Date/Time Provider Initiated Documentation: 05/10/24 17:37 . Limitations to Documentation: no limitations . Information obtained by: patient, RN notes reviewed and old records reviewed . HPI Narrative: 58-year-old female presents to the ER for the chief complaint of abnormal blood culture patient was seen here yesterday and diagnosed with colitis she reports she has been continuing to have diarrhea approximately 6 episodes last night. She has been taking Tylenol. She was given Cipro which she has been taking as directed. Other past medical history includes chronic low back pain, osteoarthritis right knee, peripheral edema. Related Data Home Medications ?Medication ?Instructions ?Recorded ?Confirmed albuterol sulfate 90 mcg/actuation 2 puff inhalation .[id number] PRN 04/08/19 05/10/24 aerosol inhaler (Ventolin HFA) triamcinolone acetonide 0.1 % 1 applic topical DAILY 07/06/20 05/10/24 topical cream acetaminophen 500 mg capsule 1,000 mg PO QID PRN 10/15/21 05/10/24 gabapentin 600 mg tablet 1,200 mg PO BID 10/15/21 05/10/24 acetaminophen 500 mg tablet 500 mg PO Q6H PRN 11/01/21 05/10/24 fluoxetine 40 mg capsule 60 mg PO DAILY 11/01/21 05/10/24 clonazepam 0.5 mg tablet 0.5 mg PO QHS 05/09/22 05/10/24 omeprazole 20 mg capsule,delayed 40 mg PO DAILY 05/09/22 05/10/24 release tizanidine 2 mg tablet 2 mg PO Q8H PRN muscle spasticity 07/19/22 05/10/24 #30 tabs bupropion HCl 75 mg tablet 150 mg PO DAILY 04/19/23 05/10/24 naproxen 250 mg tablet 250 - 500 mg (1 - 2 x 250 mg) PO 08/11/23 05/10/24 BID PRN moderate pain and swelling #40 tabs ciprofloxacin HCl 500 mg tablet 500 mg PO BID 5 days #10 tabs 05/09/24 05/10/24 (Cipro) Previous Rx's ?Medication ?Instructions ?Recorded tizanidine 2 mg tablet 2 mg PO Q8H PRN muscle spasticity 07/19/22 #30 tabs naproxen 250 mg tablet 250 - 500 mg (1 - 2 x 250 mg) PO 08/11/23 BID PRN moderate pain and swelling #40 tabs ciprofloxacin HCl 500 mg tablet 500 mg PO BID 5 days #10 tabs 05/09/24 (Cipro) Allergies Allergy/AdvReac Type Severity Reaction Status Date / Time Penicillins Allergy Intermediate Skin Rash Verified 05/10/24 17:56 pravastatin AdvReac Intermediate leaky Verified 05/10/24 17:56 stools General Stated Complaint: GenMedical ELSY: 3 Review of Systems All systems reviewed & are unremarkable except as noted in HPI and below Constitutional Constitutional: Reports as per HPI, Reports fatigue and Reports lethargy Gastrointestinal Gastrointestinal: Reports diarrhea, Reports nausea and Denies vomiting Endocrine Endocrine: Reports fatigue Exam Narrative Exam Narrative: Constitutional: Alert and oriented x3. Appears stated age. Normal body habitus. Head: Normocephalic, no trauma. Eyes: Pupils PERRL, Red reflex noted, EOM's intact. Eyelids symmetrical without lesions, discharge, or swelling. ENT: Bilateral TM's WNL, External ear normal to inspection, no mastoid TTP, swelling, or erythema, Nasal turbinates WNL, no nasal discharge. Normal dentition, Posterior pharynx WNL, no exudate. Chest: RRR, Normal S1, S2, distal pulses intact. Resp: Lungs clear to auscultation bilaterally, no wheezes, rales, or rhonchi. Abdomen: Soft, non-distended, Normoactive bowel sounds all 4 quads. Musculoskeletal: Normal gait, Moves all 4 extremities without difficulty. Skin: No suspicious rashes or lesions. Capillary refill less than 2 sec. Neurologic: Cranial nerves II-XII intact. Alert and oriented x 3. Motor: No deficits noted. Sensory: Intact bilaterally all 4 extremities. Hematologic/Lymphatic: No ecchymosis, no lymphadenopathy. Course Vital Signs Vital signs: Vital Signs Temperature 36.6 C 05/10/24 17:39 Pulse 79 05/10/24 17:39 Respiratory Rate 18 05/10/24 17:39 Blood Pressure 135/89 05/10/24 17:39 Pulse Oximetry 98 05/10/24 17:39 Temperature 36.6 C 05/10/24 18:01 Temperature Source Temporal Artery Scan 05/10/24 18:01 Pulse 79 05/10/24 18:01 Respiratory Rate 18 05/10/24 18:01 Respiratory Effort Normal, Non-Labored 05/10/24 17:58 Blood Pressure 135/89 05/10/24 18:01 Blood Pressure Position Supine 05/10/24 18:01 Pulse Oximetry 98 05/10/24 18:01 Oxygen Delivery Method Room Air 05/10/24 18:01 Oxygen Flow Rate 0 05/10/24 18:01 Pain Level 0 05/10/24 18:01 Lab/Test Results Lab/Test Results: 05/10/24 17:44 Blood Blood Culture - Pending 05/10/24 17:44 Blood Blood Culture - Pending Medical Decision Making 58-year-old female presents to the ER for the chief complaint of abnormal blood culture patient was seen here yesterday and diagnosed with colitis she reports she has been continuing to have diarrhea approximately 6 episodes last night. She has been taking Tylenol. She was given Cipro which she has been taking as directed. Other past medical history includes chronic low back pain, osteoarthritis right knee, peripheral edema. Repeat blood cultures drawn, CBC CMP and IV. CBC shows improvement of the white blood cell count, is down to 12.52, CMP shows potassium of 3.3 which is slightly low, glucose 107. Will give 40 mill equivalents of KCl liquid here in the department. Will encourage patient to continue the previously prescribed antibiotics and electrolyte oral rehydration. Will encourage follow-up with PCP to discuss repeat blood cultures. This text was generated using [employer] system, please disregard any oddities of phrase or misspellings. Medical Records Medical records reviewed: Yes I reviewed the patient's medical records. Lab Data Lab results reviewed: Yes I reviewed the patient's lab results. Labs: 05/10/24 18:50 Blood Blood Culture - Pending 05/10/24 18:20 Blood Blood Culture - Pending Laboratory Tests Range/Units 05/10/24 18:20 WBC (4.4-10.8) 10^3/uL 12.52 H RBC (3.93-5.22) 10^6/uL 3.90 L Hgb (11.2-15.7) g/dL 12.6 Hct (36.0-46.0) % 37.5 MCV (80-95) fL 96 H MCH (27.0-33.0) pg 32.3 MCHC (32.0-36.0) % 33.6 RDW (11.7-14.6) % 13.2 Plt Count (130-400) 10^3/uL 325 MPV (8.0-11.0) fL 9.0 Immature Gran % % 0.4 Neutrophils % % 75.0 Lymphocytes % % 14.7 Monocytes % % 8.9 Eosinophils % % 0.6 Basophils % % 0.4 Nucleated RBC % (0.0-0.3) % 0.0 Absolute Neutrophils (1.2-6.7) 10^3/uL 9.39 H Absolute Lymphocytes (1.2-3.4) 10^3/uL 1.84 Absolute Monocytes (0.1-0.8) 10^3/uL 1.11 H Absolute Eosinophils (0.0-0.7) 10^3/uL 0.08 Absolute Basophils (0.0-0.2) 10^3/uL 0.05 Sodium (136-145) mmol/L 138 Potassium (3.5-5.1) mmol/L 3.3 L Chloride (98-107) mmol/L 103 Carbon Dioxide (21.0-32.0) mmol/L 24.4 Anion Gap (3-11) mmol/L 10.6 BUN (7-18) mg/dL 7 Creatinine (0.55-1.02) mg/dL 0.8 Est GFR (CKD-EPI 2020) (mL/min/1.73m2) 84.30 Glucose (74-106) mg/dL 107 H Calcium (8.5-10.1) mg/dL 9.0 Quality:SDOH Health Related Social Needs: Health related social needs risk of homeless PFSH All Active Problems Acute hypokalemia (Acute) Colitis (Acute) No-show for appointment (Acute) Tendonitis of long head of biceps brachii of right shoulder (Acute) Right rotator cuff tear (Acute) Thoracic back pain (Acute) Sacroiliac joint dysfunction (Acute) Colon cancer screening (Acute) Internal hemorrhoids with other complication (Acute) Sacroiliac joint dysfunction of right side (Acute) Right rotator cuff tendinitis (Acute) Biceps tendinitis of right upper extremity (Acute) Bursitis of shoulder, right (Acute) Insomnia (Acute) Anxiety (Chronic) UTI (urinary tract infection) (Acute) Trochanteric bursitis, right hip (Acute) Low back pain radiating to lower extremity (Acute) S/P left rotator cuff repair (Acute 09/22/20) BPPV (benign paroxysmal positional vertigo) (Acute) Screening for colon cancer (Acute) Claustrophobia (Acute) pt. 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 (Acute) great to MTP joint Primary osteoarthritis of left knee (Chronic) Corticosteroid injection: 12/03/18, 09/12/18 History of total right knee replacement (TKR) (Chronic) 07/20/2018 Revision of arthrotomy on 08/09/2018 Medical History Dysuria Tendonitis of left rotator cuff Confirmed RTC tear Marital problems Prurigo nodularis Thoracic spine pain Peripheral edema Chronic low back pain Knee joint pain Urinary frequency Headache Primary osteoarthritis of right knee (12/04/17) Complex tear of medial meniscus of right knee as current injury (11/06/17) Surgical History H/O shoulder surgery right History of arthroscopic surgery of shoulder L shoulder History of total hysterectomy History of cholecystectomy History of delivery (~04/25/11) Status post revision of total knee replacement July 2018 Status post total knee replacement, right July 2018 Status post arthroscopy of right knee (~11/22/17) Partial medial meniscectomy, medial chondroplasty, removal of loose bodies Date of surgery: November 21, 2017 Dr. Curtis Social History Smoking/Tobacco Use Status: Current every day Tobacco Type: cigarettes Smoking packs per day: 1 Smoking cigarettes per day: 20.0 Years smoked: 44 Smoking pack- years: 44.00 Smoking risk assessment performed?: Yes Alcohol Intake: current Alcohol Intake frequency: holidays/special occasions only Drug use: Never Substance use type: does not use Details: alcohol: summer 2022 Housing: house Current gender identity: female Do you feel safe at home: Yes Do you feel safe in your relationship?: Yes Additional Social history: unable to assess privately
[2024-05-10 18:18] VITALS: RESP 16
[2024-05-10 18:25] LABS: Abs Immature Grans 0.05 10^3/uL (0.0-0.06); Absolute Basophil Count 0.05 10^3/uL (0.0-0.2); Absolute Lymphocyte Count 1.84 10^3/uL (1.2-3.4); Absolute Neutrophil Count 9.39 10^3/uL (1.2-6.7); Basophils % 0.4 %; Eosinophils % 0.6 %; HCT 37.5 % (36.0-46.0); HGB 12.6 g/dL (11.2-15.7); Immature Grans % 0.4 %; Lymphocytes % 14.7 %; MCH 32.3 pg (27.0-33.0); MCHC 33.6 % (32.0-36.0); MCV 96 fL (80-95); Monocytes % 8.9 %; Platelet Count 325 10^3/uL (130-400); RDW 13.2 % (11.7-14.6); RDW-SD 47.4 fL; WBC 12.52 10^3/uL (4.4-10.8)
[2024-05-10 18:26] LABS: Absolute Eosinophil Count 0.08 10^3/uL (0.0-0.7); Absolute Monocyte Count 1.11 10^3/uL (0.1-0.8)
[2024-05-10 18:33] LABS: Anion Gap 10.6 mmol/L (3-11); BUN 7 mg/dL (7-18); CO2 24.4 mmol/L (21.0-32.0); CREATININE 0.8 mg/dL (0.55-1.02); Chloride 103 mmol/L (98-107); Glucose 107 mg/dL (74-106); Potassium 3.3 mmol/L (3.5-5.1); Sodium 138 mmol/L (136-145)
[2024-05-10] MEDS: Potassium Chloride Liquid 20 MEQ PKT 40 MEQ PO (19:32)
[2024-05-10 19:33] VITALS: BP 147/81; PULSE 75; RESP 18; O2SAT 100
--- NOTE | 2024-05-11 11:32 | W.ED.FU ---
Follow Up Plan: Patient made aware regarding positive Salmonella test, on ciprofloxacin, appropriate therapy, patient will return if she feels worse or any new concerns arise
--- NOTE | 2024-05-15 11:32 | W.ED.FU ---
Date of service: 05/15/24 Time of Service: 11:32 Follow Up Plan: Patient's initial blood cultures came back positive growing Staph hominis was called back for repeat blood cultures on the , those cultures are negative x 96 hours. I called patient personally who is feeling much better no symptomatology of infection. Given strict return precautions
== END 2024-05-10 19:48 | disposition home or self-care (01) ==
PROVIDERS: Emergency Provider Registered Nurse Emergency; PCP Family Medicine
DX: K52.9 Noninfective gastroenteritis and colitis, unspecified (principal); E87.6 Hypokalemia; F17.210 Nicotine dependence, cigarettes, uncomplicated
CPT/HCPCS: 80048; 87040; 99283; 85025

== ENCOUNTER 2024-07-25 16:40 | Emergency (ER) | payer MEDICARE, SELFPAY ==
[2024-07-25 16:55] VITALS: BP 143/63; PULSE 70; RESP 20; O2SAT 100
--- NOTE | 2024-07-25 17:01 | ED.GENADUL_ITS ---
Discharge Plan Disposition Patient Disposition: Home Condition: Stable Discharge Details Clinical Impression: Arthritis of right hip Primary Care Provider: Yaya Meadows ED Provider: Butch Winston Home Meds and New Rx's Prescriptions: Continued fluoxetine 40 mg capsule 60 mg PO DAILY acetaminophen 500 mg tablet 500 mg PO Q6H PRN albuterol sulfate [Ventolin HFA] 90 mcg/actuation HFA aerosol inhaler 2 puff IH .[id number] PRN tizanidine 2 mg tablet 2 mg PO Q8H PRN (Reason: muscle spasticity) Qty: 30 0RF triamcinolone acetonide 0.1 % cream 1 applic topical DAILY Patient Comments: Patient uses PRN acetaminophen 500 mg capsule 1,000 mg PO QID PRN Patient Comments: not taking gabapentin 600 mg tablet 1,200 mg PO BID clonazepam 0.5 mg tablet 0.5 mg PO QHS Patient Comments: TAKE 1/2 TO 1 TABLET BY MOUTH EACH NIGHT NEEDED omeprazole 20 mg capsule,delayed release(DR/EC) 40 mg PO DAILY bupropion HCl 75 mg Tablet 150 mg PO DAILY Rx Instructions: administer 6 hours apart naproxen 250 mg tablet 250 - 500 mg PO BID PRN (Reason: moderate pain and swelling) Qty: 40 0RF Discharge Instructions Instructions: Osteoarthritis Additional Instructions: You were seen in the emergency department for your right hip pain, you have significant degenerative changes on your x-ray showing arthritis. You could attempt taking Tylenol and ibuprofen for this, applying [id number] Voltaren gel to the hip joint couple times per day, ultimately you can talk to PCP about referral to orthopedics for possible cortisone injections. Please return to the emergency department for severe increase in pain with inability to use the right leg. Referrals: [facility] [Provider Group] Yaya Meadows MD [Primary Care Provider] - Discharge Data Discharge Date/Time-TO BE ENTERED AT DEPARTURE: 07/25/24 18:34 HPI General Date/Time Provider Initiated Documentation: 07/25/24 17:01 . HPI Narrative: 58 year-old female presents to ED today by POV/ambulating with a chief complaint of R hip pain, worse over the past 2 days, with onset intermittently and chronically, known mild arthritis but not like this. Quality described as painful with getting up out of bed, or getting out of the car, deep inside hip joint, no radiation to numbness/tingling of leg, back pain, urinary/bowel changes, fevers, dysuria. Severity is described as 9/10. Palliating factors include nothing specific attempted beyond OTCs. Provoking factors include movement after sedentary period. Events leading up to the incident/Associated Symptoms: Patient has not seen orthopaedics for this issue. Patient not anticoagulated. Related Data Home Medications ?Medication ?Instructions ?Recorded ?Confirmed albuterol sulfate 90 mcg/actuation 2 puff inhalation .[id number] PRN 04/08/19 07/25/24 aerosol inhaler (Ventolin HFA) triamcinolone acetonide 0.1 % 1 applic topical DAILY 07/06/20 07/25/24 topical cream acetaminophen 500 mg capsule 1,000 mg PO QID PRN 10/15/21 07/25/24 gabapentin 600 mg tablet 1,200 mg PO BID 10/15/21 07/25/24 acetaminophen 500 mg tablet 500 mg PO Q6H PRN 11/01/21 07/25/24 fluoxetine 40 mg capsule 60 mg PO DAILY 11/01/21 07/25/24 clonazepam 0.5 mg tablet 0.5 mg PO QHS 05/09/22 07/25/24 omeprazole 20 mg capsule,delayed 40 mg PO DAILY 05/09/22 07/25/24 release tizanidine 2 mg tablet 2 mg PO Q8H PRN muscle spasticity 07/19/22 07/25/24 #30 tabs bupropion HCl 75 mg tablet 150 mg PO DAILY 04/19/23 07/25/24 naproxen 250 mg tablet 250 - 500 mg (1 - 2 x 250 mg) PO 08/11/23 07/25/24 BID PRN moderate pain and swelling #40 tabs Previous Rx's ?Medication ?Instructions ?Recorded tizanidine 2 mg tablet 2 mg PO Q8H PRN muscle spasticity 07/19/22 #30 tabs naproxen 250 mg tablet 250 - 500 mg (1 - 2 x 250 mg) PO 08/11/23 BID PRN moderate pain and swelling #40 tabs Allergies Allergy/AdvReac Type Severity Reaction Status Date / Time Penicillins Allergy Intermediate Skin Rash Verified 07/25/24 16:59 pravastatin AdvReac Intermediate leaky Verified 07/25/24 16:59 stools General Stated Complaint: Orthopedic ELSY: 3 Review of Systems All systems reviewed & are unremarkable except as noted in HPI and below Exam Narrative Exam Narrative: GENERAL APPEARANCE: Well-nourished, non-toxic, awake and alert, atraumatic, no acute distress. SKIN: Warm, pink, dry, intact, without rashes/lesions/ulcerations. HEAD: Normocephalic, atraumatic, normal hair distribution for gender/age. EYES: Normal conjunctiva, no exudates on lids/lashes. ENT: Nares patent, no circumoral cyanosis, no facial swelling NECK: Supple, trachea midline, painless cervical ROM. LUNGS/CHEST: Non-labored respirations, normal A/P diameter, symmetrical expansion, no chest wall deformity HEART (CV/PV): No peripheral edema, no JVD. ABDOMEN: Soft, non-distended, no guarding. MSK: Normal ROM, no swelling/deformity to bilateral UEs or LEs, moving all extremities without weakness, no cyanosis, spine midline without tenderness, normal curvature, right hip tenderness without crepitus, no lumbar tenderness, no CVA tenderness to percussion right CVA NEURO: Mental Status AAOx4 - alert to person, place, time, events No facial droop, no forehead involvement. Motor: No focal weakness - strength 5/5 in bilateral UEs and LEs, proximal and distal, symmetric. Sensory: sensation intact to light touch globally. Gait normal: patient ambulated without ataxia into ED room. PSYCH: euthymic, cooperative, pleasant, appropriate speech Course Vital Signs Vital signs: Vital Signs Pulse 70 07/25/24 16:55 Respiratory Rate 20 07/25/24 16:55 Blood Pressure 143/63 H 07/25/24 16:55 Pulse Oximetry 100 07/25/24 16:55 Pulse 70 07/25/24 16:55 Respiratory Rate 20 07/25/24 16:55 Respiratory Effort Normal 07/25/24 17:00 Blood Pressure 143/63 H 07/25/24 16:55 Blood Pressure Position Sitting 07/25/24 16:55 Pulse Oximetry 100 07/25/24 16:55 Oxygen Delivery Method Room Air 07/25/24 16:55 Oxygen Flow Rate 0 07/25/24 16:55 Pain Level 9 07/25/24 16:55 Medical Decision Making This dictation utilizes [id number] dictation software and may contain unedited grammatical errors. 58 year-old female presents to ED today by POV/ambulating with a chief complaint of R hip pain, worse over the past 2 days, with onset intermittently and chronically, known mild arthritis but not like this. Quality described as painful with getting up out of bed, or getting out of the car, deep inside hip joint, no radiation to numbness/tingling of leg, back pain, urinary/bowel changes, fevers, dysuria. Severity is described as 9/10. Palliating factors include nothing specific attempted beyond OTCs. Provoking factors include movement after sedentary period. Events leading up to the incident/Associated Symptoms: Patient has not seen orthopaedics for this issue. Patients' medical history: Chronic low back pain, knee pain, UTI, meralgia paresthetica, COPD. Family and social history: noncontributory. Pertinent exam findings / vital signs include tenderness to palpation without crepitus to right hip and ischial crest, full range of motion and strength of lower extremity, no lumbar tenderness, no suprapubic tenderness. Differential / pathologies of concern include osteoarthritis, hip sprain/strain, unlikely fracture. Diagnostic studies of: -XR R hip-shows degenerative changes. Interventions of: -Recommend OTCs and Voltaren, Ortho follow-up for possible cortisone. ED Course/Assessment/Plan: 58-year-old female presents with right hip pain that is worse after sedentary periods, is neurovascularly intact in lower extremity has no signs of sciatica or renal causes based on symptomology. X-rays negative for fracture, counseled the patient on degenerative changes and likely pain of arthritis, recommend she follow-up with PCP referral to orthopedics as well as [id number] OTCs and Voltaren gel as needed for pain, strict return criteria for signs of neurovascular compromise, dysuria, fever, nausea. Findings not consistent with renal causes, spinal etiology, fracture. Disposition of arthritis of right hip. Patient verbalized understanding of the plan and return to ED criteria and engaged in shared decision making. Medical Records Medical records reviewed: Yes I reviewed the patient's medical records. Imaging Data Radiologic Study: Attestation: I personally reviewed and interpreted this imaging study as follows: Imaging: X-Ray Radiologist's impression: EXAM: XR HIP RT COMPLETE AP PELVIS CLINICAL HISTORY: R hip pain. TECHNIQUE: 2D digital imaging was performed of the right hip. Two images were obtained. AP pelvis and lateral right hip views were obtained. COMPARISON: CR,XR XR PELVIS AP from 06/29/2020 FINDINGS: BONES: No acute fracture is present. No bony destructive lesion is seen. JOINTS: No dislocation present. There is mild narrowing of the superior right hip joint space. The sacroiliac joints and symphysis pubis are intact. SOFT TISSUE: Normal. IMPRESSION: 1. Mild degenerative changes seen in the right hip. 2. No acute fracture or dislocation. Quality:SDOH Health Related Social Needs: Health related social needs housing instability, house d, with risk of homelessness(Z59.811) PFSH All Active Problems Arthritis of right hip (Acute) No-show for appointment (Acute) Tendonitis of long head of biceps brachii of right shoulder (Acute) Right rotator cuff tear (Acute) Thoracic back pain (Acute) Sacroiliac joint dysfunction (Acute) Colon cancer screening (Acute) Internal hemorrhoids with other complication (Acute) Sacroiliac joint dysfunction of right side (Acute) Right rotator cuff tendinitis (Acute) Biceps tendinitis of right upper extremity (Acute) Bursitis of shoulder, right (Acute) Insomnia (Acute) Anxiety (Chronic) UTI (urinary tract infection) (Acute) Trochanteric bursitis, right hip (Acute) Low back pain radiating to lower extremity (Acute) S/P left rotator cuff repair (Acute 09/22/20) BPPV (benign paroxysmal positional vertigo) (Acute) Screening for colon cancer (Acute) Claustrophobia (Acute) pt. 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 (Acute) great to MTP joint Primary osteoarthritis of left knee (Chronic) Corticosteroid injection: 12/03/18, 09/12/18 History of total right knee replacement (TKR) (Chronic) 07/20/2018 Revision of arthrotomy on 08/09/2018 Medical History Dysuria Tendonitis of left rotator cuff Confirmed RTC tear Marital problems Prurigo nodularis Thoracic spine pain Peripheral edema Chronic low back pain Knee joint pain Urinary frequency Headache Primary osteoarthritis of right knee (12/04/17) Complex tear of medial meniscus of right knee as current injury (11/06/17) Surgical History H/O shoulder surgery right History of arthroscopic surgery of shoulder L shoulder History of total hysterectomy History of cholecystectomy History of delivery (~04/25/11) Status post revision of total knee replacement July 2018 Status post total knee replacement, right July 2018 Status post arthroscopy of right knee (~11/22/17) Partial medial meniscectomy, medial chondroplasty, removal of loose bodies Date of surgery: November 21, 2017 Dr. Curtis Social History Smoking/Tobacco Use Status: Current every day Tobacco Type: cigarettes Smoking packs per day: 1 Smoking cigarettes per day: 20.0 Years smoked: 44 Smoking pack- years: 44.00 Smoking risk assessment performed?: Yes Alcohol Intake: current Alcohol Intake frequency: holidays/special occasions only Drug use: Never Substance use type: does not use Details: alcohol: summer 2022 Housing: house Current gender identity: female Do you feel safe at home: Yes Do you feel safe in your relationship?: Yes Additional Social history: unable to assess privately
--- NOTE | 2024-07-25 17:43 | DI.RAD_ITS ---
Exam(s) XR HIP RT COMPLETE AP PELVIS EXAM: XR HIP RT COMPLETE AP PELVIS CLINICAL HISTORY: R hip pain. TECHNIQUE: 2D digital imaging was performed of the right hip. Two images were obtained. AP pelvis a nd lateral right hip views were obtained. COMPARISON: CR,XR XR PELVIS AP from 06/29/2020 FINDINGS: BONES: No acute fracture is present. No bony destructive lesion is seen. JOINTS: No dislocation present. There is mild narrowing of the superior right hip joint space. The s acroiliac joints and symphysis pubis are intact. SOFT TISSUE: Normal. IMPRESSION: 1. Mild degenerative changes seen in the right hip. 2. No acute fracture or dislocation. DATA REPOSITORY: RADIATION DOSE DELIVERED:
[2024-07-25 18:04] LABS: Bilirubin Negative (Negative); Blood Negative (Negative); Clarity Clear (Clear); Glucose Negative (Negative); Ketones Negative (Negative); Leukocyte Esterase Negative (Negative); Nitrite Negative (Negative); Specific Gravity >= 1.030 (1.005-1.025); Urobilinogen 0.2 mg/dL (Up to 0.2)
== END 2024-07-25 18:34 | disposition home or self-care (01) ==
PROVIDERS: Emergency Provider Physician Assistant; PCP Family Medicine
DX: M16.11 Unilateral primary osteoarthritis, right hip (principal); F17.210 Nicotine dependence, cigarettes, uncomplicated
CPT/HCPCS: 99283; 73502; 81003

== ENCOUNTER 2025-01-15 14:20 | Outpatient (REF) | payer MEDICARE, SELFPAY ==
[2025-01-15 15:54] LABS: Epithelial Cells Rare HPF (Negative); RBC 0-2 HPF (0-2); WBC Negative HPF (0-5)
[2025-01-15 15:55] LABS: Bacteria Negative HPF (Negative); C & S Indicated? C&S Done As Ordered; Crystals Negative HPF (Negative); Mucus Heavy (Negative)
== END 2025-01-15 14:21 | disposition home or self-care (01) ==
LOC: LBN 14:20
PROVIDERS: PCP Family Medicine; Visit Provider Physician Assistant Medical
DX: R30.0 Dysuria (principal)
CPT/HCPCS: 81015; 87086

== ENCOUNTER 2025-01-17 11:36 | Outpatient (CLI) | payer MEDICARE, SELFPAY ==
--- NOTE | 2025-01-17 10:15 | DI.RAD_ITS ---
Exam(s) XR HIP RT COMPLETE AP PELVIS EXAM: XR HIP RT COMPLETE AP PELVIS CLINICAL HISTORY: right hip pain. TECHNIQUE: 2D digital imaging was performed. COMPARISON: CR XR HIP RT COMPLETE AP PELVIS from 07/25/2024 FINDINGS: Two views No evidence of pelvic nor hip fracture. Again noted is significant moderate osteoarthritic narrowing of the right hip joint, similar to previ ous. Also degenerative subarticular cysts in the superolateral aspect of the acetabulum. The opposi te-left hip appears unremarkable. IMPRESSION: Significant moderate osteoarthritic degenerative change in the right hip, unchanged radiographically from 07/25/2024. DATA REPOSITORY: RADIATION DOSE DELIVERED:
== END 2025-01-17 11:37 | disposition home or self-care (01) ==
LOC: DIORS 11:36
PROVIDERS: PCP Family Medicine; Referring Provider Family Medicine; Visit Provider Physician Assistant
DX: M16.11 Unilateral primary osteoarthritis, right hip
CPT/HCPCS: 20611; J1010; 73502

== ENCOUNTER 2025-02-04 21:22 | Outpatient (REF) | payer MEDICARE, SELFPAY ==
[2025-02-04 22:13] LABS: Abs Immature Grans 0.01 10^3/uL (0.0-0.06); Absolute Basophil Count 0.04 10^3/uL (0.0-0.2); Absolute Eosinophil Count 0.18 10^3/uL (0.0-0.7); Absolute Lymphocyte Count 2.52 10^3/uL (1.2-3.4); Absolute Monocyte Count 0.76 10^3/uL (0.1-0.8); Basophils % 0.6 %; Eosinophils % 2.8 %; HCT 36.7 % (36.0-46.0); HGB 12.5 g/dL (11.2-15.7); Immature Grans % 0.2 %; Lymphocytes % 38.7 %; MCH 31.9 pg (27.0-33.0); MCHC 34.1 % (32.0-36.0); MCV 94 fL (80-95); MPV 9.8 fL (8.0-11.0); Monocytes % 11.7 %; Platelet Count 352 10^3/uL (130-400); RBC 3.92 10^6/uL (3.93-5.22); RDW 13.2 % (11.7-14.6); RDW-SD 45.2 fL; WBC 6.51 10^3/uL (4.4-10.8)
[2025-02-04 23:04] LABS: ALT 21 U/L (14-59); AST 17 U/L (15-37); Alkaline Phosphatase 86 U/L (46-116); Anion Gap 8.2 mmol/L (3-11); BUN 17 mg/dL (7-18); Bilirubin, Total 0.3 mg/dL (0.2-1.0); CO2 26.8 mmol/L (21.0-32.0); CREATININE 0.7 mg/dL (0.55-1.02); Calcium 9.2 mg/dL (8.5-10.1); Chloride 103 mmol/L (98-107); Estimated GFR 98.34 (mL/min/1.73m2); Glucose 88 mg/dL (74-106); Potassium 4.2 mmol/L (3.5-5.1); Sodium 138 mmol/L (136-145); Total Protein 7.3 g/dL (6.4-8.2)
== END 2025-02-04 21:23 | disposition home or self-care (01) ==
LOC: NCHCN 21:22
PROVIDERS: PCP Family Medicine; Visit Provider Family Medicine
DX: Z00.00 Encounter for general adult medical examination without abnormal findings (principal)
CPT/HCPCS: 80053; 85025

== ENCOUNTER → 2025-04-21 09:55 | Outpatient (BNVA) | payer MEDICARE, SELFPAY | PROVIDERS: PCP Family Medicine; Referring Provider Family Medicine; Visit Provider Student in an Organized Health Care Education/Training Program | DX: M16.11 Unilateral primary osteoarthritis, right hip (principal) | CPT/HCPCS: 99214 ==

== ENCOUNTER 2025-05-02 14:16 | Outpatient (CLI) | payer MEDICARE, SELFPAY ==
[2025-05-02 14:24] LABS: HCT 34.4 % (36.0-46.0); HGB 11.6 g/dL (11.2-15.7); MCH 32.5 pg (27.0-33.0); MCHC 33.7 % (32.0-36.0); MCV 96 fL (80-95); MPV 9.6 fL (8.0-11.0); Platelet Count 349 10^3/uL (130-400); RBC 3.57 10^6/uL (3.93-5.22); RDW 13.4 % (11.7-14.6); RDW-SD 48.2 fL; WBC 6.77 10^3/uL (4.4-10.8)
[2025-05-02 14:54] LABS: Anion Gap 7.8 mmol/L (3-11); BUN 16 mg/dL (7-18); CO2 28.2 mmol/L (21.0-32.0); Calcium 9.1 mg/dL (8.5-10.1); Chloride 107 mmol/L (98-107); Estimated GFR 72.73 (mL/min/1.73m2); Glucose 103 mg/dL (74-106); Potassium 4.0 mmol/L (3.5-5.1); Sodium 143 mmol/L (136-145)
== END 2025-05-02 14:17 | disposition home or self-care (01) ==
LOC: LBO 14:17
PROVIDERS: PCP Family Medicine; Visit Provider Student in an Organized Health Care Education/Training Program
DX: M16.11 Unilateral primary osteoarthritis, right hip (principal); Z01.818 Encounter for other preprocedural examination
CPT/HCPCS: 36415; 80048; 85027

== ENCOUNTER 2025-05-06 06:02 | Day surgery (SDC) | payer MEDICARE, SELFPAY ==
[2025-05-06] VITALS (28 sets, daily range): BP systolic 87–138; BP diastolic 30–70; PULSE 61–79; RESP 9–28; TEMP 36.4–37.1; O2SAT 95–100; BMI 39.8
[2025-05-06] MEDS: Acetaminophen 500 MG TAB 1000 MG PO (06:50)
[2025-05-06] MEDS: Celecoxib 200 MG CAP 400 MG PO (06:50)
--- NOTE | 2025-05-06 07:01 | PDOC.DSDIS_ITS ---
Date of service: 05/06/25 Discharge Plan Disposition Condition: Good Discharge Details Reason For Visit: Right hip DJD Attending Provider: Armin Curtis Primary Care Provider: Yaya Meadows Home Meds and New Rx's Prescriptions: New acetaminophen 500 mg tablet 1,000 mg PO Q8H PRN Qty: 90 0RF Rx Instructions: Take two tablets up to every 8 hours as needed for pain aspirin 81 mg tablet,delayed release (DR/EC) 81 mg PO BID 30 Days Qty: 60 0RF celecoxib [Celebrex] 200 mg capsule 200 mg PO BID PRNQty: 60 0RF Rx Instructions: Take one tablet twice daily for pain and inflammation docusate sodium [Colace] 100 mg capsule 100 mg PO BID Qty: 28 0RF dexamethasone 4 mg tablet 4 mg PO DAILY Qty: 2 0RF Rx Instructions: Take one tablet once daily for two days oxycodone 5 mg tablet 5 mg PO Q6H PRNQty: 12 0RF Rx Instructions: Take one tablet up to every 6 hours as needed for severe postoperative pain Continued fluoxetine 40 mg capsule 60 mg PO DAILY albuterol sulfate [Ventolin HFA] 90 mcg/actuation HFA aerosol inhaler 2 puff IH [id number] PRN tizanidine 2 mg tablet 2 mg PO Q8H PRN (Reason: muscle spasticity) Qty: 30 0RF triamcinolone acetonide 0.1 % cream 1 applic topical DAILY Patient Comments: Patient uses PRN gabapentin 600 mg tablet 1,200 mg PO BID clonazepam 0.5 mg tablet 0.5 mg PO QHS Patient Comments: TAKE 1/2 TO 1 TABLET BY MOUTH EACH NIGHT NEEDED omeprazole 20 mg capsule,delayed release(DR/EC) 40 mg PO DAILY bupropion HCl 75 mg Tablet 150 mg PO DAILY Rx Instructions: administer 6 hours apart Discontinued acetaminophen 500 mg capsule 1,000 mg PO QID PRN Patient Comments: not taking naproxen 250 mg tablet 250 - 500 mg PO BID PRN (Reason: moderate pain and swelling) Qty: 40 0RF Discharge Instructions Additional Instructions: Total Hip Discharge Instructions Activity: The most important activity is to walk. You should try to take short walks a few times a day. You have no restrictions on movement or positioning, but do not try to force what you do. You will find some stiffness and weakness with hip flexion (lifting your knee). Do not try to strengthen this too early, continue to practice walking and stairs and this will come. - Outpatient physical therapy can be helpful to help return you to a normal gait and improve your flexibility and strength. This can start around 2 weeks. For some patients, it?s not necessary. Usually this is determined at the time of discharge or at the first post-operative visit. - You should wear the MADELINE hose on both legs for 2 weeks. Dressing: Keep the surgical dressing in place for at least one week. After the first week it may be removed and replace with light gauze and tape or nothing. It may get wet after 3 days but avoid soaking the dressing. If it gets wet, just lightly pat dry. It is important to always keep some gauze between skin folds, especially when you are sitting. Spend some time with the wound exposed when you are lying flat as the incision does wrinkle onto itself. Medications: - You should take Tylenol and an anti-inflammatory Celebrex as your primary pain control medications. If the Celebrex is too expensive or not covered, please call the office for another alternative (Advil/Ibuprofen or Naproxen/Aleve). - You have been prescribed a stronger pain medication Oxycodone for breakthrough pain, take as needed as prescribed. - You take a stomach acid reduction agent Omeprazole at baseline - continue with this medication to help reduce stomach acid and reflux. - You have also been prescribed Decadron to help with post-operative nausea and pain. You will take this for two days starting tomorrow. - You will be taking Aspirin 81mg twice a day for DVT prevention unless instructed otherwise. - If you have constipation you should take Colace (which has been prescribed) or Miralax (which is available [id number]). It takes most people 3-4 days to have a bowel movement. Follow-up: 2 weeks If you have any acute concerns or questions, please do not hesitate to contact the office at [phone]. You may contact Dr. Curtis with any questions after hours through the hospital at [phone] or on his cell phone at [phone]. Referrals: Armin Curtis MD [ [facility] ST[facility]FF [facility]YSICIAN, Orthopaedic Surgical] Equipment/Supplies: Walker Activity:: Elevate Remove Dressings/Wound Care:: Do Not Remove Shower/Bathe:: Cover Activity:: Activity as Tolerated Diet:: As Tolerated Discharge Orders Discharge Orders: Discharge Order (Routine); Ordered 05/06/25 Ordered By: Evangelina Kim
--- NOTE | 2025-05-06 07:28 | W.ANESPRE ---
General Info Date of Service Date Performed: 05/06/25 Height: 5 ft 4 in Weight: 105.2 kg Body Mass Index (BMI): 39.8 Surgical Procedure: Operation Date: 05/06/25 07:50 Proposed Procedure Side Surgeon p Hip Total Hip Anterior Right Armin Curtis MD Meds Allergies and Home Medications Allergies Allergy/AdvReac Type Severity Reaction Status Date / Time Penicillins Allergy Intermediate Skin Rash Verified 05/06/25 06:19 pravastatin AdvReac Intermediate leaky Verified 05/06/25 06:19 stools Home Medication ?Medication ?Instructions ?Recorded albuterol sulfate 90 mcg/actuation 2 puff inhalation .[id number] PRN 04/08/19 aerosol inhaler (Ventolin HFA) triamcinolone acetonide 0.1 % 1 applic topical DAILY 07/06/20 topical cream gabapentin 600 mg tablet 1,200 mg PO BID 10/15/21 fluoxetine 40 mg capsule 60 mg PO DAILY 11/01/21 clonazepam 0.5 mg tablet 0.5 mg PO QHS 05/09/22 omeprazole 20 mg capsule,delayed 40 mg PO DAILY 05/09/22 release tizanidine 2 mg tablet 2 mg PO Q8H PRN muscle spasticity 07/19/22 #30 tabs bupropion HCl 75 mg tablet 150 mg PO DAILY 04/19/23 acetaminophen 500 mg tablet 1,000 mg (2 x 500 mg) PO Q8H PRN 05/06/25 pain #90 tabs aspirin 81 mg tablet,delayed 81 mg PO BID 30 days #60 tabs 05/06/25 release celecoxib 200 mg capsule (Celebrex) 200 mg PO BID PRN #60 caps 05/06/25 dexamethasone 4 mg tablet 4 mg PO DAILY #2 tabs 05/06/25 docusate sodium 100 mg capsule 100 mg PO BID #28 caps 05/06/25 (Colace) oxycodone 5 mg tablet 5 mg PO Q6H PRN #12 tabs 05/06/25 Current Visit Medications: Current Medications Generic Name Dose Route Start Last Admin Trade Name Freq PRN Reason Stop Dose Admin Acetaminophen 1,000 mg 05/06/25 06:00 05/06/25 06:50 Acetaminophen 500 Mg Tab PO 05/06/25 23:59 1,000 mg PREOP EDE Administration Celecoxib 400 mg 05/06/25 06:00 05/06/25 06:50 Celecoxib 200 Mg Cap PO 05/06/25 23:59 400 mg PREOP EDE Administration Hydromorphone HCl 0.5 mg 05/06/25 06:59 Hydromorphone 2 Mg/Ml Syr IVP Q2H PRN PRN Ringer's Solution 1,000 mls @ 80 mls/hr 05/06/25 06:00 IV 05/06/25 23:59 INFUSION EDE Cefazolin Sodium/Dextrose 2 gm in 50 mls @ 100 mls/hr 05/06/25 06:00 Ancef Duplex IVPB 05/06/25 23:59 PREOP EDE Tranexamic Acid/Sodium Chloride 1,000 mg in 100 mls @ 600 mls/hr 05/06/25 06:00 IVPB 05/06/25 23:59 PREOP EDE Cefazolin Sodium/Dextrose 1 gm in 50 mls @ 100 mls/hr 05/06/25 08:00 Ancef Duplex IVPB 05/07/25 00:29 Q8H EDE IV Miscellaneous Supplies 1 each 05/06/25 06:00 Iv Access IV 05/06/25 23:59 DIRECTED EDE Oxycodone HCl 0 mg 05/06/25 06:59 Oxycodone 5 Mg Tab PO Q3H PRN PRN Pain Sodium Chloride 0 ml 05/06/25 06:00 Normal Saline Flush 10 Ml Syr IV 05/06/25 23:59 PRN PRN Sodium Chloride 0 ml 05/06/25 06:00 Normal Saline 10 Ml Vial IJ 05/06/25 23:59 DIRECTED PRN Sterile Water 0 ml 05/06/25 06:00 Water,Injection,Sterile 10 Ml Vial IJ 05/06/25 23:59 DIRECTED PRN Tranexamic Acid 1,300 mg 05/06/25 06:59 Tranexamic Acid 650 Mg Tab PO ONCE PRN postoperative PFSH Active Problems Active Problems: Problem Status Onset Code Degenerative joint disease of right hip Chronic M16.11 No-show for appointment Acute Z91.199 Tendonitis of long head of biceps brachii of right shoulder Acute M75.21 Right rotator cuff tear Acute M75.101 Thoracic back pain Acute M54.6 Sacroiliac joint dysfunction Acute M53.3 Colon cancer screening Acute Z12.11 Internal hemorrhoids with other complication Acute K64.8 Sacroiliac joint dysfunction of right side Acute M53.3 Right rotator cuff tendinitis Acute M75.81 Biceps tendinitis of right upper extremity Acute M75.21 Bursitis of shoulder, right Acute M75.51 Insomnia Acute G47.00 Anxiety Chronic F41.9 UTI (urinary tract infection) Acute N39.0 Trochanteric bursitis, right hip Acute M70.61 Low back pain radiating to lower extremity Acute M54.5 S/P left rotator cuff repair Acute 09/22/20 Z98.890 BPPV (benign paroxysmal positional vertigo) Acute H81.10 Screening for colon cancer Acute Z12.11 Claustrophobia Acute F40.240 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 Acute M19.071 Primary osteoarthritis of left knee Chronic M17.12 History of total right knee replacement (TKR) Chronic Z96.651 Medical History Medical History Dysuria Tendonitis of left rotator cuff Confirmed RTC tear Marital problems Prurigo nodularis Thoracic spine pain Peripheral edema Chronic low back pain Knee joint pain Urinary frequency Headache Primary osteoarthritis of right knee (12/04/17) Complex tear of medial meniscus of right knee as current injury (11/06/17) Surgical History Surgical History H/O shoulder surgery right History of arthroscopic surgery of shoulder L shoulder History of total hysterectomy History of cholecystectomy History of delivery (~04/25/11) Status post revision of total knee replacement July 2018 Status post total knee replacement, right July 2018 Status post arthroscopy of right knee (~11/22/17) Partial medial meniscectomy, medial chondroplasty, removal of loose bodies Date of surgery: November 21, 2017 Dr. Curtis Tobacco Smoking/Tobacco Use Status: Current every day Tobacco Type: cigarettes Smoking packs per day: 1 Smoking cigarettes per day: 20 Years smoked: 44 Passive smoking exposure: Yes Alcohol Alcohol Intake: current Alcohol intake frequency: holidays/special occasions only Substance Use Substance use: Never Substance use type: does not use Details: cigarettes this AM Vital Signs and Lab Results Vital Signs Most Recent Vital Signs in EMR: Most Recent Vital Signs Temp Pulse Resp BP Pulse Ox 36.4 C L 67 17 138/49 L 99 05/06/25 06:23 05/06/25 06:23 05/06/25 06:23 05/06/25 06:23 05/06/25 06:23 Lab Results Complete Blood Count: WBC, (4.4-10.8) 6.77 10^3/uL 05/02/25, 13:57 RBC, (3.93-5.22) 3.57 10^6/uL L 05/02/25, 13:57 Hgb, (11.2-15.7) 11.6 g/dL 05/02/25, 13:57 Hct, (36.0-46.0) 34.4 % L 05/02/25, 13:57 Plt Count, (130-400) 349 10^3/uL 05/02/25, 13:57 Complete Metabolic Panel: Sodium, (136-145) 143 mmol/L 05/02/25, 13:57 Potassium, (3.5-5.1) 4.0 mmol/L 05/02/25, 13:57 Chloride, (98-107) 107 mmol/L 05/02/25, 13:57 Carbon Dioxide, (21.0-32.0) 28.2 mmol/L 05/02/25, 13:57 BUN, (7-18) 16 mg/dL 05/02/25, 13:57 Creatinine, (0.55-1.02) 0.9 mg/dL 05/02/25, 13:57 Est GFR (CKD-EPI 2020), (mL/min/1.73m2) 72.73 05/02/25, 13:57 Calcium, (8.5-10.1) 9.1 mg/dL 05/02/25, 13:57 Glucose, (74-106) 103 mg/dL 05/02/25, 13:57 Anesthesia Assessment and Plan Anesthesia History Personal History: No History of Anesthesia Complications Family History: No Family History of Anesthesia Complications Exercise Tolerance Exercise Tolerance: Metabolic Equivalents>4 Pertinent Negatives Pertinent Negatives: No Symptoms of GERD Cardiac & Pulmonary Exam Cardiac Exam: Normal S1/S2 Heart Sounds Pulmonary Exam: Clear Bilateral Breath Sounds Implantable Cardiac Device Does patient have a Pacemaker or an ICD?: No Airway Exam Known Difficult Airway: No Mallampati Class: 3 Mouth Opening: Narrow (< 3cm) Thyromental Distance: Less than 3 cm Neck Range of Motion: Limited ROM Neck Circumference: Thick Teeth Condition: Normal Dentition ASA Classification ASA Score: ASA 3 Emergency Case?: No NPO Status NPO Status: NPO Clears >2 hours, Solids >8 hours Anesthesia Plan Resuscitation Status: Full Code Anesthesia Technique: General Anesthesia Airway Planned: Endotracheal Tube Monitors Used: Standard Monitors and SedLine Preoperative Comments:: Pt has significant lumbar-sacral pathology with persistent numbness and weakness of both upper legs. Pt advised against SAB. Consented for GETA. Resp: CPAP. Alex Eastman CRNA
[2025-05-06] MEDS: Lactated Ringers 1,000 ML 80 ML IV (07:29)
--- NOTE | 2025-05-06 07:37 | ROE_ITS ---
Operative Note Operative Note PRE-OP DIAGNOSIS: RIGHT Hip Osteoarthritis POST-OP DIAGNOSIS: same PROCEDURE: Right Anterior Total Hip Arthroplasty with Intraoperative Navigation SURGEON: Armin Curtis ADVERTISING ACCOUNT EXECUTIVE: Evangelina Kim ANESTHESIA TYPE: General LMA/ETT Refer to Anesthesia Record ESTIMATED BLOOD LOSS: 150 PATHOLOGY: none sent TOURNIQUET TIME: 0 COMPLICATIONS: None Patient was transported to: PACU Patient's condition: stable Implants: 1. Depuy [place] Acetabular Component, 50mm 2. Depuy Acetabular Liner, [id number] 3. Depuy Actis Standard Collared Femoral Stem, Size 4 4. Depuy Altrx Ceramic Femoral Head, Size 32+1mm Indications: I have seen Dea in clinic for symptoms of hip arthritis, confirmed with radi ographic findings. Dea has exhausted nonoperative methods and was having significant limitations in daily function and desired better function and less pain. I discussed the technical details of a hip replacement. I explained the risks of the procedure to include, but not limited to, bleeding, infection, pain, stiffness, fracture, damage to nerves and vessels, damage to muscles and tendons, loosening, instability, leg length inequality, need for repeat procedure, blood clot and cardiopulmonary demise. Despite these risks, Dea elected to proceed. Findings: There was significant signs of arthritis throughout the hip with loose cartilage pieces, head-neck osteophytes, and irregularity of the femoral head surface. Procedure Description: Dea was greeted in the preoperative holding area where the correct side was identified and marked. The consent was reviewed with the patient and signed. The history and physical was updated. All questions were answered. She was taken back to the operating room. A general anesthestic was then administered. The feet were wrapped with cast padding and Coban and then placed into the boot liners and then into the boots. Care was taken to protect the skin and make sure the heels were fully down and the boots were stable. The patient was then positioned onto the HANA table. Both legs were held in a neutral position. SCDs were applied. The patient was then slid down onto a peroneal post. Prophylactic antibiotics in the form of Cefazolin were administered. 1g of Tranxemic Acid was given intravenously within 30 minutes of incision. The right leg was then prepped with Chloraprep and draped in a standard fashion. A second prep with Chloraprep was performed prior to placement of a shower-curtain type drape with Iodine impregnated skin protection. A timeout to confirm correct identity, side and site, procedure, allergies, anesthesia, and medical concerns was performed. An obliquely oriented incision was made starting lateral to the ASIS and running distal over the Tensor Fascia Hannah (TFL) muscle belly toward the fibular head, approximately 10cm. The skin and soft tissue was dissected sharply, through Candida?s fascia, and to the fascia of the TFL. With the fascia and superior border of the IT band identified, the fascia was incised with a new knife just above any perforators from the IT band. The TFL muscle belly was bluntly dissected away from the fascia and moved laterally. The fat between TFL and rectus was identified to ensure the dissection was not within the TFL. Blunt dissection created space between abductors and the capsule and retractor was placed over the lateral femoral neck. The fibers of the rectus femoris tendon were identified and these were freed from the anterior capsule. A second cobra retractor was placed around the medial femoral neck. The TFL was further retracted laterally to show the deep fascia. Careful dissection through this layer identified three main crossing vessels of the lateral femoral circumflex. These were cauterized in multiple locations and then cut without any noticeable bleeding. The TFL was further released bluntly from the deep fascia to expose anterior hip capsule and fat The soft tissue orthopaedic retractor was then placed beneath the TFL and against sartorius and medial soft tissues to protect and retract the soft tissues. A T-capsulotomy was then performed starting at the superior lateral acetabulum and moving distally to the intertrochanteric ridge. These capsular flaps were tagged with a No. 1 Vicryl and elevated from within. The capsular flaps were released to the shoulder of the lateral neck and to the lesser trochanter to give excellent visualization of the proximal femur. A neck osteotomy was performed using an oscillating saw based on preoperative templates. This cut started in the shoulder and of the lateral neck and exited medially. The saw was at all times directed medially to avoid injury to the greater trochanter. Gross traction was applied to the leg and the osteotomy opened. The femoral head was removed with a corkscrew, making sure to protect the TFL on its exit. Traction was released after head removal. This was measured on the back table to determine the starting reamer size. Portions of the rectus obscuring visualization were minimally elevated off the superior acetabulum. An anterior retractor was placed over the anterior wall between capsule and labrum and attached to the Gripper retraction system. The femur was rotated to 90 degrees and medial capsule was fully released until the lesser trochanter was palpable and visible; the femur was returned to 30 degrees. A posterior retractor was placed similarly between capsule and labrum. This provided excellent visualization. The contents of the cotyloid fossa were removed with electrocautery and the labrum was removed with a knife. There was a notable floor osteophyte. Acetabular reaming began with a 45mm reamer. This first reaming was directed anterior to posterior and medial to get down to the true floor. This was inspected and reamed until the true floor was reached. The anterior retractor was then released and entry and exit was provided by traction on the capsular flaps. I then reamed sequentially up to a 50mm reamer where good fit was obtained. The larger reamers were oriented based on anatomical reference of the anterior and lateral cope to ensure proper abduction and anteversion. Positioning and size was confirmed with the fluoroscopy. A 50mm Depuy [place] acetabular component was selected. The acetabulum was reamed around the periphery with the selected acetabular size to prevent a rim fit. The deep tissues were irrigated. The acetabular component was then impacted in a position of about 40-45 degrees of abduction and 15-20 degrees of anteversion, using the patient?s anatomy as the ultimate landmark. Fluoroscopy was used to confirm this. There was excellent food service coordinator of the acetabular component and the inserting handle was removed. The acetabular liner, Depuy [id number] polyethylene liner, was inserted and lined up with the tines of the acetabular component. There was no soft tissue interposition. The liner was then impacted into position and confirmed to be well-seated. A portion of the vesna-articular cocktail was then injected around the acetabulum into the capsule and periosteum. This cocktail consisted of 123mg of Ropivacaine, 0.25mg of Epinephrine, 0.04mg of Clonidine, and 15mg of Ketorolac, diluted to 50cc. The leg was rotated to 120 degrees. Any remaining medial capsule was released until the lesser trochanter was easily palpable. A retractor was placed medially. The lateral capsule was further released into the shoulder to allow access to the greater trochanter. A Miller retractor was placed over the greater trochanter which allowed the trochanter to flip in front of the capsule for excellent exposure. The leg was brought down into maximal extension and 20 degrees of adduction while ensuring there was no impingement on the acetabulum. Any remnant capsule within the trochanter was released. Piriformis and obturator externis were identified and protected. There was excellent access to the proximal femur. The lateral neck remnant was removed with a rongeur. A blunt canal probe was used to identify the canal and trajectory for later broaching. A box osteotome initiated the broach course. A small curved rasp and a curved curette were used to work laterally. Broaching then began with a starter Actis broach. This was inserted manually around the trochanter and into the canal before mallet blows. The broach was seated to a few millimeters below the cut level based on the neck cut and the preoperative template. Sequential broaching was continued with the Tipserse pneumatic broaching device until a tight fit was obtained with good rotational control of the femur. A trial standard neck was inserted along with a +1 trial head. The leg was brought out of extension and adduction and then reduced with traction and internal rotation. The leg was stable anteriorly in a position of 30 degrees of extension and 90 degrees of external rotation. Fluoroscopy was used to ensure there was no fracture and the stem was seated well. Leg lengths were checked with an AP pelvis and pelvic reference points. [facility] navigation system was used to confirm appropriate positioning and leg length and offset. This demonstrated correct offset although somewhat increased leg length. Thus the broach was advanced approximately 6 mm. Once content with the desired offset and leg lengths, the leg was brought back into extension, external rotation and adduction. The periosteum and surrounding tissue was injected with remaining portion of the vesna-articular cocktail. The proximal femur was irrigated as well as the deep tissues. The [place] Actis standard collared stem, size 4, was then manually inserted into the proximal femur making sure to control rotation. It was then malleted into position with light blows, giving breaks to allow bone expansion and decrease risk of fracture. The selected Depuy Altrx Ceramic Head, size 32+1mm, was then placed onto the clean and dry trunnion and secured with impaction onto the tapered fit. The leg was brought back out of extension and adduction and reduced with traction and internal rotation. Stability was confirmed with no shuck at 90 degrees of external rotation and 30 degrees of extension. No impingement through range of motion arc. Final x-ray images were obtained with fluoroscopy to confirm adequate positioning and no intraoperative fracture. The deep tissues were thoroughly irrigated with Surgiphor, betadine solution. This was allowed to sit in the wound for 3 minutes before being thoroughly irrigated out with normal saline. The capsule was then reapproximated with the previously placed sutures. The TFL fascia was finally closed with a No. 2 Stratafix, barbed suture. Deep tissues were then reapproximated with 0 Vicryl and a running 2-0 Vicryl. The skin was closed with a running 4-0 Monocryl in a subcuticular fashion. This was reinforced with skin glue. A Mepilex silver dressing was applied. At the end of the case, all counts were correct. Dea was transferred to the hospital bed without difficulty and suffering no apparent complication. Dea has a good prognosis. Physical therapy will start today and without restrictions, weight-bearing as tolerated. Aspirin 81mg BID will be used for DVT prophylaxis. Date of Procedure: 05/06/25
[2025-05-06] MEDS: ceFAZolin 2 GM/50 ML BAG IVPB (07:40)
[2025-05-06] MEDS: TRANEXAMIC ACID/SOD. CHL. 1,000 MG/100 ML BAG 600 MG IVPB (07:50)
--- NOTE | 2025-05-06 08:58 | DI.RAD_ITS ---
Exam(s) XR HIP RT IN OR EXAM: XR HIP RT IN OR CLINICAL HISTORY: right hip djd TECHNIQUE: 2D and realtime digital imaging was performed. CONTRAST MATERIAL: Refer to procedure report. COMPARISON: CR XR HIP RT COMPLETE AP PELVIS from 01/17/2025 FINDINGS: Fluoroscopy was provided for Dr. Curtis during the performance of a right total hip arthroplasty. Please refer to the procedure report for complete details. Ka,r=4.79 mGy IMPRESSION: RADIATION DOSE DELIVERED: 0.0 0.0 0
[2025-05-06] MEDS: HYDROmorphone 2 MG/ML SYR IVP ×2 (09:24→09:34)
[2025-05-06] MEDS: fentaNYL 100 MCG/2 ML VIAL IVP ×2 (09:43→09:56)
[2025-05-06] MEDS: Tranexamic Acid 650 MG TAB 1300 MG PO (10:30)
[2025-05-06] MEDS: oxyCODONE 5 MG TAB PO (10:30)
--- NOTE | 2025-05-06 11:03 | W.ANESPOSTOP ---
Postoperative Evaluation Date, Time and Location Date Performed: 05/06/25 Time Performed: 11:03 Patient Location: Day Surgery Unit Vital Signs Most Recent Imported Vital Signs: Most Recent Vital Signs Temp Pulse Resp BP Pulse Ox 36.4 C L 72 17 107/63 97 05/06/25 10:56 05/06/25 10:56 05/06/25 10:56 05/06/25 10:56 05/06/25 10:56 Pain Score Most Recent Pain Score: Most Recent Pain Score Pain Level 3 05/06/25 10:56 Assessment Mental Status: Awake (Alert & Oriented to Patient Baseline) Airway and Respiratory Function: Patent airway with normal (patient baseline) respiratory exam Cardiovascular Function: Hemodynamically Stable Hydration Status: Adequately Hydrated Nausea & Vomiting: No Nausea or Vomiting Pain: Pain is tolerable per patient Peripheral Nerve Block: Patient did not receive a nerve block
--- NOTE | 2025-05-06 11:33 | PT.INIE ---
PT Notes Visit Reasons: Right hip DJD Physical Therapy Day Surgery Initial Evaluation Date: 05/06/2025 Referring Doctor: Evangelina Kim NP/Dr. Curtis PT Orders: PT CONSULT: Status post Ortho surgery Precautions: WBAT RLE with device Patient Profile/Admitting Diagnosis: Dea is a 59-year-old female who presents status post elective right CARLOS under spinal anesthesia by Dr. Curtis on 05/06/2025. Postop uncomplicated PMHX: Degenerative joint disease of right hip (Chronic) 80 mg Depo-Medrol injection: 01/17/2025No-show for appointment (Acute) Tendonitis of long head of biceps brachii of right shoulder (Acute) Right rotator cuff tear (Acute) Thoracic back pain (Acute) Sacroiliac joint dysfunction (Acute) Colon cancer screening (Acute) Internal hemorrhoids with other complication (Acute) Sacroiliac joint dysfunction of right side (Acute) Right rotator cuff tendinitis (Acute) Biceps tendinitis of right upper extremity (Acute) Bursitis of shoulder, right (Acute) Insomnia (Acute) Anxiety (Chronic) UTI (urinary tract infection) (Acute) Trochanteric bursitis, right hip (Acute) Low back pain radiating to lower extremity (Acute) S/P left rotator cuff repair (Acute 09/22/20) BPPV (benign paroxysmal positional vertigo) (Acute) Screening for colon cancer (Acute) Claustrophobia (Acute) pt. 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 (Acute) great to MTP jointPrimary osteoarthritis of left knee (Chronic) Corticosteroid injection: 12/03/18, 09/12/18History of total right knee replacement (TKR) (Chronic) 07/20/2018 Revision of arthrotomy on 08/09/2018 Medical History Dysuria Tendonitis of left rotator cuff Confirmed RTC tearMarital problems Prurigo nodularis Thoracic spine pain Peripheral edema Chronic low back pain Knee joint pain Urinary frequency Headache Primary osteoarthritis of right knee (12/04/17) Complex tear of medial meniscus of right knee as current injury (11/06/17) Surgical History H/O shoulder surgery rightHistory of arthroscopic surgery of shoulder L shoulderHistory of total hysterectomy History of cholecystectomy History of delivery (~04/25/11) Status post revision of total knee replacement July 2018Status post total knee replacement, right July 2018Status post arthroscopy of right knee (~11/22/17) Partial medial meniscectomy, medial chondroplasty, removal of loose bodies Date of surgery: November 21, 2017 Dr. Curtis Social History/Home Situation: Patient resides in single-family home 3 steps to enter with bilateral rails. Patient independent with ADLs home management shopping. 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 Equipment Owned/DME: FWW, crutches, cane, commode Subjective: Patient states she is ready to move and is looking forward to going home quickly Objective: [] General Observation: Patient presented seated in chair Mental Status: Alert and oriented x 4, motivated to go home, able to follow instructions appeared anxious to get moving. Agreeable to participate in evaluation Pain: 2/10 right hip ROM: [] Right Upper Extremity: WNL Left Upper Extremity: WNL Right Lower Extremity: Hip flexion 95 abduction 15 degrees knee and ankle within normal limits Left Lower Extremity: WNL Strength: [] BUE: 5/5 Right Lower Extremity: Hip flexion: 3/5; hip abduction: 3/5; hip extension: 3/5; knee extension: 3/5; knee flexion: 3/5 ankle DF: 3/5 ; ankle PF: 3/5 Left Lower Extremity: 5/5 Sensation: [] Intact Bed Mobility/Transfers: [] Supine to sit independent Sit to stand independent Stand to sit [independent Bed to chair independent with FWW Gait: Ambulated SBA with FWW 150 feet level surfaces including turns reciprocal gait pattern no evidence of antalgic pattern noted. Stairs: 3 4 steps? and 2 6 steps with rails SBA with continuous cues for sequencing step to pattern Balance: [] Static Sitting: Normal Dynamic Sitting: Normal Static Standing: Normal Dynamic Standing: Good Special Tests: [] Mobility Limitations Standardized Measure [] [facility] AM-PAC 6 clicks Basic Mobility Inpatient Short Form: [] Raw Score: 23 CMS Score: 11.20% Informed Consent/Education: Patient instructed in purpose of PT consult. Packet containing CARLOS exercise protocol has been given to patient. Education and training on initial set of 5 reps of exercises that can be done at home have been completed with patient. Assessment: Patient is a 59-year-old female who presents with clinical signs and symptoms consistent with current/admitting diagnoses that have resulted to mobility limitations, gait instability, generalized weakness, and impairment of motor control as demonstrated by the following impairment level findings: 1. Decreased strength to right hip major muscle groups 2. Impaired standing balance 3. Limitation of joint range of motion in right hip 4. Pain in right hip 5. Impaired functional activity tolerance Impairments are contributing to the following functional limitations: 1. Inability to safely ambulate without assistive device 2. Increase completion time for mobility ADL performance 3. Increased fall risk 4. Difficulty performing stairs without assistive device Patient is assessed as a low complexity based on the following: History: 59-year-old female with impairment level findings, functional limitations, and past medical history as indicated above Examination: Demonstrable impairment in strength, balance, and mobility level with underlying impairments and functional limitations as documented above Presentation: Stable Decision Making: Low Goals: N/A. PT evaluation and 1-2 treatment sessions only for functional mobility training using recommended AD and for HEP instruction. Plan of Care/Treatment Plan: N/A. PT evaluation and 1-2 treatment session only for functional mobility training using recommended AD and for HEP instruction. DISCHARGE RECOMMENDATIONS: Home with HEP TREATMENT CODE/TIME: 99696/[id number] Thank you for the opportunity to participate in the care of this patient. Please sign an return this page within 30 days if you agree with the above POC. Thank you! Physician Signature Date [facility]
== END 2025-05-06 11:33 | disposition home or self-care (01) ==
LOC: SUR 06:08 → DSU 06:11 → SUR 08:03
PROVIDERS: PCP Family Medicine; Visit Provider Student in an Organized Health Care Education/Training Program
PROC: (CPT 27130; principal; 2025-05-06 07:30)
DX: M16.11 Unilateral primary osteoarthritis, right hip (principal)
CPT/HCPCS: 20985; 27130; 97161; 73501; C1776; J0690; J1100; J1171; J2003; J2250; J2405; J2704; J3010

== ENCOUNTER 2025-05-19 16:09 | Outpatient (CLI) | payer MEDICARE, SELFPAY ==
--- NOTE | 2025-05-19 14:30 | DI.RAD_ITS ---
Exam(s) XR HIP RT COMPLETE AP PELVIS EXAM: XR HIP RT COMPLETE AP PELVIS INDICATION: 1ST POST OP R CARLOS. COMPARISON: CR XR HIP RT COMPLETE AP PELVIS from 01/17/2025 XA XR HIP RT IN OR from 05/06/2025 TECHNIQUE: 2D digital imaging was performed. Two views. FINDINGS: There is no change in the alignment of the right hip prosthesis. There are no abnormal surrounding bony lucencies. The left hip joint space is maintained. DATA REPOSITORY: RADIATION DOSE DELIVERED:
== END 2025-05-19 16:10 | disposition home or self-care (01) ==
LOC: DIORS 16:10
PROVIDERS: PCP Family Medicine; Referring Provider Family Medicine; Visit Provider Student in an Organized Health Care Education/Training Program
DX: Z47.1 Aftercare following joint replacement surgery (principal); Z96.641 Presence of right artificial hip joint
CPT/HCPCS: 99024; 73502

== ENCOUNTER 2025-05-24 23:00 | Emergency (ER) | payer MEDICARE, SELFPAY ==
[2025-05-24 23:07] VITALS: BP 124/54; PULSE 84; RESP 20; TEMP 36.6; O2SAT 99
--- NOTE | 2025-05-25 01:11 | W.ED.FU ---
Follow Up Plan: Triage note reviewed and screening labs ordered; patient left department without being seen prior to my evaluation or to labs being drawn
== END 2025-05-25 01:49 | disposition left against medical advice (07) ==
LOC: ER 23:03
PROVIDERS: PCP Family Medicine
DX: Z53.21 Procedure and treatment not carried out due to patient leaving prior to being seen by health care provider (principal)
CPT/HCPCS: 80053; 85652; 85025; 86140

== ENCOUNTER 2025-05-25 13:05 | Emergency (ER) | payer MEDICARE, SELFPAY ==
[2025-05-25 13:14] VITALS: BP 120/66; PULSE 72; RESP 18; TEMP 36.9; O2SAT 100
--- NOTE | 2025-05-25 14:04 | DI.CT_ITS ---
Exam(s) CT LOWER EXTREMITY RT W EXAM: CT LOWER EXTREMITY RT W CLINICAL HISTORY: recent hip replacement, increased pain and swellin. TECHNIQUE: Imaging Protocol: Axial computed tomography images with coronal and sagittal reformatted images were created and reviewed. CONTRAST MATERIAL: Omnipaque 350-100 mL intravenous COMPARISON: CR XR HIP RT COMPLETE AP PELVIS from 05/19/2025 FINDINGS: OSSEOUS: Position alignment of the components of the prosthesis remains stable. No fracture or loosening evident. No evidence of osteomyelitis. SOFT TISSUES: There is a collection in the subcutaneous fat over the lateral aspect of the hip adjacent to the tensor fascia devaughn muscle, this containing multiple gas bubbles and measuring approximately 3.5 cm wide by 2 cm AP by 12.5 cm craniocaudal. Consistent with abscess. There is a deeper subfascial fluid collection in the lateral aspect of the thigh which is deep to the tensor fascia devaughn muscle and measures 4.6 cm AP by 1.8 cm wide by 9 cm craniocaudal. This collection does not contain gas IMPRESSION: There 2 separate collections as described above. The 3.5 x 2.0 x 12.5 cm collection in the subcutaneous fat over the hip is most probably an abscess. It contains multiple gas bubbles. The other collection is deep to the fascia, does not contain gas bubbles and measures 4.6 cm x 1.8 cm x 9 cm craniocaudal. Probably postop seroma although cannot exclude abscess despite absence of gas bubbles. The actual intraosseous hip hardware appears satisfactory. RADIATION DOSE DELIVERED: 478.98mGy.cm Total DLP DATA REPOSITORY: All CT scans at this facility are submitted to the National Radiology Data Registry (NRDR) Dose Index Registry (DIR) with the [employer] ([employer]). RADIATION OPTIMIZATION: All CT scans at this facility use at least one of these dose optimization techniques: automated exposure control; mA and/or kV adjustment per patient size (includes targeted exams where dose is matched to clinical indication); or iterative reconstruction.
[2025-05-25 14:07] VITALS: BP 120/66; PULSE 72; RESP 18; TEMP 36.9; O2SAT 100
--- NOTE | 2025-05-25 14:07 | W.ED.GENAD ---
Discharge Plan Disposition Patient Disposition: Home Condition: Stable Discharge Details Clinical Impression: Cellulitis of right thigh, Abscess of right thigh Primary Care Provider: Yaya Meadows ED Provider: Adolph Gutierres Home Meds and New Rx's Prescriptions: New doxycycline hyclate 100 mg tablet 100 mg PO BID Qty: 18 0RF cefadroxil 500 mg capsule 1,000 mg PO BID 10 Days Qty: 40 0RF Continued fluoxetine 40 mg capsule 60 mg PO DAILY albuterol sulfate [Ventolin HFA] 90 mcg/actuation HFA aerosol inhaler 2 puff IH .[id number] PRN triamcinolone acetonide 0.1 % cream 1 applic topical DAILY Patient Comments: Patient uses PRN gabapentin 600 mg tablet 1,200 mg PO BID clonazepam 0.5 mg tablet 0.5 mg PO QHS Patient Comments: TAKE 1/2 TO 1 TABLET BY MOUTH EACH NIGHT NEEDED omeprazole 20 mg capsule,delayed release(DR/EC) 40 mg PO DAILY bupropion HCl 75 mg Tablet 150 mg PO DAILY Rx Instructions: administer 6 hours apart acetaminophen 500 mg tablet 1,000 mg PO Q8H PRN Qty: 90 0RF Rx Instructions: Take two tablets up to every 8 hours as needed for pain aspirin 81 mg tablet,delayed release (DR/EC) 81 mg PO BID 30 Days Qty: 60 0RF celecoxib [Celebrex] 200 mg capsule 200 mg PO BID PRNQty: 60 0RF Rx Instructions: Take one tablet twice daily for pain and inflammation oxycodone 5 mg tablet 5 mg PO PRN PRN Patient Comments: TAKE ONE TABLET BY MOUTH UP TO EVERY 6 HOURS NEEDED FOR SEVERE POSTOPERATIVE PAIN Discharge Instructions Additional Instructions: You have a cellulitis and a small abscess. I reviewed the case with your orthopedist and they are recommending oral antibiotics and they will follow-up with you this week. If you feel more ill or have new symptoms such as persistent high fevers return to emergency department for reevaluation. HPI General Date/Time Provider Initiated Documentation: 05/25/25 13:55. Limitations to Documentation: no limitations. Information obtained by: patient. History of Present Illness 59 year old F presents to the emergency department with the chief complaint of fatigue, right leg incision redness/discomfort, described as moderate, and it has been constant. No relieving factors improve symptom(s), No exacerbating factors reported . Patient notes denies chest pain, fever/chills and shortness of breath. Patient did receive the following treatments prior to arrival, none Related Data Home Medications ?Medication ?Instructions ?Recorded ?Confirmed albuterol sulfate 90 mcg/actuation 2 puff inhalation .[id number] PRN 04/08/19 05/25/25 aerosol inhaler (Ventolin HFA) triamcinolone acetonide 0.1 % 1 applic topical DAILY 07/06/20 05/25/25 topical cream gabapentin 600 mg tablet 1,200 mg PO BID 10/15/21 05/25/25 fluoxetine 40 mg capsule 60 mg PO DAILY 11/01/21 05/25/25 clonazepam 0.5 mg tablet 0.5 mg PO QHS 05/09/22 05/25/25 omeprazole 20 mg capsule,delayed 40 mg PO DAILY 05/09/22 05/25/25 release bupropion HCl 75 mg tablet 150 mg PO DAILY 04/19/23 05/25/25 acetaminophen 500 mg tablet 1,000 mg (2 x 500 mg) PO Q8H PRN 05/06/25 05/25/25 pain #90 tabs aspirin 81 mg tablet,delayed 81 mg PO BID 30 days #60 tabs 05/06/25 05/25/25 release celecoxib 200 mg capsule (Celebrex) 200 mg PO BID PRN #60 caps 05/06/25 05/25/25 cefadroxil 500 mg capsule 1,000 mg (2 x 500 mg) PO BID 05/25/25 days #40 caps doxycycline hyclate 100 mg tablet 100 mg PO BID #18 tabs 05/25/25 oxycodone 5 mg tablet 5 mg PO PRN PRN 05/25/25 05/25/25 Previous Rx's ?Medication ?Instructions ?Recorded acetaminophen 500 mg tablet 1,000 mg (2 x 500 mg) PO Q8H PRN 05/06/25 pain #90 tabs aspirin 81 mg tablet,delayed 81 mg PO BID 30 days #60 tabs 05/06/25 release celecoxib 200 mg capsule (Celebrex) 200 mg PO BID PRN #60 caps 05/06/25 cefadroxil 500 mg capsule 1,000 mg (2 x 500 mg) PO BID 05/25/25 days #40 caps doxycycline hyclate 100 mg tablet 100 mg PO BID #18 tabs 05/25/25 Allergies Allergy/AdvReac Type Severity Reaction Status Date / Time Penicillins Allergy Intermediate Skin Rash Verified 05/25/25 13:22 pravastatin AdvReac Intermediate leaky Verified 05/25/25 13:22 stools General Stated Complaint: Cellulitis ELSY: 3 Review of Systems All systems reviewed & are unremarkable except as noted in HPI and below Constitutional Constitutional: Denies chills, Denies fever(s) and Denies weakness Cardiovascular Cardiovascular: Denies chest pain and Denies dyspnea Respiratory Respiratory: Denies cough and Denies dyspnea Gastrointestinal Gastrointestinal: Denies abdominal pain, Denies nausea and Denies vomiting Integumentary/Breasts Skin/Breast: Reports erythema Neurologic Neurologic: Denies weakness Psychiatric Psychiatric: Denies depression Endocrine Endocrine: Denies cold intolerance Exam Const General: no acute distress Orientation: alert HENMT Head: normal to inspection Ears: external ears normal General nose exam: external nose normal Mouth: moist mucous membranes Eyes General: appearance normal, both eyes and all related structures Neck Neck: normal visual inspection Resp Effort & Inspection: normal respiratory effort and able to speak in complete sentences Cardio Rate: regular rate Skin General skin exam: erythema Neuro General: patient alert and patient oriented x3 Extrem General: full ROM and capillary refill normal Psych Mental Status: mental status grossly normal Course Vital Signs Vital signs: Vital Signs Temperature 36.9 C 05/25/25 13:14 Pulse 72 05/25/25 13:14 Respiratory Rate 18 05/25/25 13:14 Blood Pressure 120/66 05/25/25 13:14 Pulse Oximetry 100 05/25/25 13:14 Temperature 36.9 C 05/25/25 14:07 Pulse 72 05/25/25 14:07 Respiratory Rate 18 05/25/25 14:07 Blood Pressure 120/66 05/25/25 14:07 Blood Pressure Position Sitting 05/25/25 14:07 Pulse Oximetry 100 05/25/25 14:07 Oxygen Delivery Method Room Air 05/25/25 14:07 Oxygen Flow Rate 0 05/25/25 14:07 Pain Level 5 05/25/25 14:07 Lab/Test Results Lab/Test Results: 05/25/25 14:04 Blood Blood Culture - Pending 05/25/25 14:04 Blood Blood Culture - Pending Medical Decision Making 59-year-old female who underwent her recent right hip replacement in April and followed up on May 19 and was doing well comes in with several days of worsening general fatigue, body aches and redness around her right surgical site. She denies any high fevers. She is well-appearing on exam. She does have 3 to 4 cm of erythema surrounding the right surgical incision. There is no drainage or fluctuance or crepitus. She has intact distal sensation and pulses. Suspect cellulitis but given the recent surgery will check CBC CMP inflammatory markers and also obtain a CT to evaluate for possible abscess. Lab inflammatory markers elevated and has a white count of 15. CT shows a small abscess and likely a seroma. She is stable. I did review the images and labs with on-call orthopedics Dr. Basurto and he also reviewed with Dr. Curtis the patient's surgeon. Given how small the abscesses they feel she can trial oral antibiotics. Had discussed this with the patient and she is in agreement and does not want to stay in the hospital as well. She will return if worsening and will follow-up with Dr. Curtis this week. Differential Diagnosis Differential Diagnosis: Cellulitis, postop infection Medical Records Medical records reviewed: Yes I reviewed the patient's medical records. PFSH All Active Problems Abscess of right thigh (Acute) Cellulitis of right thigh (Acute) History of total right hip replacement (Acute 05/06/25) No-show for appointment (Acute) Tendonitis of long head of biceps brachii of right shoulder (Acute) Right rotator cuff tear (Acute) Thoracic back pain (Acute) Sacroiliac joint dysfunction (Acute) Colon cancer screening (Acute) Internal hemorrhoids with other complication (Acute) Sacroiliac joint dysfunction of right side (Acute) Right rotator cuff tendinitis (Acute) Biceps tendinitis of right upper extremity (Acute) Bursitis of shoulder, right (Acute) Insomnia (Acute) Anxiety (Chronic) UTI (urinary tract infection) (Acute) Trochanteric bursitis, right hip (Acute) Low back pain radiating to lower extremity (Acute) S/P left rotator cuff repair (Acute 09/22/20) BPPV (benign paroxysmal positional vertigo) (Acute) Screening for colon cancer (Acute) Claustrophobia (Acute) pt. 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 (Acute) great to MTP joint Primary osteoarthritis of left knee (Chronic) Corticosteroid injection: 12/03/18, 09/12/18 History of total right knee replacement (TKR) (Chronic) 07/20/2018 Revision of arthrotomy on 08/09/2018 Medical History Dysuria Tendonitis of left rotator cuff Confirmed RTC tear Marital problems Prurigo nodularis Thoracic spine pain Peripheral edema Chronic low back pain Knee joint pain Urinary frequency Headache Primary osteoarthritis of right knee (12/04/17) Complex tear of medial meniscus of right knee as current injury (11/06/17) Surgical History H/O shoulder surgery right History of arthroscopic surgery of shoulder L shoulder History of total hysterectomy History of cholecystectomy History of delivery (~04/25/11) Status post revision of total knee replacement July 2018 Status post total knee replacement, right July 2018 Status post arthroscopy of right knee (~11/22/17) Partial medial meniscectomy, medial chondroplasty, removal of loose bodies Date of surgery: November 21, 2017 Dr. Curtis Social History Smoking/Tobacco Use Status: Current every day Tobacco Type: cigarettes Smoking packs per day: 1 Smoking cigarettes per day: 20.0 Years smoked: 44 Smoking pack-years: 44.00 Smoking risk assessment performed?: Yes Alcohol Intake: current Alcohol Intake frequency: holidays/special occasions only Drug use: Never Substance use type: does not use Details: cigarettes this AM Housing: house Current gender identity: female Do you feel safe at home: Yes Do you feel safe in your relationship?: Yes PAWSS Have you Been Recently Intoxicated or Drunk Within the Last 30 days?: No Have you Ever Experienced Previous Episodes of Alcohol Withdrawal?: No Have you ever Experienced Withdrawal Seizures?: No Have you ever Experienced Delirium Tremens(DT)s?: No Have you ever undergone Alcohol Rehabilitation Treatment (i.e, inpt ot outpatient treatment programs)?: No Have you ever Experienced Blackouts?: No Have you ever Combined Alcohol with other Downers within the last 90 days?: No Have you ever Combined Alcohol with any other Substance of Abuse during the last 90 days?: No Positive Blood Alcohol level on Presentation? [PCS.BAL]: No Evidence of Increased Autonomic Activity (i.e. HR>120, tremor, sweating, agitation, nausea)?: No Result: 0
[2025-05-25 14:27] LABS: Abs Immature Grans 0.06 10^3/uL (0.0-0.06); HCT 31.5 % (36.0-46.0); HGB 10.6 g/dL (11.2-15.7); Immature Grans % 0.4 %; MCH 31.7 pg (27.0-33.0); MCHC 33.7 % (32.0-36.0); MCV 94 fL (80-95); MPV 9.1 fL (8.0-11.0); Platelet Count 347 10^3/uL (130-400); RBC 3.34 10^6/uL (3.93-5.22); RDW 13.2 % (11.7-14.6); RDW-SD 45.7 fL; WBC 15.42 10^3/uL (4.4-10.8)
[2025-05-25 14:29] LABS: ESR 50 mm/hr (0-30)
[2025-05-25 14:49] LABS: ALT 16 U/L (14-59); AST 10 U/L (15-37); Albumin 3.2 g/dL (3.4-5.0); Alkaline Phosphatase 85 U/L (46-116); Anion Gap 8.9 mmol/L (3-11); BUN 11 mg/dL (7-18); Bilirubin, Total 0.4 mg/dL (0.2-1.0); C-Reactive Protein 14.88 mg/dL (<or=0.5); CO2 26.1 mmol/L (21.0-32.0); Calcium 9.0 mg/dL (8.5-10.1); Chloride 103 mmol/L (98-107); Estimated GFR 83.78 (mL/min/1.73m2); Glucose 102 mg/dL (74-106); Magnesium 2.0 mg/dL (1.8-2.4); Potassium 3.8 mmol/L (3.5-5.1); Sodium 138 mmol/L (136-145); Total Protein 7.5 g/dL (6.4-8.2)
[2025-05-25 15:01] LABS: Procalcitonin < 0.10 ng/mL
[2025-05-25 15:12] LABS: Glucose Negative (Negative)
[2025-05-25 15:29] LABS: C & S Indicated? No; RBC 0-2 HPF (0-2); WBC 0-2 HPF (0-5)
[2025-05-25 15:35] LABS: COVID-19 PCR Negative (Negative); RSV PCR Negative (Negative)
[2025-05-25] MEDS: cefTRIAXone 2 GM/50 ML BAG IVPB (15:52)
[2025-05-25 15:56] VITALS: BP 97/41; PULSE 68; O2SAT 99
[2025-05-25] MEDS: Normal Saline - Diluent 50 ML VIAL IJ (16:32)
[2025-05-25] MEDS: Omnipaque 350 MG/ML 100 ML BTL IJ (16:32)
[2025-05-25 17:00] VITALS: BP 134/49; PULSE 71; O2SAT 99
[2025-05-25 18:10] VITALS: BP 120/84; PULSE 72; RESP 17; TEMP 36.4; O2SAT 98
[2025-05-25] MEDS: Doxycycline Hyclate 100 MG, 2 CAPS/BTL PO (18:35)
== END 2025-05-25 19:19 | disposition home or self-care (01) ==
PROVIDERS: Emergency Provider Emergency Medicine; PCP Family Medicine
DX: L02.415 Cutaneous abscess of right lower limb (principal); L03.115 Cellulitis of right lower limb; Z96.641 Presence of right artificial hip joint
CPT/HCPCS: 36415; 80053; 84145; 85652; 87040; 87637; 96365; 99285; 73701; 81003; 81015; 83735; 85025; 86140; 99284; J0696; J3490

== ENCOUNTER 2025-05-26 19:58 | Inpatient (IN) | payer MEDICARE, SELFPAY ==
[2025-05-26 20:00] VITALS: BP 175/82; PULSE 83; RESP 18; TEMP 36.8; O2SAT 98
--- NOTE | 2025-05-26 20:52 | W.ED.GENAD ---
Discharge Plan Disposition Patient Disposition: Admit to [facility] Condition: Stable Discharge Details Clinical Impression: Abscess of right thigh, Cellulitis of right thigh Primary Care Provider: Yaya Meadows ED Provider: Elena Ken Home Meds and New Rx's Prescriptions: No Action fluoxetine 40 mg capsule 60 mg PO DAILY albuterol sulfate [Ventolin HFA] 90 mcg/actuation HFA aerosol inhaler 2 puff IH [id number] PRN triamcinolone acetonide 0.1 % cream 1 applic topical DAILY Patient Comments: Patient uses PRN gabapentin 600 mg tablet 1,200 mg PO BID clonazepam 0.5 mg tablet 0.5 mg PO QHS Patient Comments: TAKE 1/2 TO 1 TABLET BY MOUTH EACH NIGHT NEEDED omeprazole 20 mg capsule,delayed release(DR/EC) 40 mg PO DAILY bupropion HCl 75 mg Tablet 150 mg PO DAILY Rx Instructions: administer 6 hours apart acetaminophen 500 mg tablet 1,000 mg PO Q8H PRN Qty: 90 0RF Rx Instructions: Take two tablets up to every 8 hours as needed for pain aspirin 81 mg tablet,delayed release (DR/EC) 81 mg PO BID 30 Days Qty: 60 0RF celecoxib [Celebrex] 200 mg capsule 200 mg PO BID PRNQty: 60 0RF Rx Instructions: Take one tablet twice daily for pain and inflammation oxycodone 5 mg tablet 5 mg PO PRN PRN Patient Comments: TAKE ONE TABLET BY MOUTH UP TO EVERY 6 HOURS NEEDED FOR SEVERE POSTOPERATIVE PAIN doxycycline hyclate 100 mg tablet 100 mg PO BID Qty: 18 0RF cefadroxil 500 mg capsule 1,000 mg PO BID 10 Days Qty: 40 0RF HPI General Mode of arrival: ambulatory. Date/Time Provider Initiated Documentation: 05/26/25 20:02. Limitations to Documentation: no limitations. Information obtained by: patient, RN notes reviewed and old records reviewed. HPI Narrative: 59 year old female presents to the ER with cc of Right hip drainage, erythema, swelling, and body aches, JULIEN and leg pain. Hx of Hip Replacement on 05-06-25. Reports that the first 2 weeks were fine and then she began with his erythema. She was seen here approximately 24 hours ago and was placed on doxycycline and cefadroxil twice daily. She presents today with increased drainage she reports that her bed was soaked with purulent drainage and worsening symptoms. She is able to walk on the extremity with pain. She reports some pain in her knee. She has been taking Tylenol last taken 2 hours ago. Related Data Home Medications ?Medication ?Instructions ?Recorded ?Confirmed albuterol sulfate 90 mcg/actuation 2 puff inhalation .[id number] PRN 04/08/19 05/26/25 aerosol inhaler (Ventolin HFA) triamcinolone acetonide 0.1 % 1 applic topical DAILY 07/06/20 05/26/25 topical cream gabapentin 600 mg tablet 1,200 mg PO BID 10/15/21 05/26/25 fluoxetine 40 mg capsule 60 mg PO DAILY 11/01/21 05/26/25 clonazepam 0.5 mg tablet 0.5 mg PO QHS 05/09/22 05/26/25 omeprazole 20 mg capsule,delayed 40 mg PO DAILY 05/09/22 05/26/25 release bupropion HCl 75 mg tablet 150 mg PO DAILY 04/19/23 05/26/25 acetaminophen 500 mg tablet 1,000 mg (2 x 500 mg) PO Q8H PRN 05/06/25 05/26/25 pain #90 tabs aspirin 81 mg tablet,delayed 81 mg PO BID 30 days #60 tabs 05/06/25 05/26/25 release celecoxib 200 mg capsule (Celebrex) 200 mg PO BID PRN #60 caps 05/06/25 05/26/25 cefadroxil 500 mg capsule 1,000 mg (2 x 500 mg) PO BID 05/25/25 05/26/25 days #40 caps doxycycline hyclate 100 mg tablet 100 mg PO BID #18 tabs 05/25/25 05/26/25 oxycodone 5 mg tablet 5 mg PO PRN PRN 05/25/25 05/26/25 Previous Rx's ?Medication ?Instructions ?Recorded acetaminophen 500 mg tablet 1,000 mg (2 x 500 mg) PO Q8H PRN 05/06/25 pain #90 tabs aspirin 81 mg tablet,delayed 81 mg PO BID 30 days #60 tabs 05/06/25 release celecoxib 200 mg capsule (Celebrex) 200 mg PO BID PRN #60 caps 05/06/25 cefadroxil 500 mg capsule 1,000 mg (2 x 500 mg) PO BID 05/25/25 days #40 caps doxycycline hyclate 100 mg tablet 100 mg PO BID #18 tabs 05/25/25 Allergies Allergy/AdvReac Type Severity Reaction Status Date / Time Penicillins Allergy Intermediate Skin Rash Verified 05/26/25 20:03 pravastatin AdvReac Intermediate leaky Verified 05/26/25 20:03 stools General Stated Complaint: Recheck ELSY: 3 Exam Const General: cooperative Nutritional Appearance: overweight Orientation: alert, awake and oriented x3 Resp Effort & Inspection: normal respiratory effort and able to speak in complete sentences Auscultation: clear to auscultation bilaterally Cardio Rate: regular rate Rhythm: regular rhythm Heart Sounds: S1 normal and S2 normal Extrem Right upper extremity: normal to inspection Left upper extremity: normal to inspection Right lower extremity: hip/thigh Details: abnormal to inspection Details: erythematous, tenderness, swelling and warmth Upper/lower leg/hip images:  1. Surgical incision, well approximated healing 2. Erythema 3. Drainage noted Course Vital Signs Vital signs: Vital Signs Temperature 36.8 C 05/26/25 20:00 Pulse 83 05/26/25 20:00 Respiratory Rate 18 05/26/25 20:00 Blood Pressure 175/82 H 05/26/25 20:00 Pulse Oximetry 98 05/26/25 20:00 Temperature 36.8 C 05/26/25 20:00 Pulse 83 05/26/25 20:00 Respiratory Rate 18 05/26/25 20:00 Blood Pressure 175/82 H 05/26/25 20:00 Pulse Oximetry 98 05/26/25 20:00 Oxygen Delivery Method Room Air 05/26/25 20:00 Oxygen Flow Rate 0 05/26/25 20:00 Pain Level 10 05/26/25 20:00 Lab/Test Results Lab/Test Results: 05/26/25 20:47 Hip - Right Wound Culture - Pending 05/26/25 20:47 Hip - Right Gram Stain - Pending Medical Decision Making 59 year old female presents to the ER with cc of Right hip drainage, erythema, swelling, and body aches, JULIEN and leg pain. Hx of Hip Replacement on 05-06-25. Reports that the first 2 weeks were fine and then she began with his erythema. She was seen here approximately 24 hours ago and was placed on doxycycline and cefadroxil twice daily. She presents today with increased drainage she reports that her bed was soaked with purulent drainage and worsening symptoms. She is able to walk on the extremity with pain. She reports some pain in her knee. She has been taking Tylenol last taken 2 hours ago. CBC, CMP ordered and wound culture of the drainage. I did contact Dr. Basurto via Web[employer] and Dr. Curtis. Dr. Curtis states he recommends likely admission for further evaluation and possible incision and drainage is recommended n.p.o. at midnight vancomycin and cefazolin 2 g every 8 hours. 2143: Spoke with Dr. Acosta with hospitalist, admission recommended for cellulitis and soft tissue abscess. 2244: Dr. Acosta at bedside for patient evaluation. Patient to be admitted, remained hemodynamically stable throughout the remainder of her stay alert and oriented. Nicotine lozenge 4 mg ordered. This text was generated using [employer]ation system, please disregard any oddities of phrase or misspellings. Medical Records Medical records narrative: On record review the blood cultures x 2 have no growth in 24 hours. She does have an increasing white blood cell count from her last 2 previous visits initial white blood cell count was 12, yesterday was 15.4 Lab Data Lab results reviewed: Yes I reviewed the patient's lab results. Labs: 05/26/25 20:43 Hip - Right Wound Culture - Pending 05/26/25 20:43 Hip - Right Gram Stain - Final Laboratory Tests Range/Units 05/26/25 20:43 WBC (4.4-10.8) 10^3/uL 13.47 H RBC (3.93-5.22) 10^6/uL 3.18 L Hgb (11.2-15.7) g/dL 10.0 L Hct (36.0-46.0) % 30.1 L MCV (80-95) fL 95 MCH (27.0-33.0) pg 31.4 MCHC (32.0-36.0) % 33.2 RDW (11.7-14.6) % 13.0 Plt Count (130-400) 10^3/uL 380 MPV (8.0-11.0) fL 9.2 Immature Gran % % 0.3 Neutrophils % % 71.8 Lymphocytes % % 14.0 Monocytes % % 10.3 Eosinophils % % 3.2 Basophils % % 0.4 Nucleated RBC % (0.0-0.3) % 0.0 Absolute Neutrophils (1.2-6.7) 10^3/uL 9.67 H Absolute Lymphocytes (1.2-3.4) 10^3/uL 1.89 Absolute Monocytes (0.1-0.8) 10^3/uL 1.39 H Absolute Eosinophils (0.0-0.7) 10^3/uL 0.43 Absolute Basophils (0.0-0.2) 10^3/uL 0.05 Sodium (136-145) mmol/L 138 Potassium (3.5-5.1) mmol/L 3.9 Chloride (98-107) mmol/L 103 Carbon Dioxide (21.0-32.0) mmol/L 25.7 Anion Gap (3-11) mmol/L 9.3 BUN (7-18) mg/dL 14 Creatinine (0.55-1.02) mg/dL 1.0 Est GFR (CKD-EPI 2020) (mL/min/1.73m2) 64.09 Glucose (74-106) mg/dL 109 H Calcium (8.5-10.1) mg/dL 8.8 Total Bilirubin (0.2-1.0) mg/dL 0.3 AST (15-37) U/L 11 L ALT (14-59) U/L 18 Alkaline Phosphatase (46-116) U/L 88 Total Protein (6.4-8.2) g/dL 7.2 Albumin (3.4-5.0) g/dL 2.9 L PFSH All Active Problems Abscess of right thigh (Acute) Cellulitis of right thigh (Acute) History of total right hip replacement (Acute 05/06/25) No-show for appointment (Acute) Tendonitis of long head of biceps brachii of right shoulder (Acute) Right rotator cuff tear (Acute) Thoracic back pain (Acute) Sacroiliac joint dysfunction (Acute) Colon cancer screening (Acute) Internal hemorrhoids with other complication (Acute) Sacroiliac joint dysfunction of right side (Acute) Right rotator cuff tendinitis (Acute) Biceps tendinitis of right upper extremity (Acute) Bursitis of shoulder, right (Acute) Insomnia (Acute) Anxiety (Chronic) UTI (urinary tract infection) (Acute) Trochanteric bursitis, right hip (Acute) Low back pain radiating to lower extremity (Acute) S/P left rotator cuff repair (Acute 09/22/20) BPPV (benign paroxysmal positional vertigo) (Acute) Screening for colon cancer (Acute) Claustrophobia (Acute) pt. 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 (Acute) great to MTP joint Primary osteoarthritis of left knee (Chronic) Corticosteroid injection: 12/03/18, 09/12/18 History of total right knee replacement (TKR) (Chronic) 07/20/2018 Revision of arthrotomy on 08/09/2018 Medical History Dysuria Tendonitis of left rotator cuff Confirmed RTC tear Marital problems Prurigo nodularis Thoracic spine pain Peripheral edema Chronic low back pain Knee joint pain Urinary frequency Headache Primary osteoarthritis of right knee (12/04/17) Complex tear of medial meniscus of right knee as current injury (11/06/17) Surgical History H/O shoulder surgery right History of arthroscopic surgery of shoulder L shoulder History of total hysterectomy History of cholecystectomy History of delivery (~04/25/11) Status post revision of total knee replacement July 2018 Status post total knee replacement, right July 2018 Status post arthroscopy of right knee (~11/22/17) Partial medial meniscectomy, medial chondroplasty, removal of loose bodies Date of surgery: November 21, 2017 Dr. Curtis Social History Smoking/Tobacco Use Status: Current every day Tobacco Type: cigarettes Smoking packs per day: 1 Smoking cigarettes per day: 20.0 Years smoked: 44 Smoking pack-years: 44.00 Smoking risk assessment performed?: Yes Alcohol Intake: current Alcohol Intake frequency: holidays/special occasions only Drug use: Never Substance use type: does not use Details: cigarettes this AM Housing: house Current gender identity: female Do you feel safe at home: Yes Do you feel safe in your relationship?: Yes
[2025-05-26 20:55] LABS: Abs Immature Grans 0.04 10^3/uL (0.0-0.06); HCT 30.1 % (36.0-46.0); HGB 10.0 g/dL (11.2-15.7); Immature Grans % 0.3 %; MCH 31.4 pg (27.0-33.0); MCHC 33.2 % (32.0-36.0); MCV 95 fL (80-95); MPV 9.2 fL (8.0-11.0); Platelet Count 380 10^3/uL (130-400); RBC 3.18 10^6/uL (3.93-5.22); RDW 13.0 % (11.7-14.6); RDW-SD 45.2 fL; WBC 13.47 10^3/uL (4.4-10.8)
[2025-05-26 21:10] LABS: ALT 18 U/L (14-59); AST 11 U/L (15-37); Albumin 2.9 g/dL (3.4-5.0); Alkaline Phosphatase 88 U/L (46-116); Anion Gap 9.3 mmol/L (3-11); BUN 14 mg/dL (7-18); Bilirubin, Total 0.3 mg/dL (0.2-1.0); CO2 25.7 mmol/L (21.0-32.0); Calcium 8.8 mg/dL (8.5-10.1); Chloride 103 mmol/L (98-107); Estimated GFR 64.09 (mL/min/1.73m2); Glucose 109 mg/dL (74-106); Potassium 3.9 mmol/L (3.5-5.1); Sodium 138 mmol/L (136-145); Total Protein 7.2 g/dL (6.4-8.2)
[2025-05-26] MEDS: ceFAZolin 2 GM/50 ML BAG IVPB (21:19)
[2025-05-26] MEDS: VANCOMYCIN 1,000 MG in Normal Saline 250 ML 166.6666 MG IVPB (21:56)
[2025-05-26 22:01] VITALS: BP 123/71; PULSE 72; RESP 16; O2SAT 98
--- NOTE | 2025-05-26 22:53 | W.PM.HP.N ---
Date of service: 05/26/25 Time of Service: 22:53 Assessment and Plan Assessment and plan (1) Right hip pain: Status: Acute Assessment and plan: Patient appears to have an abscess most likely will need a incision and drainage. Will start on cefazolin at the request of the orthopedic team. I will add a copy of this CT for completeness. IMPRESSION: There 2 separate collections as described above. The 3.5 x 2.0 x 12.5 cm collection in the subcutaneous fat over the hip is most probably an abscess. It contains multiple gas bubbles. The other collection is deep to the fascia, does not contain gas bubbles and measures 4.6 cm x 1.8 cm x 9 cm craniocaudal. Probably postop seroma although cannot exclude abscess despite absence of gas bubbles. The actual intraosseous hip hardware appears satisfactory. The patient will need to be n.p.o. not this midnight but the next midnight and this order should be placed. Would make sure that it is in fact in place. (2) Tobacco abuse: Status: None Assessment and plan: Added Nicorette at the request of the patient. I did discuss cussed with the patient that this could certainly decrease her wound healing potential as it is a vasoconstrictor. History of Present Illness History of Present Illness Chief Complaint: right hip pain Narrative: Ms. Sifuentes is a 59-year-old female who had a right hip surgery done in April 2025. Her postoperative course was actually quite benign until the last 48 hours when she started having worsening right sided hip pain. Patient did come into the ED for evaluation yesterday and a CT scan was done which was indicative of possible abscess versus seroma in 2 different locations. Conversations were had with the orthopedic team at that time who recommended outpatient antibiotics and monitoring for improvement. Unfortunately the patient continued to get worse regards to her range of motion as well as her pain and came back to the ED for further reevaluation. At that time discussion was had with Dr. Curtis over the phone who recommended admission for IV antibiotics and potential an incision and and drainage. Per my discussion with the patient, she has had problems with clearing infections in the past including a a knee surgery which did require prolonged hospitalization. Patient denies any history of diabetes denies any history of HIV but does smoke approxi-1 pack/cigarette/day. Beyond the recent infection in her knee she states that she clears infection and what she would call in a normal manner. Patient states she did take her medication as prescribed when she was sent home yesterday. Review of Systems All systems reviewed & are unremarkable except as noted in HPI and below PFSH All Active Problems Right hip pain (Acute) Abscess of right thigh (Acute) Cellulitis of right thigh (Acute) History of total right hip replacement (Acute 05/06/25) No-show for appointment (Acute) Tendonitis of long head of biceps brachii of right shoulder (Acute) Right rotator cuff tear (Acute) Thoracic back pain (Acute) Sacroiliac joint dysfunction (Acute) Colon cancer screening (Acute) Internal hemorrhoids with other complication (Acute) Sacroiliac joint dysfunction of right side (Acute) Right rotator cuff tendinitis (Acute) Biceps tendinitis of right upper extremity (Acute) Bursitis of shoulder, right (Acute) Insomnia (Acute) Anxiety (Chronic) UTI (urinary tract infection) (Acute) Trochanteric bursitis, right hip (Acute) Low back pain radiating to lower extremity (Acute) S/P left rotator cuff repair (Acute 09/22/20) BPPV (benign paroxysmal positional vertigo) (Acute) Screening for colon cancer (Acute) Claustrophobia (Acute) pt. 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 (Acute) great to MTP joint Primary osteoarthritis of left knee (Chronic) Corticosteroid injection: 12/03/18, 09/12/18 History of total right knee replacement (TKR) (Chronic) 07/20/2018 Revision of arthrotomy on 08/09/2018 Medical History Dysuria Tendonitis of left rotator cuff Confirmed RTC tear Marital problems Prurigo nodularis Thoracic spine pain Peripheral edema Chronic low back pain Knee joint pain Urinary frequency Headache Primary osteoarthritis of right knee (12/04/17) Complex tear of medial meniscus of right knee as current injury (11/06/17) Surgical History H/O shoulder surgery right History of arthroscopic surgery of shoulder L shoulder History of total hysterectomy History of cholecystectomy History of delivery (~04/25/11) Status post revision of total knee replacement July 2018 Status post total knee replacement, right July 2018 Status post arthroscopy of right knee (~11/22/17) Partial medial meniscectomy, medial chondroplasty, removal of loose bodies Date of surgery: November 21, 2017 Dr. Curtis Social History Smoking/Tobacco Use Status: Current every day Tobacco Type: cigarettes Smoking packs per day: 1 Smoking cigarettes per day: 20.0 Years smoked: 44 Smoking pack-years: 44.00 Smoking risk assessment performed?: Yes Alcohol Intake: current Alcohol Intake frequency: holidays/special occasions only Drug use: Never Substance use type: does not use Details: cigarettes this AM Housing: house Current gender identity: female Do you feel safe at home: Yes Do you feel safe in your relationship?: Yes Meds Allergies and Home Medications Allergies Allergy/AdvReac Type Severity Reaction Status Date / Time Penicillins Allergy Intermediate Skin Rash Verified 05/26/25 20:03 pravastatin AdvReac Intermediate leaky Verified 05/26/25 20:03 stools Home Medications ?Medication ?Instructions ?Recorded ?Confirmed ?Type albuterol sulfate 90 mcg/actuation 2 puff inhalation .[id number] PRN 04/08/19 05/26/25 History aerosol inhaler (Ventolin HFA) triamcinolone acetonide 0.1 % 1 applic topical DAILY 07/06/20 05/26/25 History topical cream gabapentin 600 mg tablet 1,200 mg PO BID 10/15/21 05/26/25 History fluoxetine 40 mg capsule 60 mg PO DAILY 11/01/21 05/26/25 History clonazepam 0.5 mg tablet 0.5 mg PO QHS 05/09/22 05/26/25 History omeprazole 20 mg capsule,delayed 40 mg PO DAILY 05/09/22 05/26/25 History release bupropion HCl 75 mg tablet 150 mg PO DAILY 04/19/23 05/26/25 History acetaminophen 500 mg tablet 1,000 mg (2 x 500 mg) PO Q8H PRN 05/06/25 05/26/25 Rx pain #90 tabs aspirin 81 mg tablet,delayed 81 mg PO BID 30 days #60 tabs 05/06/25 05/26/25 Rx release celecoxib 200 mg capsule (Celebrex) 200 mg PO BID PRN #60 caps 05/06/25 05/26/25 Rx cefadroxil 500 mg capsule 1,000 mg (2 x 500 mg) PO BID 05/25/25 05/26/25 Rx days #40 caps doxycycline hyclate 100 mg tablet 100 mg PO BID #18 tabs 05/25/25 05/26/25 Rx oxycodone 5 mg tablet 5 mg PO PRN PRN 05/25/25 05/26/25 History Exam Narrative Exam Narrative: . HEENT-normocephalic atraumatic mucous membranes moist oropharynx is clear Neck-no lymphadenopathy no JVD no thyromegaly Cardiovascular-regular rate and rhythm no murmur rubs gallops Lungs-clear to auscultation bilaterally with good air exchange no accessory muscle use Abdomen-no tenderness to palpation Neurologic-cranial nerves II through XII intact as tested Musculoskeletal-there is a erythematous and edematous region around her right hip with no clear margins. Psych alert and oriented x 3 Results Labs 05/26/25 20:43 05/26/25 20:43 Labs: Laboratory Results - last 24 hr 05/26/25 20:43 WBC 13.47 H RBC 3.18 L Hgb 10.0 L Hct 30.1 L MCV 95 MCH 31.4 MCHC 33.2 RDW 13.0 Plt Count 380 MPV 9.2 Immature Gran % 0.3 Neutrophils % 71.8 Lymphocytes % 14.0 Monocytes % 10.3 Eosinophils % 3.2 Basophils % 0.4 Nucleated RBC % 0.0 Absolute Neutrophils 9.67 H Absolute Lymphocytes 1.89 Absolute Monocytes 1.39 H Absolute Eosinophils 0.43 Absolute Basophils 0.05 Sodium 138 Potassium 3.9 Chloride 103 Carbon Dioxide 25.7 Anion Gap 9.3 BUN 14 Creatinine 1.0 Est GFR (CKD-EPI 2020) 64.09 Glucose 109 H Calcium 8.8 Total Bilirubin 0.3 AST 11 L ALT 18 Alkaline Phosphatase 88 Total Protein 7.2 Albumin 2.9 L Last Vital Signs Temp 36.8 C 05/26/25 20:00 Pulse 72 05/26/25 22:01 Resp 16 05/26/25 22:01 BP 123/71 05/26/25 22:01 Pulse Ox 98 05/26/25 22:01 Time Spent Time spent with Patient: 40-54 minutes Time was spent: preparing to see the patient(eg.review tests), obtaining and/or reviewing separately otained hiistory, ordering medications,tests, procedures, referring, communicating with other health ambulatory care, indepentently interpreting results, counseling the patient and care coordination
[2025-05-26] MEDS: Nicotine 4 MG LOZG SUC (23:10)
[2025-05-27] VITALS (21 sets, daily range): BP systolic 72–125; BP diastolic 19–69; PULSE 64–79; RESP 9–20; TEMP 35.9–37; O2SAT 88–99; BMI 44.2
[2025-05-27] MEDS: MORPHine 10 MG/ML VIAL 2 MG IVP (00:23)
--- NOTE | 2025-05-27 01:15 | RT.EKG_ITS ---
APPROVED REPORT Exam: Resting ECG Reason for Exam: chest pain Patient Location: I HR:72 bpm ECG Measurements Heart Rate 72 AXIS TN 142 P 73 QRSd 91 QRS 20 QT 405 T 55 QTc 444 Conclusion Sinus rhythm...normal P axis, V-rate 50- 99 Borderline low voltage, extremity leads...all extremity leads <0.6mV
[2025-05-27 03:14] LABS: Abs Immature Grans 0.06 10^3/uL (0.0-0.06); HCT 30.6 % (36.0-46.0); HGB 10.0 g/dL (11.2-15.7); Immature Grans % 0.5 %; MCH 31.1 pg (27.0-33.0); MCHC 32.7 % (32.0-36.0); MCV 95 fL (80-95); MPV 9.2 fL (8.0-11.0); Platelet Count 351 10^3/uL (130-400); RBC 3.22 10^6/uL (3.93-5.22); RDW 13.1 % (11.7-14.6); RDW-SD 45.6 fL; WBC 12.60 10^3/uL (4.4-10.8)
[2025-05-27] MEDS: Acetaminophen 500 MG TAB 1000 MG PO ×2 (03:20→23:41)
[2025-05-27 03:29] LABS: ALT 28 U/L (14-59); AST 28 U/L (15-37); Albumin 2.9 g/dL (3.4-5.0); Alkaline Phosphatase 103 U/L (46-116); Anion Gap 7.6 mmol/L (3-11); BUN 14 mg/dL (7-18); Bilirubin, Total 0.6 mg/dL (0.2-1.0); CO2 27.4 mmol/L (21.0-32.0); Calcium 8.7 mg/dL (8.5-10.1); Chloride 103 mmol/L (98-107); Estimated GFR 72.73 (mL/min/1.73m2); Glucose 124 mg/dL (74-106); Potassium 3.7 mmol/L (3.5-5.1); Sodium 138 mmol/L (136-145); Total Protein 7.1 g/dL (6.4-8.2)
[2025-05-27 03:32] LABS: Troponin I 16 ng/L (<or=51)
[2025-05-27] MEDS: MORPHine 2 MG/ML SYR IVP ×2 (04:07→09:18)
[2025-05-27] MEDS: Normal Saline Flush 10 ML SYR IVP ×7 (04:08→20:01)
[2025-05-27] MEDS: Nicotine 4 MG LOZG SUC ×2 (04:13→16:02)
[2025-05-27] MEDS: clonazePAM 0.5 MG TAB PO ×2 (04:13→19:58)
--- NOTE | 2025-05-27 05:19 | W.PC.ACHO ---
Registration Status: ADM IN Primary Language: Preferred Language: Macedonian ED Information & Data Chief Complaint Recheck 05/26/25 20:57 Triage Note pt with c/o infected 05/26/25 20:00 surgical site pt states she feels sick pt had right hip replacement 05/06 Medical / Surgical History (Last Reviewed 05/22/25 @ 05:48 by Armin Curtis MD) Dysuria Tendonitis of left rotator cuff Marital problems Prurigo nodularis Thoracic spine pain Peripheral edema Chronic low back pain Knee joint pain Urinary frequency Headache Primary osteoarthritis of right knee (12/04/17) Complex tear of medial meniscus of right knee as current injury (11/06/17) (Last Reviewed 05/22/25 @ 05:48 by Armin Curtis MD) H/O shoulder surgery History of arthroscopic surgery of shoulder History of total hysterectomy History of cholecystectomy History of delivery (~04/25/11) Status post revision of total knee replacement Status post total knee replacement, right Status post arthroscopy of right knee (~11/22/17) Most Recent Vital Signs Temperature 36.2 C L 05/27/25 01:06 Temperature Source Temporal Artery Scan 05/27/25 00:49 Pulse 79 05/27/25 01:06 Pulse Rhythm Regular 05/27/25 01:06 Respiratory Rate 16 05/27/25 01:06 Respiratory Effort Normal 05/27/25 01:06 Respiratory Depth Normal 05/27/25 01:06 Respiratory Pattern Normal 05/27/25 01:06 Blood Pressure 125/69 05/27/25 01:06 Blood Pressure Mean 87 05/27/25 00:49 Pulse Oximetry 98 05/27/25 01:06 Oxygen Delivery Method Room Air 05/27/25 01:06 Oxygen Flow Rate 0 05/27/25 01:06 Pain Level 10 05/27/25 04:10 Allergies Penicillins Allergy (Intermediate, Verified 05/26/25 20:03) Skin Rash pravastatin Adverse Reaction (Intermediate, Verified 05/26/25 20:03) leaky stools Active Medications Generic Name Dose Route Start Last Admin Trade Name Freq PRN Reason Stop Dose Admin Acetaminophen 1,000 mg 05/27/25 02:16 05/27/25 03:20 Acetaminophen 500 Mg Tab PO 1,000 mg Q8H PRN PRN Administration Morphine Sulfate 2 mg 05/27/25 03:59 05/27/25 04:07 Morphine 2 Mg/Ml Syr IVP 2 mg Q4H PRN PRN Administration Nicotine 4 mg 05/27/25 03:40 05/27/25 04:13 Nicotine 4 Mg Lozg SUC 4 mg Q2H PRN PRN Administration Sodium Chloride 0 ml 05/26/25 20:30 05/27/25 04:08 Normal Saline Flush 10 Ml Syr IVP 10 ml PRN PRN Administration IV IV Catheter Type [Right Saline Lock Antecubital] IV Catheter Gauge [Right 18 Antecubital] Diet Orders Category Date Time Status Nothing Per Oral [DIET] Nutrition 05/28/25 00:01 Ordered Regular/Normal [DIET] Nutrition 05/27/25 Breakfast Active npo [Nothing Per Oral] [DIET] Nutrition 05/27/25 00:01 Active Diagnostics 05/27/25 05/27/25 05/26/25 Range/Units 06:46 03:00 20:43 WBC 12.60 H 13.47 H (4.4-10.8) 10^3/uL RBC 3.22 L 3.18 L (3.93-5.22) 10^6/uL Hgb 10.0 L 10.0 L (11.2-15.7) g/dL Hct 30.6 L 30.1 L (36.0-46.0) % MCV 95 95 (80-95) fL MCH 31.1 31.4 (27.0-33.0) pg MCHC 32.7 33.2 (32.0-36.0) % RDW 13.1 13.0 (11.7-14.6) % Plt Count 351 380 (130-400) 10^3/uL MPV 9.2 9.2 (8.0-11.0) fL Immature Gran % 0.5 0.3 % Neutrophils % 67.1 71.8 % Lymphocytes % 19.4 14.0 % Monocytes % 8.7 10.3 % Eosinophils % 3.9 3.2 % Basophils % 0.4 0.4 % Nucleated RBC % 0.0 0.0 (0.0-0.3) % Absolute Neutrophils 8.45 H 9.67 H (1.2-6.7) 10^3/uL Absolute Lymphocytes 2.44 1.89 (1.2-3.4) 10^3/uL Absolute Monocytes 1.10 H 1.39 H (0.1-0.8) 10^3/uL Absolute Eosinophils 0.49 0.43 (0.0-0.7) 10^3/uL Absolute Basophils 0.05 0.05 (0.0-0.2) 10^3/uL Sodium 138 138 (136-145) mmol/L Potassium 3.7 3.9 (3.5-5.1) mmol/L Chloride 103 103 (98-107) mmol/L Carbon Dioxide 27.4 25.7 (21.0-32.0) mmol/L Anion Gap 7.6 9.3 (3-11) mmol/L BUN 14 14 (7-18) mg/dL Creatinine 0.9 1.0 (0.55-1.02) mg/dL Est GFR (CKD-EPI 2020) 72.73 64.09 (mL/min/1.73m2) Glucose 124 H 109 H (74-106) mg/dL Calcium 8.7 8.8 (8.5-10.1) mg/dL Total Bilirubin 0.6 0.3 (0.2-1.0) mg/dL AST 28 11 L (15-37) U/L ALT 28 18 (14-59) U/L Alkaline Phosphatase 103 88 (46-116) U/L Troponin I Pending 16 (<or=51) ng/L Total Protein 7.1 7.2 (6.4-8.2) g/dL Albumin 2.9 L 2.9 L (3.4-5.0) g/dL 05/26/25 20:43 Wound Culture - Pending Hip - Right Gram Stain - Final Intake and Output - 24 Hour Total 05/26/25 19:58 thru 05/27/25 01:06 Intake Total 310 Balance 310 Weight 113.398 kg Intake: IV 310 Falls Risk Assessment History of Falls No History 05/27/25 01:06 Contributing Factors No Factors,Unstable 05/27/25 01:06 Ambulatory Aids Independent 05/27/25 01:06 Tubes/Lines With any additional score 05/27/25 01:06 Gait Evaluation W/any additional score 05/27/25 01:06 Cognition No cognitive impairment 05/27/25 01:06 Fall Total Score 43 05/27/25 01:06 Level of Risk Moderate Risk 05/27/25 01:06 Problems (Last Reviewed 05/22/25 @ 05:48 by Armin Curtis MD) Right hip pain (Acute) v v v v v v v v v Sending and/or Receiving Nurses: Please use comment section below to note any information pertinent to the patient hand-off not included above. Information / Comments: Pt here for infected surgical site. will be receiving IV ABX and surgical consult for possible I+D Report received from: ETHAN Jackson
[2025-05-27] MEDS: ceFAZolin 2 GM/50 ML BAG IVPB ×3 (06:09→22:11)
--- NOTE | 2025-05-27 07:29 | OCONE_ITS ---
Date of service: 05/27/25 Time of Service: 11:00 Assessment and Plan Assessment and plan (1) Abscess of right thigh: Status: Acute Assessment and plan: 59-year-old female 3 weeks status post right anterior CARLOS with Dr. Curtis 05/06/2025 with postoperative superficial draining abscess Patient had uneventful surgery and recovery with initial postop evaluation done with Dr. Curtis 05/19/2025 2 weeks postop without any issues. She subsequently developed some redness and soreness about the incisional site and over a few days felt overall worse and presented to the emergency room 05/25/2025 with lab work showing elevated WBC 15, ESR 50, and CRP 15. CT was obtained by the ER doctor, which showed 2 separate areas of fluid collection with intact fascia/TFL, the superficial about 3 x 2 x 12 cm with air/gas concerning for infection and the deeper about 5 x 2 x 9 cm more likely separate hematoma. Patient did not want to spend the night in the hospital so IV antibiotics ceftriaxone were administered and oral doxycycline and cefadroxil were started for MSSA, CA?MRSA, and strep. She returned to the ER last night as the superior aspect of the incision opened up a small hole and was draining purulence. Repeat WBC was still slightly elevated, but improved at 13. ESR and CRP were not repeated last night or this morning. She was admitted to the hospitalist service, Dr. Curtis is out of town, and I am going to take care of the patient today in between my usual office hours. Patient does not have specific complaints concerning about the hip replacement like pain discomfort or issues with active or passive motion, thigh start up pain, or pain with weightbearing. Exam reassuring resting comfortably in bed, nontoxic, tolerates logroll and axial load without difficulty about the hip replacement. Isolated small area of purulence not expressed but apparently coming out of the most superior aspect of the incision. The other parts of the incision is completely healed actually without much redness induration or problems. Discussed thoroughly with patient. Reviewed with Dr. Curtis. Fortunately, no imaging findings concerning for deep space/periprosthetic infection. Appears to be isolated mild surgical site abscess that is opened up and draining. Should have irrigation and debridement to remove infection and minimize risk of any deep progression. Probing/testing of the deep fascia for any defect, but no plans for formal hip joint aspiration or surgery if abscess is isolated to a superficial pocket. Recommend repeating WBC, ESR, and CRP in about 48 hours. Unfortunately, patient given breakfast today while inpatient despite surgery plan for now. INTERPRETER TRANSLATOR's will do everything possible to minimize aspiration risk, but I think it is important to proceed with surgery today to minimize risk of worsening infection including deep space infection. Decision to proceed with surgery today 05/27/2025 Right hip surgery site abscess irrigation debridement The risks, benefits, and alternatives were thoroughly discussed. Patient was counseled regarding pain management, expected postoperative course, and recovery timeline. All questions were answered. Informed consent was obtained. Agree and understand treatment plan. PFSH All Active Problems Right hip pain (Acute) Abscess of right thigh (Acute) Cellulitis of right thigh (Acute) History of total right hip replacement (Acute 05/06/25) No-show for appointment (Acute) Tendonitis of long head of biceps brachii of right shoulder (Acute) Right rotator cuff tear (Acute) Thoracic back pain (Acute) Sacroiliac joint dysfunction (Acute) Colon cancer screening (Acute) Internal hemorrhoids with other complication (Acute) Sacroiliac joint dysfunction of right side (Acute) Right rotator cuff tendinitis (Acute) Biceps tendinitis of right upper extremity (Acute) Bursitis of shoulder, right (Acute) Insomnia (Acute) Anxiety (Chronic) UTI (urinary tract infection) (Acute) Trochanteric bursitis, right hip (Acute) Low back pain radiating to lower extremity (Acute) S/P left rotator cuff repair (Acute 09/22/20) BPPV (benign paroxysmal positional vertigo) (Acute) Screening for colon cancer (Acute) Claustrophobia (Acute) pt. 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 (Acute) great to MTP joint Primary osteoarthritis of left knee (Chronic) Corticosteroid injection: 12/03/18, 09/12/18 History of total right knee replacement (TKR) (Chronic) 07/20/2018 Revision of arthrotomy on 08/09/2018 Medical History Dysuria Tendonitis of left rotator cuff Confirmed RTC tear Marital problems Prurigo nodularis Thoracic spine pain Peripheral edema Chronic low back pain Knee joint pain Urinary frequency Headache Primary osteoarthritis of right knee (12/04/17) Complex tear of medial meniscus of right knee as current injury (11/06/17) Surgical History H/O shoulder surgery right History of arthroscopic surgery of shoulder L shoulder History of total hysterectomy History of cholecystectomy History of delivery (~04/25/11) Status post revision of total knee replacement July 2018 Status post total knee replacement, right July 2018 Status post arthroscopy of right knee (~11/22/17) Partial medial meniscectomy, medial chondroplasty, removal of loose bodies Date of surgery: November 21, 2017 Dr. Curtis Social History Smoking/Tobacco Use Status: Current every day Tobacco Type: cigarettes Smoking packs per day: 1 Smoking cigarettes per day: 20.0 Years smoked: 44 Smoking pack- years: 44.00 Smoking risk assessment performed?: Yes Alcohol Intake: current Alcohol Intake frequency: holidays/special occasions only Drug use: Never Substance use type: does not use Details: cigarettes this AM Housing: house Current gender identity: female Do you feel safe at home: Yes Do you feel safe in your relationship?: Yes Results Last Vital Signs Temp 97.2 F L 05/27/25 01:06 Pulse 79 05/27/25 01:06 Resp 16 05/27/25 01:06 BP 125/69 05/27/25 01:06 Pulse Ox 98 05/27/25 01:06 Labs 05/27/25 03:00 05/27/25 03:00 Labs: Laboratory Results - last 24 hr 05/26/25 05/27/25 20:43 03:00 WBC 13.47 H 12.60 H RBC 3.18 L 3.22 L Hgb 10.0 L 10.0 L Hct 30.1 L 30.6 L MCV 95 95 MCH 31.4 31.1 MCHC 33.2 32.7 RDW 13.0 13.1 Plt Count 380 351 MPV 9.2 9.2 Immature Gran % 0.3 0.5 Neutrophils % 71.8 67.1 Lymphocytes % 14.0 19.4 Monocytes % 10.3 8.7 Eosinophils % 3.2 3.9 Basophils % 0.4 0.4 Nucleated RBC % 0.0 0.0 Absolute Neutrophils 9.67 H 8.45 H Absolute Lymphocytes 1.89 2.44 Absolute Monocytes 1.39 H 1.10 H Absolute Eosinophils 0.43 0.49 Absolute Basophils 0.05 0.05 Sodium 138 138 Potassium 3.9 3.7 Chloride 103 103 Carbon Dioxide 25.7 27.4 Anion Gap 9.3 7.6 BUN 14 14 Creatinine 1.0 0.9 Est GFR (CKD-EPI 2020) 64.09 72.73 Glucose 109 H 124 H Calcium 8.8 8.7 Total Bilirubin 0.3 0.6 AST 11 L 28 ALT 18 28 Alkaline Phosphatase 88 103 Troponin I 16 Total Protein 7.2 7.1 Albumin 2.9 L 2.9 L
[2025-05-27 08:02] LABS: Troponin I 17 ng/L (<or=51)
[2025-05-27] MEDS: Enoxaparin 40 MG/0.4 ML SYR SC ×2 (08:16→19:58)
[2025-05-27] MEDS: buPROPion-CR 150 MG TABCR PO (08:17)
[2025-05-27] MEDS: Omeprazole 20 MG CAPCR 40 MG PO (08:17)
[2025-05-27] MEDS: FLUoxetine 20 MG CAP 60 MG PO (08:18)
[2025-05-27] MEDS: Aspirin E.C. 81 MG TABEC PO (08:18)
[2025-05-27] MEDS: Gabapentin 600 MG TAB 1200 MG PO ×2 (08:18→19:58)
--- NOTE | 2025-05-27 09:44 | PDOC.CMIN ---
Date of service: 05/27/25 Time of Service: 09:44 Care Management Initial Assmt Initial Assessment Reason for Hospitalization: cellulitis Functional Status/Living Situation Patient Presentation: Dea was sitting up in bed eating her lunch and visiting with her when CM met with her. She had just returned form surgery a short time before and was still a bit sleepy. Dea had hip surgery at the end of April. About a week ago she began to have pain and swelling in the same hip. She was admitted with cellulitis and a possible abscess. She was taken to the OR for an I&D of the incision where purulent drainage and fatty necrosis was encountered. Dea is now receiving IV antibiotics. The course of treatment has not been determined, pending culture results. Dea and Citlalli live in a single family home in [place], [place]. Dea has one daughter who is 37 years old and lives in [place]. 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 She is independent at baseline and does not receive any community services. Town of Residence: [place], [place] Resides with: Spouse ( Citlalli) Significant Other/Family: [employer] Instrumental Activities of Daily Living (ADLs): Independent Medications Medication Management: No Issues/Barriers identified Advance Directives Advance Directives: Do you have an Advance Directive: N 08/23/21, 10:10 AD On File at [facility]: N 08/23/21, 10:10 Date Asked 05/26/25 05/26/25, 20:00 AD Date Reviewed COLST On File at [facility] COLST Date Scanned Code Status Resuscitation Status Full Code Insurance Coverage/Financial Issues Insurance: /[facility] Advantage Care Team Visit Care Team Role Provider Type Noemi Ordonez APRN MD [facility] STAFF PHYSICIAN Yaya Meadows MD Primary Care Provider NON-[facility] STAFF PHYSICIAN Elena Ken, [place] Emergency Provider NURSE PRACTITIONER Hakeem Acosta MD Admit Provider [facility] STAFF PHYSICIAN Attending Provider Other Providers Discharge Potential Discharge Needs: Surgical F/U Appt Anticipated Barriers to Discharge: None Identified Patient/Family Education Needs: Review discharge instructions, discuss Ask Me Three Transportation: Private vehicle Plan: Anticipate Dea will be discharged home with no new services when medically and surgically stable. She will follow up with her community providers and plan of care and transport with family. CM willl follow and continue to assess for discharge needs. Social Determinants of Health Screening Social Determinants of health last assessed in clinic: 05/27/25 Will the Patient Participate in the Screening?: Yes Do you worry about having a steady place to live?: no Problems where you live: no known problems In the past 12 months, have you had to go without electric, gas, oil or water in your home?: no 1. Within the past 12 months, we worried whether our food would run out before we got money to buy more.: Never true 2. Within the past 12 months, the food we bought just didn't last and we didn't have money to get more.: Never true Has lack of transportation kept you from medical appointments or from doing things needed for daily living?: no Has anyone in your life made you feel unsafe or unsupported?: no How hard is it for you to pay for the very basics like food, housing, medical care, and heating? Would you say it is:: Somewhat hard Do you want help finding or keeping work or a job?: I do not need or want help If for any reason you need help with day-to-day activities such as bathing, preparing meals, shopping, managing finances, etc., do you get the help you need?: I get all the help I need How often do you feel lonely or isolated from those around you?: Sometimes Do you speak a language other than [place] at home?: No Does the patient want assistance with any of the above?: No Health Related Social Needs Health related social needs: problems related to housing/economic circumstances (Z59.89) and feeling lonely/isolated (Z60.8) Health related social needs details: pt declined any assistance PFSH All Active Problems Right hip pain (Acute) Abscess of right thigh (Acute) Cellulitis of right thigh (Acute) History of total right hip replacement (Acute 05/06/25) No-show for appointment (Acute) Tendonitis of long head of biceps brachii of right shoulder (Acute) Right rotator cuff tear (Acute) Thoracic back pain (Acute) Sacroiliac joint dysfunction (Acute) Colon cancer screening (Acute) Internal hemorrhoids with other complication (Acute) Sacroiliac joint dysfunction of right side (Acute) Right rotator cuff tendinitis (Acute) Biceps tendinitis of right upper extremity (Acute) Bursitis of shoulder, right (Acute) Insomnia (Acute) Anxiety (Chronic) UTI (urinary tract infection) (Acute) Trochanteric bursitis, right hip (Acute) Low back pain radiating to lower extremity (Acute) S/P left rotator cuff repair (Acute 09/22/20) BPPV (benign paroxysmal positional vertigo) (Acute) Screening for colon cancer (Acute) Claustrophobia (Acute) pt. 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 (Acute) great to MTP joint Primary osteoarthritis of left knee (Chronic) Corticosteroid injection: 12/03/18, 09/12/18 History of total right knee replacement (TKR) (Chronic) 07/20/2018 Revision of arthrotomy on 08/09/2018 Medical History Dysuria Tendonitis of left rotator cuff Confirmed RTC tear Marital problems Prurigo nodularis Thoracic spine pain Peripheral edema Chronic low back pain Knee joint pain Urinary frequency Headache Primary osteoarthritis of right knee (12/04/17) Complex tear of medial meniscus of right knee as current injury (11/06/17) Surgical History H/O shoulder surgery right History of arthroscopic surgery of shoulder L shoulder History of total hysterectomy History of cholecystectomy History of delivery (~04/25/11) Status post revision of total knee replacement July 2018 Status post total knee replacement, right July 2018 Status post arthroscopy of right knee (~11/22/17) Partial medial meniscectomy, medial chondroplasty, removal of loose bodies Date of surgery: November 21, 2017 Dr. Curtis Social History Smoking/Tobacco Use Status: Current every day Tobacco Type: cigarettes Smoking packs per day: 1 Smoking cigarettes per day: 20.0 Years smoked: 44 Smoking pack-years: 44.00 Smoking risk assessment performed?: Yes Alcohol Intake: current Alcohol Intake frequency: holidays/special occasions only Drug use: Never Substance use type: does not use Details: cigarettes this AM Housing: house Current gender identity: female Do you feel safe at home: Yes Do you feel safe in your relationship?: Yes
--- NOTE | 2025-05-27 10:45 | W.ANESPRE ---
General Info Date of Service Date Performed: 05/27/25 Height: 5 ft 3 in Weight: 113.398 kg Body Mass Index (BMI): 44.2 Surgical Procedure: Operation Date: 05/27/25 12:10 Proposed Procedure Side Surgeon p I&D Hip Abscess Right Jean Basurto MD Meds Allergies and Home Medications Allergies Allergy/AdvReac Type Severity Reaction Status Date / Time Penicillins Allergy Intermediate Skin Rash Verified 05/26/25 20:03 pravastatin AdvReac Intermediate leaky Verified 05/26/25 20:03 stools Home Medication ?Medication ?Instructions ?Recorded albuterol sulfate 90 mcg/actuation 2 puff inhalation .[id number] PRN 04/08/19 aerosol inhaler (Ventolin HFA) triamcinolone acetonide 0.1 % 1 applic topical DAILY 07/06/20 topical cream gabapentin 600 mg tablet 1,200 mg PO BID 10/15/21 fluoxetine 40 mg capsule 60 mg PO DAILY 11/01/21 clonazepam 0.5 mg tablet 0.5 mg PO QHS 05/09/22 omeprazole 20 mg capsule,delayed 40 mg PO DAILY 05/09/22 release acetaminophen 500 mg tablet 1,000 mg (2 x 500 mg) PO Q8H PRN 05/06/25 pain #90 tabs aspirin 81 mg tablet,delayed 81 mg PO BID 30 days #60 tabs 05/06/25 release celecoxib 200 mg capsule (Celebrex) 200 mg PO BID PRN #60 caps 05/06/25 cefadroxil 500 mg capsule 1,000 mg (2 x 500 mg) PO BID 05/25/25 days #40 caps doxycycline hyclate 100 mg tablet 100 mg PO BID #18 tabs 05/25/25 oxycodone 5 mg tablet 5 mg PO PRN PRN 05/25/25 bupropion HCl 150 mg tablet,12 hr 150 mg PO DAILY 05/27/25 sustained-release Current Visit Medications: Current Medications Generic Name Dose Route Start Last Admin Trade Name Freq PRN Reason Stop Dose Admin Acetaminophen 1,000 mg 05/27/25 02:16 05/27/25 03:20 Acetaminophen 500 Mg Tab PO 1,000 mg Q8H PRN PRN Administration Al Hydrox/Mg Hydrox/Simethicone 30 ml 05/26/25 22:49 Mylanta Suspension 30 Ml Cup PO Q2H PRN PRN Albuterol Sulfate 2 puff 05/27/25 02:16 Albuterol Hfa 8 Gm 60 Puff Inh IH Q4H PRN PRN Aspirin 81 mg 05/27/25 08:30 05/27/25 08:18 Aspirin E.C. 81 Mg Tabec PO 81 mg BID EDE Administration Bupropion HCl 150 mg 05/27/25 08:30 05/27/25 08:17 Bupropion-Cr 150 Mg Tabcr PO 150 mg DAILY EDE Administration Celecoxib 200 mg 05/27/25 02:16 Celecoxib 200 Mg Cap PO BID PRN PRN Clonazepam 0.5 mg 05/27/25 20:00 Clonazepam 0.5 Mg Tab PO HS EDE Docusate Sodium 100 mg 05/26/25 22:49 Docusate Sodium 100 Mg Cap PO TID PRN PRN Enoxaparin Sodium 40 mg 05/27/25 08:30 05/27/25 08:16 Enoxaparin 40 Mg/0.4 Ml Syr SC 40 mg DAILY EDE Administration Fluoxetine HCl 60 mg 05/27/25 08:30 05/27/25 08:18 Fluoxetine 20 Mg Cap PO 60 mg DAILY EDE Administration Gabapentin 1,200 mg 05/27/25 08:30 05/27/25 08:18 Gabapentin 600 Mg Tab PO 1,200 mg BID EDE Administration Cefazolin Sodium/Dextrose 2 gm in 50 mls @ 100 mls/hr 05/27/25 06:00 05/27/25 08:21 Ancef Duplex IVPB Infused Q8H EDE Infusion IV Miscellaneous Supplies 1 each 05/26/25 20:30 Iv Access IV DIRECTED EDE Magnesium Hydroxide 30 ml 05/26/25 22:49 Milk Of Magnesia 30 Ml Cup PO DAILY PRN PRN Morphine Sulfate 2 mg 05/27/25 03:59 05/27/25 09:18 Morphine 2 Mg/Ml Syr IVP 2 mg Q4H PRN PRN Administration Nicotine 4 mg 05/26/25 22:46 Nicotine 4 Mg Gum CH Q2H PRN PRN Nicotine 4 mg 05/27/25 03:40 05/27/25 04:13 Nicotine 4 Mg Lozg SUC 4 mg Q2H PRN PRN Administration Omeprazole 40 mg 05/27/25 08:30 05/27/25 08:17 Omeprazole 20 Mg Capcr PO 40 mg DAILY EDE Administration Oxycodone HCl 5 mg 05/27/25 02:16 Oxycodone 5 Mg Tab PO PRN PRN Polyethylene Glycol 17 gm 05/26/25 22:49 Polyethylene Glycol 3350 17 Gm Packet PO DAILY PRN PRN Constipation Sodium Chloride 0 ml 05/26/25 20:30 05/27/25 09:18 Normal Saline Flush 10 Ml Syr IVP 40 ml PRN PRN Administration Sodium Chloride 0 ml 05/27/25 08:30 05/27/25 06:10 Normal Saline Flush 10 Ml Syr IVP 40 ml BID EDE Administration Sodium Chloride 0 ml 05/26/25 20:30 Normal Saline 10 Ml Vial IJ DIRECTED PRN Triamcinolone Acetonide 0 gm 05/27/25 08:30 Triamcinolone 0.1% Cr 15 Gm Tube TP DAILY EDE PFSH Active Problems Active Problems: Problem Status Onset Code Right hip pain Acute M25.551 Abscess of right thigh Acute L02.415 Cellulitis of right thigh Acute L03.115 History of total right hip replacement Acute 05/06/25 Z96.641 No-show for appointment Acute Z91.199 Tendonitis of long head of biceps brachii of right shoulder Acute M75.21 Right rotator cuff tear Acute M75.101 Thoracic back pain Acute M54.6 Sacroiliac joint dysfunction Acute M53.3 Colon cancer screening Acute Z12.11 Internal hemorrhoids with other complication Acute K64.8 Sacroiliac joint dysfunction of right side Acute M53.3 Right rotator cuff tendinitis Acute M75.81 Biceps tendinitis of right upper extremity Acute M75.21 Bursitis of shoulder, right Acute M75.51 Insomnia Acute G47.00 Anxiety Chronic F41.9 UTI (urinary tract infection) Acute N39.0 Trochanteric bursitis, right hip Acute M70.61 Low back pain radiating to lower extremity Acute M54.5 S/P left rotator cuff repair Acute 09/22/20 Z98.890 BPPV (benign paroxysmal positional vertigo) Acute H81.10 Screening for colon cancer Acute Z12.11 Claustrophobia Acute F40.240 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 Acute M19.071 Primary osteoarthritis of left knee Chronic M17.12 History of total right knee replacement (TKR) Chronic Z96.651 Medical History Medical History Dysuria Tendonitis of left rotator cuff Confirmed RTC tear Marital problems Prurigo nodularis Thoracic spine pain Peripheral edema Chronic low back pain Knee joint pain Urinary frequency Headache Primary osteoarthritis of right knee (12/04/17) Complex tear of medial meniscus of right knee as current injury (11/06/17) Surgical History Surgical History H/O shoulder surgery right History of arthroscopic surgery of shoulder L shoulder History of total hysterectomy History of cholecystectomy History of delivery (~04/25/11) Status post revision of total knee replacement July 2018 Status post total knee replacement, right July 2018 Status post arthroscopy of right knee (~11/22/17) Partial medial meniscectomy, medial chondroplasty, removal of loose bodies Date of surgery: November 21, 2017 Dr. Curtis Tobacco Smoking/Tobacco Use Status: Current every day Tobacco Type: cigarettes Smoking packs per day: 1 Smoking cigarettes per day: 20 Years smoked: 44 Passive smoking exposure: Yes Alcohol Alcohol Intake: current Alcohol intake frequency: holidays/special occasions only Substance Use Substance use: Never Substance use type: does not use Details: cigarettes this AM Vital Signs and Lab Results Vital Signs Most Recent Vital Signs in EMR: Most Recent Vital Signs Temp Pulse Resp BP Pulse Ox 35.9 C L 67 16 112/58 L 98 05/27/25 07:22 05/27/25 07:22 05/27/25 07:22 05/27/25 07:22 05/27/25 07:22 Lab Results 05/27/25 03:00 05/27/25 03:00 Complete Blood Count: WBC, (4.4-10.8) 12.60 10^3/uL H Today, 03:00 RBC, (3.93-5.22) 3.22 10^6/uL L Today, 03:00 Hgb, (11.2-15.7) 10.0 g/dL L Today, 03:00 Hct, (36.0-46.0) 30.6 % L Today, 03:00 Plt Count, (130-400) 351 10^3/uL Today, 03:00 Complete Metabolic Panel: Sodium, (136-145) 138 mmol/L Today, 03:00 Potassium, (3.5-5.1) 3.7 mmol/L Today, 03:00 Chloride, (98-107) 103 mmol/L Today, 03:00 Carbon Dioxide, (21.0-32.0) 27.4 mmol/L Today, 03:00 BUN, (7-18) 14 mg/dL Today, 03:00 Creatinine, (0.55-1.02) 0.9 mg/dL Today, 03:00 Est GFR (CKD-EPI 2020), (mL/min/1.73m2) 72.73 Today, 03:00 Magnesium, (1.8-2.4) 2.0 mg/dL 05/25/25, 14:18 Calcium, (8.5-10.1) 8.7 mg/dL Today, 03:00 Albumin, (3.4-5.0) 2.9 g/dL L Today, 03:00 Glucose, (74-106) 124 mg/dL H Today, 03:00 C-Reactive Protein, (<or=0.5) 14.88 mg/dL H 05/25/25, 14:18 Liver Function Panel: ALT, (14-59) 28 U/L Today, 03:00 AST, (15-37) 28 U/L Today, 03:00 Cardiac Panel: Troponin I, (<or=51) 17 ng/L Today Infectious Disease: SARS-CoV-2 (PCR), (Negative) Negative 05/25/25, 14:50 COVID-19 Source Nasopharynx 05/25/25, 14:50 Influenza Type A (PCR), (Negative) Negative 05/25/25, 14:50 Influenza Type B (PCR), (Negative) Negative 05/25/25, 14:50 RSV (PCR), (Negative) Negative 05/25/25, 14:50 Imaging and Studies Imaging and Studies Study information below may be from another EMR and interpreted by another provider. Please see original notes in EMR for more complete details. EKG Summary: 05/27/25 Conclusion Sinus rhythm...normal P axis, V-rate 50- 99 Anesthesia Assessment and Plan Anesthesia History Personal History: No History of Anesthesia Complications Family History: No Family History of Anesthesia Complications Exercise Tolerance Exercise Tolerance: Metabolic Equivalents>4 Pertinent Negatives Pertinent Negatives: No Symptoms of GERD, No Major Cardiovascular Symptoms or Complaints, No Major Pulmonary Symptoms or Complaints and No History of CVA/TIA Cardiac & Pulmonary Exam Cardiac Exam: Normal S1/S2 Heart Sounds Pulmonary Exam: Clear Bilateral Breath Sounds Implantable Cardiac Device Does patient have a Pacemaker or an ICD?: No Airway Exam Known Difficult Airway: No Mallampati Class: 3 Mouth Opening: Narrow (< 3cm) Thyromental Distance: Less than 3 cm Neck Range of Motion: Limited ROM Neck Circumference: Thick Teeth Condition: Normal Dentition ASA Classification ASA Score: ASA 3 Emergency Case?: No NPO Status NPO Status: NPO Clears >2 hours, Solids >8 hours Anesthesia Plan Resuscitation Status: Full Code Anesthesia Technique: General Anesthesia Airway Planned: LMA Monitors Used: Standard Monitors Preoperative Comments:: Discussed increased risk of aspiration since she ate breakfast 3 1/2 hrs ago, Dr. Basurto is deeming the procedure urgent, patient willing to take increased risk and wishes to proceed.
[2025-05-27] MEDS: Bupivacaine 0.25% Pres-Free W/EPI 30 ML VIAL (12:45)
[2025-05-27] MEDS: Vancomycin 1,000 MG VIAL 1000 MG (12:45)
--- NOTE | 2025-05-27 13:15 | ROE_ITS ---
Operative Note Operative Note PRE-OP DIAGNOSIS: Right hip abscess 3 weeks status post anterior CARLOS POST-OP DIAGNOSIS: same PROCEDURE: Right hip abscess irrigation and debridement SURGEON: Jean Basurto MACHINE SAND MIXER: Evangelina Kim ANESTHESIA TYPE: Local By Surgeon and General LMA/ETT Refer to Anesthesia Record ESTIMATED BLOOD LOSS: 10 PATHOLOGY: other (2x both aerobic and anaerobic cultures from abscess purulennce) COMPLICATIONS: None Patient was transported to: PACU Patient's condition: stable Indications: Please see complete medical record for details. Findings: Small opening most superficial aspect of the incision, able to express copious fat necrosis and purulence through this opening on pressure. Incision completely reopened to expose a large pocket/area of purulence/infection and surrounding fat necrosis. Loose Monocryl, Vicryl, and even STRATAFIX sutures. Intact deeper TFL layer scarred to muscle despite some TFL fascia disruption. Nothing expressed or infection coming from deeper hip joint space. Unable to probe any defects from this abscess superficially to deeper. Procedure Description: In the operating room, general anesthesia was induced. The patient was positioned supine on the operating room table. All bony prominences were well- padded. Preoperative antibiotics were administered. 1 g TXA was administered. The right hip was prepped and draped in the usual sterile fashion. The correct patient, procedure, and side of the procedure were all verified prior to incision. 2 sets of aerobic anaerobic cultures were obtained by swabs into the abscess site and sweeping around the abscess area. The proximal portion of the incision was open, deep probing blunt fingertips used to express copious purulence and fat necrosis, there were numerous sutures superficially intermediate and deep that were seen as well. The pocket area of abscess extended the extent of the incision on top of the deeper layers. The remainder of the distal incision was opened. 3 L of gravity normal saline was irrigated through the wound with agitation. All surgical gloves were changed. 30 cc of 0.25 bupivacaine was infiltrated about the incision in a meticulous fashion starting superficial to deep all Monocryl, some Vicryl, and some loose pieces of STRATAFIX were removed with rongeur. Nonviable fat was removed with rongeur, all tissue layer superficial to deep were abraded with a Ramírez. An additional 2 L of normal saline was then irrigated through the wound. Gloves changed again. A few more sutures were removed. Tissues were swept with laps to remove some more nonviable fat. The wound was then thoroughly examined there were no other pockets of infection or extension in any other plane superficially or deep. The TFL layer that had been closed with the STRATAFIX had a rolled up edge where the STRATAFIX was loose and the central part of the incision, but the TFL fascia was scarred to the underlying muscle. There was no way to digitally probe past this healed layer into the hip joint. There was nothing expressed more concerning about the deeper layer or signs of infection having originated or progressed deep to the hip replacement. The Betadine solution was then copiously irrigated throughout the wound the entire bottle was used and let to sit for a few minutes. The remainder liter of normal saline completing 6 L was then used to irrigate this Betadine out. Hemostasis was appropriate. There was no additional suture material or necrotic fat that had to be removed. 1 g of vancomycin powder was then distributed throughout the wound. A 15-gauge MARIN drain was then inserted distally and secured with nylon to decompress this space, remove any fluid from the vancomycin powder, and continue to decompress the abscess until healed. Subcutaneous tissue was then closed buried interrupted 2-0 Monocryl. Skin was closed with 3-0 Monocryl running subcuticular. Steri-Strips applied in a nonocclusive fashion followed by Xeroform Tegaderms and gauze over the hip incision. And gauze sponges and tape around the drain exit site. The patient awoke from anesthesia without complication and was transferred to the recovery room in a stable condition. Plan of care will be communicated with Dr. Curtis and hospitalist medical team. Patient should have usual DVT prophylaxis and pain control medications. IV antibiotics covering community MRSA, MSSA, and strep pending cultures. Daily probiotic. Keep records of drain output every 8 hours. Maintain until relatively dry. Repeat WBC, ACR, and CRP in about 48 hours. Date of Procedure: 05/27/25
[2025-05-27] MEDS: fentaNYL 100 MCG/2 ML VIAL IVP ×2 (13:49→13:55)
[2025-05-27] MEDS: oxyCODONE 5 MG TAB PO ×2 (15:01→23:40)
[2025-05-27] MEDS: Celecoxib 200 MG CAP PO (15:01)
--- NOTE | 2025-05-27 15:23 | W.ANESPOSTOP ---
Postoperative Evaluation Date, Time and Location Date Performed: 05/27/25 Time Performed: 15:23 Patient Location: Med/Surg Vital Signs Most Recent Imported Vital Signs: Most Recent Vital Signs Temp Pulse Resp BP Pulse Ox 36.0 C L 74 18 105/59 L 97 05/27/25 14:33 05/27/25 14:33 05/27/25 14:33 05/27/25 14:33 05/27/25 14:33 Pain Score Most Recent Pain Score: Most Recent Pain Score Pain Level [Right Upper Thigh] 05/27/25 04:10 Pain Level 5 05/27/25 15:01 Assessment Mental Status: Awake (Alert & Oriented to Patient Baseline) Airway and Respiratory Function: Patent airway with normal (patient baseline) respiratory exam Cardiovascular Function: Hemodynamically Stable Hydration Status: Adequately Hydrated Nausea & Vomiting: No Nausea or Vomiting Pain: Pain is tolerable per patient Peripheral Nerve Block: Patient did not receive a nerve block
--- NOTE | 2025-05-27 15:34 | W.PM.PROGNOT ---
Date of Service Date of service: 05/27/25 Time of Service: 15:34 Assessment and Plan Assessment and plan (1) Right hip pain: Status: Acute Assessment and plan: Presenting with leukocytosis not meeting sepsis criteria Ongoing cefazolin fro MSSA coverage as per the request of the orthopedic team. As per CT findings: right hip fluid collection with gas bubbles 3.5 x 2.0 x 12.5 cm- pointing to an abscess deep to the fascia fluid collection w/o , gas bubbles and measuring 4.6 cm x 1.8 cm x 9 cm craniocaudal, most likely postop seroma- vs abscess The actual intraosseous hip hardware appears satisfactory. OR with Dr Basurto today for completion of Right hip abscess irrigation and debridement: Please read notes -Surgical site cultures X2 collected - will narrow down antibiotics based on results --No evidence of infection in the deeper hip joint space -MARIN drain with ongoing nursing care - DVT prophylaxis with LMWH adjusted to BMI- resume ASA 81 mg as per previous orthopedic recommendation on d/c -Ongoing pain control : PRN acetaminophen, PRN ketorolac,and PRN oxycodone , PRN IV morphine for severe pain - and on home dose gabapentin -Transition to Celebrex in AM and d/c ketorolac - bowel medicine regimen scheduled -Vancomycin for MRSA coverage - On oral probiotics (2) Tobacco abuse: Status: None Assessment and plan: NRT PRN Previously discussed with patient: nicotine could decrease her wound healing potential as it is a vasoconstrictor. Encourage smoking cessation and PCP f/u (3) Insomnia: Status: Acute Assessment and plan: home dose lorazepam (4) Anxiety: Status: Chronic Assessment and plan: on home medicine regimen (5) Depression: Status: None Assessment and plan: on home medicine regimen (6) COPD (chronic obstructive pulmonary disease): Status: None Assessment and plan: on home medicine regimen NIV as per home settitng (7) GERD (gastroesophageal reflux disease): Status: Chronic Assessment and plan: on home medicine regimen Discussed with Dr Corrigan Subjective Subjective Patient reports: no new complaints, pain is less, tolerating liquids well, tolerating a regular diet, voiding w/o difficulty, flatus and no bowel movement; denies diarrhea, nausea, vomiting, shortness of breath or fever Exam Narrative Exam Narrative: Alert and oriented X4, intermittent RLE pain- surgical site s/p OR, swelling around surgical dressing w/o hematoma- MARIN drain in place , dressing DCI , neurologically intact, moves all 4 ext, , unlabored breathing, clear lungs to auscultation, abdomen is non-distended, soft and non-tender, bowel sounds are present, Objective Last Vital Signs Temp 36.0 C L 05/27/25 14:33 Pulse 74 05/27/25 14:33 Resp 18 05/27/25 14:33 BP 105/59 L 05/27/25 14:33 Pulse Ox 97 05/27/25 14:33 Laboratory Results - last 24 hr 05/26/25 05/27/25 05/27/25 20:43 03:00 07:25 WBC 13.47 H 12.60 H RBC 3.18 L 3.22 L Hgb 10.0 L 10.0 L Hct 30.1 L 30.6 L MCV 95 95 MCH 31.4 31.1 MCHC 33.2 32.7 RDW 13.0 13.1 Plt Count 380 351 MPV 9.2 9.2 Immature Gran % 0.3 0.5 Neutrophils % 71.8 67.1 Lymphocytes % 14.0 19.4 Monocytes % 10.3 8.7 Eosinophils % 3.2 3.9 Basophils % 0.4 0.4 Nucleated RBC % 0.0 0.0 Absolute Neutrophils 9.67 H 8.45 H Absolute Lymphocytes 1.89 2.44 Absolute Monocytes 1.39 H 1.10 H Absolute Eosinophils 0.43 0.49 Absolute Basophils 0.05 0.05 Sodium 138 138 Potassium 3.9 3.7 Chloride 103 103 Carbon Dioxide 25.7 27.4 Anion Gap 9.3 7.6 BUN 14 14 Creatinine 1.0 0.9 Est GFR (CKD-EPI 2020) 64.09 72.73 Glucose 109 H 124 H Calcium 8.8 8.7 Total Bilirubin 0.3 0.6 AST 11 L 28 ALT 18 28 Alkaline Phosphatase 88 103 Troponin I 16 17 Total Protein 7.2 7.1 Albumin 2.9 L 2.9 L Time Spent with Patient Time Spent with Patient: >50 minutes Time was spent: preparing to see the patient(eg.review tests), obtaining and/or reviewing separately otained hiistory, ordering medications,tests, procedures, referring, communicating with other health child care coordinator, indepentently interpreting results, counseling the patient, care coordination and other
[2025-05-27] MEDS: Lactobacillus Acidophilus CAP 1 CAP PO ×2 (17:55→19:57)
[2025-05-27] MEDS: VANCOMYCIN/WATER (PEG) 1.25 GM/250 ML BAG IVPB (17:55)
[2025-05-27] MEDS: Ketorolac 15 MG/ML VIAL IVP (19:59)
[2025-05-27] MEDS: Docusate Sodium 100 MG CAP PO (20:00)
[2025-05-28] MEDS: Ketorolac 15 MG/ML VIAL IVP ×4 (02:04→21:12)
[2025-05-28] MEDS: Normal Saline Flush 10 ML SYR IVP ×5 (02:05→21:19)
[2025-05-28] MEDS: ceFAZolin 2 GM/50 ML BAG IVPB ×3 (05:40→21:55)
[2025-05-28] MEDS: Nicotine 4 MG GUM CH ×5 (05:41→21:18)
[2025-05-28] MEDS: VANCOMYCIN/WATER (PEG) 1.25 GM/250 ML BAG IVPB ×2 (06:19→22:25)
[2025-05-28 06:44] LABS: Abs Immature Grans 0.03 10^3/uL (0.0-0.06); HCT 27.3 % (36.0-46.0); HGB 9.1 g/dL (11.2-15.7); Immature Grans % 0.4 %; MCH 32.0 pg (27.0-33.0); MCHC 33.3 % (32.0-36.0); MCV 96 fL (80-95); MPV 9.3 fL (8.0-11.0); Platelet Count 359 10^3/uL (130-400); RBC 2.84 10^6/uL (3.93-5.22); RDW 13.1 % (11.7-14.6); RDW-SD 46.7 fL; WBC 7.75 10^3/uL (4.4-10.8)
[2025-05-28 07:40] VITALS: BP 107/53; PULSE 70; RESP 20; TEMP 36.7; O2SAT 99
[2025-05-28 08:22] LABS: ALT 52 U/L (14-59); AST 32 U/L (15-37); Albumin 2.4 g/dL (3.4-5.0); Alkaline Phosphatase 114 U/L (46-116); Anion Gap 8.2 mmol/L (3-11); BUN 18 mg/dL (7-18); Bilirubin, Total 0.1 mg/dL (0.2-1.0); CO2 27.8 mmol/L (21.0-32.0); Calcium 8.7 mg/dL (8.5-10.1); Chloride 104 mmol/L (98-107); Estimated GFR 72.73 (mL/min/1.73m2); Glucose 91 mg/dL (74-106); Potassium 3.9 mmol/L (3.5-5.1); Sodium 140 mmol/L (136-145); Total Protein 6.3 g/dL (6.4-8.2)
--- NOTE | 2025-05-28 08:51 | CMPROGNOTE_ITS ---
Date of service: 05/28/25 Time of Service: 14:44 Care Management Progress Note Progress Note Text Progress Note Text: Dea was sitting up in bed visiting with her when CM met with her. She was pleasant and cooperative and easily engaged with CM. Dea reported that she is feeling better today. She had hoped to be able to go home today and was disappointed to learn that she needs to remain at least another day or so until culture results and sensitivities are known. Additionally, the exact course of antibiotic treatment is unknown at this time. If she requires a prolonged course, arrangements will need to be made for home infusions or for daily appointments at the [facility]. Discharge Potential Discharge Needs: Surgical F/U Appt Anticipated Barriers to Discharge: Medical Status Patient/Family Education Needs: Review discharge instructions, discuss Ask Me Three Transportation: Private vehicle Plan: Anticipate Dea will be discharged home with no new services when medically and surgically stable. She will follow up with her community providers and plan of care and transport with family. CM will follow and continue to assess for discharge needs. Social Determinants of Health Screening Social Determinants of health last assessed in clinic: 05/28/25 Will the Patient Participate in the Screening?: Yes Do you worry about having a steady place to live?: no Problems where you live: no known problems In the past 12 months, have you had to go without electric, gas, oil or water in your home?: no 1. Within the past 12 months, we worried whether our food would run out before we got money to buy more.: Never true 2. Within the past 12 months, the food we bought just didn't last and we didn't have money to get more.: Never true Has lack of transportation kept you from medical appointments or from doing things needed for daily living?: no Has anyone in your life made you feel unsafe or unsupported?: no How hard is it for you to pay for the very basics like food, housing, medical care, and heating? Would you say it is:: Somewhat hard Do you want help finding or keeping work or a job?: I do not need or want help If for any reason you need help with day-to-day activities such as bathing, preparing meals, shopping, managing finances, etc., do you get the help you need?: I get all the help I need How often do you feel lonely or isolated from those around you?: Sometimes Do you speak a language other than [place] at home?: No Does the patient want assistance with any of the above?: No Health Related Social Needs Health related social needs: problems related to housing/economic circumstances (Z59.89) and feeling lonely/isolated (Z60.8) Health related social needs details: pt declined any assistance
[2025-05-28] MEDS: Omeprazole 20 MG CAPCR 40 MG PO (08:54)
[2025-05-28] MEDS: Gabapentin 600 MG TAB 1200 MG PO ×2 (08:54→21:12)
[2025-05-28] MEDS: Polyethylene Glycol 3350 17 GM PACKET PO (08:54)
[2025-05-28] MEDS: buPROPion-CR 150 MG TABCR PO (08:55)
[2025-05-28] MEDS: Docusate Sodium 100 MG CAP PO ×3 (08:55→21:11)
[2025-05-28] MEDS: Lactobacillus Acidophilus CAP 1 CAP PO ×3 (08:55→21:11)
[2025-05-28] MEDS: FLUoxetine 20 MG CAP 60 MG PO (08:55)
[2025-05-28] MEDS: Enoxaparin 40 MG/0.4 ML SYR SC ×2 (08:56→21:12)
[2025-05-28] MEDS: Acetaminophen 500 MG TAB 1000 MG PO ×2 (09:05→21:19)
[2025-05-28] MEDS: Celecoxib 200 MG CAP PO (09:06)
--- NOTE | 2025-05-28 12:21 | W.PM.PROGNOT ---
Date of Service Date of service: 05/28/25 Time of Service: 12:21 Assessment and Plan Assessment and plan (1) Abscess of right thigh: Status: Acute Assessment and plan: Dea is doing very well postop day #1 from I&D of the right hip incision. Labs have improved today. Will adjust antibiotics after culture returns with sensitivities if necessary. Hopefully will be able to pull the drain prior to discharge. Continue to work with physical therapy with ambulation. Using Toradol for pain and is not requiring any narcotics. Will likely switch to Celebrex upon discharge. Subjective Subjective Interval history since last seen: Dea is postop day #1 from I&D of right hip wound due to a total hip replacement (05/06/2025), and she is doing very well today. She states that she feels like herself again. She relates that immediately following surgery she felt much better than she did the last couple of days. The dressing is still in place and she states that there has been still some drainage from the drain. She is getting up and walking with physical therapy without a walker and is feeling good. She has no complaints of pain in her hip. Exam Extrem Other: Exam of the right hip today shows that the dressing is clean dry and intact. Drain is in place with very little fluid in the drain. Demonstrates smooth internal and external rotation without pain. Objective Last Vital Signs Temp 98.1 F 05/28/25 07:40 Pulse 70 05/28/25 07:40 Resp 20 05/28/25 07:40 BP 107/53 L 05/28/25 07:40 Pulse Ox 99 05/28/25 07:40 Laboratory Results - last 24 hr 05/28/25 05/28/25 05:35 06:06 WBC 7.75 RBC 2.84 L Hgb 9.1 L Hct 27.3 L MCV 96 H MCH 32.0 MCHC 33.3 RDW 13.1 Plt Count 359 MPV 9.3 Immature Gran % 0.4 Neutrophils % 57.1 Lymphocytes % 24.1 Monocytes % 11.0 Eosinophils % 6.8 Basophils % 0.6 Nucleated RBC % 0.0 Absolute Neutrophils 4.42 Absolute Lymphocytes 1.87 Absolute Monocytes 0.85 H Absolute Eosinophils 0.53 Absolute Basophils 0.05 Sodium Cancelled 140 Potassium Cancelled 3.9 Chloride Cancelled 104 Carbon Dioxide Cancelled 27.8 Anion Gap Cancelled 8.2 BUN Cancelled 18 Creatinine Cancelled 0.9 Est GFR (CKD-EPI 2020) Cancelled 72.73 Glucose Cancelled 91 Calcium Cancelled 8.7 Total Bilirubin 0.1 L AST 32 ALT 52 Alkaline Phosphatase 114 Total Protein 6.3 L Albumin 2.4 L Time Spent with Patient Time Spent with Patient: <25 minutes Time was spent: preparing to see the patient(eg.review tests), obtaining and/or reviewing separately otained hiistory and counseling the patient
--- NOTE | 2025-05-28 14:51 | CHAPLAIN ---
Dea was resting in bed when I visited. She said she is feeling better today, Feeling human again. I explained my role and offered support. Dea thanked me for stopping in but was not interested in further conversation.
--- NOTE | 2025-05-28 18:08 | PGE_ITS ---
Date of Service Date of service: 05/28/25 Time of Service: 11:00 Assessment and Plan Assessment and plan (1) Right hip pain: Status: Acute Assessment and plan: Presenting with leukocytosis not meeting sepsis criteria Ongoing cefazolin and vancomycin for MSSA and MRSA coverage As per CT initial findings: right hip fluid collection with gas bubbles 3.5 x 2.0 x 12.5 cm- pointing to an abscess deep to the fascia fluid collection w/o , gas bubbles and measuring 4.6 cm x 1.8 cm x 9 cm craniocaudal, most likely postop seroma- vs abscess F/U imaging as per Ortho if needed OR with Dr Basurto on 05/27 : Right hip abscess irrigation and debridement completed -Surgical site cultures X2 pending -MARIN drain with ongoing nursing care document Output Q 12hours - DVT prophylaxis with LMWH -Ongoing pain control : PRN acetaminophen, PRN ketorolac,and PRN oxycodone , PRN IV morphine for severe pain - and on home dose gabapentin -Favors Ketorolac -Transition to Celebrex prior to d/c -bowel medicine regimen scheduled - Ongoing oral probiotics (2) Tobacco abuse: Status: None Assessment and plan: Ongoing NRT PRN Previously discussed with patient: nicotine could decrease her wound healing potential as it is a vasoconstrictor. Encourage smoking cessation and PCP f/u- but meds for cessation - was expansive (3) Insomnia: Status: Acute Assessment and plan: home dose lorazepam Melatonin (4) Anxiety: Status: Chronic Assessment and plan: Continue outpatient medicine regimen (5) Depression: Status: None Assessment and plan: Continue outpatient medicine regimen (6) COPD (chronic obstructive pulmonary disease): Status: None Assessment and plan: Continue outpatient medicine regimen BIPAP/NIV as per home settings (7) GERD (gastroesophageal reflux disease): Status: Chronic Assessment and plan: Continue outpatient medicine regimen with PPI Discussed with Dr Corrigan Subjective Subjective Patient reports: feels better, pain is less, tolerating liquids well, tolerating a regular diet, voiding w/o difficulty, flatus, no bowel movement and afebrile; denies diarrhea, nausea, vomiting or shortness of breath Exam Narrative Exam Narrative: Alert and oriented X4, improved RLE pain- surgical site s/p OR, swelling around surgical dressing w/o hematoma- MARIN drain - minimal sanguineous drainage , dressing DCI , neurologically intact, improved ROM RLE, , unlabored breathing, clear lungs to auscultation, abdomen is non-distended, soft and non- tender, bowel sounds are present, Objective Last Vital Signs Temp 36.7 C 05/28/25 07:40 Pulse 70 05/28/25 07:40 Resp 20 05/28/25 07:40 BP 107/53 L 05/28/25 07:40 Pulse Ox 99 05/28/25 07:40 Laboratory Results - last 24 hr 05/28/25 05/28/25 05:35 06:06 WBC 7.75 RBC 2.84 L Hgb 9.1 L Hct 27.3 L MCV 96 H MCH 32.0 MCHC 33.3 RDW 13.1 Plt Count 359 MPV 9.3 Immature Gran % 0.4 Neutrophils % 57.1 Lymphocytes % 24.1 Monocytes % 11.0 Eosinophils % 6.8 Basophils % 0.6 Nucleated RBC % 0.0 Absolute Neutrophils 4.42 Absolute Lymphocytes 1.87 Absolute Monocytes 0.85 H Absolute Eosinophils 0.53 Absolute Basophils 0.05 Sodium Cancelled 140 Potassium Cancelled 3.9 Chloride Cancelled 104 Carbon Dioxide Cancelled 27.8 Anion Gap Cancelled 8.2 BUN Cancelled 18 Creatinine Cancelled 0.9 Est GFR (CKD-EPI 2020) Cancelled 72.73 Glucose Cancelled 91 Calcium Cancelled 8.7 Total Bilirubin 0.1 L AST 32 ALT 52 Alkaline Phosphatase 114 Total Protein 6.3 L Albumin 2.4 L Time Spent with Patient Time Spent with Patient: >50 minutes Time was spent: preparing to see the patient(eg.review tests), obtaining and/or reviewing separately otained hiistory, ordering medications,tests, procedures, referring, communicating with other health vision care associate, indepentently interpreting results, counseling the patient, care coordination and other
[2025-05-28 19:23] VITALS: BP 122/66; PULSE 69; RESP 14; TEMP 36.5; O2SAT 97
[2025-05-28] MEDS: clonazePAM 0.5 MG TAB PO (21:12)
[2025-05-28] MEDS: Nicotine 4 MG LOZG SUC (21:18)
[2025-05-29 05:46] LABS: Abs Immature Grans 0.03 10^3/uL (0.0-0.06); HCT 27.8 % (36.0-46.0); HGB 9.3 g/dL (11.2-15.7); Immature Grans % 0.4 %; MCH 31.7 pg (27.0-33.0); MCHC 33.5 % (32.0-36.0); MCV 95 fL (80-95); MPV 9.3 fL (8.0-11.0); Platelet Count 398 10^3/uL (130-400); RBC 2.93 10^6/uL (3.93-5.22); RDW 13.1 % (11.7-14.6); RDW-SD 45.7 fL; WBC 7.78 10^3/uL (4.4-10.8)
[2025-05-29 05:53] LABS: ESR 44 mm/hr (0-30)
[2025-05-29] MEDS: ceFAZolin 2 GM/50 ML BAG IVPB (05:54)
[2025-05-29 06:03] LABS: ALT 23 U/L (14-59); AST 14 U/L (15-37); Albumin 2.4 g/dL (3.4-5.0); Alkaline Phosphatase 106 U/L (46-116); Anion Gap 7.3 mmol/L (3-11); BUN 18 mg/dL (7-18); Bilirubin, Total 0.2 mg/dL (0.2-1.0); C-Reactive Protein 5.85 mg/dL (<or=0.5); CO2 26.7 mmol/L (21.0-32.0); Calcium 9.0 mg/dL (8.5-10.1); Chloride 108 mmol/L (98-107); Estimated GFR 72.73 (mL/min/1.73m2); Glucose 88 mg/dL (74-106); Potassium 4.1 mmol/L (3.5-5.1); Sodium 142 mmol/L (136-145); Total Protein 6.4 g/dL (6.4-8.2)
[2025-05-29 06:22] LABS: Vancomycin, Trough 19.9 ug/mL (10.0-20.0)
[2025-05-29 07:43] VITALS: BP 120/60; PULSE 60; RESP 16; TEMP 36.6; O2SAT 98
[2025-05-29] MEDS: buPROPion-CR 150 MG TABCR PO (08:08)
[2025-05-29] MEDS: Omeprazole 20 MG CAPCR 40 MG PO (08:08)
[2025-05-29] MEDS: Lactobacillus Acidophilus CAP 1 CAP PO ×2 (08:08→12:43)
[2025-05-29] MEDS: Docusate Sodium 100 MG CAP PO ×2 (08:08→12:43)
[2025-05-29] MEDS: Enoxaparin 40 MG/0.4 ML SYR SC (08:08)
[2025-05-29] MEDS: FLUoxetine 20 MG CAP 60 MG PO (08:08)
[2025-05-29] MEDS: Normal Saline Flush 10 ML SYR IVP (08:09)
[2025-05-29] MEDS: Ketorolac 15 MG/ML VIAL IVP ×2 (08:09→12:44)
[2025-05-29] MEDS: Gabapentin 600 MG TAB 1200 MG PO (08:09)
[2025-05-29] MEDS: Triamcinolone 0.1% CR 15 GM TUBE TP (08:17)
[2025-05-29] MEDS: Nicotine 4 MG GUM CH (08:17)
[2025-05-29] MEDS: VANCOMYCIN/WATER (PEG) 1.25 GM/250 ML BAG IVPB (09:21)
--- NOTE | 2025-05-29 09:35 | PDOC.CMPRO ---
Date of service: 05/29/25 Time of Service: 09:35 Care Management Progress Note Discharge Potential Discharge Needs: Surgical F/U Appt Anticipated Barriers to Discharge: None Identified Patient/Family Education Needs: Review discharge instructions, discuss Ask Me Three Transportation: Private vehicle Plan: Anticipate Dea will be discharged home with no new services when medically and surgically stable. She will follow up with her community providers and plan of care and transport with family. CM will follow and continue to assess for discharge needs. Social Determinants of Health Screening Social Determinants of health last assessed in clinic: 05/28/25 Will the Patient Participate in the Screening?: Yes Do you worry about having a steady place to live?: no Problems where you live: no known problems In the past 12 months, have you had to go without electric, gas, oil or water in your home?: no Has lack of transportation kept you from medical appointments or from doing things needed for daily living?: no Has anyone in your life made you feel unsafe or unsupported?: no How hard is it for you to pay for the very basics like food, housing, medical care, and heating? Would you say it is:: Somewhat hard Do you want help finding or keeping work or a job?: I do not need or want help If for any reason you need help with day-to-day activities such as bathing, preparing meals, shopping, managing finances, etc., do you get the help you need?: I get all the help I need How often do you feel lonely or isolated from those around you?: Sometimes Do you speak a language other than Estonian at home?: No Does the patient want assistance with any of the above?: No Health Related Social Needs Health related social needs: problems related to housing/economic circumstances (Z59.89) and feeling lonely/isolated (Z60.8) Health related social needs details: pt declined any assistance
--- NOTE | 2025-05-29 10:53 | OCONE_ITS ---
Date of service: 05/29/25 Time of Service: 10:53 Assessment and Plan Assessment and plan (1) Abscess of right thigh: Status: Acute (2) History of total right hip replacement: Status: Acute Assessment and plan: Dea is postop day #2 from I&D of right hip wound due to a total hip replacement (05/06/2025), and she continues to do very well. No pain whatsoever. Has been ambulatory without assistance. Very eager to be discharged today. No concern of worsening infection. Some drainage in the drain overnight, mostly bloody. Denies any systemic symptoms. No other questions or concerns. Right Hip Exam: Dressing is clean dry and intact. No evidence of expanding erythema or cellulitis. Drain is in place with some mostly bloody drainage noted, feeling about a third of the collection bulb. Demonstrates smooth internal and external rotation without pain. Dea continues to do very well postop day #2 from I&D of the right hip incision. White blood cell count of 7.78. ESR 44, down from 50. CRP 5.85 down from 14.88. Review of culture and sensitivities results organism 1 Staphylococcus aureus appears pansensitive. Continues with mild to moderate drainage, likely leave drain in place. May continue working with physical therapy although ambulating very well. Continue Toradol for discomfort. May switch to Celebrex upon discharge. Anticipate transition to oral antibiotics and likely admission later today with outpatient follow-up with Dr. Curtis in the next 1-2 weeks. [facility] All Active Problems GERD (gastroesophageal reflux disease) (Chronic) Right hip pain (Acute) Abscess of right thigh (Acute) Cellulitis of right thigh (Acute) History of total right hip replacement (Acute 05/06/25) No-show for appointment (Acute) Tendonitis of long head of biceps brachii of right shoulder (Acute) Right rotator cuff tear (Acute) Thoracic back pain (Acute) Sacroiliac joint dysfunction (Acute) Colon cancer screening (Acute) Internal hemorrhoids with other complication (Acute) Sacroiliac joint dysfunction of right side (Acute) Right rotator cuff tendinitis (Acute) Biceps tendinitis of right upper extremity (Acute) Bursitis of shoulder, right (Acute) Insomnia (Acute) Anxiety (Chronic) UTI (urinary tract infection) (Acute) Trochanteric bursitis, right hip (Acute) Low back pain radiating to lower extremity (Acute) S/P left rotator cuff repair (Acute 09/22/20) BPPV (benign paroxysmal positional vertigo) (Acute) Screening for colon cancer (Acute) Claustrophobia (Acute) pt. 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 (Acute) great to MTP joint Primary osteoarthritis of left knee (Chronic) Corticosteroid injection: 12/03/18, 09/12/18 History of total right knee replacement (TKR) (Chronic) 07/20/2018 Revision of arthrotomy on 08/09/2018 Medical History Dysuria Tendonitis of left rotator cuff Confirmed RTC tear Marital problems Prurigo nodularis Thoracic spine pain Peripheral edema Chronic low back pain Knee joint pain Urinary frequency Headache Primary osteoarthritis of right knee (12/04/17) Complex tear of medial meniscus of right knee as current injury (11/06/17) Surgical History H/O shoulder surgery right History of arthroscopic surgery of shoulder L shoulder History of total hysterectomy History of cholecystectomy History of delivery (~04/25/11) Status post revision of total knee replacement July 2018 Status post total knee replacement, right July 2018 Status post arthroscopy of right knee (~11/22/17) Partial medial meniscectomy, medial chondroplasty, removal of loose bodies Date of surgery: November 21, 2017 Dr. Curtis Social History Smoking/Tobacco Use Status: Current every day Tobacco Type: cigarettes Smoking packs per day: 1 Smoking cigarettes per day: 20.0 Years smoked: 44 Smoking pack- years: 44.00 Smoking risk assessment performed?: Yes Alcohol Intake: current Alcohol Intake frequency: holidays/special occasions only Drug use: Never Substance use type: does not use Details: cigarettes this AM Housing: house Current gender identity: female Do you feel safe at home: Yes Do you feel safe in your relationship?: Yes Results Last Vital Signs Temp 36.6 C 05/29/25 07:43 Pulse 60 05/29/25 07:43 Resp 16 05/29/25 07:43 BP 120/60 05/29/25 07:43 Pulse Ox 98 05/29/25 07:43 Labs 05/29/25 05:10 05/29/25 05:10 Labs: Laboratory Results - last 24 hr 05/29/25 05/29/25 05:10 05:35 WBC 7.78 RBC 2.93 L Hgb 9.3 L Hct 27.8 L MCV 95 MCH 31.7 MCHC 33.5 RDW 13.1 Plt Count 398 MPV 9.3 Immature Gran % 0.4 Neutrophils % 52.3 Lymphocytes % 27.0 Monocytes % 9.9 Eosinophils % 9.6 Basophils % 0.8 Nucleated RBC % 0.0 Absolute Neutrophils 4.07 Absolute Lymphocytes 2.10 Absolute Monocytes 0.77 Absolute Eosinophils 0.75 H Absolute Basophils 0.06 ESR 44 H Sodium 142 Cancelled Potassium 4.1 Cancelled Chloride 108 H Cancelled Carbon Dioxide 26.7 Cancelled Anion Gap 7.3 Cancelled BUN 18 Cancelled Creatinine 0.9 Cancelled Est GFR (CKD-EPI 2020) 72.73 Cancelled Glucose 88 Cancelled Calcium 9.0 Cancelled Total Bilirubin 0.2 AST 14 L ALT 23 Alkaline Phosphatase 106 C-Reactive Protein 5.85 H Total Protein 6.4 Albumin 2.4 L Vancomycin Trough 19.9
[2025-05-29] MEDS: Sulfameth/Trimeth DS TAB 1 TAB PO (12:43)
--- NOTE | 2025-05-29 13:24 | PGE_ITS ---
Date of Service Date of service: 05/29/25 Time of Service: 13:24 Assessment and Plan Assessment and plan (1) Abscess of right thigh: Status: Acute Assessment and plan: 59-year-old female postop day #2 right hip abscess I&D status post anterior total hip arthroplasty 04/[address] Curtis. Patient continues to feel very well after procedure. No pain or discomfort really at all. Ambulatory without difficulty not requiring any assistance. Eager to be discharged home. Inflammatory infectious markers improved. MARIN drain in place with some bloody drainage and fat globules present. No purulence. Dressing clean dry, but Medipore tape healing up, reinforced nicely with patient and provided extra roll of tape to take home. Remainder of thigh clean with minimal to no swelling, no redness, no bruising. Signs or symptoms of a problem Discussed with hospitalist, culture show pansensitive Staph aureus or MSSA. Patient previously tolerated cefadroxil briefly prior to admission, already has this prescription, and will use this antibiotic through follow-up and drain removal next week. She will use a daily probiotic. Will have my office arrange follow-up with Dr. Curtis probably on Monday in 4 days for wound check and drain removal when less output. Objective Last Vital Signs Temp 97.9 F 05/29/25 07:43 Pulse 60 05/29/25 07:43 Resp 16 05/29/25 07:43 BP 120/60 05/29/25 07:43 Pulse Ox 98 05/29/25 07:43 Laboratory Results - last 24 hr 05/29/25 05/29/25 05:10 05:35 WBC 7.78 RBC 2.93 L Hgb 9.3 L Hct 27.8 L MCV 95 MCH 31.7 MCHC 33.5 RDW 13.1 Plt Count 398 MPV 9.3 Immature Gran % 0.4 Neutrophils % 52.3 Lymphocytes % 27.0 Monocytes % 9.9 Eosinophils % 9.6 Basophils % 0.8 Nucleated RBC % 0.0 Absolute Neutrophils 4.07 Absolute Lymphocytes 2.10 Absolute Monocytes 0.77 Absolute Eosinophils 0.75 H Absolute Basophils 0.06 ESR 44 H Sodium 142 Cancelled Potassium 4.1 Cancelled Chloride 108 H Cancelled Carbon Dioxide 26.7 Cancelled Anion Gap 7.3 Cancelled BUN 18 Cancelled Creatinine 0.9 Cancelled Est GFR (CKD-EPI 2020) 72.73 Cancelled Glucose 88 Cancelled Calcium 9.0 Cancelled Total Bilirubin 0.2 AST 14 L ALT 23 Alkaline Phosphatase 106 C-Reactive Protein 5.85 H Total Protein 6.4 Albumin 2.4 L Vancomycin Trough 19.9 Time Spent with Patient Time Spent with Patient: <25 minutes Time was spent: preparing to see the patient(eg.review tests), obtaining and/or reviewing separately otained hiistory, ordering medications,tests, procedures, referring, communicating with other health rn care transition, indepentently interpreting results, counseling the patient and care coordination
--- NOTE | 2025-05-29 13:32 | DSE_ITS ---
Date of service: 05/29/25 Time of Service: 13:33 DS: Diagnosis Discharge Diagnosis (1) Abscess of right thigh: Status: Acute Discharge Plan Disposition Patient Disposition: Home Condition: Improving Discharge Details Reason For Visit: Cellulitis Admit Date/Time: 05/26/25 22:49 Admit Provider: Hakeem Acosta Attending Provider: Hakeem Acosta Primary Care Provider: Yaya Meadows [facility] Hospital Course: Ms. Sifuentes is a 59-year-old female who had a right hip surgery done in April 2025, seen in the ED on 05/25/25 for complaint fatigue and erythema at surgical site with CT showing small abscess and likely a seroma and subsequently discharged home on cefadroxil and doxycycline. The patient presented in the ED on 05/26/25 with worsening symptoms with increased purulent right hip surgical site drainage with worsening leukocytosis. PMHx includes: COPD, PVD, insomnia. At that time discussion completed with Dr. Curtis over the phone who recommended admission for IV antibiotics and potential an incision and and drainage.The patient was admitted to the medical surgical floor by the [facility] with orthopedic consultation. The patient was treated with IV Vancomycin and Cefazolin. Right hip I&D completed by Dr Basurto on 05/27 s/o complication with ongoing MARIN drain. H&H is stable, CRP trending down. Cultures from wound growing S. Aureus - MSSA only. S/p discussion with orthopedist, cefadroxil to be continued and follow-up with Dr. Curtis planned for Monday at the clinic where her drain will be removed. The patient is afebrile and hemodynamically stable and will be discharged home with follow-up with PCP within 7 days of discharge. Discharge instructions regarding MARIN drain and dressing as per Dr. Basurto. Discussed with Dr. Corrigan Recommendations for Follow Up Recommended tests to be ordered by follow up provider: [facility] for generic Chantix prescription at lower cost - for smoking cessation goal expressed by patient Home Meds and New Rx's Prescriptions: New polyethylene glycol 3350 17 gram Powder In Packet 17 g PO DAILY Qty: 14 0RF Bio-K plus 50 billion cell capsule,delayed release(DR/EC) 1 cap PO DAILY Qty: 14 0RF Rx Instructions: Take 3 hours apart from oral antibiotics Continued fluoxetine 40 mg capsule 60 mg PO DAILY albuterol sulfate [Ventolin HFA] 90 mcg/actuation HFA aerosol inhaler 2 puff [id number] PRN triamcinolone acetonide 0.1 % cream 1 applic topical DAILY Patient Comments: Patient uses PRN gabapentin 600 mg tablet 1,200 mg PO BID clonazepam 0.5 mg tablet 0.5 mg PO QHS Patient Comments: TAKE 1/2 TO 1 TABLET BY MOUTH EACH NIGHT NEEDED omeprazole 20 mg capsule,delayed release(DR/EC) 40 mg PO DAILY acetaminophen 500 mg tablet 1,000 mg PO Q8H PRN Qty: 90 0RF Rx Instructions: Take two tablets up to every 8 hours as needed for pain aspirin 81 mg tablet,delayed release (DR/EC) 81 mg PO BID 30 Days Qty: 60 0RF celecoxib [Celebrex] 200 mg capsule 200 mg PO BID PRNQty: 60 0RF Rx Instructions: Take one tablet twice daily for pain and inflammation oxycodone 5 mg tablet 5 mg PO PRN PRN Patient Comments: TAKE ONE TABLET BY MOUTH UP TO EVERY 6 HOURS NEEDED FOR SEVERE POSTOPERATIVE PAIN cefadroxil 500 mg capsule 1,000 mg PO BID 10 Days Qty: 40 0RF bupropion HCl 150 mg tablet sustained-release 12 hr 150 mg PO DAILY Patient Comments: TAKE ONE TABLET BY MOUTH EVERY MORNING Discontinued doxycycline hyclate 100 mg tablet 100 mg PO BID Qty: 18 0RF Discharge Instructions Referrals: [facility] [Provider Group] Referral Note: Follow-up on Monday06/02/[address] Kirsten Meadows,Yaya Gomez MD [Primary Care Provider, Medicine] Referral Note: Follow-up with 7 days of discharge Activity:: Activity as Tolerated Equipment/Supplies:: No Equipment Needed Diet:: As Tolerated Discharge Orders Discharge Orders: Discharge Order (Routine); Ordered 05/29/25 Ordered By: Noemi Ordonez DS: Summary Time Spent with Patient providing and/or coordinating discharge services: Greater than 30 minutes Status at Discharge Functional status at discharge: independent ambulation Overall status at discharge: patient is progressing back to baseline Mental Status: mental status grossly normal Speech and Movement: speech and movement normal Mood: congruent mood Affect: normal affect Quality:SDOH Health Related Social Needs: Health related social needs house/econ circumstance lo fred/isolated Health related social needs details pt declined any as sistance Health related social needs details: pt declined any assistance Exam Narrative Exam Narrative: Alert and oriented X4, neurologically intact,unlabored breathing, clear lungs to auscultation, abdomen is non-distended, soft and non-tender, bowel sounds are present, improved RLE pain- surgical site s/p OR, improved swelling around surgical dressing w/o hematoma- MARIN drain - minimal sanguineous drainage , dressing DCI , improved ROM RLE, , Psych Mental Status: mental status grossly normal Speech and Movement: speech and movement normal Mood: congruent mood Affect: normal affect DS: Data Vitals/I&O Vitals and I&O: Vital Signs Temperature 36.6 C 05/29/25 07:43 Temperature Source Temporal Artery Scan 05/29/25 07:43 Pulse 60 05/29/25 07:43 Pulse Rhythm Regular 05/27/25 01:06 Pulse 72 05/27/25 14:01 Respiratory Rate 16 05/29/25 07:43 Respiratory Effort Normal 05/27/25 01:06 Respiratory Depth Normal 05/27/25 01:06 Respiratory Pattern Normal 05/27/25 01:06 Blood Pressure 120/60 05/29/25 07:43 Blood Pressure Mean 80 05/29/25 07:43 Pulse Oximetry 98 05/29/25 07:43 Respiratory End-tidal CO2 36 05/27/25 14:17 Oxygen Delivery Method Bi-pap 05/29/25 07:43 Oxygen Flow Rate 0 05/28/25 19:23 Pain Level 5 05/28/25 21:19 Comment BP inaccurate 05/27/25 13:37 Intake & Output 05/28/25 05/29/25 05/29/25 23:59 11:59 23:59 Intake Total 360 / 680 Output Total Balance 330 / 620 -20 / -20 Intake: IV 360 / 680 Output: Drainage Right Hip Other: Urine Color Yellow Urine Appearance Clear Comment unmeasured Data Completed and Pending Labs on day of discharge: Labs from last 24 hours 05/29/25 05/29/25 05:35 05:10 WBC 7.78 RBC 2.93 L Hgb 9.3 L Hct 27.8 L MCV 95 MCH 31.7 MCHC 33.5 RDW 13.1 Plt Count 398 MPV 9.3 Immature Gran % 0.4 Neutrophils % 52.3 Lymphocytes % 27.0 Monocytes % 9.9 Eosinophils % 9.6 Basophils % 0.8 Nucleated RBC % 0.0 Absolute Neutrophils 4.07 Absolute Lymphocytes 2.10 Absolute Monocytes 0.77 Absolute Eosinophils 0.75 H Absolute Basophils 0.06 ESR 44 H Sodium Cancelled 142 Potassium Cancelled 4.1 Chloride Cancelled 108 H Carbon Dioxide Cancelled 26.7 Anion Gap Cancelled 7.3 BUN Cancelled 18 Creatinine Cancelled 0.9 Est GFR (CKD-EPI 2020) Cancelled 72.73 Glucose Cancelled 88 Calcium Cancelled 9.0 Total Bilirubin 0.2 AST 14 L ALT 23 Alkaline Phosphatase 106 C-Reactive Protein 5.85 H Total Protein 6.4 Albumin 2.4 L Vancomycin Trough 19.9 Preliminary micro results at discharge 05/27/25 12:35 Hip - Right Anaerobic Culture - Preliminary 05/27/25 12:35 Hip - Right Anaerobic Culture - Preliminary 05/27/25 12:35 Hip - Right Surgical Culture - Preliminary Staphylococcus aureus 05/27/25 12:35 Hip - Right Surgical Culture - Preliminary Staphylococcus aureus PFSH All Active Problems GERD (gastroesophageal reflux disease) (Chronic) Right hip pain (Acute) Abscess of right thigh (Acute) Cellulitis of right thigh (Acute) History of total right hip replacement (Acute 05/06/25) No-show for appointment (Acute) Tendonitis of long head of biceps brachii of right shoulder (Acute) Right rotator cuff tear (Acute) Thoracic back pain (Acute) Sacroiliac joint dysfunction (Acute) Colon cancer screening (Acute) Internal hemorrhoids with other complication (Acute) Sacroiliac joint dysfunction of right side (Acute) Right rotator cuff tendinitis (Acute) Biceps tendinitis of right upper extremity (Acute) Bursitis of shoulder, right (Acute) Insomnia (Acute) Anxiety (Chronic) UTI (urinary tract infection) (Acute) Trochanteric bursitis, right hip (Acute) Low back pain radiating to lower extremity (Acute) S/P left rotator cuff repair (Acute 09/22/20) BPPV (benign paroxysmal positional vertigo) (Acute) Screening for colon cancer (Acute) Claustrophobia (Acute) pt. 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 (Acute) great to MTP joint Primary osteoarthritis of left knee (Chronic) Corticosteroid injection: 12/03/18, 09/12/18 History of total right knee replacement (TKR) (Chronic) 07/20/2018 Revision of arthrotomy on 08/09/2018 Medical History Dysuria Tendonitis of left rotator cuff Confirmed RTC tear Marital problems Prurigo nodularis Thoracic spine pain Peripheral edema Chronic low back pain Knee joint pain Urinary frequency Headache Primary osteoarthritis of right knee (12/04/17) Complex tear of medial meniscus of right knee as current injury (11/06/17) Surgical History H/O shoulder surgery right History of arthroscopic surgery of shoulder L shoulder History of total hysterectomy History of cholecystectomy History of delivery (~04/25/11) Status post revision of total knee replacement July 2018 Status post total knee replacement, right July 2018 Status post arthroscopy of right knee (~11/22/17) Partial medial meniscectomy, medial chondroplasty, removal of loose bodies Date of surgery: November 21, 2017 Dr. Curtis Social History Smoking/Tobacco Use Status: Current every day Tobacco Type: cigarettes Smoking packs per day: 1 Smoking cigarettes per day: 20.0 Years smoked: 44 Smoking pack- years: 44.00 Smoking risk assessment performed?: Yes Alcohol Intake: current Alcohol Intake frequency: holidays/special occasions only Drug use: Never Substance use type: does not use Details: cigarettes this AM Housing: house Current gender identity: female Do you feel safe at home: Yes Do you feel safe in your relationship?: Yes Time Spent with Patient Time Spent with Patient: >85 minutes Time was spent: preparing to see the patient(eg.review tests), obtaining and/or reviewing separately otained hiistory, ordering medications,tests, procedures, referring, communicating with other health resident care assistant, indepentently interpreting results, counseling the patient, care coordination and other
--- NOTE | 2025-05-29 16:55 | CMDISCH_ITS ---
Date of service: 05/29/25 Time of Service: 16:55 LACE Index Scoring Tool Questions: Length of Stay (in days): 3 Was the patient admitted via the E.D.?: Yes E.D. Visits: 3 Answers: Total Score: 9 Risk of Readmission: Low Risk Care Management Discharge Plan Reason for Hospitalization: cellulitis Discharge Plan: Dea will be discharged home with no new services. She will follow up with her community providers and plan of care and transport with family. Patient/Family Education Needs: Review discharge instructions, limitations, follow up plan and discuss discuss Ask Me Three SDOH Health Related Social Needs: Health related social needs house/econ circumstance lo fred/isolated Health related social needs details pt declined any as sistance Health related social needs details: pt declined any assistance
== END 2025-05-29 15:41 | disposition home or self-care (01) | DRG 857 ==
LOC: ER 21:48 → MS 05-27 00:44
PROVIDERS: Student in an Organized Health Care Education/Training Program; Admitting Provider Hospitalist; Emergency Provider Registered Nurse Emergency; PCP Family Medicine; Responsible Provider Nurse Practitioner Acute Care; Visit Provider Hospitalist
PROC: 0K9Q0ZZ Drainage of Right Upper Leg Muscle, Open Approach (ICD-10-PCS; CPT 26990; principal; 2025-05-27 12:00)
DX: T81.42XA Infection following a procedure, deep incisional surgical site, initial encounter (principal); L03.115 Cellulitis of right lower limb; G47.00 Insomnia, unspecified; J44.9 Chronic obstructive pulmonary disease, unspecified; F41.9 Anxiety disorder, unspecified; F32.A Depression, unspecified; K21.9 Gastro-esophageal reflux disease without esophagitis; B95.61 Methicillin susceptible Staphylococcus aureus infection as the cause of diseases classified elsewhere; Z96.641 Presence of right artificial hip joint; M54.50 Low back pain, unspecified; Z96.651 Presence of right artificial knee joint; G89.29 Other chronic pain; L28.1 Prurigo nodularis; R60.0 Localized edema; R35.0 Frequency of micturition; F17.210 Nicotine dependence, cigarettes, uncomplicated; Z59.9 Problem related to housing and economic circumstances, unspecified; R45.89 Other symptoms and signs involving emotional state
CPT/HCPCS: 26990; 00123; 36415; 80048; 80053; 85652; 87077; 96365; 96366; 96367; 96375; 99222; 99285; J1650; 80202; 84484; 85025; 86140; 87070; 87075; 87186; 87205; 93005; 93010; 99233; 99239; J0131; J0690; J1885; J2003; J2250; J2270; J2405; J2704; J3010; J3373

== ENCOUNTER → 2025-06-02 11:04 | Outpatient (BNVA) | payer MEDICARE, SELFPAY | PROVIDERS: PCP Family Medicine; Referring Provider Family Medicine; Visit Provider Student in an Organized Health Care Education/Training Program | DX: Z47.1 Aftercare following joint replacement surgery (principal); L02.415 Cutaneous abscess of right lower limb; L03.115 Cellulitis of right lower limb; Z96.641 Presence of right artificial hip joint | CPT/HCPCS: 99024 ==

== ENCOUNTER → 2025-06-19 14:03 | Outpatient (BNVA) | payer MEDICARE, SELFPAY | PROVIDERS: PCP Family Medicine; Referring Provider Family Medicine; Visit Provider Student in an Organized Health Care Education/Training Program | DX: Z47.1 Aftercare following joint replacement surgery (principal); Z96.641 Presence of right artificial hip joint; L02.415 Cutaneous abscess of right lower limb; T81.31XD Disruption of external operation (surgical) wound, not elsewhere classified, subsequent encounter | CPT/HCPCS: 99024 ==

== ENCOUNTER → 2025-08-05 01:36 | Outpatient (CLI) | payer MEDICARE, SELFPAY ==
--- NOTE | 2025-08-05 13:10 | DI.MAMMO_ITS ---
Exam(s) MAMMO SCREENING EXAM: MAMMO SCREENING CLINICAL HISTORY: SCREENING, Z12.31 TECHNIQUE: Bilateral full field digital CC and MLO mammographic images were obtained with 3D tomosynthesis and utilizing computer aided detection (CAD). COMPARISON: Comparison is made with prior examinations. FINDINGS: Masses/Architectural Distortion: There is increased prominence of a focal area of density in the upper outer quadrant of the right breast measuring 2 cm. Microcalcifications: No suspicious pleomorphic-type are seen. Skin Thickening/Nipple Retraction: None. IMPRESSION: 1. Increased prominence of a focal area of asymmetric breast tissue in the upper outer quadrant of the right breast. 2. Spot compression views are requested for further evaluation. Ultrasound may be indicated at that time. BI-RADS Category 0 - Incomplete: Need additional imaging evaluation Breast Density - Category B - There are scattered areas of fibroglandular density. Breast density Category C or D implies that the patient has dense breast tissue. Dense breast tissue can make it harder to find cancer on a mammogram. Dense breast tissue is also associated with an increased risk of breast cancer. This information about the result of the mammogram report was provided to the patient to raise their awareness. Use this report when you speak with the patient about their risks for breast cancer, which includes their family history. At that time, you may recommend additional screening tests (Ultrasound or MRI) as these tests may add significant information. A negative radiographic report should not delay biopsy if a dominant or clinically suspicious mass is present. Up to ten percent of cancers are not identified on mammography. A negative report may reinforce clinical impression. Adenosis and dense breasts may obscure an underlying neoplasm. False positive reports average 6 to 10%. Patient will receive a letter notifying them of these results.
== END ==
LOC: DI 01:36
PROVIDERS: PCP Family Medicine; Visit Provider Family Medicine
DX: Z12.31 Encounter for screening mammogram for malignant neoplasm of breast (principal)
CPT/HCPCS: 77063; 77067

== ENCOUNTER → 2025-08-11 03:57 | Outpatient (CLI) | payer MEDICARE, SELFPAY ==
--- NOTE | 2025-08-11 | DI.US_ITS ---
Exam(s) MAMMO SCREEN CALL BACK UNI US BREAST RT COMPLETE EXAM: MAMMO SCREEN CALL BACK UNI RIGHT AND COMPLETE RIGHT BREAST ULTRASOUND CLINICAL HISTORY: INCREASED PROMINENCE ASYMMETRIC BREAST TISSUE UPPER OUTER QUAD RT R92.8. TECHNIQUE: Unilateral RIGHT BREAST spot mammographic images obtained with 3D tomosynthesisand utilizing computer aided detection (CAD). . Complete RIGHT breast Ultrasound was also performed, including all 4 quadrants, the retroareolar region, and the ipsilateral axilla. COMPARISON: Prior mammograms were reviewed. This additional imaging was performed due to findings described on the recent screening mammogram of 08/05/2025. FINDINGS: DIAGNOSTIC MAMMOGRAM: Additional mammographic views performed todayare equivocal. We proceeded with ultrasound COMPLETE RIGHT BREAST ULTRASOUND: Ultrasound performed today reveals no evidence of solid or significant cystic lesions in all 4 quadrants. The upper outer quadrant scanned in multiple positions and revealed no significant focal findings.. Scanning of the ipsilateral axilla reveals no significant adenopathy. IMPRESSION: 1. Negative complete right breast ultrasound 2. Equivocal mammographic spot views Appropriate follow-up as discussed by myself with the patient today is repeat right breast mammogram in 6 months, with earlier imaging if a self detected breast change is noted.. The patient was informed of these findings and recommendations by myself prior to leaving the department today. BI-RADS Category 3 - 6 month - Probably Benign Finding: Recommend follow-up mammography in 6 months Breast Density - Category B - There are scattered areas of fibroglandular density. Breast density Category C or D implies that the patient has dense breast tissue. Dense breast tissue can make it harder to find cancer on a mammogram. Dense breast tissue is also associated with an increased risk of breast cancer. This information about the result of the mammogram report was provided to the patient to raise their awareness. Use this report when you speak with the patient about their risks for breast cancer, which includes their family history. At that time, you may recommend additional screening tests (Ultrasound or MRI) as these tests may add significant information. A negative radiographic report should not delay biopsy if a dominant or clinically suspicious mass is present. Up to ten percent of cancers are not identified on mammography. A negative report may reinforce clinical impression. Adenosis and dense breasts may obscure an underlying neoplasm. False positive reports average 6 to 10%. Patient will receive a letter notifying them of these results.
== END ==
LOC: DI 03:58
PROVIDERS: PCP Family Medicine; Visit Provider Family Medicine
DX: N63.21 Unspecified lump in the left breast, upper outer quadrant (principal)
CPT/HCPCS: 76642; 77063; 77067